=== PATIENT | male | born 1950 | race Caucasian/White ===

== ENCOUNTER 2021-06-28 09:18 | Inpatient (IN) | payer MEDICARE, OTHER ==
[~2021-06-28] VITALS: Ht 180.3 cm; Wt 136.9 kg
[2021-06-28] MEDS ORDERED: LACTULOSE SYRUP 10GM/15ML (ENULOSE) 30ML UDC PO PRN (12:00)
[2021-06-28] MEDS ORDERED: CALCIUM CARBONATE 500 MG (TUMS) TAB.CHEW PO PRN (12:00)
[2021-06-28] MEDS ORDERED: BISACODYL 10 MG SUPP (DULCOLAX) PR PRN (12:00)
[2021-06-28] MEDS ORDERED: guaiFENesin/CODEINE (ROBITUSSIN AC) 10ML UDC PO PRN (12:00)
[2021-06-28] MEDS ORDERED: MELATONIN 3 MG TABLET PO PRN (12:00)
[2021-06-28] MEDS ORDERED: LOPERAMIDE 2 MG (IMODIUM) TABLET PO PRN (12:00)
[2021-06-28] MEDS ORDERED: ALPRAZolam 0.25 MG (XANAX) TAB PO PRN (12:00)
[2021-06-28] MEDS ORDERED: DOCUSATE SODIUM 100 MG (COLACE) CAP PO PRN (12:00)
[2021-06-28] MEDS ORDERED: ONDANSETRON 4 MG (ZOFRAN) ORAL DISSOLVE TAB PO PRN (12:00)
[2021-06-28] MEDS ORDERED: FLEET ENEMA ADULT 1 EA BTL PR PRN (12:00)
[2021-06-28] MEDS ORDERED: diphenhydrAMINE 25 MG TAB (BENADRYL) PO PRN (12:00)
[2021-06-28] MEDS ORDERED: ACET325C7 PO (14:31)
[2021-06-28] MEDS ORDERED: AMLO-251 PO (14:31)
[2021-06-28] MEDS ORDERED: WHEA1POW6 PO (14:35)
[2021-06-28] MEDS ORDERED: BISA10SU8 RC (14:35)
[2021-06-28] MEDS ORDERED: POLY17PO6 PO (14:35)
[2021-06-28] MEDS ORDERED: MAGN400O7 PO (14:35)
[2021-06-28] MEDS ORDERED: FAMO20TA3 PO (14:35)
[2021-06-28] MEDS ORDERED: ATOR40TA70 PO (14:35)
[2021-06-28] MEDS ORDERED: BISA5TAB8 PO (14:35)
[2021-06-28] MEDS ORDERED: DOCU100C37 PO (14:35)
[2021-06-28] MEDS ORDERED: SENN-145 PO (14:35)
--- NOTE | 2021-06-28 15:08 | Physical Therapy Evaluation ---
PT Evaluation-General Medical Diagnosis Admission Date Jun 28, 2021 at 13:35 Medical Diagnosis: CVA Onset Date: Jun 20, 2021 Therapy Diagnosis Therapy Diagnosis: impaired mobility, strength, endurance, balance Referral Physician: Elizabeth Cook DO Reason for Referral: Evaluation/Treatment Medical History Reviewed History: Yes Social History Home: Single Level Current Living Status: Spouse Entry Into Home: Stairs Without Railing PT Steps Into Home: 2 Prior Prior Level of Function SCALE: Activities may be completed with or without assistive devices. 5-Ploypncqvj-bbtkfyw completes the activity by him/herself with no assistance from a helper. 5-Set-up or Clean-up Assistance-helper sets up or cleans up; patient completes activity. [place] assists only prior to or following the activity. 4-Supervision or Touching Assistance-helper provides verbal cues and/or touching/steadying and/or contact guard assistance as patient completes activity. Assistance may be provided throughout the activity or intermittently. 3-Partial/Moderate Assistance-helper does LESS THAN HALF the effort. [place] lifts, holds or supports trunk or limbs, but provides less than half the effort. 2-Substantial/Maximal Assistance-helper does MORE THAN HALF the effort. [place] lifts or holds trunk or limbs and provides more than half the effort. 5-Drpzvtlkx-iiyxve does ALL the effort. Patient does none of the effort to complete the activity. Or, the assistance of 2 or more helpers is required for the patient to complete the activity. If activity was not attempted, code reason: 7-Patient Refused. 9-Not Applicable-not attempted and the patient did not perform the activity before the current illness, exacerbation or injury. 10-Not Attempted due to Environmental Limitations-(lack of equipment, weather restraints, etc.). 88-Not Attempted due to Medical Conditions or Safety Concerns. Bed Mobility: 6 Transfers (B,C,W/C): 6 Gait: 6 Stairs: 6 Indoor Mobility (Ambulation): Independent Stairs: Independent PT Evaluation-Current Subjective Patient arrives by family transport. Has no complaints of pain, agrees to PT. Will be co-treating with OT for part of tx due to poor patient mobility, strength, endurance, balance, impulsivity, coordinate UE and LE during activity, safety and reduce risk of falls. Pt/Family Goals to be independent at home Objective Patient Orientation: Person, Place, Non-Verbal/Aphasic, Situation ROM/Strength ROM Lower Extremities WNL Strength Lower Extremities LLE (hip flexion 3+/5, knee flexion 4+/5, knee extension 5/5, dorsiflexion 5/5), RLE (hip flexion 3/5, knee flexion 3+/5, knee extension 4+/5, dorsiflexion 4/5) Sensory Vision: Functional Hearing: Functional Sensation Right Lower Extremit: Intact Sensation Left Lower Extremity: Intact Transfers Roll Left & Right (QC): 4 Sit to Lying (QC): 3 Lying to Sitting/Side of Bed(Q: 3 Sit to Stand (QC): 3 Chair/Why-mp-Quwzc Xfer(QC): 3 Toilet Transfer (QC): 3 Car Transfer (QC): 3 Patient performs bed mobility with SBA, supine <-> sit mod assist, sit <-> stand min assist, transfers min assist, car transfer min assist. Patient needs frequent cues for safety and positioning. He transfers better to the left side than the right. Gait Does the Patient Walk?: Yes Mode of Locomotion: Walk Anticipated Mode of Locomotion: Walk Walk 10 feet (QC): 3 Walk 50 ft with 2 Turns(QC): 3 Walk 150 ft (QC): 88 Walking 10ft/uneven surface-QC: 88 Distance: 120'x2 Gait Assistive Device: FWW Comments/Gait Description Patient can ambulate 120' with a rolling walker with min assist (including 50' with at least 2 turns of 90 degrees). Patient needs assist to help guide walker and with keeping right hand on walker. Unsteady but no LOB, occasional cues to slow down. Wheelchair Training Does the Pt Use a Wheelchair?: No Wheel 50 ft with 2 turns (QC): 9 Wheel 150 ft (QC): 9 Stairs 1 Step (curb) (QC): 88 4 Steps (QC): 88 12 Steps (QC): 88 Balance Sitting Static: Normal Sitting Dynamic: Fair Standing Static: Poor Standing Dynamic: Poor Picking up an Object (QC): 88 Treatment PT performed standing and positioning and safety during bathing and dressing, and ADL's. Also performed BLE seated exercises x20 (AP, marching), LAQ alter nating for 5 min. PT performed bed mobility and transfers, ambulation, OT performed bathing, dressing, ADL's, UE positioning and safety during activity. Assessment/Needs Patient in recliner post tx with nurse call, phone, tray, chair alarm on. Patient has impaired mobility, strength, endurance, balance. Patient needs min assist with sit to stand and transfers. Patient is having blood pressure issues and it started out at 192/97 (99%, 66bpm), checked several other times and it was 182/103, 171/107, 188/90. Treatment was adjusted to this. Rehab Potential: Fair PT Short Term Goals Short Term Goals Time Frame: Jul 05, 2021 Roll Left & Right: 6 Sit to lyin Lying to sitting on side of be: 3 Sit to stand: 4 Chair/ulo-xc-zkdqj transfer: 4 Walk 10 feet: 4 Walk 50 feet with two turns: 4 Walk 150 feet: 4 PT Usp Goals Usp Goals PT Social Secretary Goals Time Frame: Jul 19, 2021 Roll Left & Right (QC): 6 Sit to Lying (QC): 6 Lying-Sitting on Side/Bed(QC): 6 Sit to Stand (QC): 4 (SBA) Chair/Lvn-ae-Glzyt Xfer(QC): 4 (SBA) Toilet Transfer (QC): 4 (SBA) Car Transfer (QC): 4 (SBA) Does the Patient Walk: Yes Walk 10 feet (QC): 4 (SBA) Walk 50ft with 2 Turns (QC): 4 (SBA) Walk 150 ft (QC): 4 (SBA) Walking 10ft on Uneven Surface: 4 (SBA) 1 Step (curb) (QC): 4 (CGA) 4 Steps (QC): 4 (CGA) 12 Steps (QC): 88 Picking up an Object (QC): 4 (CGA) Wheel 50 feet with 2 turns (QC: 9 Wheel 150 feet: 9 PT Plan Problem List Problem List: Activity Tolerance, Functional Strength, Safety, Balance, Gait, Transfer, Bed Mobility, ROM Treatment/Plan Treatment Plan: Continue Plan of Care Treatment Plan: Bed Mobility, Education, Functional Activity Tenz[place], Functional Strength, Group Therapy, Gait, Safety, Therapeutic Exercise, Transfers Treatment Duration: Jul 19, 2021 Frequency: At least 5 of 7 days/Wk (IRF) Estimated Hrs Per Day: 1.5 hours per day Patient and/or Family Agrees t: Yes Safety Risks/Education Patient Education: Gait Training, Transfer Techniques, Correct Positioning, W/C Management, Safety Issues Teaching Recipient: Patient Teaching Methods: Demonstration, Discussion Response to Teaching: Reinforcement Needed Discharge Recommendations Plan Patient will perform bed mobility and transfer training, balance and endurance training, functional strengthening, stair training, gait training, and education, to improve functional mobility and independence at home. Therapy Discharge Recommendati: Scheduled Assistance, Home & Family, Post Acute PT Time/GCodes Time In: 1335 Time Out: 1515 Total Billed Treatment Time: 90 Total Billed Treatment 1 visit EVM 10' EX 15' FA 65' PT eval from [id number], OT eval from [id number], co-treat from [id number] MONTRELL DIALLO PT Jun 28, 2021 15:08
[2021-06-28] MEDS ORDERED: APIX5TAB PO (15:13)
[2021-06-28] MEDS ORDERED: GUAR1PAC4 PO (15:17)
--- NOTE | 2021-06-28 15:18 | Occupational Therapy Eval ---
OT Evaluation-General/PLF Medical Diagnosis Admission Date Jun 28, 2021 at 13:35 Medical Diagnosis: CVA Onset Date: Jun 20, 2021 Therapy Diagnosis Therapy Diagnosis: decreased ADL Status, aphasia Referral Physician: Joyce Saul Reason: Evaluation/Treatment Medical History Additional Medical History new onset afib, obesity, former smoker, bradycardia Current History acute L MCA CVA s/p thrombectomy Social History Home: Single Level Current Living Status: Spouse Entry Into Home: Stairs Without Railing Steps Into Home: 2 ADL-Prior Level of Function SCALE: Activities may be completed with or without assistive devices. 7-Fmkzpwbjfw-dpwmnqe completes the activity by him/herself with no assistance from a helper. 5-Set-up or Clean-up Assistance-helper sets up or cleans up; patient completes activity. [place] assists only prior to or following the activity. 4-Supervision or Touching Assistance-helper provides verbal cues and/or touching/steadying and/or contact guard assistance as patient completes activity. Assistance may be provided throughout the activity or intermittently. 3-Partial/Moderate Assistance-helper does LESS THAN HALF the effort. [place] lifts, holds or supports trunk or limbs, but provides less than half the effort. 2-Substantial/Maximal Assistance-helper does MORE THAN HALF the effort. [place] lifts or holds trunk or limbs and provides more than half the effort. 0-Siigzfkwn-vhsskj does ALL the effort. Patient does none of the effort to complete the activity. Or, the assistance of 2 or more helpers is required for the patient to complete the activity. If activity was not attempted, code reason: 7-Patient Refused. 9-Not Applicable-not attempted and the patient did not perform the activity before the current illness, exacerbation or injury. 10-Not Attempted due to Environmental Limitations-(lack of equipment, weather restraints, etc.). 88-Not Attempted due to Medical Conditions or Safety Concerns. ADL PLOF Comments Pt independent with ADLs and functional mobility at PLOF, no AE/AD Self Care: Independent Functional Cognition: Independent DME/Equipment: Tub/Shower OT Current Status Subjective Pt agreeable to OT tx. Noted expressive aphasia throughout tx, pt had difficulty with word finding and communicating what he wants to say. Mental Status/Objective Patient Orientation: Person, Place, Non-Verbal/Aphasic (expressive aphasia), Situation Current Glasses/Contacts: Yes Hearing Aids: No Dentures/Partials: Yes Hand Dominance: Left Upper Extremity ROM LUE WFL RUE decreased. shoulder flexion to approx 90 degrees. elbow flexion and extension, wrist flexion/extension, and finger flexion/extension present but limited. Upper Extremity Coordination decreased RUE Upper Extremity Sensation Pt denies tingling/numbness BUEs, intact light touch. Upper Extremity Strength LUE WFL grossly 4+/5 RUE WFL grossly 4-/5 ADL-Treatment Eating (QC): 5 (based on clincial judgment, assistance with cutting food and opening contianers. Pt left handed and able to use LUE) Oral Hygiene (QC): 4 (set up of toothpaste onto toothbrush, supervision during task. ) Shower/Bathe Self (QC): 3 (Min A. Pt required assistance with buttocks, BLE lower legs/feet. Pt able to wash other parts seated on WA, min A in stand for pericare) Upper Body Dressing (QC): 3 (Mod A. assistance opening shirt and threading RUE and assist managing down the trunk. Pt able to thread overhead and LUE) Lower Body Dressing (QC): 2 (Max A overall. Assist to thread BLEs, asisst with pant hike in back. Pt assisted with pant hike as able) On/Off Footwear (QC): 2 (Pt doffed R sock, assist doffing L. Assist donning BLE gripper socks.) Toileting Hygiene (QC): 2 (assist with clothing management and washing buttocks. Pt able to perform pericare.) Other Treatments OT evaluation complete. OT/PT cotreat due to skill of 2 clinicians required which a rehabilitation therapist could not perform in order to coordinate UE/LEs, decrease fall risk, and due to pt's limitations in strength, mobility, balance, activity tolerance, and impulsivity. OT focused on UE placement, cues for sequencing and safety, and ADLs, PT focused on LE placement, gross overall movement, transfers/mobility. Pt performed functional mobility around [facility] common area and into gym. BP 192/97 (99% O2 and 66bpm), BP checked several other times, 182/103, 171/107, and 188/90. Nurse present. Treatment was adjusted due to BP. Pt taken to room via w/c, transferred to WA. Pt completed shower and dressing, then sat at sink for oral care. Pt transferred to recliner. Post tx, pt up in recliner, call light in reach and all needs met. SBA bed mobility, supine to/from sit mod A, sit to/from stand min A, min A transfer, min A car transfer. Frequent cues required for safety and positioning, and cues for placement of RUE with transfers. Pt can perform functional mobility 120' with min A using FWW, needs assistance guiding walker and keeping RUE onto walker. Slight unsteadiness but no LOB, occasional cues to slow down. Education OT Patient Education: Correct positioning, Energy conservation, Exercise program, Modified ADL techniques, Progress toward Goal/Update tx plan, Purpose of tx/functional activities, Rehab process, Safety issues, Transfer techniques Teaching Recipient: Patient Teaching Methods: Discussion Response to Teaching: Verbalize Understanding OT Short Term Goals Short Term Goals Time Frame: Jul 12, 2021 Toileting hygiene: 4 Upper body dressin Lower body dressin Putting on/taking off footwear: 4 OT Jail Goals Jail Goals Time Frame: Jul 21, 2021 Eating (QC): 6 Oral Hygiene (QC): 6 Toileting Hygiene (QC): 6 Shower/Bathe Self (QC): 6 Upper Body Dressing (QC): 6 Lower Body Dressing (QC): 6 On/Off Footwear (QC): 6 Additional Goals: 1-Demonstrate ADL Tasks, 2-Verbalize Understanding, 3- ImproveStrength/[place] 1=Demonstrate adherence to instructed precautions during ADL tasks. 2=Patient will verbalize/demonstrate understanding of assistive de vices/modifications for ADL. 3=Patient will improve strength/tolerance for activity to enable patient to perform ADL's. OT Education/Plan Problem List/Assessment Assessment: Decreased Activ Tolerance, Decreased Safety Aware, Decreased UE Strength, Impaired Cognition, Impaired Funct Balance, Impaired I ADL's, Impaired Self-Care Skills, Restricted Funct UE ROM Discharge Recommendations Plan/Recommendations: Continue POC Therapy Discharge Recommendati: Scheduled Assistance, Home & Family, Post Acute OT Equpiment Recommendations-D/C: Extended Bath Bench Treatment Plan/Plan of Care Patient would benefit from OT for education, treatment and training to promote independence in ADL's, mobility, safety and/or upper extremity function for ADL's. Plan of Care: ADL Retraining, Cognitive Retraining, Functional Mobility, Group Exercise/Act as Ind, UE Funct Exercise/Act, UE Neuromus Re-Ed/Coord Treatment Duration: Jul 21, 2021 Frequency: At least 5 of 7 days/Wk (IRF) Estimated Hrs Per Day: 1.5 hours per day Rehab Potential: Fair Time/GCodes Start Time: 13:45 Stop Time: 15:15 Total Time Billed (hr/min): 90 Billed Treatment Time 8522-0352 OT eval, [id number] OT/PT cotreat 1, EVM (10'), FA 2 (35'), ADL 3 (45') JAZIEL ROCHA OT Jun 28, 2021 15:18
--- NOTE | 2021-06-28 16:44 | Progress Note ---
EBNY RODRIGUES 06/28/21 1644: Progress Note HPI: 70 yo M presented to the ED on 06-20-21 due to falling from a stroke and was not able to ambulate. He does not receive regular health checks and does not have a PCP. Workup at [facility] showed Acute Left MCA stroke with left sided weakness and was unable to speak so his spoke for him. The hospital performed thrombectomy but the clot was unable to be retrieved and no tPA was administered. He was also found to have new onset atrial fibrillation and blood pressure elevated into the 250s. He has had bradycardia where is HR dropped to the 20s but was treated with atropine 1mg. On 06-26-21 is only medication for HTN was amlodipine 10mg daily, since he still has HTN he was additionally treated with furosemide 20mg. EP evaluated the patient and determined no indication for pacemaker or intervention of any kind at this time, cardiology signed off. Also reported urinary urgency. Was given DVT prophylaxis with lovenox and GI pro phylaxis with famotidine. Was assessed as a great candidate for PT and OT and was transferred to [facility] in [place]. 06-28-21 PT reports walking 120 feet with walker with minimal assistance and can sit and stand without help. He lives in a house with one set of stairs. On this day his was not present, difficulty getting an accurate history due to communication problems. He reports intact group home memory. He has difficulty with dressing and aphasia throughout our conversation. He reports that his speech has been improving since being admitted to the ED as well as his muscle strength. He had some difficulty finding words to communicate, but was able to answer questions appropriately. Reports she wants intubation if needed but no resuscitation. ROS: Has been able to urinate and have bowel movements but reports urinary incontinence at night. Denies CP, SOB, Fever, N/V, dizziness, or pain. PSH: none PMH: Atrial fibrillation on 06-20-21 Meds: see medications folder, but no prior medication before he was seen in the ED Allergies: NKDA, no food or environmental allergies FH: Father-stroke, brother- stroke and CAD SH: denies tobacco, alcohol, or drug use. 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 Objective: General: alert, trouble speaking, one side of face is drooping Heart: RRR, no murmur Respiratory: normal sounds, no roles, no wheezing Neuro: CN 2-12 intact with right facial droop and some difficulty moving tongue. LE strength is 5/5, UE strength of left side is 5/5 with right side strength 3/5. Sensation intact UE and LE b/l, pain intact to UE b/l. Cerebellar function with finger to nose intact. A and P: Atrial Fibrillation Bradycardia Cerebral Infarction of Left middle Cerebral A. HTN No treatment needed for bradycardia by EP and cardiology from [place], monitor heart rate. Monitor for worsening neurological symptoms. Monitor HTN and develop regional intermodal truck driver treatment plan including statins if elevated lipid panel. Continue with PT and OT to overcome stairs and other obstacles at home. ELIZABETH BUTCHER DO 06/29/21 0521: Supervisory-Addendum Brief Verification & Attestation Participated in pt care: history, MDM, physical Personally performed: exam, history, MDM, supervision of care Care discussed with: Medical Student Procedures: n/a Results interpretation: Verified all documentation Verification and Attestation of Medical Student E/M Service A medical student performed and documented this service in my presence. I reviewed and verified all information documented by the medical student and made modifications to such information, when appropriate. I personally performed the physical exam and medical decision making. Elizabeth Butcher, Jun 29, 2021,05:21 BENY RODRIGUES Jun 28, 2021 16:44 ELIZABETH BUTCHER DO Jun 29, 2021 05:21
[2021-06-28] MEDS ORDERED: BISACODYL 10 MG SUPP (DULCOLAX) RC PRN (16:45)
[2021-06-28] MEDS ORDERED: BISACODYL 5 MG (DULCOLAX) TABLET PO PRN (16:45)
[2021-06-28] MEDS ORDERED: NON-FORMULARY MEDICATION 1 EA EA (Acetaminophen (Tylenol) 650 MG) PO PRN (16:45)
[2021-06-28] MEDS ORDERED: hydrALAZINE (APRESOLINE) 25 MG TAB PO PRN (16:45)
[2021-06-28] MEDS ORDERED: SENNA W/DOCUSATE (SENOKOT S) TABLET PO PRN (16:45)
[2021-06-28] MEDS ORDERED: ACETAMINOPHEN 325 MG TABLET PO PRN (17:00)
[2021-06-28 20:00] VITALS: BP 162/80
[2021-06-28] MEDS: APIXABAN 5 MG (ELIQUIS) TABLET PO SCH (20:29)
[2021-06-28] MEDS: DOCUSATE SODIUM 100 MG (COLACE) CAP PO SCH (20:29)
[2021-06-28] MEDS: polyethylene glycoL POWDER 17 GM (MIRALAX) PACK PO SCH (20:29)
[2021-06-28] MEDS: SENNA W/DOCUSATE (SENOKOT S) TABLET PO SCH (20:30)
--- NOTE | 2021-06-28 20:59 | PM&R Post Admission Assessment ---
PM&R HP Date of Visit: Jun 28, 2021 Time of Visit: 18:30 History of Present Illness CC: CVA HPI: This is a 70yoWM who presents from [facility] who was transferred there after suffering an acute left-sided stroke with right-sided weakness. He did have significant bradycardia, cardiology consulted, no indication for pacemaker but it was felt that he either had a ischemic stroke vs. embolic. Pt is in need of aggressive therapy in order to return back to independent living. 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 He does not receive regular health checks and does not have a PCP. Workup at [facility] showed Acute Left MCA stroke with right sided weakness and was unable to speak so his spoke for him. The hospital performed thrombectomy but the clot was unable to be retrieved and no tPA was administered. He was also found to have new onset atrial fibrillation and blood pressure elevated into the 250s. He has had bradycardia where is HR dropped to the 20s but was treated with atropine 1mg. On 06-26-21 is only medication for HTN was amlodipine 10mg daily, since he still has HTN he was additionally treated with furosemide 20mg. EP evaluated the patient and determined no indication for pacemaker or intervention of any kind at this time, cardiology signed off. Also reported urinary urgency. Was given DVT prophylaxis with lovenox and GI prophylaxis with famotidine. Was assessed as a great candidate for PT and OT and was transferred to [facility] in [place]. 06-28-21 PT reports walking 120 feet with walker with minimal assistance and can sit and stand without help. He lives in a house with one set of stairs. On this day his was not present, difficulty getting an accurate history due to communication problems. 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 He has difficulty with dressing and aphasia throughout our conversation. He reports that his speech has been improving since being admitted to the ED as well as his muscle strength. He had some difficulty finding words to communicate, but was able to answer questions appropriately. Reports she wants intubation if needed but no resuscitation. ROS: Has been able to urinate and have bowel movements but reports urinary incontinence at night. Denies CP, SOB, Fever, N/V, dizziness, or pain. PSH: none PMH: Atrial fibrillation on 06-20-21 Meds: see medications folder, but no prior medication before he was seen in the ED Allergies: NKDA, no food or environmental allergies FH: Father-stroke, brother- stroke and CAD SH: denies tobacco, alcohol, or drug use. 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 Objective: General: alert, trouble speaking, one side of face is drooping Heart: RRR, no murmur Respiratory: normal sounds, no roles, no wheezing Neuro: CN 2-12 intact with right facial droop and some difficulty moving tongue. LE strength is 5/5, UE strength of left side is 5/5 with right side strength 3/5. Sensation intact UE and LE b/l, pain intact to UE b/l. Cerebellar function with finger to nose intact. A and P: Atrial Fibrillation Bradycardia Cerebral Infarction of Left middle Cerebral A. HTN No treatment needed for bradycardia by EP and cardiology from [place], monitor heart rate. Monitor for worsening neurological symptoms. Monitor HTN and develop residential treatment plan including statins if elevated lipid panel. Continue with PT and OT to overcome stairs and other obstacles at home. DIMITRI Jett Past Szomcap-Kkohgp-Ekxxjt Hx Past Med/Social Hx: Reviewed Nursing Past Med/Soc Hx, Reviewed and Corrections made Patient Social History Marrital Status: Employed/Student: retired Smoking Status: Never a Smoker Past Medical History Neurological: Stroke Prior Level of Function Bed Mobility: 6 Transfers: 6 Gait: 6 Stairs: 6 Indoor Mobility (Ambulation): Independent Stairs: Independent Self Care: Independent Functional Cognition: Independent Current Level of Fuctioning Roll Left to Right: 4 Sit to Lyin Lying to Sitting/Side of Bed: 3 Sit to Stand: 3 Chair/Cil-xq-Frwbt Xfer: 3 Car Transfer: 3 Does the Patient Walk: Yes Mode of Locomotion: Walk Anticipated Mode of Locomotion: Walk Walk 10 feet: 3 Walk 50 ft with 2 Turns: 3 Walk 150 ft: 88 Walking 10ft on uneven surface: 88 Gait Assistive Device: FWW Does the Pt Use a Wheelchair: No Wheel 50 ft with 2 turns: 9 Wheel 150 ft: 9 1 Step (curb): 88 4 Steps: 88 12 Steps: 88 Picking up an Object: 88 Eatin (based on clincial judgment, assistance with cutting food and opening contianers. Pt left handed and able to use LUE) Oral Hygiene: 4 (set up of toothpaste onto toothbrush, supervision during task. ) Shower/Bathe Self: 3 (Min A. Pt required assistance with buttocks, BLE lower legs/feet. Pt able to wash other parts seated on SC, min A in stand for pericare) Upper Body Dressin (Mod A. assistance opening shirt and threading RUE and assist managing down the trunk. Pt able to thread overhead and LUE) Lower Body Dressin (Max A overall. Assist to thread BLEs, asisst with pant hike in back. Pt assisted with pant hike as able) On/Off Footwear: 2 (Pt doffed R sock, assist doffing L. Assist donning BLE gripper socks.) Toileting Hygiene: 2 (assist with clothing management and washing buttocks. Pt able to perform pericare.) PM&R Allergy/Meds/Data Review Allergies Coded Allergies: No Allergy Information Available (Unverified , 06/28/21) Home Medications Scheduled Amlodipine Besylate (Amlodipine Besylate), 10 MG PO DAILY, (Reported) Apixaban (Eliquis), 5 MG PO BID, (Reported) Atorvastatin Calcium (Atorvastatin Calcium), 40 MG PO HS, (Reported) Docusate Sodium (Docusate Sodium), 100 MG PO BID, (Reported) Famotidine (Acid Polisher Hand (FAMOTIDINE)), 20 MG PO DAILY, (Reported) Guar Gum (Nutrisource Fiber), 1 EACH PO DAILY, (Reported) Magnesium Hydroxide (Milk of Magnesia), 15 ML PO DAILY, (Reported) Polyethylene Glycol 3350 (Miralax), 17 GM PO DAILY, (Reported) Scheduled PRN Acetaminophen (Tylenol), 650 MG PO Q4H PRN for PAIN-MILD (1-4), (Reported) Bisacodyl (Bisacodyl), 5 MG PO HS PRN for CONSTIPATION-4TH LINE, (Reported) Bisacodyl (Bisacodyl), 10 MG RC HS PRN for CONSTIPATION-4TH LINE, (Reported) Sennosides/Docusate Sodium (Senna S Tablet), 2 EACH PO BID PRN for CONSTIPATION- 6TH LINE, (Reported) Discontinued Medications Wheat Dextrin (Benefiber), 1 EACH PO DAILY, (Reported) Discontinued Reason: Prescription changed Current Medications Current Medications Reviewed Review of Systems Constitutional: see HPI, malaise, weakness EENTM: no symptoms reported Respiratory: no symptoms reported Cardiovascular: no symptoms reported Gastrointestinal: no symptoms reported Genitourinary: no symptoms reported Musculoskeletal: back pain, joint pain Skin: no symptoms reported Psychiatric/Neurological: Weakness All Other Systems Reviewed Negative Unless Noted: Yes Physical Exam Physical Exam Vital Signs Vital Signs - First Documented 06/28/21 16:05 O2 Delivery Room Air Capillary Refill : Height, Weight, BMI Height: '" Weight: lbs. oz. kg; 41.68 BMI Method: General Appearance: No Apparent Distress, WD/WN, Chronically ill, Obese Eyes: Bilateral Eye Normal Inspection, Bilateral Eye PERRL HEENT: PERRL/EOMI, Normal ENT Inspection, Pharynx Normal Neck: Full Range of Motion, Normal Inspection, Non Tender, Supple, Carotid Bruit Respiratory: Chest Non Tender, Lungs Clear, Normal Breath Sounds, No Accessory Muscle Use, No Respiratory Distress Cardiovascular: Regular Rate, Rhythm, No Edema, No Gallop, No JVD, No Murmur, Normal Peripheral Pulses Gastrointestinal: Normal Bowel Sounds, No Organomegaly, No Pulsatile Mass, Non Tender, Soft Back: Normal Inspection, No CVA Tenderness, No Vertebral Tenderness Extremity: Normal Capillary Refill, Normal Inspection, Normal Range of Motion, Non Tender, No Calf Tenderness, No Pedal Edema Neurologic/Psychiatric: Alert, Oriented x3, Normal Mood/Affect, psychiatric social worker supervisor II-XII Norm as Tested, Abnormal Gait, Aphasia, Facial Droop (Right-sided), Motor Weakness (Right-sided weakness) Skin: Normal Color, Warm/Dry Lymphatic: No Adenopathy PM&R Medical Assessment & Plan REHAB/MEDICAL ASSESSMENT AND PLAN: REHAB IMPAIRMENT GROUP: CVA ETIOLOGIC DIAGNOSIS: CVA The comorbidities that impact the patients function and/or functional outcome by: Increased BMI, right-sided weakness, aphasia REHAB PLAN: The patient is being admitted to our comprehensive inpatient rehabilitation facility and can tolerate the intensity of service consisting of at least: 180 minutes of therapy a day, 5 out of 7 days a week Rehab treatment will consist of: PT and OT will focus on increasing ambulation and increasing independent ADLs and speech therapy will focus on aphasia in o rder to return back to independent living The patient/family has a good understanding of our discharge process and will benefit from an interdisciplinary inpatient rehabilitation program. The patient has potential to make improvement and is in need of at least two of the following multidisciplinary therapies including but not limited to physical, occupational, speech, and prosthetics and orthotics. Additionally the patient will need services from respiratory, nutritional services, wound care, psychology, etc. (Customize this to each patient). Given the patients complex condition and risk of further medical complications, rehabilitation services cannot be safely or effectively provided at a lower level of care such as a senior living facility. BARRIERS TO DISCHARGE: Right-sided weakness with aphasia ESTIMATED LOS: 2 weeks DISPOSITION: Home RELEVANT CHANGES SINCE PREADMISSION SCREENING: I have compared the patients medical and functional status at the time of the preadmission screening and there are: No changes PROGNOSIS: Good REHABILITATION GOALS: 1. PT and OT will focus on increasing ambulation and increasing independent ADLs and speech therapy will focus on aphasia in order to return back to independent living All the above goals were reviewed with the patient and he/she is in agreement. By signing this document, I acknowledge that I have personally performed a full physical examination on this patient within 24 hours of admission to this inpatient rehabilitation facility and have determined the patient to be able to tolerate the above course of treatment at an intensive level for a reasonable period of time. I will be completing a detailed individualized Plan of Care for this patient by day #4 of the patients stay based upon the Preadmission Screen, the Post-Admission Evaluation, and the therapy evaluations. Admission Dx/Comorbidities: (1) CVA (cerebral vascular accident) ICD Codes: I63.9 - Cerebral infarction, unspecified Assessment/Plan Assessment and Plan Assess & Plan/Chief Complaint Assessment: CVA with right-sided weakness Right-sided facial droop Aphasia Paroxysmal atrial fibrillation? Oral anticoagulation Plan: Aggressive therapy Speech therapy Cardiology consult Monitor closely TOBIAS BUTCHER DO Jun 28, 2021 20:59
[2021-06-28] MEDS ORDERED: DOCUSATE SODIUM 100 MG (COLACE) CAP PO SCH (21:00)
[2021-06-28] MEDS ORDERED: polyethylene glycoL POWDER 17 GM (MIRALAX) PACK PO SCH (21:00)
[2021-06-29 05:48] LABS: BASOPHILS % (AUTO) 1 % (0-10); EOSINOPHILS # (AUTO) 0.1 10^3/uL (0.0-0.3); EOSINOPHILS % (AUTO) 2 % (0-10); HEMATOCRIT 45 % (40-54); HEMOGLOBIN 14.5 g/dL (13.3-17.7); LYMPHOCYTES # (AUTO) 1.3 10^3/uL (1.0-4.0); LYMPHOCYTES % (AUTO) 15 % (12-44); MEAN CORPUSCULAR HEMOGLOBIN 29 pg (25-34); MEAN CORPUSCULAR HGB CONC 32 g/dL (32-36); MEAN CORPUSCULAR VOLUME 89 fL (80-99); MEAN PLATELET VOLUME 10.2 fL (9.0-12.2); MONOCYTES # (AUTO) 0.9 10^3/uL (0.0-1.0); MONOCYTES % (AUTO) 11 % (0-12); NEUTROPHILS # (AUTO) 6.4 10^3/uL (1.8-7.8); NEUTROPHILS % (AUTO) 72 % (42-75); PLATELET COUNT 241 10^3/uL (130-400); WHITE BLOOD COUNT 8.8 10^3/uL (4.3-11.0)
[2021-06-29 06:04] LABS: ALBUMIN 3.6 GM/DL (3.2-4.5); POTASSIUM 4.2 MMOL/L (3.6-5.0)
[2021-06-29 06:05] LABS: CALCIUM 9.8 MG/DL (8.5-10.1)
[2021-06-29 06:06] LABS: TOTAL PROTEIN 6.8 GM/DL (6.4-8.2)
[2021-06-29 06:08] LABS: BILIRUBIN,TOTAL 1.3 MG/DL (0.1-1.0)
[2021-06-29 06:10] LABS: CREATININE SERUM 1.37 MG/DL (0.60-1.30)
[2021-06-29 07:32] LABS: TRIGLYCERIDES 74 MG/DL (<150); VLDL CHOLESTEROL 15 MG/DL (5-40)
[2021-06-29 07:37] LABS: CHOLESTEROL 100 MG/DL (< 200); HDL CHOLESTEROL 26 MG/DL (40-60)
[2021-06-29 07:43] VITALS: BP 139/69
[2021-06-29] MEDS: DOCUSATE SODIUM 100 MG (COLACE) CAP PO SCH ×2 (08:36→20:30)
[2021-06-29] MEDS: MILK OF MAGNESIA 400 MG/5 ML 30 ML UDC PO SCH (08:36)
[2021-06-29] MEDS: SENNA W/DOCUSATE (SENOKOT S) TABLET PO SCH ×2 (08:37→20:31)
[2021-06-29] MEDS: APIXABAN 5 MG (ELIQUIS) TABLET PO SCH ×2 (08:52→20:30)
[2021-06-29] MEDS: amLODIPine 10 MG (NORVASC) TAB PO SCH (08:52)
[2021-06-29] MEDS: FAMOTIDINE 20 MG (PEPCID) TABLET PO SCH (08:52)
[2021-06-29] MEDS ORDERED: GUAR GUM PO SCH (09:00)
--- NOTE | 2021-06-29 10:46 | Occupational Ther Daily Note ---
OT Current Status-Daily Note Subjective Pt up in chair agreeable to OT Tx. Slight expressive aphasia on this date, his speech appeared better than yesterday. Mental Status/Objective Patient Orientation: Person, Place, Non-Verbal/Aphasic (slight expressive aphasia), Situation ADL-Treatment Therapy Code Descriptions/Definitions Functional [place] Measure: 0=Not Assessed/NA 4=Minimal Assistance 1=Total Assistance 5=Supervision or Setup 2=Maximal Assistance 6=Modified [place] 3=Moderate Assistance 7=Complete IndependenceSCALE: Activities may be completed with or without assistive devices. 2-Sjjlcpxaqm-umggkku completes the activity by him/herself with no assistance from a helper. 5-Set-up or Clean-up Assistance-helper sets up or cleans up; patient completes activity. [place] assists only prior to or following the activity. 4-Supervision or Touching Assistance-helper provides verbal cues and/or touching/steadying and/or contact guard assistance as patient completes activity. Assistance may be provided throughout the activity or intermittently. 3-Partial/Moderate Assistance-helper does LESS THAN HALF the effort. [place] lifts, holds or supports trunk or limbs, but provides less than half the effort. 2-Substantial/Maximal Assistance-helper does MORE THAN HALF the effort. [place] lifts or holds trunk or limbs and provides more than half the effort. 6-Jdxnobuqr-cakjgn does ALL the effort. Patient does none of the effort to complete the activity. Or, the assistance of 2 or more helpers is required for the patient to complete the activity. If activity was not attempted, code reason: 7-Patient Refused. 9-Not Applicable-not attempted and the patient did not perform the activity before the current illness, exacerbation or injury. 10-Not Attempted due to Environmental Limitations-(lack of equipment, weather restraints, etc.). 88-Not Attempted due to Medical Conditions or Safety Concerns. On/Off Footwear: 2 (Max A overall, education provided on AE) Other Treatment Pt up in recliner, agreeable to OT Tx. OT went to gather pt's pants to don, looking in the laundry room. While OT was gone, pt's arrived and had assisted pt with threading BLEs into pants. Upon OT arrival, Pt stood at FWW, Mod A sit to stand with cues for UE placement. Pt able to assist with pants on L side, as pt was attempting pants, pt's assisted pt with pant hike on R side and back side. Pt used FWW to perform functional mobility to therapy gym. OT tx focused on increasing functional use RUE, neuromuscular reeducation of RUE, fine motor coordination and strength. Pt completed peg task, removing x12, 1" pegs from pegboard using RUE. He then completed cone task, reach for cones across table, and placing them in a stack. Pt required min-mod verbal cues in order to open up fingers completely to grasp cones. OT provided pt with red acoustical installer sponge, pt completed x20 squeezes with R hand, pt educated on completing 3 jaw beatrice and tip to tip pinches on task as able. Pt had difficulty isolating fingers. OT educated pt on using AE for footwear, switching out his laces for elastic laces and educating him on sock aide. Pt then completed cone stacking activity with RUE, moving cones from one stack to another, min cues to open hand in order to grasp cone. He then removed x15 1" pegs from pegboard using RUE. Pt returned to room, 1 LOB requiring min A to correct. Pt sat in recliner. OT provided activity list to pt, encouraging him to complete tasks on the list throughout the day using RUE and to use RUE as much as possible with tasks. Post tx, pt up in recliner, call light in reach and all needs met, chair alarm on. Education OT Patient Education: Correct positioning, Energy conservation, Exercise program, Modified ADL techniques, Progress toward Goal/Update tx plan, Purpose of tx/functional activities, Rehab process Teaching Recipient: Patient Teaching Methods: Discussion Response to Teaching: Verbalize Understanding OT Short Term Goals Short Term Goals Time Frame: Jul 12, 2021 Toileting hygiene: 4 Upper body dressin Lower body dressin Putting on/taking off footwear: 4 OT Paste Up Artist Apprentice Goals Usp Goals Time Frame: Jul 21, 2021 Eating (QC): 6 Oral Hygiene (QC): 6 Toileting Hygiene (QC): 6 Shower/Bathe Self (QC): 6 Upper Body Dressing (QC): 6 Lower Body Dressing (QC): 6 On/Off Footwear (QC): 6 Additional Goals: 1-Demonstrate ADL Tasks, 2-Verbalize Understanding, 3- ImproveStrength/Tenzin 1=Demonstrate adherence to instructed precautions during ADL tasks. 2=Patient will verbalize/demonstrate understanding of assistive devices/modifications for ADL. 3=Patient will improve strength/tolerance for activity to enable patient to perform ADL's. OT Education/Plan Problem List/Assessment Assessment: Decreased Activ Tolerance, Decreased UE Strength, Impaired Coordination, Impaired Funct Balance, Impaired I ADL's, Impaired Self-Care Skills, Restricted Funct UE ROM Discharge Recommendations Plan/Recommendations: Continue POC Treatment Plan/Plan of Care Patient would benefit from OT for education, treatment and training to promote independence in ADL's, mobility, safety and/or upper extremity function for ADL's. Plan of Care: ADL Retraining, Cognitive Retraining, Functional Mobility, Group Exercise/Act as Ind, UE Funct Exercise/Act, UE Neuromus Re-Ed/Coord Treatment Duration: Jul 21, 2021 Frequency: At least 5 of 7 days/Wk (IRF) Estimated Hrs Per Day: 1.5 hours per day Rehab Potential: Fair Time/GCodes Start Time: 09:00 Stop Time: 10:15 Total Time Billed (hr/min): 75 Billed Treatment Time 1, ADL (15'), FA 4 (60') JAZIEL ROCHA OT Jun 29, 2021 10:46
--- NOTE | 2021-06-29 11:29 | Physical Therapy Daily Note ---
PT Daily Note-Current Subjective Patient sitting in chair upon PT arrival, agreeable to treatment. Patient reports 0/10 pain currently. Mental Status Patient Orientation: Person Transfers SCALE: Activities may be completed with or without assistive devices. 1-Yacejzgmka-jgrdwya completes the activity by him/herself with no assistance from a helper. 5-Set-up or Clean-up Assistance-helper sets up or cleans up; patient completes activity. [place] assists only prior to or following the activity. 4-Supervision or Touching Assistance-helper provides verbal cues and/or touching/steadying and/or contact guard assistance as patient completes activity. Assistance may be provided throughout the activity or intermittently. 3-Partial/Moderate Assistance-helper does LESS THAN HALF the effort. [place] lifts, holds or supports trunk or limbs, but provides less than half the effort. 2-Substantial/Maximal Assistance-helper does MORE THAN HALF the effort. [place] lifts or holds trunk or limbs and provides more than half the effort. 6-Ujhfmzkpi-aiixlm does ALL the effort. Patient does none of the effort to complete the activity. Or, the assistance of 2 or more helpers is required for the patient to complete the activity. If activity was not attempted, code reason: 7-Patient Refused. 9-Not Applicable-not attempted and the patient did not perform the activity before the current illness, exacerbation or injury. 10-Not Attempted due to Environmental Limitations-(lack of equipment, weather restraints, etc.). 88-Not Attempted due to Medical Conditions or Safety Concerns. Roll Left & Right (QC): 3 Sit to Lying (QC): 3 Lying to Sitting/Side of Bed(Q: 3 Sit to Stand (QC): 3 Chair/Cpq-mc-Xypqc Xfer(QC): 3 Gait Training Does the Patient Walk?: Yes Distance: 200 feet x 2 Walk 10 feet (QC): 4 Walk 50 ft with 2 Turns(QC): 4 Walk 150 ft (QC): 3 Gait Persons Needed: 1 Gait Assistive Device: FWW Patient ambulates with forward trunk posture, head down posture and tends to look at the ground throughout. Patient tends to drag right foot due to poor right ankle DF during right swing phase. He demonstrates difficulty keeping fireworks assembly supervisor on the right handle of the FWW. Patient loses balance x 1 with mod A to avoid falling. Patient was walking through a doorway and PT opened the door. Patient appeared to try to devlin through the door and lost his balance. Exercises Seated Therapy Exercises: Ankle pumps, Long arc quads, Hip flexion, Hamstring Curls, Hip abd/add Seated Reps: 20 Patient performed 2 sets of 20 for each exercise; on Nu Step, required minimal assistance to keep right hand holding onto the handle. NuStep Minutes: 10 NuStep Workload: 3 Assessment Current Status: Fair Progress Patient tolerated treatment well. Demonstrates improved gait distance and minimal improvement in functional use of right hand on FWW. Patient ambulates with forward trunk posture, head down posture and tends to look at the ground throughout. Patient tends to drag right foot due to poor right ankle DF during right swing phase. He demonstrates difficulty keeping fireworks assembly supervisor on the right handle of the FWW. Patient loses balance x 1 with mod A to avoid falling. Patient was walking through a doorway and PT opened the door. Patient appeared to try to devlin through the door and lost his balance. Patient performs LE therapeutic exercise as listed above. Patient performs bed mobility training consisting of performing sit to supine, supine to sit, rolling in bed and transferring from bed to chair with min/mod A and verbal cues for performance. PT Short Term Goals Short Term Goals Time Frame: Jul 05, 2021 Roll Left & Right: 6 Sit to lyin Lying to sitting on side of be: 3 Sit to stand: 4 Chair/jld-jz-flpyt transfer: 4 Walk 10 feet: 4 Walk 50 feet with two turns: 4 Walk 150 feet: 4 PT Network Operations Center Engineer Goals Prison Goals PT Prison Goals Time Frame: Jul 19, 2021 Roll Left & Right (QC): 6 Sit to Lying (QC): 6 Lying-Sitting on Side/Bed(QC): 6 Sit to Stand (QC): 4 (SBA) Chair/Nio-wd-Idcif Xfer(QC): 4 (SBA) Toilet Transfer (QC): 4 (SBA) Car Transfer (QC): 4 (SBA) Does the Patient Walk: Yes Walk 10 feet (QC): 4 (SBA) Walk 50ft with 2 Turns (QC): 4 (SBA) Walk 150 ft (QC): 4 (SBA) Walking 10ft on Uneven Surface: 4 (SBA) 1 Step (curb) (QC): 4 (CGA) 4 Steps (QC): 4 (CGA) 12 Steps (QC): 88 Picking up an Object (QC): 4 (CGA) Wheel 50 feet with 2 turns (QC: 9 Wheel 150 feet: 9 PT Plan Treatment/Plan Treatment Plan: Continue Plan of Care Treatment Plan: Bed Mobility, Education, Functional Activity Tenzin, Functional Strength, Group Therapy, Gait, Safety, Therapeutic Exercise, Transfers Treatment Duration: Jul 19, 2021 Frequency: At least 5 of 7 days/Wk (IRF) Estimated Hrs Per Day: 1.5 hours per day Patient and/or Family Agrees t: Yes Safety Risks/Education Patient Education: Gait Training, Transfer Techniques Teaching Recipient: Patient Teaching Methods: Demonstration, Discussion Response to Teaching: Reinforcement Needed Time/GCodes Time In: 1030 Time Out: 1130 Total Billed Treatment Time: 60 Total Billed Treatment Visit, Marquise (2), Rebecca, BYRON GALLEGOS PT Jun 29, 2021 11:29
--- NOTE | 2021-06-29 12:44 | Individualized Plan of Care ---
Individualized Plan of Care Rehab Nursing IPOC Order Admission Date Jun 28, 2021 at 13:35 Current Orders Orders Admission Order(Inpt,Obs,Sdc) (06/28/21 11:51) Vital Signs: Per Unit Policy ( ,00 (06/28/21 11:51) Noe Joseariel (06/28/21 11:51) Sequential Compression Device .admit (06/28/21 11:51) Steam Pressure Chamber Operator-Inpt Rehab Con (06/28/21 11:51) Rehab Nursing Orders-Ipoc (06/28/21 11:51) Physical Therapy Rehab Orders (06/28/21 11:51) Occupational Therapy Rehab Ord (06/28/21 11:51) Speech Therapy Rehab Orders (06/28/21 11:51) Cbc With Automated Diff (06/29/21 06:00) Comprehensive Metabolic Panel (06/29/21 06:00) Precautions (Aru) (06/28/21 11:51) Rehab-Intensity Of Therapy (06/28/21 11:51) Initiate Admission Nursing Pro .admission (06/28/21 11:51) Alprazolam Tablet (Xanax Tablet) (06/28/21 12:00) Calcium Carbonate Chew Tablet (Antacid C (06/28/21 12:00) Diphenhydramine Tablet (Benadryl Tablet) (06/28/21 12:00) Docusate Sodium Capsule (Colace Capsule) (06/28/21 21:00) Docusate Sodium Capsule (Colace Capsule) (06/28/21 12:00) Bisacodyl Suppository (Dulcolax Supposit (06/28/21 12:00) Lactulose Oral Solution (Enulose Oral So (06/28/21 12:00) Na Phos/Na Biphos Enema (Fleet Enema Aba (06/28/21 12:00) Guaifenesin/Codeine Syrup (Robitussin Ac (06/28/21 12:00) Loperamide Tablet (Imodium Tablet) (06/28/21 12:00) Melatonin Tablet (Melatonin Tablet) (06/28/21 12:00) Polyethylene Glycol Powder Pkt (Miralax (06/28/21 21:00) Ondansetron Oral Dissolve Tab (Zofran (06/28/21 12:00) Senna S Tablet (Senokot S Tablet) (06/28/21 21:00) Initiate Admission Nursing Pro .admission (06/28/21 11:51) Admission Arrival Bed Request (06/28/21 14:00) Patient Visit (06/28/21 ) Pt Eval Moderate Complexity (06/28/21 ) Exercise Therap, Ea 15 Min (06/28/21 ) Functional Activities, Ea 15 (06/28/21 ) General/Regular (06/28/21 Dinner) Amlodipine Tablet (Norvasc Tablet) (06/29/21 09:00) Apixaban Tablet (Eliquis Tablet) (06/28/21 21:00) Atorvastatin Tablet (Lipitor Tablet) (06/28/21 21:00) Bisacodyl Tablet (Dulcolax Tablet) (06/28/21 16:45) Bisacodyl Suppository (Dulcolax Supposit (06/28/21 16:45) Docusate Sodium Capsule (Colace Capsule) (06/28/21 21:00) Famotidine Tablet (Pepcid Tablet) (06/29/21 09:00) Magnesium Hydroxide Oral Susp (Mom Oral (06/29/21 09:00) Senna S Tablet (Senokot S Tablet) (06/28/21 16:45) (Nf) Acetaminophen (Tylenol) (06/28/21 16:45) (Nf) Guar Gum (Nutrisource Fiber) (06/29/21 09:00) Hydralazine Tablet (Apresoline Tablet) (06/28/21 16:45) Acetaminophen Tablet/Caplet (Tylenol T (06/28/21 17:00) Polyethylene Glycol Powder Pkt (Miralax (06/28/21 21:00) Lipid Panel (06/29/21 07:12) Consult Cardiology (06/29/21 10:28) Patient Visit (06/29/21 ) Speech Sound Lang Comp (06/29/21 ) Patient Visit (06/29/21 ) Gait Training, Ea 15 Min (06/29/21 ) Exercise Therap, Ea 15 Min (06/29/21 ) Functional Activities, Ea 15 (06/29/21 ) Ekg Tracing (06/29/21 16:24) Obtain Records From (Order) (06/29/21 16:24) Rehab Nursing Orders: Ongoing Assess. of Cognitive Status, Ongoing Assess. of Function Status, Bladder Management, Bladder Scan, Bladder Training, Bowel Management, Bowel Training, Disease Management & Educaiton, DVT Prophylaxis, Fall Prevention, Fluid/Electrolyte/Nutrition Mgmt, Infection Prevention, Medi cation Management & Education, Management of Risks & Complications, Management of Skin Intergrity, Nutrition Management, Pain Management, Patient/Family Support, Safety Management Intensity of Therapy to be met Patient to be seen: Min.3h per day/5 of 7d PT IPOC Problem List: Activity Tolerance, Functional Strength, Safety, Balance, Gait, Transfer, Bed Mobility, ROM Treatment Plan: Continue Plan of Care Bed Mobility, Education, Functional Activity Tenz[place], Functional Strength, Group Therapy, Gait, Safety, Therapeutic Exercise, Transfers Treatment Duration: Jul 19, 2021 Frequency: At least 5 of 7 days/Wk (IRF) Estimated Hrs Per Day: 1.5 hours per day OT IPOC Problems: Decreased Activ Tolerance, Decreased Safety Aware, Decreased UE Strength, Impaired Cognition, Impaired Funct Balance, Impaired I ADL's, Impaired Self-Care Skills, Restricted Funct UE ROM OT Treatment, Training and Edu: Yes Plan of Care: ADL Retraining, Cognitive Retraining, Functional Mobility, Group Exercise/Act as Ind, UE Funct Exercise/Act, UE Neuromus Re-Ed/Coord Treatment Duration: Jul 21, 2021 Frequency: At least 5 of 7 days/Wk (IRF) Estimated Hrs Per Day: 1.[address] IPOC Speech Therapy Treatment Plan: Continue Plan of Care Treatment Duration: Jun 29, 2021 Frequency: 3 times per week Estimated Hrs Per Day: .5 hour per day Steam Pressure Chamber Operator/Case Mgmt Steam Pressure Chamber Operator/Case Managemen: Discharge Planning Dietitian/Agronomy Research Manager Dietitian/Agronomy Research Manager to monitor nutritional status and make changes and/or recommendations as needed and work with speech pathology on dietary upgrades as the occur. Physician IPOC Medical Issues being managed closely and that require the 24 hour availability of a physician: Recent CVA with profound deficits with bradycardia requiring cardiology consultation will require close monitoring and physician supervision due to high risk for decompensation Medical Issues: Bowel/Bladder Function, DVT Prophylaxis, Falls Precautions, Fluid/Electrolyte/Nutrition Balance, Infection Protection, Pain Management Brief Synthesis of Preadmission Screen, Post-Admission Evaluation, and Therapy Evaluations: PT and OT will focus on increasing ambulatory stamina with the use of assistive device and improving strength in right upper extremity speech therapy will work on aphasia Medical Prognosis: 14 days Anticipated Length of Stay: TOBIAS Benavidez DO Jun 29, 2021 12:44
--- NOTE | 2021-06-29 12:44 | PM&R Progress Note ---
Subjective HPI/CC On Admission Date Seen by Provider: Jun 29, 2021 Time Seen by Provider: 12:30 Subjective/Events-last exam 06/29/2021: Patient had no events overnight Appreciate Dr. Medellin cardiology consult Doing well overall Right upper extremity with right facial droop is profound Able to walk around with assistive device and assistance Previously had bradycardia in the 50s and even 4020s during acute medical admission Creatinine 1.37 Review of Systems Neurological: Weakness, Incoordination, Change in speech Objective Exam Vital Signs Vital Signs Date Time Temp Pulse Resp B/P (MAP) Pulse Ox O2 Delivery O2 Flow Rate FiO2 06/29/21 20:35 97 Room Air 06/29/21 19:33 36.4 53 16 156/78 (104) Capillary Refill : General Appearance: No Apparent Distress, WD/WN, Chronically ill, Obese HEENT: PERRL/EOMI, Normal ENT Inspection, Pharynx Normal Neck: Full Range of Motion, Normal Inspection, Non Tender, Supple, Carotid Bruit Respiratory: Chest Non Tender, Lungs Clear, Normal Breath Sounds, No Accessory Muscle Use, No Respiratory Distress Cardiovascular: Regular Rate, Rhythm, No Edema, No Gallop, No JVD, No Murmur, Normal Peripheral Pulses Gastrointestinal: Normal Bowel Sounds, No Organomegaly, No Pulsatile Mass, Non Tender, Soft Back: Normal Inspection, No CVA Tenderness, No Vertebral Tenderness Extremity: Normal Capillary Refill, Normal Inspection, Normal Range of Motion, Non Tender, No Calf Tenderness, No Pedal Edema Neurologic/Psychiatric: Alert, Oriented x3, Normal Mood/Affect, clinical exercise specialist II-XII Norm as Tested, Abnormal Gait, Aphasia, Facial Droop (Right-sided), Motor Weakness (Right-sided weakness) Skin: Normal Color, Warm/Dry Lymphatic: No Adenopathy Results/Procedures Lab Laboratory Tests 06/29/21 05:20 Patient resulted labs reviewed. FIM Transfers Therapy Code Descriptions/Definitions Functional [place] Measure: 0=Not Assessed/NA 4=Minimal Assistance 1=Total Assistance 5=Supervision or Setup 2=Maximal Assistance 6=Modified [place] 3=Moderate Assistance 7=Complete IndependenceSCALE: Activities may be completed with or without assistive devices. 5-Ernnwooyhf-xdfqojl completes the activity by him/herself with no assistance from a helper. 5-Set-up or Clean-up Assistance-helper sets up or cleans up; patient completes activity. [place] assists only prior to or following the activity. 4-Supervision or Touching Assistance-helper provides verbal cues and/or touching/steadying and/or contact guard assistance as patient completes activity. Assistance may be provided throughout the activity or intermittently. 3-Partial/Moderate Assistance-helper does LESS THAN HALF the effort. [place] lifts, holds or supports trunk or limbs, but provides less than half the effort. 2-Substantial/Maximal Assistance-helper does MORE THAN HALF the effort. [place] lifts or holds trunk or limbs and provides more than half the effort. 6-Btwuiuefd-qzxprq does ALL the effort. Patient does none of the effort to complete the activity. Or, the assistance of 2 or more helpers is required for the patient to complete the activity. If activity was not attempted, code reason: 7-Patient Refused. 9-Not Applicable-not attempted and the patient did not perform the activity before the current illness, exacerbation or injury. 10-Not Attempted due to Environmental Limitations-(lack of equipment, weather restraints, etc.). 88-Not Attempted due to Medical Conditions or Safety Concerns. Roll Left to Right (QC): 3 Sit to Lying (QC): 3 Sit to Stand (QC): 3 Chair/Fug-ed-Mjxnk Xfer(QC): 3 Car Transfer (QC): 3 Gait Training Does the Patient Walk?: Yes Distance: 200 feet x 2 Walk 10 feet (QC): 4 Walk 50 ft with 2 Turns(QC): 4 Walk 150 ft (QC): 3 Walking 10ft/uneven surface-QC: 88 Gait Persons Needed: 1 Gait Assistive Device: FWW Wheelchair Training Does the Pt Use a Wheelchair?: No Wheel 50 ft with 2 turns (QC): 9 Wheel 150 ft (QC): 9 Stair Training 1 Step (curb) (QC): 88 4 Steps (QC): 88 12 Steps (QC): 88 Balance Picking up an Object (QC): 88 ADL-Treatment Eating (QC): 5 (based on clincial judgment, assistance with cutting food and opening contianers. Pt left handed and able to use LUE) Oral Hygiene (QC): 4 (set up of toothpaste onto toothbrush, supervision during task. ) Shower/Bathe Self (QC): 3 (Min A. Pt required assistance with buttocks, BLE lower legs/feet. Pt able to wash other parts seated on SC, min A in stand for pericare) Upper Body Dressing (QC): 3 (Mod A. assistance opening shirt and threading RUE and assist managing down the trunk. Pt able to thread overhead and LUE) Lower Body Dressing (QC): 2 (Max A overall. Assist to thread BLEs, asisst with pant hike in back. Pt assisted with pant hike as able) On/Off Footwear (QC): 2 (Max A overall, education provided on AE) Toileting Hygiene (QC): 2 (assist with clothing management and washing buttocks. Pt able to perform pericare.) Assessment/Plan Assessment and Plan Assess & Plan/Chief Complaint Assessment: CVA with right-sided weakness Right-sided facial droop Aphasia Paroxysmal atrial fibrillation? Oral anticoagulation Plan: Aggressive therapy Speech therapy Cardiology consult Monitor closely 06/29/2021: Supportive care Aggressive therapy Cardiology consult appreciated (1) CVA (cerebral vascular accident) TOBIAS BUTCHER DO Jun 29, 2021 12:44
--- NOTE | 2021-06-29 13:16 | ST Cognitive Linguistic Eval ---
Speech Evaluation-General Medical Diagnosis CVA Onset Date: Jun 20, 2021 Medical History Pertinent Medical History: CVA Reviewed History: Yes Social History Current Living Status: Spouse Speech PLF-Current Status Language Eval: Auditory Comprehends Simple Yes/No Ques: Functional Ident/Pics in Multiple [place]: Mild Follows 1-Step Commands: Functional Follows Complex Directions: Mild Follows General Conversations: Mild Language Eval: Verbal Language Completes Spontaneous Greeting: Functional Produces Auto, Serial Info: Mild Imitates Simple Words/Phrases: Moderate Word Finding: Moderate Requests Basic Needs: Mild States Basic Personal Info: Mild Expresses Complex Ideas: Severe Objective Cognitive Domain Clock Drawing Severity Rating: Moderate Objective Formal/Standardized Tests Subsections of western aphasia battery completed. Results Pt oriented to day, year and place. Yes/no questions completed with 80% accy. Confrontational naming with 70% accy. Days of the week 04/26. Months of the year 07/02 correct. Pt presents with moderate expressive aphasia and dysarthria. Pt provided with education regarding dysarthria compensatory strategies and communication strategies. Speech Patient Assess Expression of Ideas/Wants: Expression (4) Understanding Verbal Content: Understands (4) Brief Interview-Mental Status: Yes (*Continue to Repetition of) Repetition of Three Words: Two (2) Temporal Orientation: Year: Correct (3) Temporal Orientation: Month: Accurate within 5 days(2) Temporal Orientation: Day: Correct (1) Recall : Wear to say "Sock": Yes, no cue required (2) Recall : Color: No, could not recall (0) Recall : Bed: Yes,after cueing (1) Memory/Recall Ability: Current season, That he or she is in a hsp/hsp unit Speech Short Term Goals Short Term Goals Short Term Goals 1. The pt will complete expressive language therapy tasks with 90% accy. 2. The pt will complete naming tasks with 90% accy. 3. The pt will answer yes/no questions with 90% accy. 4. The pt will utilize dysarthria compensatory strategies during conversation with min cues. Speech Insurance Collector Goals Insurance Collector Goals The pt will be able to communicate during daily activities without difficulty with 90% accy. Speech-Plan Treatment Plan Speech Therapy Treatment Plan: Continue Plan of Care Frequency: 5 times per week Estimated Hrs Per Day: .5 hour per day Rehab Potential: Fair Time Speech Therapy Time In: 11:30 Speech Therapy Time Out: 12:00 Billed Treatment Time 30 mins 1, PEÑA CURIEL Jun 29, 2021 13:16
--- NOTE | 2021-06-29 13:53 | Physical Therapy Daily Note ---
PT Daily Note-Current Subjective Patient sitting in a chair upon PT arrival, agreeable to treatment. Rates pain at 0/10. Mental Status Patient Orientation: Person Transfers SCALE: Activities may be completed with or without assistive devices. 8-Grryjmtzhs-venezcr completes the activity by him/herself with no assistance from a helper. 5-Set-up or Clean-up Assistance-helper sets up or cleans up; patient completes activity. [place] assists only prior to or following the activity. 4-Supervision or Touching Assistance-helper provides verbal cues and/or touching/steadying and/or contact guard assistance as patient completes activity. Assistance may be provided throughout the activity or intermittently. 3-Partial/Moderate Assistance-helper does LESS THAN HALF the effort. [place] lifts, holds or supports trunk or limbs, but provides less than half the effort. 2-Substantial/Maximal Assistance-helper does MORE THAN HALF the effort. [place] lifts or holds trunk or limbs and provides more than half the effort. 8-Iziiruhjp-auzejd does ALL the effort. Patient does none of the effort to complete the activity. Or, the assistance of 2 or more helpers is required for the patient to complete the activity. If activity was not attempted, code reason: 7-Patient Refused. 9-Not Applicable-not attempted and the patient did not perform the activity before the current illness, exacerbation or injury. 10-Not Attempted due to Environmental Limitations-(lack of equipment, weather restraints, etc.). 88-Not Attempted due to Medical Conditions or Safety Concerns. Sit to Stand (QC): 3 Chair/Cxn-xn-Ivbnx Xfer(QC): 3 Gait Training Does the Patient Walk?: Yes Distance: 300 feet Walk 10 feet (QC): 4 Walk 50 ft with 2 Turns(QC): 4 Walk 150 ft (QC): 3 Gait Assistive Device: FWW Patient ambulates with forward trunk posture, head down posture and tends to look at the ground throughout. Patient tends to drag right foot due to poor right ankle DF during right swing phase. He demonstrates difficulty keeping endoscopy registered nurse on the right handle of the FWW. Patient loses balance x 1 with mod A to avoid falling. Patient was walking through a doorway and PT opened the door. Patient appeared to try to devlin through the door and lost his balance. Assessment Current Status: Fair Progress Patient tolerated treatment well. Demonstrates improved gait distance and mini mal improvement in functional use of right hand on FWW. Patient ambulates 300 feet with FWW, with min A and verbal cues throughout for posture, to not look at the floor, safety, progression and conservation of energy. Patient ambulates with forward trunk posture, head down posture and tends to look at the ground throughout. Patient tends to drag right foot due to poor right ankle DF during right swing phase. He demonstrates difficulty keeping endoscopy registered nurse on the right handle of the FWW. Patient in chair post treatment with all needs met, nursing notified, call light in hand. PT Short Term Goals Short Term Goals Time Frame: Jul 05, 2021 Roll Left & Right: 6 Sit to lyin Lying to sitting on side of be: 3 Sit to stand: 4 Chair/lot-ad-oycyr transfer: 4 Walk 10 feet: 4 Walk 50 feet with two turns: 4 Walk 150 feet: 4 PT Utilization Review Rn Goals Utilization Review Rn Goals PT Mcfp Goals Time Frame: Jul 19, 2021 Roll Left & Right (QC): 6 Sit to Lying (QC): 6 Lying-Sitting on Side/Bed(QC): 6 Sit to Stand (QC): 4 (SBA) Chair/Zvg-cv-Orhte Xfer(QC): 4 (SBA) Toilet Transfer (QC): 4 (SBA) Car Transfer (QC): 4 (SBA) Does the Patient Walk: Yes Walk 10 feet (QC): 4 (SBA) Walk 50ft with 2 Turns (QC): 4 (SBA) Walk 150 ft (QC): 4 (SBA) Walking 10ft on Uneven Surface: 4 (SBA) 1 Step (curb) (QC): 4 (CGA) 4 Steps (QC): 4 (CGA) 12 Steps (QC): 88 Picking up an Object (QC): 4 (CGA) Wheel 50 feet with 2 turns (QC: 9 Wheel 150 feet: 9 PT Plan Treatment/Plan Treatment Plan: Continue Plan of Care Treatment Plan: Bed Mobility, Education, Functional Activity [place], Functional Strength, Group Therapy, Gait, Safety, Therapeutic Exercise, Transfers Treatment Duration: Jul 19, 2021 Frequency: At least 5 of 7 days/Wk (IRF) Estimated Hrs Per Day: 1.5 hours per day Patient and/or Family Agrees t: Yes Safety Risks/Education Patient Education: Gait Training Teaching Recipient: Patient Teaching Methods: Demonstration, Discussion Response to Teaching: Verbalize Understanding, Reinforcement Needed Time/GCodes Time In: 1310 Time Out: 1325 Total Billed Treatment Time: 15 Total Billed Treatment Visit, BYRON Dennis PT Jun 29, 2021 13:52
--- NOTE | 2021-06-29 16:40 | Consultation-Cardiology ---
HPI-Cardiology Cardiology Consultation: Date of Consultation 06/29/2021 Date of Admission 06/28/2021 Attending Physician Elizabeth Cook DO Admitting Physician Nenita,Local Physician Consulting Physician JOSEPH WALLACE JR, MD HPI: Time Seen by a Provider: 16:36 Chief Complaint: Reason for consultation: Atrial fibrillation. I had the pleasure of seeing Gama on the inpatient rehabilitation service here at [facility] in [place], [place] this afternoon. Up until recently, he had no known significant past cardiac or other medical history. Around June 20 he presented to an outside hospital with aphasia and weakness. 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 He was outside of the window for rombolytics. He was then transferred to [facility] in [place], [place] for cerebral embolectomy. After he was stabilized, he was transferred to our facility for inpatient rehabilitation. While he was in the other hospital, he was found to have paroxysmal atrial fibrillation and therapy with apixaban was initiated. He was also having some intermittent sinus bradycardia and slow ventricular rates with the atrial fibrillation. He was seen by cardiology who did not recommend pacemaker or any other intervention. He still has a fair amount of expressive aphasia. He does tell me that his strength is improving. He denies any previous history of stroke. He did not take any medications at home. Prior to his initial presentation, he denies chest discomfort, dyspnea, paroxysmal nocturnal dyspnea, orthopnea, palpitations, lightheadedness, syncope, or lower extremity edema. He is a non-smoker. 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 Certain portions of this document may have been dictated utilizing voice recognition technology. Inherent to this technology, typographical and grammatical errors may exist. As much as I am diligent to identify and correct these mistakes, some errors may remain in the document. Review of Systems-Cardiology Review of Systems Other comments Review of 10 organ systems is as per the history of present illness, otherwise negative. All Other Systems Reviewed Negative Unless Noted: Yes FCW-Omnqxb-Pwwlax Hx Patient Social History Marrital Status: Employed/Student: retired Smoking Status: Never a Smoker Have you traveled recently?: No Alcohol Use?: No Pt feels they are or have been: No Past Medical History PMH As described under Assessment. Family Medical History Family Medical History: The patient does not know of any family history of premature coronary artery disease. Allergies and Home Medications Allergies Coded Allergies: No Allergy Information Available (Unverified , 06/28/21) Patient Home Medication List Home Medication List Reviewed: Yes Acetaminophen (Tylenol) 325 Mg Capsule, 650 MG PO Q4H PRN for PAIN-MILD (1-4), (Reported) Entered as Reported by: DARRELL LUONG on 06/28/211430 Last Action: Converted Amlodipine Besylate (Amlodipine Besylate) 10 Mg Tablet, 10 MG PO DAILY, (Reported) Entered as Reported by: DARRELL LUONG on 06/28/211430 Last Action: Continued Apixaban (Eliquis) 5 Mg Tablet, 5 MG PO BID, (Reported) Entered as Reported by: DARRELL LUONG on 06/28/211512 Last Action: Continued Atorvastatin Calcium (Atorvastatin Calcium) 40 Mg Tablet, 40 MG PO HS, (Repo rted) Entered as Reported by: DARRELL LUONG on 06/28/211434 Last Action: Continued Bisacodyl (Bisacodyl) 5 Mg Tablet.dr, 5 MG PO HS PRN for CONSTIPATION-4TH LINE, (Reported) Entered as Reported by: DARRELL LUNOG on 06/28/211434 Last Action: Continued Bisacodyl (Bisacodyl) 10 Mg Supp.rect, 10 MG RC HS PRN for CONSTIPATION-4TH LINE, (Reported) Entered as Reported by: DARRELL LUONG on 06/28/211434 Last Action: Continued Docusate Sodium (Docusate Sodium) 100 Mg Capsule, 100 MG PO BID, (Reported) Entered as Reported by: DARRELL LUONG on 06/28/211434 Last Action: Continued Famotidine (Acid Non Destructive Testing Supervisor (FAMOTIDINE)) 20 Mg Tablet, 20 MG PO DAILY, (Reported) Entered as Reported by: DARRELL LUONG on 06/28/211434 Last Action: Continued Guar Gum (Nutrisource Fiber) 1 Each Packet, 1 EACH PO DAILY, (Reported) Entered as Reported by: DARRELL LUONG on 06/28/211516 Last Action: Converted Magnesium Hydroxide (Milk of Magnesia) 400 Mg/5 Ml Oral.susp, 15 ML PO DAILY, (Reported) Entered as Reported by: DARRELL LUONG on 06/28/211434 Last Action: Continued Polyethylene Glycol 3350 (Miralax) 17 Gm Powd.pack, 17 GM PO DAILY, (Reported) Entered as Reported by: DARRELL LUONG on 06/28/211434 Last Action: Continued Sennosides/Docusate Sodium (Senna S Tablet) 1 Each Tablet, 2 EACH PO BID PRN for CONSTIPATION-6TH LINE, (Reported) Entered as Reported by: DARRELL LUONG on 06/28/211434 Last Action: Continued Discontinued Medications Wheat Dextrin (Benefiber) 1 Each Powd.pack, 1 EACH PO DAILY, (Reported) Discontinued Reason: Prescription changed Entered as Reported by: DARRELL LUONG on 06/28/211434 Last Action: New Order Exam Vital Signs Vital Signs Date Time Temp Pulse Resp B/P (MAP) Pulse Ox O2 Delivery O2 Flow Rate FiO2 06/29/21 08:40 Room Air 06/29/21 07:43 36.2 41 22 139/69 (92) 97 Physical Exam General: Alert. No acute distress. Well nourished and appears stated age. He is obese. He has expressive aphasia. Eye: Extraocular movements are intact. Conjunctivae are clear. There are no xanthelasma. HENT: Normocephalic. Atraumatic. Carotid pulsations 2/2 without bruits. Neck: Jugular venous pressure does not appear elevated. No thyromegaly appre ciated. Respiratory: Lungs are clear to auscultation. Respirations are non-labored. Breath sounds are equal. Symmetrical chest wall expansion. Cardiovascular: Normal rate. Regular rhythm. No murmur. No gallop. Point of maximal impulse is not appear displaced. Good pulses equal in all extremities. No edema. Gastrointestinal: Soft. Normal bowel sounds. Skin: Skin turgor is normal. There is no pallor. Musculoskeletal: No kyphosis or scoliosis appreciated. Neurologic: Alert and oriented to person, place, time. Cranial nerves 3-12 appear grossly intact. He has expressive aphasia. Right-sided upper and lower extremity weakness. Psychiatric: Cooperative. Appropriate mood & affect. Labs Laboratory Tests Test 06/29/21 05:20 Range/Units White Blood Count 8.8 4.3-11.0 10^3/uL Red Blood Count 5.09 4.30-5.52 10^6/uL Hemoglobin 14.5 13.3-17.7 g/dL Hematocrit 45 40-54 % Mean Corpuscular Volume 89 80-99 fL Mean Corpuscular Hemoglobin 29 25-34 pg Mean Corpuscular Hemoglobin Concent 32 32-36 g/dL Red Cell Distribution Width 13.9 10.0-14.5 % Platelet Count 241 130-400 10^3/uL Mean Platelet Volume 10.2 9.0-12.2 fL Immature Granulocyte % (Auto) 1 % Neutrophils (%) (Auto) 72 42-75 % Lymphocytes (%) (Auto) 15 12-44 % Monocytes (%) (Auto) 11 0-12 % Eosinophils (%) (Auto) 2 0-10 % Basophils (%) (Auto) 1 0-10 % Neutrophils # (Auto) 6.4 1.8-7.8 10^3/uL Lymphocytes # (Auto) 1.3 1.0-4.0 10^3/uL Monocytes # (Auto) 0.9 0.0-1.0 10^3/uL Eosinophils # (Auto) 0.1 0.0-0.3 10^3/uL Basophils # (Auto) 0.0 0.0-0.1 10^3/uL Immature Granulocyte # (Auto) 0.1 0.0-0.1 10^3/uL Sodium Level 141 135-145 MMOL/L Potassium Level 4.2 3.6-5.0 MMOL/L Chloride Level 108 H 98-107 MMOL/L Carbon Dioxide Level 25 21-32 MMOL/L Anion Gap 8 5-14 MMOL/L Blood Urea Nitrogen 31 H 7-18 MG/DL Creatinine 1.37 H 0.60-1.30 MG/DL Estimat Glomerular Filtration Rate 51 BUN/Creatinine Ratio 23 Glucose Level 100 70-105 MG/DL Calcium Level 9.8 8.5-10.1 MG/DL Corrected Calcium 10.1 8.5-10.1 MG/DL Total Bilirubin 1.3 H 0.1-1.0 MG/DL Aspartate Amino Transf (AST/SGOT) 30 5-34 U/L Alanine Aminotransferase (ALT/SGPT) 46 0-55 U/L Alkaline Phosphatase 322 H 40-136 U/L Total Protein 6.8 6.4-8.2 GM/DL Albumin 3.6 3.2-4.5 GM/DL Triglycerides Level 74 <150 MG/DL Cholesterol Level 100 < 200 MG/DL LDL Cholesterol Direct 66 1-129 MG/DL VLDL Cholesterol 15 5-40 MG/DL HDL Cholesterol 26 L 40-60 MG/DL ECG Impression ECG Comment Ordered and pending. Diagnosis/Problems Diagnosis/Problems (1) Paroxysmal atrial fibrillation Assessment & Plan: He had episodic paroxysmal atrial fibrillation at the outside hospital. We do not yet have an electrocardiogram in our hospital. I have placed an order for an electrocardiogram for baseline purposes. He was also having some intermittent bradycardia. I recommend we continue the patient on apixaban. I have requested a copy of an echocardiogram report from the outside hospital. If for some reason he did not have an echocardiogram at the outside hospital, I will order one here. (2) Sinus bradycardia Assessment & Plan: He was having intermittent bradycardia at the outside hospital as outlined above. If he needs adjustment to his medication for hypertension, I would recommend we avoid using beta-blockers, diltiazem or verapamil. (3) Primary hypertension Assessment & Plan: He is on amlodipine which was started at the outside hospital. This is a new diagnosis for the patient. His blood pressures are intermittently elevated. If this persists, I would consider starting him on CAROL inhibitor or ARB. Avoid beta-kaylin and other AV daisha blockers as above. (4) Mixed hyperlipidemia Assessment & Plan: I recommend he continue on statin medication in light of the acute cerebrovascular accident. He should have a follow-up lipid panel in about 2-3 months. (5) Morbid obesity Assessment & Plan: He will need to work on weight loss once he gets his strength back. JOSEPH WALLACE JR, MD Jun 29, 2021 16:40
[2021-06-29 19:33] VITALS: BP 156/78
[2021-06-29] MEDS: polyethylene glycoL POWDER 17 GM (MIRALAX) PACK PO SCH (20:30)
--- NOTE | 2021-06-30 06:06 | PM&R Progress Note ---
Subjective HPI/CC On Admission Date Seen by Provider: Jun 30, 2021 Time Seen by Provider: 12:30 Subjective/Events-last exam 06/30/2021: Patient doing really well Appreciate Dr. Medellin consultation cardiology EKG shows atrial fibrillation paroxysmal type maintained on oral anticoagulation at the bedside Speaking more clearly Walking around really well with assistance 06/29/2021: Patient had no events overnight Appreciate Dr. Medellin cardiology consult Doing well overall Right upper extremity with right facial droop is profound Able to walk around with assistive device and assistance Previously had bradycardia in the 50s and even 4020s during acute medical admission Creatinine 1.37 Review of Systems General: Fatigue, Malaise Neurological: Weakness, Incoordination, Change in speech Objective Exam Vital Signs Vital Signs Date Time Temp Pulse Resp B/P (MAP) Pulse Ox O2 Delivery O2 Flow Rate FiO2 06/30/21 20:31 36.5 52 18 127/75 (92) 98 Room Air Capillary Refill : General Appearance: No Apparent Distress, WD/WN, Chronically ill, Obese HEENT: PERRL/EOMI, Normal ENT Inspection, Pharynx Normal Neck: Full Range of Motion, Normal Inspection, Non Tender, Supple, Carotid Bruit Respiratory: Chest Non Tender, Lungs Clear, Normal Breath Sounds, No Accessory Muscle Use, No Respiratory Distress Cardiovascular: Regular Rate, Rhythm, No Edema, No Gallop, No JVD, No Murmur, Normal Peripheral Pulses Gastrointestinal: Normal Bowel Sounds, No Organomegaly, No Pulsatile Mass, Non Tender, Soft Back: Normal Inspection, No CVA Tenderness, No Vertebral Tenderness Extremity: Normal Capillary Refill, Normal Inspection, Normal Range of Motion, Non Tender, No Calf Tenderness, No Pedal Edema Neurologic/Psychiatric: Alert, Oriented x3, Normal Mood/Affect, support staff II-XII Norm as Tested, Abnormal Gait, Aphasia, Facial Droop (Right-sided), Motor Weakness (Right-sided weakness) Skin: Normal Color, Warm/Dry Lymphatic: No Adenopathy Results/Procedures Lab Patient resulted labs reviewed. FIM Transfers Therapy Code Descriptions/Definitions Functional [place] Measure: 0=Not Assessed/NA 4=Minimal Assistance 1=Total Assistance 5=Supervision or Setup 2=Maximal Assistance 6=Modified [place] 3=Moderate Assistance 7=Complete IndependenceSCALE: Activities may be completed with or without assistive devices. 4-Lmyjfiszfv-mlilcoi completes the activity by him/herself with no assistance from a helper. 5-Set-up or Clean-up Assistance-helper sets up or cleans up; patient completes activity. [place] assists only prior to or following the activity. 4-Supervision or Touching Assistance-helper provides verbal cues and/or touching/steadying and/or contact guard assistance as patient completes activity. Assistance may be provided throughout the activity or intermittently. 3-Partial/Moderate Assistance-helper does LESS THAN HALF the effort. [place] lifts, holds or supports trunk or limbs, but provides less than half the effort. 2-Substantial/Maximal Assistance-helper does MORE THAN HALF the effort. [place] lifts or holds trunk or limbs and provides more than half the effort. 3-Delezuuxy-tluqtu does ALL the effort. Patient does none of the effort to complete the activity. Or, the assistance of 2 or more helpers is required for the patient to complete the activity. If activity was not attempted, code reason: 7-Patient Refused. 9-Not Applicable-not attempted and the patient did not perform the activity before the current illness, exacerbation or injury. 10-Not Attempted due to Environmental Limitations-(lack of equipment, weather restraints, etc.). 88-Not Attempted due to Medical Conditions or Safety Concerns. Roll Left to Right (QC): 3 Sit to Lying (QC): 3 Sit to Stand (QC): 3 Chair/Xdd-za-Edcly Xfer(QC): 3 Car Transfer (QC): 3 Gait Training Does the Patient Walk?: Yes Distance: 300 feet Walk 10 feet (QC): 4 Walk 50 ft with 2 Turns(QC): 4 Walk 150 ft (QC): 3 Walking 10ft/uneven surface-QC: 88 Gait Persons Needed: 1 Gait Assistive Device: FWW Wheelchair Training Does the Pt Use a Wheelchair?: No Wheel 50 ft with 2 turns (QC): 9 Wheel 150 ft (QC): 9 Stair Training 1 Step (curb) (QC): 88 4 Steps (QC): 88 12 Steps (QC): 88 Balance Picking up an Object (QC): 88 ADL-Treatment Eating (QC): 5 (based on clincial judgment, assistance with cutting food and opening contianers. Pt left handed and able to use LUE) Oral Hygiene (QC): 4 (set up of toothpaste onto toothbrush, supervision during task. ) Shower/Bathe Self (QC): 3 (Min A. Pt required assistance with buttocks, BLE lower legs/feet. Pt able to wash other parts seated on SC, min A in stand for pericare) Upper Body Dressing (QC): 3 (Mod A. assistance opening shirt and threading RUE and assist managing down the trunk. Pt able to thread overhead and LUE) Lower Body Dressing (QC): 2 (Max A overall. Assist to thread BLEs, asisst with pant hike in back. Pt assisted with pant hike as able) On/Off Footwear (QC): 2 (Max A overall, education provided on AE) Toileting Hygiene (QC): 2 (assist with clothing management and washing buttocks. Pt able to perform pericare.) Assessment/Plan Assessment and Plan Assess & Plan/Chief Complaint Assessment: CVA with right-sided weakness Right-sided facial droop Aphasia Paroxysmal atrial fibrillation? Oral anticoagulation Plan: Aggressive therapy Speech therapy Cardiology consult Monitor closely 06/29/2021: Supportive care Aggressive therapy Cardiology consult appreciated 1920: Appreciate cardiology Maintain oral anticoagulants Monitor closely Avoid rate control medication due to bradycardia history (1) CVA (cerebral vascular accident) (2) Paroxysmal atrial fibrillation Assessment & Plan: He had episodic paroxysmal atrial fibrillation at the [facility]. We do not yet have an electrocardiogram in our hospital. I have placed an order for an electrocardiogram for baseline purposes. He was also having some intermittent bradycardia. I recommend we continue the patient on apixaban. I have requested a copy of an echocardiogram report from the outside hospital. If for some reason he did not have an echocardiogram at the outside hospital, I will order one here. (3) Sinus bradycardia Assessment & Plan: He was having intermittent bradycardia at the outside hospital as outlined above. If he needs adjustment to his medication for h ypertension, I would recommend we avoid using beta-blockers, diltiazem or verapamil. (4) Primary hypertension Assessment & Plan: He is on amlodipine which was started at the outside hospital. This is a new diagnosis for the patient. His blood pressures are intermittently elevated. If this persists, I would consider starting him on CAROL inhibitor or ARB. Avoid beta-kaylin and other AV daisha blockers as above. (5) Mixed hyperlipidemia Assessment & Plan: I recommend he continue on statin medication in light of the acute cerebrovascular accident. He should have a follow-up lipid panel in about 2-3 months. (6) Morbid obesity Assessment & Plan: He will need to work on weight loss once he gets his strength back. TOBIAS BUTCHER DO Jun 30, 2021 06:06
[2021-06-30 07:43] VITALS: BP 158/62
[2021-06-30] MEDS: FAMOTIDINE 20 MG (PEPCID) TABLET PO SCH (09:02)
[2021-06-30] MEDS: MILK OF MAGNESIA 400 MG/5 ML 30 ML UDC PO SCH (09:02)
[2021-06-30] MEDS: SENNA W/DOCUSATE (SENOKOT S) TABLET PO SCH ×2 (09:02→21:24)
[2021-06-30] MEDS: DOCUSATE SODIUM 100 MG (COLACE) CAP PO SCH ×2 (09:02→21:23)
[2021-06-30] MEDS: amLODIPine 10 MG (NORVASC) TAB PO SCH (09:02)
[2021-06-30] MEDS: APIXABAN 5 MG (ELIQUIS) TABLET PO SCH ×2 (09:02→21:23)
--- NOTE | 2021-06-30 09:20 | Occupational Ther Daily Note ---
OT Current Status-Daily Note Subjective Pt up in recliner, agreeable to OT tx. Mental Status/Objective Patient Orientation: Person, Place, Non-Verbal/Aphasic, Situation ADL-Treatment Therapy Code Descriptions/Definitions Functional [place] Measure: 0=Not Assessed/NA 4=Minimal Assistance 1=Total Assistance 5=Supervision or Setup 2=Maximal Assistance 6=Modified [place] 3=Moderate Assistance 7=Complete IndependenceSCALE: Activities may be completed with or without assistive devices. 2-Jcjwuvqzpf-hecuyfd completes the activity by him/herself with no assistance from a helper. 5-Set-up or Clean-up Assistance-helper sets up or cleans up; patient completes activity. [place] assists only prior to or following the activity. 4-Supervision or Touching Assistance-helper provides verbal cues and/or touching/steadying and/or contact guard assistance as patient completes activity. Assistance may be provided throughout the activity or intermittently. 3-Partial/Moderate Assistance-helper does LESS THAN HALF the effort. [place] lifts, holds or supports trunk or limbs, but provides less than half the effort. 2-Substantial/Maximal Assistance-helper does MORE THAN HALF the effort. [place] lifts or holds trunk or limbs and provides more than half the effort. 0-Uimyhfalh-gtbxpd does ALL the effort. Patient does none of the effort to complete the activity. Or, the assistance of 2 or more helpers is required for the patient to complete the activity. If activity was not attempted, code reason: 7-Patient Refused. 9-Not Applicable-not attempted and the patient did not perform the activity before the current illness, exacerbation or injury. 10-Not Attempted due to Environmental Limitations-(lack of equipment, weather restraints, etc.). 88-Not Attempted due to Medical Conditions or Safety Concerns. Oral Hygiene (QC): 7 Bathing Location: L Arm, R Arm, L Upper Leg, R Upper Leg, L Lower Leg (including foot), R Lower Leg (including foot), Chest, Abdomen, Perineal Area Shower/Bathe Self (QC): 3 (Min A with standing balance, and assist with washing buttocks for thoroughness. Pt washed/dried other parts.) Upper Body Dressing (QC): 3 (assist with orientation of shirt, pt able to thread BUEs and head.) Lower Body Dressing (QC): 3 (pt able to doff brief, thread LEs using AE, assist with pant hike) On/Off Footwear: 2 (Max A using sock aide to don socks and assist with slip on shoes.) Toileting Hygiene (QC): 3 (Assist with pant hike, mod A standing balance during pant hike) Toilet Transfer (QC): 3 Other Treatment Pt up in recliner, used FWW to transfer into bathroom and onto toilet. Pt completed toileting, able to perform hygiene seated, then required mod A standi ng balance with pant hike. Pt used FWW to transferred to NV using FWW. Pt completed shower seated, required assistance with washing his buttocks. Pt transferred to chair with arms to don clothes. OT educated pt on using AE to thread LE clothing, pt able to thread LEs into underwear and pants, required assistance with pant hike, mod A standing balance and cues to hold onto walker with RUE. Pt sat at sink to comb hair and put on deodorant. Pt required assistance removing cap from deodorant and assistance applying deodorant to L underarm. Pt used FWW to transfer to recliner. In order to increase BUE strength, activity tolerance, fine motor strength, and coordination, pt removed beads from light resistance theraputty, requiring cues to use RUE as much as possible. Noted difficulty isolating tip to tip pinch and finger movements. He then completed x10 reps each of the following RUE exercises: shoulder flexion to approx 100 degrees (OT performed PROM x10 reps to approx 160 degrees), elbow flexion/extension, wrist flexion/extension (OT supported pt's forearm), and then x10 reps ball holder squeezes with moderate resistance sponge. Post tx, pt up in recliner, call light in reach and all needs met, chair alarm on. With transfers, pt required min-mod A sit to stand, min-CGA stand to sit, min A with functional mobility using FWW, mod A dynamic standing balance with pant hike. Cues for RUE positioning and placement with transfers, and in order for RUE to maintain grasp on walker. Education OT Patient Education: Correct positioning, Energy conservation, Exercise program, Modified ADL techniques, Progress toward Goal/Update tx plan, Purpose of tx/functional activities, Rehab process, Use of adapted equipment Teaching Recipient: Patient Teaching Methods: Discussion Response to Teaching: Verbalize Understanding OT Short Term Goals Short Term Goals Time Frame: Jul 12, 2021 Toileting hygiene: 4 Upper body dressin Lower body dressin Putting on/taking off footwear: 4 OT Group Home Goals Transporter Radiology Goals Time Frame: Jul 21, 2021 Eating (QC): 6 Oral Hygiene (QC): 6 Toileting Hygiene (QC): 6 Shower/Bathe Self (QC): 6 Upper Body Dressing (QC): 6 Lower Body Dressing (QC): 6 On/Off Footwear (QC): 6 Additional Goals: 1-Demonstrate ADL Tasks, 2-Verbalize Understanding, 3- ImproveStrength/Tenzin 1=Demonstrate adherence to instructed precautions during ADL tasks. 2=Patient will verbalize/demonstrate understanding of assistive devices/modifications for ADL. 3=Patient will improve strength/tolerance for activity to enable patient to perform ADL's. OT Education/Plan Problem List/Assessment Assessment: Decreased Activ Tolerance, Decreased UE Strength, Impaired I ADL's, Impaired Self-Care Skills, Restricted Funct UE ROM Discharge Recommendations Plan/Recommendations: Continue POC Treatment Plan/Plan of Care Patient would benefit from OT for education, treatment and training to promote independence in ADL's, mobility, safety and/or upper extremity function for ADL's. Plan of Care: ADL Retraining, Cognitive Retraining, Functional Mobility, Group Exercise/Act as Ind, UE Funct Exercise/Act, UE Neuromus Re-Ed/Coord Treatment Duration: Jul 21, 2021 Frequency: At least 5 of 7 days/Wk (IRF) Estimated Hrs Per Day: 1.5 hours per day Rehab Potential: Fair Time/GCodes Start Time: 08:00 Stop Time: 09:15 Total Time Billed (hr/min): 75 Billed Treatment Time 1, ADL 3 (45'), FA (15'), EX (15') JAZIEL ROCHA OT Jun 30, 2021 09:20
--- NOTE | 2021-06-30 09:48 | Speech Therapy Daily Note ---
Speech Daily Progress Note Subjective Date Seen by Provider: Jun 30, 2021 Time Seen by Provider: 00:30 Pt was sitting upright in chair in room. Pt was pleasant and cooperative in skilled ST treatment Objective Pt participated in communication tasks targeting y/n questions and naming. Pt answered y/n questions with 100% accuracy. Pt was able to name 5/8 objects requiring mod-max verbal/visual cues in remaining opportunities. Pt perseverated on items during task and was introduced to strategies including SFA. Pt intelligiblity was <30% without context and required verbal cues and direct models for improved articulation. Assessment Assessment Current Status: Good Progress Treatment Plan Continue Plan of Care Speech Short Term Goals Short Term Goals Short Term Goals 1. The pt will complete expressive language therapy tasks with 90% accy. 2. The pt will complete naming tasks with 90% accy. 3. The pt will answer yes/no questions with 90% accy. 4. The pt will utilize dysarthria compensatory strategies during conversation with min cues. Speech Prison Goals Prison Goals The pt will be able to communicate during daily activities without difficulty with 90% accy. Speech-Plan Patient/Family Goals Patient/Family Goals: Return home with Treatment Plan Speech Therapy Treatment Plan: Continue Plan of Care Pt demonstrated independent success with y/n questions and mod-max support when demonstrating word-finding difficulties. Pt was independent with naming in 63% opportunities. Treatment Duration: Jun 29, 2021 Frequency: 3 times per week Estimated Hrs Per Day: .5 hour per day Rehab Potential: Fair Barriers to Learning: intelligibility and expressive communication skills Pt/Family Agrees to Plan: Yes Safety Risks/Education Teaching Recipient: Patient Teaching Methods: Discussion Response to Teaching: Verbalize Understanding Education Topics Provided: ST goals, SFA, improving intelligibility Time Speech Therapy Time In: 09:20 Speech Therapy Time Out: 09:50 Total Billed Time: 30 Billed Treatment Time 1, SLTS HECTOR Ingram Jun 30, 2021 09:48
--- NOTE | 2021-06-30 14:07 | Physical Therapy Daily Note ---
PT Daily Note-Current Subjective Pt in recliner w/ spouse in room upon arrival and agrees to tx. Pt states R UE is sore. Mental Status Patient Orientation: Person, Place Transfers SCALE: Activities may be completed with or without assistive devices. 9-Swmuqfzieq-jwpomyv completes the activity by him/herself with no assistance from a helper. 5-Set-up or Clean-up Assistance-helper sets up or cleans up; patient completes activity. [place] assists only prior to or following the activity. 4-Supervision or Touching Assistance-helper provides verbal cues and/or touching/steadying and/or contact guard assistance as patient completes activity. Assistance may be provided throughout the activity or intermittently. 3-Partial/Moderate Assistance-helper does LESS THAN HALF the effort. [place] lifts, holds or supports trunk or limbs, but provides less than half the effort. 2-Substantial/Maximal Assistance-helper does MORE THAN HALF the effort. [place] lifts or holds trunk or limbs and provides more than half the effort. 0-Hiejfihie-pxjxvr does ALL the effort. Patient does none of the effort to complete the activity. Or, the assistance of 2 or more helpers is required for the patient to complete the activity. If activity was not attempted, code reason: 7-Patient Refused. 9-Not Applicable-not attempted and the patient did not perform the activity before the current illness, exacerbation or injury. 10-Not Attempted due to Environmental Limitations-(lack of equipment, weather restraints, etc.). 88-Not Attempted due to Medical Conditions or Safety Concerns. Sit to Stand (QC): 3 Gait Training Does the Patient Walk?: Yes Distance: 150' x2 Walk 10 feet (QC): 3 Walk 50 ft with 2 Turns(QC): 3 Walk 150 ft (QC): 3 Gait Persons Needed: 1 Gait Assistive Device: FWW Pt amb w/ FWW and Toshia. Pt has unsteady gait, tends to have LOB w/ accelerated pace. Pt requires Toshia to help stabilize pt. Pt has narrow EDU throughout gait, tends to drag R LE, push FWW away, and has forward flexed posture. Pt requires VC to correct gait deviations. During gait, pt rounded corner, had slight LOB d/t narrow EDU and dragging R LE, but pt self corrected. Exercises Seated Therapy Exercises: Ankle pumps, Sit to stand, Long arc quads, Hip flexion, Hip abd/add Seated Reps: 10 NuStep Minutes: 15 NuStep Workload: 3 Treatments Pt sit to stand from recliner, ModA d/t height of seat. Pt requires VC for hand placement. Pt amb from recliner and around IRU w/ FWW and WC follow. Pt then enters therapy room and completes NuStep. Pt requires VC to grasp R UE handle. Pt sit to stand Toshia and amb to chair in therapy gym, followed by a seated RB. Pt then performed standing reaching activity. MATRIX PLATER stands on L side as PT tech on R, pt grabs cones at various heights from MATRIX PLATER w/ one UE at a time and hands them to PT tech on other side. Pt performed activity, reaching to both sides w/ L UE once, and both sides w/ R UE x2. Pt had a total of 8 cones each set, w/ R UE, pt had difficulties grasping cones. Pt has seated RB as needed during cone activity. Pt then completes seated ex, followed by amb back to room. Pt returns to recliner, then request to use BR. Pt sit to stand ModA from recliner and amb to bathroom. Pt requires Toshia doffing/donning pants and when washing hands. Pt returns to recliner with all needs met, call light in hand. Assessment Current Status: Good Progress Pt increasing endurance, balance, mobility, and strength. PT Short Term Goals Short Term Goals Time Frame: Jul 05, 2021 Roll Left & Right: 6 Sit to lyin Lying to sitting on side of be: 3 Sit to stand: 4 Chair/wlp-qo-jxnzd transfer: 4 Walk 10 feet: 4 Walk 50 feet with two turns: 4 Walk 150 feet: 4 PT Automated Manufacturing Instructor Goals Automated Manufacturing Instructor Goals PT Automated Manufacturing Instructor Goals Time Frame: Jul 19, 2021 Roll Left & Right (QC): 6 Sit to Lying (QC): 6 Lying-Sitting on Side/Bed(QC): 6 Sit to Stand (QC): 4 (SBA) Chair/Rsx-um-Hkzoc Xfer(QC): 4 (SBA) Toilet Transfer (QC): 4 (SBA) Car Transfer (QC): 4 (SBA) Does the Patient Walk: Yes Walk 10 feet (QC): 4 (SBA) Walk 50ft with 2 Turns (QC): 4 (SBA) Walk 150 ft (QC): 4 (SBA) Walking 10ft on Uneven Surface: 4 (SBA) 1 Step (curb) (QC): 4 (CGA) 4 Steps (QC): 4 (CGA) 12 Steps (QC): 88 Picking up an Object (QC): 4 (CGA) Wheel 50 feet with 2 turns (QC: 9 Wheel 150 feet: 9 PT Plan Problem List Problem List: Activity Tolerance, Functional Strength, Safety Treatment/Plan Treatment Plan: Continue Plan of Care Treatment Plan: Bed Mobility, Education, Functional Activity Tenzin, Functional Strength, Group Therapy, Gait, Safety, Therapeutic Exercise, Transfers Treatment Duration: Jul 19, 2021 Frequency: At least 5 of 7 days/Wk (IRF) Estimated Hrs Per Day: 1.5 hours per day Patient and/or Family Agrees t: Yes Time/GCodes Time In: 1100 Time Out: 1215 Total Billed Treatment Time: 75 Total Billed Treatment 1, GT, EX x2, FA x2 CARON NICHOLAS MATRIX PLATER Jun 30, 2021 14:07
--- NOTE | 2021-06-30 17:21 | Cardiology Progress Note ---
Progress Note-Cardiology Events since last exam Date Seen by Provider: Jun 30, 2021 Time Seen by Provider: 17:17 Events since last exam I am seeing him for atrial fibrillation. He was sitting up in a chair eating dinner. He denies chest discomfort, dyspnea, palpitations, syncope, or ankle edema. It was a little easier to understand today when compared to yesterday. Certain portions of this document may have been dictated utilizing voice recognition technology. Inherent to this technology, typographical and grammatical errors may exist. As much as I am diligent to identify and correct these mistakes, some errors may remain in the document. Vitals Last set of Vitals Signs Vital Signs 06/30/21 07:43 Temp 36.4 Pulse 56 Resp 18 B/P (MAP) 158/62 (94) Pulse Ox 97 O2 Delivery Room Air Exam Vital Signs Vital Signs Date Time Temp Pulse Resp B/P (MAP) Pulse Ox O2 Delivery O2 Flow Rate FiO2 06/30/21 07:43 36.4 56 18 158/62 (94) 97 Room Air Physical Exam General: Alert. No acute distress. Eye: No xanthelasma. HENT: Normocephalic. Neck: Jugular venous pressure does not appear elevated. Respiratory: Lungs are clear to auscultation. Respirations are non-labored. Breath sounds are equal. Symmetrical chest wall expansion. Cardiovascular: Normal rate. Irregular rhythm. No murmur. No gallop. No edema. Gastrointestinal: Soft. Normal bowel sounds. Skin: Warm. Dry. Neurologic: Alert and oriented to person, place, time. Cranial nerves 3-11 grossly intact. Expressive aphasia. Right-sided weakness. Psychiatric: Cooperative. Appropriate mood & affect. Diagnosis/Problems Diagnosis/Problems (1) Paroxysmal atrial fibrillation Assessment & Plan: This is most likely the cause of the patient's cerebrovascular accident. He had episodic paroxysmal atrial fibrillation at the outside hospital and has again gone into atrial fibrillation here. He was also having some intermittent bradycardia at the outside hospital. Heart rates are presently controlled on no AV daisha blocking agents. I recommend we continue the patient on apixaban. I have requested a copy of an echocardiogram report from the outside hospital and am still waiting for this to come in for review. If for some reason he did not have an echocardiogram at the outside hospital, I will order one here next week. (2) Sinus bradycardia Assessment & Plan: He was having intermittent bradycardia at the outside hospital as outlined above. If he needs adjustment to his medication for hypertension, I would recommend we avoid using beta-blockers, diltiazem or verapamil. (3) Primary hypertension Assessment & Plan: He is on amlodipine which was started at the outside hospital. This is a new diagnosis for the patient. His blood pressures are intermittently elevated. If this persists, I would consider starting him on CAROL inhibitor or ARB. Avoid beta-kaylin and other AV daisha blockers as above. (4) Mixed hyperlipidemia Assessment & Plan: I recommend he continue on statin medication in light of the acute cerebrovascular accident. He should have a follow-up lipid panel in about 2-3 months. (5) History of cerebrovascular accident with residual deficit Assessment & Plan: As above, I suspect the atrial fibrillation led to the patient's cerebrovascular accident since this was noted early in his hospitalization at the outside facility. (6) Morbid obesity Assessment & Plan: He will need to work on weight loss once he gets his strength back. JOSEPH WALLACE JR, MD Jun 30, 2021 17:21
[2021-06-30 20:31] VITALS: BP 127/75
[2021-06-30] MEDS: polyethylene glycoL POWDER 17 GM (MIRALAX) PACK PO SCH (21:00)
[2021-07-01 07:12] VITALS: BP 170/64
[2021-07-01] MEDS: APIXABAN 5 MG (ELIQUIS) TABLET PO SCH ×2 (08:10→22:13)
[2021-07-01] MEDS: SENNA W/DOCUSATE (SENOKOT S) TABLET PO SCH ×2 (08:10→22:14)
[2021-07-01] MEDS: DOCUSATE SODIUM 100 MG (COLACE) CAP PO SCH ×2 (08:10→22:14)
[2021-07-01] MEDS: MILK OF MAGNESIA 400 MG/5 ML 30 ML UDC PO SCH (08:10)
[2021-07-01] MEDS: amLODIPine 10 MG (NORVASC) TAB PO SCH (08:10)
[2021-07-01] MEDS: FAMOTIDINE 20 MG (PEPCID) TABLET PO SCH (08:10)
--- NOTE | 2021-07-01 08:27 | PM&R Progress Note ---
Subjective HPI/CC On Admission Date Seen by Provider: Jul 01, 2021 Time Seen by Provider: 13:00 Subjective/Events-last exam 07/01/2021: Patient doing really well Speaking more clearly No falls Still impulsive Appreciate Dr. Lacie Medellin added losartan 50 mg Echo will be obtained on Saturday from outside hospital 06/30/2021: Patient doing really well Appreciate Dr. Medellin consultation cardiology EKG shows atrial fibrillation paroxysmal type maintained on oral anticoagulation at the bedside Speaking more clearly Walking around really well with assistance 06/29/2021: Patient had no events overnight Appreciate Dr. Medellin cardiology consult Doing well overall Right upper extremity with right facial droop is profound Able to walk around with assistive device and assistance Previously had bradycardia in the 50s and even 4020s during acute medical admission Creatinine 1.37 Review of Systems General: Fatigue Neurological: Weakness, Incoordination, Change in speech Objective Exam Vital Signs Vital Signs Date Time Temp Pulse Resp B/P (MAP) Pulse Ox O2 Delivery O2 Flow Rate FiO2 07/01/21 21:00 Room Air 07/01/21 20:00 36.3 49 18 148/72 (97) 98 Capillary Refill : General Appearance: No Apparent Distress, WD/WN, Chronically ill, Obese HEENT: PERRL/EOMI, Normal ENT Inspection, Pharynx Normal Neck: Full Range of Motion, Normal Inspection, Non Tender, Supple, Carotid Bruit Respiratory: Chest Non Tender, Lungs Clear, Normal Breath Sounds, No Accessory Muscle Use, No Respiratory Distress Cardiovascular: Regular Rate, Rhythm, No Edema, No Gallop, No JVD, No Murmur, Normal Peripheral Pulses Gastrointestinal: Normal Bowel Sounds, No Organomegaly, No Pulsatile Mass, Non Tender, Soft Back: Normal Inspection, No CVA Tenderness, No Vertebral Tenderness Extremity: Normal Capillary Refill, Normal Inspection, Normal Range of Motion, Non Tender, No Calf Tenderness, No Pedal Edema Neurologic/Psychiatric: Alert, Oriented x3, Normal Mood/Affect, poultry farm manager II-XII Norm as Tested, Abnormal Gait, Aphasia, Facial Droop (Right-sided), Motor Weakness (Right-sided weakness) Skin: Normal Color, Warm/Dry Lymphatic: No Adenopathy Results/Procedures Lab Patient resulted labs reviewed. FIM Transfers Therapy Code Descriptions/Definitions Functional [place] Measure: 0=Not Assessed/NA 4=Minimal Assistance 1=Total Assistance 5=Supervision or Setup 2=Maximal Assistance 6=Modified [place] 3=Moderate Assistance 7=Complete IndependenceSCALE: Activities may be completed with or without assistive devices. 3-Blcncnodfk-epbegfr completes the activity by him/herself with no assistance from a helper. 5-Set-up or Clean-up Assistance-helper sets up or cleans up; patient completes activity. [place] assists only prior to or following the activity. 4-Supervision or Touching Assistance-helper provides verbal cues and/or touching /steadying and/or contact guard assistance as patient completes activity. Assistance may be provided throughout the activity or intermittently. 3-Partial/Moderate Assistance-helper does LESS THAN HALF the effort. [place] lifts, holds or supports trunk or limbs, but provides less than half the effort. 2-Substantial/Maximal Assistance-helper does MORE THAN HALF the effort. [place] lifts or holds trunk or limbs and provides more than half the effort. 0-Hldnzqntp-xinosn does ALL the effort. Patient does none of the effort to complete the activity. Or, the assistance of 2 or more helpers is required for the patient to complete the activity. If activity was not attempted, code reason: 7-Patient Refused. 9-Not Applicable-not attempted and the patient did not perform the activity before the current illness, exacerbation or injury. 10-Not Attempted due to Environmental Limitations-(lack of equipment, weather restraints, etc.). 88-Not Attempted due to Medical Conditions or Safety Concerns. Roll Left to Right (QC): 3 Sit to Lying (QC): 3 Sit to Stand (QC): 3 Chair/Gss-st-Xjmxy Xfer(QC): 3 Car Transfer (QC): 3 Gait Training Does the Patient Walk?: Yes Distance: 150' x2 Walk 10 feet (QC): 3 Walk 50 ft with 2 Turns(QC): 3 Walk 150 ft (QC): 3 Walking 10ft/uneven surface-QC: 88 Gait Persons Needed: 1 Gait Assistive Device: FWW Wheelchair Training Does the Pt Use a Wheelchair?: No Wheel 50 ft with 2 turns (QC): 9 Wheel 150 ft (QC): 9 Stair Training 1 Step (curb) (QC): 88 4 Steps (QC): 88 12 Steps (QC): 88 Balance Picking up an Object (QC): 88 ADL-Treatment Eating (QC): 5 (based on clincial judgment, assistance with cutting food and opening contianers. Pt left handed and able to use LUE) Oral Hygiene (QC): 7 Bathing Location: L Arm, R Arm, L Upper Leg, R Upper Leg, L Lower Leg (including foot), R Lower Leg (including foot), Chest, Abdomen, Perineal Area Shower/Bathe Self (QC): 3 (Min A with standing balance, and assist with washing buttocks for thoroughness. Pt washed/dried other parts.) Upper Body Dressing (QC): 3 (assist with orientation of shirt, pt able to thread BUEs and head.) Lower Body Dressing (QC): 3 (pt able to doff brief, thread LEs using AE, assist with pant hike) On/Off Footwear (QC): 2 (Max A using sock aide to don socks and assist with slip on shoes.) Toileting Hygiene (QC): 3 (Assist with pant hike, mod A standing balance during pant hike) Toilet Transfer (QC): 3 Assessment/Plan Assessment and Plan Assess & Plan/Chief Complaint Assessment: CVA with right-sided weakness Right-sided facial droop Aphasia Paroxysmal atrial fibrillation? Oral anticoagulation Plan: Aggressive therapy Speech therapy Cardiology consult Monitor closely 06/29/2021: Supportive care Aggressive therapy Cardiology consult appreciated 06/30/2021 Appreciate cardiology Maintain oral anticoagulants Monitor closely Avoid rate control medication due to bradycardia history 07/01/2021: Appreciate cardiology Losartan 50 mg added (1) CVA (cerebral vascular accident) (2) Paroxysmal atrial fibrillation Assessment & Plan: He had episodic paroxysmal atrial fibrillation at the outside hospital. We do not yet have an electrocardiogram in our hospital. I have placed an order for an electrocardiogram for baseline purposes. He was also having some intermittent bradycardia. I recommend we continue the patient on apixaban. I have requested a copy of an echocardiogram report from the outside hospital. If for some reason he did not have an echocardiogram at the outside hospital, I will order one here. (3) Sinus bradycardia Assessment & Plan: He was having intermittent bradycardia at the outside hospital as outlined above. If he needs adjustment to his medication for hypertension, I would recommend we avoid using beta-blockers, diltiazem or vera pamil. (4) Primary hypertension Assessment & Plan: He is on amlodipine which was started at the outside hospital. This is a new diagnosis for the patient. His blood pressures are intermittently elevated. If this persists, I would consider starting him on CAROL inhibitor or ARB. Avoid beta-kaylin and other AV daisha blockers as above. (5) Mixed hyperlipidemia Assessment & Plan: I recommend he continue on statin medication in light of the acute cerebrovascular accident. He should have a follow-up lipid panel in about 2-3 months. (6) Morbid obesity Assessment & Plan: He will need to work on weight loss once he gets his strength back. TOBIAS BUTCHER DO Jul 01, 2021 08:27
[2021-07-01 09:11] VITALS: BP 152/60
--- NOTE | 2021-07-01 11:42 | Physical Therapy Daily Note ---
PT Daily Note-Current Subjective Pt ready to go to upon my arrival. Spouse present and both report he is doing better. Mental Status Patient Orientation: Person, Place, Situation Mild aphasia Transfers SCALE: Activities may be completed with or without assistive devices. 1-Pejtuczfdz-enwhxbr completes the activity by him/herself with no assistance from a helper. 5-Set-up or Clean-up Assistance-helper sets up or cleans up; patient completes activity. [place] assists only prior to or following the activity. 4-Supervision or Touching Assistance-helper provides verbal cues and/or touching/steadying and/or contact guard assistance as patient completes act ivity. Assistance may be provided throughout the activity or intermittently. 3-Partial/Moderate Assistance-helper does LESS THAN HALF the effort. [place] lifts, holds or supports trunk or limbs, but provides less than half the effort. 2-Substantial/Maximal Assistance-helper does MORE THAN HALF the effort. [place] lifts or holds trunk or limbs and provides more than half the effort. 2-Ieuuvoioz-ewlngz does ALL the effort. Patient does none of the effort to complete the activity. Or, the assistance of 2 or more helpers is required for the patient to complete the activity. If activity was not attempted, code reason: 7-Patient Refused. 9-Not Applicable-not attempted and the patient did not perform the activity before the current illness, exacerbation or injury. 10-Not Attempted due to Environmental Limitations-(lack of equipment, weather restraints, etc.). 88-Not Attempted due to Medical Conditions or Safety Concerns. Pt requires vc's for hand plaement and CGA only Gait Training Gait Assistive Device: FWW Pt amb with FWW and CGA x 250ft, occasional manual assist with R hand on walker due to R hand weakness Exercises Seated Therapy Exercises: Ankle pumps, Long arc quads, Hip flexion Seated Reps: 20 Treatments Cervical AROM rotation with eyes finding objects, head up/down x 5 ea. Assessment Current Status: Good Progress Pt requires vc's for hand placement. Pt required assist to doff/don pants and wipe. Pt resting in recliner with all needs met. Call light in reach. PT Short Term Goals Short Term Goals Time Frame: Jul 05, 2021 Roll Left & Right: 6 Sit to lyin Lying to sitting on side of be: 3 Sit to stand: 4 Chair/yof-sd-nwkfi transfer: 4 Walk 10 feet: 4 Walk 50 feet with two turns: 4 Walk 150 feet: 4 PT Database Admin Goals Database Admin Goals PT Database Admin Goals Time Frame: Jul 19, 2021 Roll Left & Right (QC): 6 Sit to Lying (QC): 6 Lying-Sitting on Side/Bed(QC): 6 Sit to Stand (QC): 4 (SBA) Chair/Rci-yi-Vmqmk Xfer(QC): 4 (SBA) Toilet Transfer (QC): 4 (SBA) Car Transfer (QC): 4 (SBA) Does the Patient Walk: Yes Walk 10 feet (QC): 4 (SBA) Walk 50ft with 2 Turns (QC): 4 (SBA) Walk 150 ft (QC): 4 (SBA) Walking 10ft on Uneven Surface: 4 (SBA) 1 Step (curb) (QC): 4 (CGA) 4 Steps (QC): 4 (CGA) 12 Steps (QC): 88 Picking up an Object (QC): 4 (CGA) Wheel 50 feet with 2 turns (QC: 9 Wheel 150 feet: 9 PT Plan Treatment/Plan Treatment Plan: Continue Plan of Care Treatment Plan: Bed Mobility, Education, Functional Activity Tenzin, Functional Strength, Group Therapy, Gait, Safety, Therapeutic Exercise, Transfers Treatment Duration: Jul 19, 2021 Frequency: At least 5 of 7 days/Wk (IRF) Estimated Hrs Per Day: 1.5 hours per day Patient and/or Family Agrees t: Yes Time/GCodes Time In: 1105 Time Out: 1125 Total Billed Treatment Time: 20 Total Billed Treatment 1, gait 10', Ex 5',FA 5' SHERRIE MELCHOR CPTA Jul 01, 2021 11:42
--- NOTE | 2021-07-01 11:52 | Cardiology Progress Note ---
Progress Note-Cardiology Events since last exam Date Seen by Provider: Jul 01, 2021 Time Seen by Provider: 11:51 Events since last exam I am seeing him for atrial fibrillation. He feels like his speech continues to improve. He denies chest pain, dyspnea at rest, palpitations, syncope, or ankle edema. Today I was also able to speak with his who was at his bedside. She tells me he did in fact have an echocardiogram at the outside hospital. Certain portions of this document may have been dictated utilizing voice recognition technology. Inherent to this technology, typographical and grammatical errors may exist. As much as I am diligent to identify and correct these mistakes, some errors may remain in the document. Vitals Last set of Vitals Signs Vital Signs 07/01/21 07/01/21 07/01/21 07:12 08:48 09:11 Temp 36.4 Pulse 50 Resp 18 B/P (MAP) 152/60 (90) Pulse Ox 98 O2 Delivery Room Air Exam Vital Signs Vital Signs Date Time Temp Pulse Resp B/P (MAP) Pulse Ox O2 Delivery O2 Flow Rate FiO2 07/01/21 09:11 152/60 (90) 07/01/21 08:48 Room Air 07/01/21 07:12 36.4 50 18 98 Physical Exam General: Alert. No acute distress. He is obese. He has expressive aphasia. Eye: No xanthelasma. HENT: Normocephalic. Neck: Jugular venous pressure does not appear elevated. Respiratory: Lungs are clear to auscultation. Respirations are non-labored. Breath sounds are equal. Symmetrical chest wall expansion. Cardiovascular: Normal rate. Irregular rhythm. No murmur. No gallop. No edema. Gastrointestinal: Soft. Normal bowel sounds. Skin: Warm. Dry. Neurologic: Alert and oriented to person, place, time. Expressive aphasia. Right-sided weakness. Psychiatric: Cooperative. Appropriate mood & affect. Diagnosis/Problems Diagnosis/Problems (1) Paroxysmal atrial fibrillation Assessment & Plan: This is most likely the cause of the patient's cerebrova scular accident. He had episodic paroxysmal atrial fibrillation at the outside hospital and has again gone into atrial fibrillation here. He was also having some intermittent bradycardia at the outside hospital. Heart rates are presently controlled on no AV daisha blocking agents. I recommend we continue the patient on apixaban. We are still waiting for the echocardiogram from the outside hospital. If we do not receive this by Saturday, we will call again. I do not see any need to repeat the study since his tells me he had an echocardiogram at the outside hospital. After about 6 weeks from the initial event, we may want to consider a cardioversion. (2) Sinus bradycardia Assessment & Plan: He was having intermittent bradycardia at the outside hospital as outlined above. I suspect he has some degree of AV daisha dysfunction since he did not develop tachycardia with the atrial fibrillation. If he needs adjustment to his medication for hypertension, I would recommend we avoid using beta-blockers, diltiazem or verapamil. Heart rates have been stable here. There is no indication for permanent pacemaker at this time. (3) Primary hypertension Assessment & Plan: He is on amlodipine which was started at the outside hospital. The dose was increased here. Hypertension is a new diagnosis for the patient although until this admission, he had not seen a physician in a number of years. His blood pressures remain intermittently elevated. I will start him on intermediate dose losartan. Avoid beta-kaylin and other AV daisha blockers as above. (4) Mixed hyperlipidemia Assessment & Plan: I recommend he continue on statin medication in light of the acute cerebrovascular accident. He should have a follow-up lipid panel in about 2-3 months. (5) History of cerebrovascular accident with residual deficit Assessment & Plan: As above, I suspect the atrial fibrillation led to the patient's cerebrovascular accident since this was noted early in his hospitalization at the outside facility. (6) Morbid obesity Assessment & Plan: He will need to work on weight loss once he gets his strength back. JOSEPH WALLACE JR, MD Jul 01, 2021 11:52
[2021-07-01] MEDS ORDERED: LOSARTAN 50 MG (COZAAR) TAB PO ONE (12:00)
[2021-07-01 20:00] VITALS: BP 148/72
[2021-07-01] MEDS: polyethylene glycoL POWDER 17 GM (MIRALAX) PACK PO SCH (22:14)
[2021-07-02 06:54] LABS: POTASSIUM 4.3 MMOL/L (3.6-5.0)
[2021-07-02 06:55] LABS: CALCIUM 9.1 MG/DL (8.5-10.1)
[2021-07-02 06:59] LABS: CREATININE SERUM 1.22 MG/DL (0.60-1.30)
--- NOTE | 2021-07-02 08:03 | PM&R Progress Note ---
Subjective HPI/CC On Admission Date Seen by Provider: Jul 02, 2021 Time Seen by Provider: 13:30 Subjective/Events-last exam 07/02/2021: Patient currently sleeping Suspicion for obstructive sleep apnea when I am witnessing his sleep Losartan started and blood pressure will be monitored Incontinent of urine at night Bowels move twice today 07/01/2021: Patient doing really well Speaking more clearly No falls Still impulsive Appreciate Dr. Lacie Medellin added losartan 50 mg Echo will be obtained on Saturday from outside hospital 06/30/2021: Patient doing really well Appreciate Dr. Medellin consultation cardiology EKG shows atrial fibrillation paroxysmal type maintained on oral anticoagulation at the bedside Speaking more clearly Walking around really well with assistance 06/29/2021: Patient had no events overnight Appreciate Dr. Medellin cardiology consult Doing well overall Right upper extremity with right facial droop is profound Able to walk around with assistive device and assistance Previously had bradycardia in the 50s and even 4020s during acute medical admission Creatinine 1.37 Review of Systems General: Fatigue, Malaise Objective Exam Vital Signs Vital Signs Date Time Temp Pulse Resp B/P (MAP) Pulse Ox O2 Delivery O2 Flow Rate FiO2 07/02/21 09:04 36.4 46 18 155/69 (97) 96 Room Air Capillary Refill : General Appearance: No Apparent Distress, WD/WN, Chronically ill, Obese HEENT: PERRL/EOMI, Normal ENT Inspection, Pharynx Normal Neck: Full Range of Motion, Normal Inspection, Non Tender, Supple, Carotid Bruit Respiratory: Chest Non Tender, Lungs Clear, Normal Breath Sounds, No Accessory Muscle Use, No Respiratory Distress Cardiovascular: Regular Rate, Rhythm, No Edema, No Gallop, No JVD, No Murmur, Normal Peripheral Pulses Gastrointestinal: Normal Bowel Sounds, No Organomegaly, No Pulsatile Mass, Non Tender, Soft Back: Normal Inspection, No CVA Tenderness, No Vertebral Tenderness Extremity: Normal Capillary Refill, Normal Inspection, Normal Range of Motion, Non Tender, No Calf Tenderness, No Pedal Edema Neurologic/Psychiatric: Alert, Oriented x3, Normal Mood/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 FIM Transfers Therapy Code Descriptions/Definitions Functional [place] Measure: 0=Not Assessed/NA 4=Minimal Assistance 1=Total Assistance 5=Supervision or Setup 2=Maximal Assistance 6=Modified [place] 3=Moderate Assistance 7=Complete IndependenceSCALE: Activities may be completed with or without assistive devices. 4-Zcpdzzxque-wduwamh completes the activity by him/herself with no assistance from a helper. 5-Set-up or Clean-up Assistance-helper sets up or cleans up; patient completes activity. [place] assists only prior to or following the activity. 4-Supervision or Touching Assistance-helper provides verbal cues and/or touching/steadying and/or contact guard assistance as patient completes activity. Assistance may be provided throughout the activity or intermittently. 3-Partial/Moderate Assistance-helper does LESS THAN HALF the effort. [place] lifts, holds or supports trunk or limbs, but provides less than half the effort. 2-Substantial/Maximal Assistance-helper does MORE THAN HALF the effort. [place] l ifts or holds trunk or limbs and provides more than half the effort. 8-Ektudiozc-uhhndj does ALL the effort. Patient does none of the effort to complete the activity. Or, the assistance of 2 or more helpers is required for the patient to complete the activity. If activity was not attempted, code reason: 7-Patient Refused. 9-Not Applicable-not attempted and the patient did not perform the activity before the current illness, exacerbation or injury. 10-Not Attempted due to Environmental Limitations-(lack of equipment, weather restraints, etc.). 88-Not Attempted due to Medical Conditions or Safety Concerns. Roll Left to Right (QC): 3 Sit to Lying (QC): 3 Sit to Stand (QC): 3 Chair/Yke-ue-Xchxf Xfer(QC): 3 Car Transfer (QC): 3 Gait Training Does the Patient Walk?: Yes Distance: 150' x2 Walk 10 feet (QC): 3 Walk 50 ft with 2 Turns(QC): 3 Walk 150 ft (QC): 3 Walking 10ft/uneven surface-QC: 88 Gait Persons Needed: 1 Gait Assistive Device: FWW Wheelchair Training Does the Pt Use a Wheelchair?: No Wheel 50 ft with 2 turns (QC): 9 Wheel 150 ft (QC): 9 Stair Training 1 Step (curb) (QC): 88 4 Steps (QC): 88 12 Steps (QC): 88 Balance Picking up an Object (QC): 88 ADL-Treatment Eating (QC): 5 (based on clincial judgment, assistance with cutting food and opening contianers. Pt left handed and able to use LUE) Oral Hygiene (QC): 7 Bathing Location: L Arm, R Arm, L Upper Leg, R Upper Leg, L Lower Leg (including foot), R Lower Leg (including foot), Chest, Abdomen, Perineal Area Shower/Bathe Self (QC): 3 (Min A with standing balance, and assist with washing buttocks for thoroughness. Pt washed/dried other parts.) Upper Body Dressing (QC): 3 (assist with orientation of shirt, pt able to thread BUEs and head.) Lower Body Dressing (QC): 3 (pt able to doff brief, thread LEs using AE, assist with pant hike) On/Off Footwear (QC): 2 (Max A using sock aide to don socks and assist with slip on shoes.) Toileting Hygiene (QC): 3 (Assist with pant hike, mod A standing balance during pant hike) Toilet Transfer (QC): 3 Assessment/Plan Assessment and Plan Assess & Plan/Chief Complaint Assessment: CVA with right-sided weakness Right-sided facial droop Aphasia Paroxysmal atrial fibrillation? Oral anticoagulation Plan: Aggressive therapy Speech therapy Cardiology consult Monitor closely 06/29/2021: Supportive care Aggressive therapy Cardiology consult appreciated 06/30/2021 Appreciate cardiology Maintain oral anticoagulants Monitor closely Avoid rate control medication due to bradycardia history 07/01/2021: Appreciate cardiology Losartan 50 mg added 07/02/2021: Incontinency at night monitored Supportive care Needs sleep study (1) Paroxysmal atrial fibrillation Assessment & Plan: This is most likely the cause of the patient's cerebrovascular accident. He had episodic paroxysmal atrial fibrillation at the outside hospital and has again gone into atrial fibrillation here. He was also having some intermittent bradycardia at the outside hospital. Heart rates are presently controlled on no AV daisha blocking agents. I recommend we continue the patient on apixaban. We are still waiting for the echocardiogram from the outside hospital. If we do not receive this by Saturday, we will call again. I do not see any need to repeat the study since his tells me he had an echocardiogram at the outside hospital. After about 6 weeks from the initial event, we may want to consider a cardioversion. (2) Sinus bradycardia Assessment & Plan: He was having intermittent bradycardia at the outside hospital as outlined above. I suspect he has some degree of AV daisha dysfunction since he did not develop tachycardia with the atrial fibrillation. If he needs adjustment to his medication for hypertension, I would recommend we avoid using beta-blockers, diltiazem or verapamil. Heart rates have been stable here. There is no indication for permanent pacemaker at this time. (3) Primary hypertension Assessment & Plan: He is on amlodipine which was started at the outside hospital. The dose was increased here. Hypertension is a new diagnosis for the patient although until this admission, he had not seen a physician in a number of years. His blood pressures remain intermittently elevated. I will start him on intermediate dose losartan. Avoid beta-kaylin and other AV daisha blockers as above. (4) Mixed hyperlipidemia Assessment & Plan: I recommend he continue on statin medication in light of the acute cerebrovascular accident. He should have a follow-up lipid panel in about 2-3 months. (5) History of cerebrovascular accident with residual deficit Assessment & Plan: As above, I suspect the atrial fibrillation led to the patient's cerebrovascular accident since this was noted early in his hospitalization at the outside facility. (6) Morbid obesity Assessment & Plan: He will need to work on weight loss once he gets his strength back. TOBIAS BUTCHER DO Jul 02, 2021 08:03
[2021-07-02] MEDS: MILK OF MAGNESIA 400 MG/5 ML 30 ML UDC PO SCH (09:00)
[2021-07-02] MEDS: SENNA W/DOCUSATE (SENOKOT S) TABLET PO SCH ×2 (09:00→20:59)
[2021-07-02] MEDS: DOCUSATE SODIUM 100 MG (COLACE) CAP PO SCH ×2 (09:00→20:59)
[2021-07-02 09:04] VITALS: BP 155/69
[2021-07-02] MEDS: LOSARTAN 50 MG (COZAAR) TAB PO SCH (09:53)
[2021-07-02] MEDS: amLODIPine 10 MG (NORVASC) TAB PO SCH (09:53)
[2021-07-02] MEDS: FAMOTIDINE 20 MG (PEPCID) TABLET PO SCH (09:53)
[2021-07-02] MEDS: APIXABAN 5 MG (ELIQUIS) TABLET PO SCH ×2 (09:53→20:52)
--- NOTE | 2021-07-02 13:00 | Cardiology Progress Note ---
Progress Note-Cardiology Events since last exam Date Seen by Provider: Jul 02, 2021 Time Seen by Provider: 12:57 Events since last exam I am following him for atrial fibrillation and hypertension. He continues to work with physical therapy. He still has aphasia and right-sided weakness. He denies chest pain, dyspnea at rest, palpitations, syncope, or ankle edema. Certain portions of this document may have been dictated utilizing voice recognition technology. Inherent to this technology, typographical and grammatical errors may exist. As much as I am diligent to identify and correct these mistakes, some errors may remain in the document. Vitals Last set of Vitals Signs Vital Signs 07/02/21 09:04 Temp 36.4 Pulse 46 Resp 18 B/P (MAP) 155/69 (97) Pulse Ox 96 O2 Delivery Room Air Labs Labs Laboratory Tests 07/02/21 06:07 Exam Vital Signs Vital Signs Date Time Temp Pulse Resp B/P (MAP) Pulse Ox O2 Delivery O2 Flow Rate FiO2 07/02/21 09:04 36.4 46 18 155/69 (97) 96 Room Air Physical Exam General: Alert. No acute distress. He is obese. Eye: No xanthelasma. HENT: Normocephalic. Neck: Jugular venous pressure does not appear elevated. Respiratory: Lungs are clear to auscultation. Respirations are non-labored. Breath sounds are equal. Symmetrical chest wall expansion. Cardiovascular: Normal rate. Iregular rhythm. No murmur. No gallop. No edema. Gastrointestinal: Soft. Normal bowel sounds. Skin: Warm. Dry. Neurologic: Alert and oriented to person, place, time. Cranial nerves 3-11 grossly intact. Expressive aphasia. Right-sided weakness. Psychiatric: Cooperative. Appropriate mood & affect. Labs Laboratory Tests Test 07/02/21 06:07 Range/Units Sodium Level 141 135-145 MMOL/L Potassium Level 4.3 3.6-5.0 MMOL/L Chloride Level 110 H 98-107 MMOL/L Carbon Dioxide Level 23 21-32 MMOL/L Anion Gap 8 5-14 MMOL/L Blood Urea Nitrogen 27 H 7-18 MG/DL Creatinine 1.22 0.60-1.30 MG/DL Estimat Glomerular Filtration Rate 59 BUN/Creatinine Ratio 22 Glucose Level 102 70-105 MG/DL Calcium Level 9.1 8.5-10.1 MG/DL Diagnosis/Problems Diagnosis/Problems (1) Paroxysmal atrial fibrillation Assessment & Plan: This is most likely the cause of the patient's cerebrovascu lar accident. He had episodic paroxysmal atrial fibrillation at the outside hospital as well as in our facility. He was also having some intermittent bradycardia at the outside hospital. Heart rates are presently controlled on no AV daisha blocking agents. I recommend we continue the patient on apixaban. We are still waiting for the echocardiogram from the outside hospital. If we do not receive this by Saturday, we will call again. I do not see any need to repeat the study since his tells me he had an echocardiogram at the outside hospital. After about 6 weeks from the initial event, we may want to consider a cardioversion. (2) Sinus bradycardia Assessment & Plan: He was having intermittent bradycardia at the outside hospital as outlined above. I suspect he has some degree of AV daisha dysfunction since he did not develop tachycardia with the atrial fibrillation. If he needs adjustment to his medication for hypertension, I would recommend we avoid using beta-blockers, diltiazem or verapamil. Heart rates have been stable here. There is no indication for permanent pacemaker at this time. (3) Primary hypertension Assessment & Plan: He is on amlodipine which was started at the outside hospital. The dose was increased here. Hypertension is a new diagnosis for the patient although until this admission, he had not seen a physician in a number of years. I started him on losartan on 07/01. Avoid AV daisha blocking agents due to bradycardia. (4) Mixed hyperlipidemia Assessment & Plan: I recommend he continue on statin medication in light of the acute cerebrovascular accident. He should have a follow-up lipid panel in about 2-3 months. (5) Chronic kidney disease, stage 3 Assessment & Plan: This is yet another new diagnosis for the patient. The losartan should help delay progression of disease. (6) History of cerebrovascular accident with residual deficit Assessment & Plan: As above, I suspect the atrial fibrillation led to the patient's cerebrovascular accident since this was noted early in his hospitalization at the outside facility. (7) Morbid obesity Assessment & Plan: He will need to work on weight loss once he gets his strength back. JOSEPH WALLACE JR, MD Jul 02, 2021 13:00
[2021-07-02 20:00] VITALS: BP 158/82
[2021-07-02] MEDS: polyethylene glycoL POWDER 17 GM (MIRALAX) PACK PO SCH (20:59)
[2021-07-03 06:07] LABS: BASOPHILS % (AUTO) 1 % (0-10); EOSINOPHILS # (AUTO) 0.2 10^3/uL (0.0-0.3); EOSINOPHILS % (AUTO) 2 % (0-10); HEMATOCRIT 42 % (40-54); HEMOGLOBIN 13.9 g/dL (13.3-17.7); LYMPHOCYTES # (AUTO) 1.3 10^3/uL (1.0-4.0); LYMPHOCYTES % (AUTO) 16 % (12-44); MEAN CORPUSCULAR HEMOGLOBIN 29 pg (25-34); MEAN CORPUSCULAR HGB CONC 33 g/dL (32-36); MEAN CORPUSCULAR VOLUME 88 fL (80-99); MEAN PLATELET VOLUME 10.7 fL (9.0-12.2); MONOCYTES # (AUTO) 0.9 10^3/uL (0.0-1.0); MONOCYTES % (AUTO) 11 % (0-12); NEUTROPHILS # (AUTO) 5.8 10^3/uL (1.8-7.8); NEUTROPHILS % (AUTO) 70 % (42-75); PLATELET COUNT 234 10^3/uL (130-400); WHITE BLOOD COUNT 8.2 10^3/uL (4.3-11.0)
[2021-07-03 06:29] LABS: ALBUMIN 3.5 GM/DL (3.2-4.5); POTASSIUM 4.3 MMOL/L (3.6-5.0)
[2021-07-03 06:30] LABS: CALCIUM 9.2 MG/DL (8.5-10.1)
[2021-07-03 06:31] LABS: TOTAL PROTEIN 6.5 GM/DL (6.4-8.2)
[2021-07-03 06:33] LABS: BILIRUBIN,TOTAL 0.9 MG/DL (0.1-1.0)
[2021-07-03 06:35] LABS: CREATININE SERUM 1.32 MG/DL (0.60-1.30)
[2021-07-03 07:40] VITALS: BP 145/70
[2021-07-03] MEDS: FAMOTIDINE 20 MG (PEPCID) TABLET PO SCH (08:38)
[2021-07-03] MEDS: DOCUSATE SODIUM 100 MG (COLACE) CAP PO SCH ×2 (08:38→21:22)
[2021-07-03] MEDS: APIXABAN 5 MG (ELIQUIS) TABLET PO SCH ×2 (08:38→21:23)
[2021-07-03] MEDS: amLODIPine 10 MG (NORVASC) TAB PO SCH (08:38)
[2021-07-03] MEDS: LOSARTAN 50 MG (COZAAR) TAB PO SCH (08:38)
[2021-07-03] MEDS: MILK OF MAGNESIA 400 MG/5 ML 30 ML UDC PO SCH (08:39)
--- NOTE | 2021-07-03 08:41 | Occupational Ther Daily Note ---
OT Current Status-Daily Note Subjective Pt up in recliner, agreeable to OT Tx with focus on ADLs. Pt denies pain. Mental Status/Objective Patient Orientation: Person, Place, Non-Verbal/Aphasic, Situation ADL-Treatment Therapy Code Descriptions/Definitions Functional [place] Measure: 0=Not Assessed/NA 4=Minimal Assistance 1=Total Assistance 5=Supervision or Setup 2=Maximal Assistance 6=Modified [place] 3=Moderate Assistance 7=Complete IndependenceSCALE: Activities may be completed with or without assistive devices. 4-Jljjnjcmmz-nmyzpys completes the activity by him/herself with no assistance from a helper. 5-Set-up or Clean-up Assistance-helper sets up or cleans up; patient completes activity. [place] assists only prior to or following the activity. 4-Supervision or Touching Assistance-helper provides verbal cues and/or touching/steadying and/or contact guard assistance as patient completes activity. Assistance may be provided throughout the activity or intermittently. 3-Partial/Moderate Assistance-helper does LESS THAN HALF the effort. [place] lifts, holds or supports trunk or limbs, but provides less than half the effort. 2-Substantial/Maximal Assistance-helper does MORE THAN HALF the effort. [place] lifts or holds trunk or limbs and provides more than half the effort. 3-Lgodscntt-xrkgvm does ALL the effort. Patient does none of the effort to complete the activity. Or, the assistance of 2 or more helpers is required for the patient to complete the activity. If activity was not attempted, code reason: 7-Patient Refused. 9-Not Applicable-not attempted and the patient did not perform the activity before the current illness, exacerbation or injury. 10-Not Attempted due to Environmental Limitations-(lack of equipment, weather restraints, etc.). 88-Not Attempted due to Medical Conditions or Safety Concerns. Oral Hygiene (QC): 7 Shower/Bathe Self (QC): 4 (SBA, pt able to wash/dry all parts seated on SC.) Upper Body Dressing (QC): 5 (set up, pt able to orient shirt and don without assistance/cues.) Lower Body Dressing (QC): 3 (Pt able to thread BLEs into pants and brief, used AE as needed. Min A with pant hike in back and R side.) On/Off Footwear: 2 (Pt doffed RLE gripper socks, assistance L. Pt required assistance threading gripper sock on sock aide, then able to thread the rest of the way and don onto foot with slight assistance. Total assist with TEDhose.) Toileting Hygiene (QC): 7 Other Treatment Pt up in recliner, agreeable to OT Tx. Pt used FWW to perform functional mobility into bathroom and onto SC. Pt doffed clothes, completed showering and then transferred to chair with arm rests to don clothes. Pt stood at sink to brush hair, CGA, then used FWW to perform functional mobility to therapy gym. OT tx with focus on RUE neuromuscular reeducation, increasing RUE strength and activity tolerance, increasing RUE fine motor strength and coordination. Pt removed 1" pegs from pegboard using RUE, able to remove x25 pegs in 7 mins 15 seconds. He performed cone stacking task, moving cones from one stack to another using RUE, then back. Pt required min A with steadying stack of cones, he was able to grasp cone and release cone without cues. Pt completed card manipulation task, taking 1 card at a time from a stack, and flipping 5 cards above the stack and 5 to the right. Pt required assistance with placing the card in his grasp. Pt removed x10 beads from moderate resistance theraputty, requiring moderate cues to use RUE for task. He completed reaching task, grasping cones from various planes, then stacking on table in front of him, x6 cones. He then completed ring arc, moving rings across midline, min cues to hold onto rings through entire movement. Pt returned to his room using FWW, CGA for balance, and min cues for safety. Pt transferred to recliner. Post tx, pt up in recliner, call light in reach and all needs met. Education OT Patient Education: Correct positioning, Energy conservation, Exercise program, Modified ADL techniques, Progress toward Goal/Update tx plan, Purpose of tx/functional activities, Rehab process, Safety issues, Transfer techniques, Use of adapted equipment Teaching Recipient: Patient Teaching Methods: Discussion Response to Teaching: Verbalize Understanding OT Short Term Goals Short Term Goals Time Frame: Jul 12, 2021 Toileting hygiene: 4 Upper body dressin Lower body dressin Putting on/taking off footwear: 4 OT Mcc Goals Pharmacognosy Teacher Goals Time Frame: Jul 21, 2021 Eating (QC): 6 Oral Hygiene (QC): 6 Toileting Hygiene (QC): 6 Shower/Bathe Self (QC): 6 Upper Body Dressing (QC): 6 Lower Body Dressing (QC): 6 On/Off Footwear (QC): 6 Additional Goals: 1-Demonstrate ADL Tasks, 2-Verbalize Understanding, 3- ImproveStrength/T[place]in 1=Demonstrate adherence to instructed precautions during ADL tasks. 2=Patient will verbalize/demonstrate understanding of assistive devices/modifications for ADL. 3=Patient will improve strength/tolerance for activity to enable patient to perform ADL's. OT Education/Plan Problem List/Assessment Assessment: Decreased Activ Tolerance, Decreased UE Strength, Impaired Coordination, Impaired Funct Balance, Impaired I ADL's, Impaired Self-Care Skills, Restricted Funct UE ROM Discharge Recommendations Plan/Recommendations: Continue POC Treatment Plan/Plan of Care Patient would benefit from OT for education, treatment and training to promote independence in ADL's, mobility, safety and/or upper extremity function for ADL's. Plan of Care: ADL Retraining, Cognitive Retraining, Functional Mobility, Group Exercise/Act as Ind, UE Funct Exercise/Act, UE Neuromus Re-Ed/Coord Treatment Duration: Jul 21, 2021 Frequency: At least 5 of 7 days/Wk (IRF) Estimated Hrs Per Day: 1.5 hours per day Rehab Potential: Fair Time/GCodes Start Time: 08:00 Stop Time: 09:30 Total Time Billed (hr/min): 90 Billed Treatment Time 1, ADL 3 (45'), FA 3 (45') JAZIEL ROCHA OT Jul 03, 2021 08:41
[2021-07-03] MEDS: SENNA W/DOCUSATE (SENOKOT S) TABLET PO SCH ×2 (09:16→21:22)
--- NOTE | 2021-07-03 11:24 | Physical Therapy Daily Note ---
PT Daily Note-Current Subjective Pt in recliner upon arrival w/ spouse in room and agrees to tx. During tx, pt states tingling in R hand. Pain Location: Right Location Body Site: Hand Pain Description: Tingling Mental Status Patient Orientation: Person, Place, Non-Verbal/Aphasic, Situation Transfers SCALE: Activities may be completed with or without assistive devices. 0-Tpbujocitm-qwlprpj completes the activity by him/herself with no assistance from a helper. 5-Set-up or Clean-up Assistance-helper sets up or cleans up; patient completes activity. [place] assists only prior to or following the activity. 4-Supervision or Touching Assistance-helper provides verbal cues and/or touching/steadying and/or contact guard assistance as patient completes activity. Assistance may be provided throughout the activity or intermittently. 3-Partial/Moderate Assistance-helper does LESS THAN HALF the effort. [place] lifts, holds or supports trunk or limbs, but provides less than half the effort. 2-Substantial/Maximal Assistance-helper does MORE THAN HALF the effort. [place] lifts or holds trunk or limbs and provides more than half the effort. 1-Nhshdksmu-oqeifj does ALL the effort. Patient does none of the effort to complete the activity. Or, the assistance of 2 or more helpers is required for the patient to complete the activity. If activity was not attempted, code reason: 7-Patient Refused. 9-Not Applicable-not attempted and the patient did not perform the activity before the current illness, exacerbation or injury. 10-Not Attempted due to Environmental Limitations-(lack of equipment, weather restraints, etc.). 88-Not Attempted due to Medical Conditions or Safety Concerns. Sit to Stand (QC): 4 Pt sit to stand requires CGA, as well as VC to push up from chair w/ B UE. Pt tends to pull up from FWW for sit to stand. VC repeated multiple times each sit to stand transfer. Gait Training Does the Patient Walk?: Yes Distance: 200' x2, 100' x2 Walk 10 feet (QC): 4 Walk 50 ft with 2 Turns(QC): 4 Walk 150 ft (QC): 4 Gait Persons Needed: 1 Gait Assistive Device: FWW Pt amb w/ FWW and CGA. Pt had no LOB or gait deviations noted at this time. Pt requires VC to grasp FWW w/ R UE as it tends to slip off. When pt accelerates pace, tends to have LOB, but pt had steady pace today. Exercises Standing: Hamstring curls, Heel/toe raises, Marching, Mini squats, Retro gait, Sit to Stand, Side steps Standing Reps: 15 Pt also performed toe touches w/ B LE on curb step x15. NuStep Minutes: 15 NuStep Workload: 4 Treatments Pt sit to stand from recliner CGA, and request to use BR. Pt needs Toshia for doffing/donning pants and for steadiness. Pt amb from BR to therapy gym to complete NuStep. During NuStep, pt takes RB as needed. Pt sit to stand CGA and amb to chair in // bars. Pt performs standing ex in // bars, including side steps 6' both directions x2. Retrogait performed 6' x4 and CGA. Pt requires VC to remind pt to lift R LE when stepping back. Pt takes seated RB, then performs corral bag toss activity in standing. Pt first uses L UE to toss 13 corral bags in basket approx 8' away, pt makes 8/13 first attempt and 9/13 second attempt. Pt then uses R UE w/ basket approx 3' away, pt makes 4/13 first attempt and 6/13 second attempt. Pt takes seated RB between each set of standing corral bag toss. Pt sit to stand CGA and amb 200' on IRU followed by a RB. Pt sit to stand, completes 180 degree turn w/o any LOB, then amb another 200'. Pt takes seated RB, then returns to his room. Pt sits in recliner and was left with all needs met, call light in hand. Assessment Current Status: Good Progress Pt requires VC during amb for R hand placement and flexing R LE occasionally. Pt overall progressing well, needs frequent RB throughout tx. PT Short Term Goals Short Term Goals Time Frame: Jul 05, 2021 Roll Left & Right: 6 Sit to lyin Lying to sitting on side of be: 3 Sit to stand: 4 Chair/uyf-aw-yfraa transfer: 4 Walk 10 feet: 4 Walk 50 feet with two turns: 4 Walk 150 feet: 4 PT Halfway Goals Halfway Goals PT Technical Operations Vice President Goals Time Frame: Jul 19, 2021 Roll Left & Right (QC): 6 Sit to Lying (QC): 6 Lying-Sitting on Side/Bed(QC): 6 Sit to Stand (QC): 4 (SBA) Chair/Mjm-hx-Iwfmp Xfer(QC): 4 (SBA) Toilet Transfer (QC): 4 (SBA) Car Transfer (QC): 4 (SBA) Does the Patient Walk: Yes Walk 10 feet (QC): 4 (SBA) Walk 50ft with 2 Turns (QC): 4 (SBA) Walk 150 ft (QC): 4 (SBA) Walking 10ft on Uneven Surface: 4 (SBA) 1 Step (curb) (QC): 4 (CGA) 4 Steps (QC): 4 (CGA) 12 Steps (QC): 88 Picking up an Object (QC): 4 (CGA) Wheel 50 feet with 2 turns (QC: 9 Wheel 150 feet: 9 PT Plan Problem List Problem List: Activity Tolerance, Functional Strength, Safety, Balance, Gait Treatment/Plan Treatment Plan: Continue Plan of Care Treatment Plan: Bed Mobility, Education, Functional Activity T[place], Functional Strength, Group Therapy, Gait, Safety, Therapeutic Exercise, Transfers Treatment Duration: Jul 19, 2021 Frequency: At least 5 of 7 days/Wk (IRF) Estimated Hrs Per Day: 1.5 hours per day Patient and/or Family Agrees t: Yes Time/GCodes Time In: 1000 Time Out: 1130 Total Billed Treatment Time: 90 Total Billed Treatment 1, GT x2, EX x2, FA x2 CARON NICHOLAS CURING PRESS MAINTAINER Jul 03, 2021 11:24
--- NOTE | 2021-07-03 13:45 | Cardiology Progress Note ---
Progress Note-Cardiology Events since last exam Date Seen by Provider: Jul 03, 2021 Time Seen by Provider: 13:44 Events since last exam I am following him for atrial fibrillation and hypertension. He continues to work with physical and Occupational Therapy. He denies chest pain, dyspnea at rest, palpitations, syncope, or ankle edema. Certain portions of this document may have been dictated utilizing voice recognition technology. Inherent to this technology, typographical and grammatical errors may exist. As much as I am diligent to identify and correct these mistakes, some errors may remain in the document. Vitals Last set of Vitals Signs Vital Signs 07/03/21 07/03/21 07:40 08:12 Temp 36.5 Pulse 50 Resp 16 B/P (MAP) 145/70 (95) Pulse Ox 97 O2 Delivery Room Air Labs Labs Laboratory Tests 07/03/21 05:45 Exam Vital Signs Vital Signs Date Time Temp Pulse Resp B/P (MAP) Pulse Ox O2 Delivery O2 Flow Rate FiO2 07/03/21 08:12 Room Air 07/03/21 07:40 36.5 50 16 145/70 (95) 97 Physical Exam General: Alert. No acute distress. He is obese. Eye: No xanthelasma. HENT: Normocephalic. Neck: Jugular venous pressure does not appear elevated. Respiratory: Lungs are clear to auscultation. Respirations are non-labored. Breath sounds are equal. Symmetrical chest wall expansion. Cardiovascular: Normal rate. Irregular rhythm. No murmur. No gallop. No edema. Gastrointestinal: Soft. Normal bowel sounds. Skin: Warm. Dry. Neurologic: Alert and oriented to person, place, time. Cranial nerves 3-11 grossly intact. Expressive aphasia. Right-sided weakness. Psychiatric: Cooperative. Appropriate mood & affect. Echocardiogram from the outside hospital showed normal left ventricular chamber size with severe concentric left ventricular hypertrophy. There was normal left ventricular systolic function. There was mild biatrial enlargement. The right ventricle was dilated but with normal function. There was mild dilatation of the aortic root at 3.8 cm. There was mild aortic and mitral regurgitation. The estimated right ventricular systolic pressure was 30 mmHg. Labs Laboratory Tests Test 07/03/21 05:45 Range/Units White Blood Count 8.2 4.3-11.0 10^3/uL Red Blood Count 4.84 4.30-5.52 10^6/uL Hemoglobin 13.9 13.3-17.7 g/dL Hematocrit 42 40-54 % Mean Corpuscular Volume 88 80-99 fL Mean Corpuscular Hemoglobin 29 25-34 pg Mean Corpuscular Hemoglobin Concent 33 32-36 g/dL Red Cell Distribution Width 14.0 10.0-14.5 % Platelet Count 234 130-400 10^3/uL Mean Platelet Volume 10.7 9.0-12.2 fL Immature Granulocyte % (Auto) 1 % Neutrophils (%) (Auto) 70 42-75 % Lymphocytes (%) (Auto) 16 12-44 % Monocytes (%) (Auto) 11 0-12 % Eosinophils (%) (Auto) 2 0-10 % Basophils (%) (Auto) 1 0-10 % Neutrophils # (Auto) 5.8 1.8-7.8 10^3/uL Lymphocytes # (Auto) 1.3 1.0-4.0 10^3/uL Monocytes # (Auto) 0.9 0.0-1.0 10^3/uL Eosinophils # (Auto) 0.2 0.0-0.3 10^3/uL Basophils # (Auto) 0.0 0.0-0.1 10^3/uL Immature Granulocyte # (Auto) 0.0 0.0-0.1 10^3/uL Sodium Level 141 135-145 MMOL/L Potassium Level 4.3 3.6-5.0 MMOL/L Chloride Level 109 H 98-107 MMOL/L Carbon Dioxide Level 23 21-32 MMOL/L Anion Gap 9 5-14 MMOL/L Blood Urea Nitrogen 28 H 7-18 MG/DL Creatinine 1.32 H 0.60-1.30 MG/DL Estimat Glomerular Filtration Rate 54 BUN/Creatinine Ratio 21 Glucose Level 100 70-105 MG/DL Calcium Level 9.2 8.5-10.1 MG/DL Corrected Calcium 9.6 8.5-10.1 MG/DL Total Bilirubin 0.9 0.1-1.0 MG/DL Aspartate Amino Transf (AST/SGOT) 20 5-34 U/L Alanine Aminotransferase (ALT/SGPT) 30 0-55 U/L Alkaline Phosphatase 320 H 40-136 U/L Total Protein 6.5 6.4-8.2 GM/DL Albumin 3.5 3.2-4.5 GM/DL Diagnosis/Problems Diagnosis/Problems (1) Paroxysmal atrial fibrillation Assessment & Plan: This was most likely the cause of the patient's cerebrovascular accident. He had episodic paroxysmal atrial fibrillation at the outside hospital as well as in our facility. He was also having some intermittent bradycardia at the outside hospital. Heart rates are presently controlled on no AV daisha blocking agents. I recommend we continue the patient on apixaban for recurrent stroke prophylaxis. His echocardiogram from [place] showed a normal ejection fraction with mild left atrial enlargement with only mild mitral regurgitation. After about 6 weeks from the initial event, I will plan on a cardioversion as an outpatient. Once he is back in a sinus rhythm, I will plan on a nuclear stress test to exclude underlying coronary ischemia as a possible inciting event for the atrial fibrillation. At this point in time, there are no acute, active cardiac issues. As such, cardiology will sign off. I will ask nursing to get the patient an office visit to see me in 1 month. Please call if you have other questions or concerns. (2) Sinus bradycardia Assessment & Plan: He was having intermittent bradycardia at the outside hospital as outlined above. I suspect he has some degree of AV daisha dysfunction since he did not develop tachycardia with the atrial fibrillation. If he needs adjustment to his medication for hypertension, I would recommend we avoid using beta-blockers, diltiazem or verapamil. Heart rates have been stable here. There is no indication for permanent pacemaker at this time. (3) Primary hypertension Assessment & Plan: Blood pressure is improved with the combination of amlodipine and losartan. This is a new diagnosis for the patient although he had not seen a physician in a number of years prior to this recent stroke. If he needs additional adjustment to his medication for the hypertension, avoid AV daisha blocking agents or any agents that could worsen his underlying bradycardia. (4) Mixed hyperlipidemia Assessment & Plan: I recommend he continue on statin medication in light of the acute cerebrovascular accident. He should have a follow-up lipid panel in about 2-3 months. (5) Chronic kidney disease, stage 3 Assessment & Plan: This is yet another new diagnosis for the patient. The losartan should help delay progression of disease. (6) History of cerebrovascular accident with residual deficit Assessment & Plan: As above, I suspect the atrial fibrillation led to the patient's cerebrovascular accident since this was noted early in his hospitalization at the outside facility. (7) Morbid obesity Assessment & Plan: He will need to work on weight loss once he gets his strength back. (8) Aortic regurgitation Assessment & Plan: This was an incidental finding on the outside echocardiogram. This is in a mild range and most likely had nothing to do with the present situation. This should be followed longitudinally after discharge. (9) Mitral regurgitation Assessment & Plan: This was another incidental finding on his echocardiogram. This is mild but will need to be followed longitudinally. JOSEPH WALLACE JR, MD Jul 03, 2021 13:44
[2021-07-03 20:00] VITALS: BP 138/86
--- NOTE | 2021-07-03 21:09 | PM&R Progress Note ---
Subjective HPI/CC On Admission Date Seen by Provider: Jul 03, 2021 Time Seen by Provider: 10:00 Subjective/Events-last exam 07/03/2021: Speech is much better Creatinine 1.32 Patient had no incontinence last night Call light is used at night instead of impulsive Sleep apnea once again suspected Echo report ready for Dr. Medellin to review 07/02/2021: Patient currently sleeping Suspicion for obstructive sleep apnea when I am witnessing his sleep Losartan started and blood pressure will be monitored Incontinent of urine at night Bowels move twice today 07/01/2021: Patient doing really well Speaking more clearly No falls Still impulsive Appreciate Dr. Lacie Medellin added losartan 50 mg Echo will be obtained on Saturday from outside hospital 06/30/2021: Patient doing really well Appreciate Dr. Medellin consultation cardiology EKG shows atrial fibrillation paroxysmal type maintained on oral anticoagulation at the bedside Speaking more clearly Walking around really well with assistance 06/29/2021: Patient had no events overnight Appreciate Dr. Medellin cardiology consult Doing well overall Right upper extremity with right facial droop is profound Able to walk around with assistive device and assistance Previously had bradycardia in the 50s and even 4020s during acute medical admission Creatinine 1.37 Review of Systems General: Fatigue Neurological: Weakness, Incoordination, Change in speech Objective Exam Vital Signs Vital Signs Date Time Temp Pulse Resp B/P (MAP) Pulse Ox O2 Delivery O2 Flow Rate FiO2 07/03/21 21:00 Room Air 07/03/21 20:00 36.4 51 18 138/86 (103) 94 Capillary Refill : General Appearance: No Apparent Distress, WD/WN, Chronically ill, Obese HEENT: PERRL/EOMI, Normal ENT Inspection, Pharynx Normal Neck: Full Range of Motion, Normal Inspection, Non Tender, Supple, Carotid Bruit Respiratory: Chest Non Tender, Lungs Clear, Normal Breath Sounds, No Accessory Muscle Use, No Respiratory Distress Cardiovascular: Regular Rate, Rhythm, No Edema, No Gallop, No JVD, No Murmur, Normal Peripheral Pulses Gastrointestinal: Normal Bowel Sounds, No Organomegaly, No Pulsatile Mass, Non Tender, Soft Back: Normal Inspection, No CVA Tenderness, No Vertebral Tenderness Extremity: Normal Capillary Refill, Normal Inspection, Normal Range of Motion, Non Tender, No Calf Tenderness, No Pedal Edema Neurologic/Psychiatric: Alert, Oriented x3, Normal Mood/Affect, advertising campaign manager II-XII Norm as Tested, Abnormal Gait, Aphasia, Facial Droop (Right-sided), Motor Weakness (Right-sided weakness) Skin: Normal Color, Warm/Dry Lymphatic: No Adenopathy Results/Procedures Lab Patient resulted labs reviewed. FIM Transfers Therapy Code Descriptions/Definitions Functional [place] Measure: 0=Not Assessed/NA 4=Minimal Assistance 1=Total Assistance 5=Supervision or Setup 2=Maximal Assistance 6=Modified [place] 3=Moderate Assistance 7=Complete IndependenceSCALE: Activities may be completed with or without assistive devices. 9-Xbvppycuzl-olusxaj completes the activity by him/herself with no assistance from a helper. 5-Set-up or Clean-up Assistance-helper sets up or cleans up; patient completes activity. [place] assists only prior to or following the activity. 4-Supervision or Touching Assistance-helper provides verbal cues and/or touching/steadying and/or contact guard assistance as patient completes activity. Assistance may be provided throughout the activity or intermittently. 3-Partial/Moderate Assistance-helper does LESS THAN HALF the effort. [place] lifts, holds or supports trunk or limbs, but provides less than half the effort. 2-Substantial/Maximal Assistance-helper does MORE THAN HALF the effort. [place] lifts or holds trunk or limbs and provides more than half the effort. 9-Ybvozkhxu-iupazd does ALL the effort. Patient does none of the effort to complete the activity. Or, the assistance of 2 or more helpers is required for the patient to complete the activity. If activity was not attempted, code reason: 7-Patient Refused. 9-Not Applicable-not attempted and the patient did not perform the activity before the current illness, exacerbation or injury. 10-Not Attempted due to Environmental Limitations-(lack of equipment, weather restraints, etc.). 88-Not Attempted due to Medical Conditions or Safety Concerns. Roll Left to Right (QC): 3 Sit to Lying (QC): 3 Sit to Stand (QC): 4 Chair/Rih-ts-Yicjg Xfer(QC): 3 Car Transfer (QC): 3 Gait Training Does the Patient Walk?: Yes Distance: 200' x2, 100' x2 Walk 10 feet (QC): 4 Walk 50 ft with 2 Turns(QC): 4 Walk 150 ft (QC): 4 Walking 10ft/uneven surface-QC: 88 Gait Persons Needed: 1 Gait Assistive Device: FWW Wheelchair Training Does the Pt Use a Wheelchair?: No Wheel 50 ft with 2 turns (QC): 9 Wheel 150 ft (QC): 9 Stair Training 1 Step (curb) (QC): 88 4 Steps (QC): 88 12 Steps (QC): 88 Balance Picking up an Object (QC): 88 ADL-Treatment Eating (QC): 5 (based on clincial judgment, assistance with cutting food and opening contianers. Pt left handed and able to use LUE) Oral Hygiene (QC): 7 Bathing Location: L Arm, R Arm, L Upper Leg, R Upper Leg, L Lower Leg (inclu ding foot), R Lower Leg (including foot), Chest, Abdomen, Perineal Area Shower/Bathe Self (QC): 4 (SBA, pt able to wash/dry all parts seated on SC.) Upper Body Dressing (QC): 5 (set up, pt able to orient shirt and don without assistance/cues.) Lower Body Dressing (QC): 3 (Pt able to thread BLEs into pants and brief, used AE as needed. Min A with pant hike in back and R side.) On/Off Footwear (QC): 2 (Pt doffed RLE gripper socks, assistance L. Pt required assistance threading gripper sock on sock aide, then able to thread the rest of the way and don onto foot with slight assistance. Total assist with TEDhose.) Toileting Hygiene (QC): 7 Toilet Transfer (QC): 3 Assessment/Plan Assessment and Plan Assess & Plan/Chief Complaint Assessment: CVA with right-sided weakness Right-sided facial droop Aphasia Paroxysmal atrial fibrillation? Oral anticoagulation Plan: Aggressive therapy Speech therapy Cardiology consult Monitor closely 06/29/2021: Supportive care Aggressive therapy Cardiology consult appreciated 06/30/2021 Appreciate cardiology Maintain oral anticoagulants Monitor closely Avoid rate control medication due to bradycardia history 07/01/2021: Appreciate cardiology Losartan 50 mg added 07/02/2021: Incontinency at night monitored Supportive care Needs sleep study 07/03/2021: Monitor incontinence Needs sleep study Echo ready for Dr. Medellin to review from [facility] (1) Paroxysmal atrial fibrillation Assessment & Plan: This was most likely the cause of the patient's cerebrovascular accident. He had episodic paroxysmal atrial fibrillation at the outside hospital as well as in our facility. He was also having some intermittent bradycardia at the outside hospital. Heart rates are presently controlled on no AV daisha blocking agents. I recommend we continue the patient on apixaban for recurrent stroke prophylaxis. His echocardiogram from [place] showed a normal ejection fraction with mild left atrial enlargement with only mild mitral regurgitation. After about 6 weeks from the initial event, I will plan on a cardioversion as an outpatient. Once he is back in a sinus rhythm, I will plan on a nuclear stress test to exclude underlying coronary ischemia as a possible inciting event for the atrial fibrillation. At this point in time, there are no acute, active cardiac issues. As such, cardiology will sign off. I will ask nursing to get the patient an office visit to see me in 1 month. Please call if you have other questions or concerns. (2) Sinus bradycardia Assessment & Plan: He was having intermittent bradycardia at the outside hospital as outlined above. I suspect he has some degree of AV daisha dysfunction since he did not develop tachycardia with the atrial fibrillation. If he needs adjustment to his medication for hypertension, I would recommend we avoid using beta-blockers, diltiazem or verapamil. Heart rates have been stable here. There is no indication for permanent pacemaker at this time. (3) Primary hypertension Assessment & Plan: Blood pressure is improved with the combination of amlodipine and losartan. This is a new diagnosis for the patient although he had not seen a physician in a number of years prior to this recent stroke. If he needs additional adjustment to his medication for the hypertension, avoid AV daisha blocking agents or any agents that could worsen his underlying bradycardia. (4) Mixed hyperlipidemia Assessment & Plan: I recommend he continue on statin medication in light of the acute cerebrovascular accident. He should have a follow-up lipid panel in about 2-3 months. (5) Chronic kidney disease, stage 3 Assessment & Plan: This is yet another new diagnosis for the patient. The losartan should help delay progression of disease. (6) History of cerebrovascular accident with residual deficit Assessment & Plan: As above, I suspect the atrial fibrillation led to the patient's cerebrovascular accident since this was noted early in his hospitalization at the outside facility. (7) Morbid obesity Assessment & Plan: He will need to work on weight loss once he gets his strength back. (8) Aortic regurgitation Assessment & Plan: This was an incidental finding on the outside echocardiogram. This is in a mild range and most likely had nothing to do with the present situation. This should be followed longitudinally after discharge. (9) Mitral regurgitation Assessment & Plan: This was another incidental finding on his echocardiogram. This is mild but will need to be followed longitudinally. TOBIAS BUTCHER DO Jul 03, 2021 21:09
[2021-07-03] MEDS: polyethylene glycoL POWDER 17 GM (MIRALAX) PACK PO SCH (21:23)
[2021-07-04 07:32] VITALS: BP 144/78
[2021-07-04] MEDS: SENNA W/DOCUSATE (SENOKOT S) TABLET PO SCH ×2 (07:46→20:36)
[2021-07-04] MEDS: FAMOTIDINE 20 MG (PEPCID) TABLET PO SCH (07:46)
[2021-07-04] MEDS: DOCUSATE SODIUM 100 MG (COLACE) CAP PO SCH ×2 (07:47→20:36)
[2021-07-04] MEDS: LOSARTAN 50 MG (COZAAR) TAB PO SCH (07:47)
[2021-07-04] MEDS: amLODIPine 10 MG (NORVASC) TAB PO SCH (07:47)
[2021-07-04] MEDS: MILK OF MAGNESIA 400 MG/5 ML 30 ML UDC PO SCH (07:47)
[2021-07-04] MEDS: APIXABAN 5 MG (ELIQUIS) TABLET PO SCH ×2 (07:47→20:36)
--- NOTE | 2021-07-04 10:52 | PM&R Progress Note ---
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 Medellin to review 07/02/2021: Patient currently sleeping Suspicion for obstructive sleep apnea when I am witnessing his sleep Losartan started and blood pressure will be monitored Incontinent of urine at night Bowels move twice today 07/01/2021: Patient doing really well Speaking more clearly No falls Still impulsive Appreciate Dr. Lacie Medellin added losartan 50 mg Echo will be obtained on Saturday from outside hospital 06/30/2021: Patient doing really well Appreciate Dr. Medellin consultation cardiology EKG shows atrial fibrillation paroxysmal type maintained on oral anticoagulation at the bedside Speaking more clearly Walking around really well with assistance 06/29/2021: Patient had no events overnight Appreciate Dr. Medellin cardiology consult Doing well overall Right upper extremity with right facial droop is profound Able to walk around with assistive device and assistance Previously had bradycardia in the 50s and even 4020s during acute medical admission Creatinine 1.37 Review of Systems Neurological: Weakness, Incoordination, Change in speech Objective Exam Vital Signs Vital Signs Date Time Temp Pulse Resp B/P (MAP) Pulse Ox O2 Delivery O2 Flow Rate FiO2 07/04/21 21:00 Room Air 07/04/21 20:03 36.7 48 20 140/67 (91) 96 Capillary Refill : General Appearance: No Apparent Distress, WD/WN, Chronically ill, Obese HEENT: PERRL/EOMI, Normal ENT Inspection, Pharynx Normal Neck: Full Range of Motion, Normal Inspection, Non Tender, Supple, Carotid Bruit Respiratory: Chest Non Tender, Lungs Clear, Normal Breath Sounds, No Accessory Muscle Use, No Respiratory Distress Cardiovascular: Regular Rate, Rhythm, No Edema, No Gallop, No JVD, No Murmur, Normal Peripheral Pulses Gastrointestinal: Normal Bowel Sounds, No Organomegaly, No Pulsatile Mass, Non Tender, Soft Back: Normal Inspection, No CVA Tenderness, No Vertebral Tenderness Extremity: Normal Capillary Refill, Normal Inspection, Normal Range of Motion, Non Tender, No Calf Tenderness, No Pedal Edema Neurologic/Psychiatric: Alert, Oriented x3, Normal Mood/Affect, 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 FIM Transfers Therapy Code Descriptions/Definitions Functional [place] Measure: 0=Not Assessed/NA 4=Minimal Assistance 1=Total Assistance 5=Supervision or Setup 2=Maximal Assistance 6=Modified [place] 3=Moderate Assistance 7=Complete IndependenceSCALE: Activities may be completed with or without assistive devices. 9-Shjgdpllxd-wnjwwfu completes the activity by him/herself with no assistance from a helper. 5-Set-up or Clean-up Assistance-helper sets up or cleans up; patient completes activity. [place] assists only prior to or following the activity. 4-Supervision or Touching Assistance-helper provides verbal cues and/or touching/steadying and/or contact guard assistance as patient completes activity. Assistance may be provided throughout the activity or intermittently. 3-Partial/Moderate Assistance-helper does LESS THAN HALF the effort. [place] lifts, holds or supports trunk or limbs, but provides less than half the effort. 2-Substantial/Maximal Assistance-helper does MORE THAN HALF the effort. [place] lifts or holds trunk or limbs and provides more than half the effort. 0-Zxxzzvhqe-cvsqjp does ALL the effort. Patient does none of the effort to complete the activity. Or, the assistance of 2 or more helpers is required for the patient to complete the activity. If activity was not attempted, code reason: 7-Patient Refused. 9-Not Applicable-not attempted and the patient did not perform the activity before the current illness, exacerbation or injury. 10-Not Attempted due to Environmental Limitations-(lack of equipment, weather restraints, etc.). 88-Not Attempted due to Medical Conditions or Safety Concerns. Roll Left to Right (QC): 3 Sit to Lying (QC): 3 Sit to Stand (QC): 4 Chair/Ywf-ea-Sscyn Xfer(QC): 3 Car Transfer (QC): 3 Gait Training Does the Patient Walk?: Yes Distance: 200' x2, 100' x2 Walk 10 feet (QC): 4 Walk 50 ft with 2 Turns(QC): 4 Walk 150 ft (QC): 4 Walking 10ft/uneven surface-QC: 88 Gait Persons Needed: 1 Gait Assistive Device: FWW Wheelchair Training Does the Pt Use a Wheelchair?: No Wheel 50 ft with 2 turns (QC): 9 Wheel 150 ft (QC): 9 Stair Training 1 Step (curb) (QC): 88 4 Steps (QC): 88 12 Steps (QC): 88 Balance Picking up an Object (QC): 88 ADL-Treatment Eating (QC): 5 (based on clincial judgment, assistance with cutting food and opening contianers. Pt left handed and able to use LUE) Oral Hygiene (QC): 7 Bathing Location: L Arm, R Arm, L Upper Leg, R Upper Leg, L Lower Leg (incl uding foot), R Lower Leg (including foot), Chest, Abdomen, Perineal Area Shower/Bathe Self (QC): 4 (SBA, pt able to wash/dry all parts seated on SC.) Upper Body Dressing (QC): 5 (set up, pt able to orient shirt and don without assistance/cues.) Lower Body Dressing (QC): 3 (Pt able to thread BLEs into pants and brief, used AE as needed. Min A with pant hike in back and R side.) On/Off Footwear (QC): 2 (Pt doffed RLE gripper socks, assistance L. Pt required assistance threading gripper sock on sock aide, then able to thread the rest of the way and don onto foot with slight assistance. Total assist with TEDhose.) Toileting Hygiene (QC): 7 Toilet Transfer (QC): 3 Assessment/Plan Assessment and Plan Assess & Plan/Chief Complaint Assessment: CVA with right-sided weakness Right-sided facial droop Aphasia Paroxysmal atrial fibrillation? Oral anticoagulation Plan: Aggressive therapy Speech therapy Cardiology consult Monitor closely 06/29/2021: Supportive care Aggressive therapy Cardiology consult appreciated 06/30/2021 Appreciate cardiology Maintain oral anticoagulants Monitor closely Avoid rate control medication due to bradycardia history 07/01/2021: Appreciate cardiology Losartan 50 mg added 07/02/2021: Incontinency at night monitored Supportive care Needs sleep study 07/03/2021: Monitor incontinence Needs sleep study Echo ready for Dr. Medellin to review from [facility] 07/04/2021: Supportive care Appreciate Dr. Medellin (1) Paroxysmal atrial fibrillation Assessment & Plan: This was most likely the cause of the patient's cerebrovascular accident. He had episodic paroxysmal atrial fibrillation at the outside hospital as well as in our facility. He was also having some intermit tent bradycardia at the outside hospital. Heart rates are presently controlled on no AV daisha blocking agents. I recommend we continue the patient on apixaban for recurrent stroke prophylaxis. His echocardiogram from [place] showed a normal ejection fraction with mild left atrial enlargement with only mild mitral regurgitation. After about 6 weeks from the initial event, I will plan on a cardioversion as an outpatient. Once he is back in a sinus rhythm, I will plan on a nuclear stress test to exclude underlying coronary ischemia as a possible inciting event for the atrial fibrillation. At this point in time, there are no acute, active cardiac issues. As such, cardiology will sign off. I will ask nursing to get the patient an office visit to see me in 1 month. Please call if you have other questions or concerns. (2) Sinus bradycardia Assessment & Plan: He was having intermittent bradycardia at the outside hospital as outlined above. I suspect he has some degree of AV daisha dysfunction since he did not develop tachycardia with the atrial fibrillation. If he needs adjustment to his medication for hypertension, I would recommend we avoid using beta-blockers, diltiazem or verapamil. Heart rates have been stable here. There is no indication for permanent pacemaker at this time. (3) Primary hypertension Assessment & Plan: Blood pressure is improved with the combination of amlodipine and losartan. This is a new diagnosis for the patient although he had not seen a physician in a number of years prior to this recent stroke. If he needs additional adjustment to his medication for the hypertension, avoid AV daisha blocking agents or any agents that could worsen his underlying bradycardia. (4) Mixed hyperlipidemia Assessment & Plan: I recommend he continue on statin medication in light of the acute cerebrovascular accident. He should have a follow-up lipid panel in about 2-3 months. (5) Chronic kidney disease, stage 3 Assessment & Plan: This is yet another new diagnosis for the patient. The losartan should help delay progression of disease. (6) History of cerebrovascular accident with residual deficit Assessment & Plan: As above, I suspect the atrial fibrillation led to the patient's cerebrovascular accident since this was noted early in his hospitalization at the outside facility. (7) Morbid obesity Assessment & Plan: He will need to work on weight loss once he gets his str ength back. (8) Aortic regurgitation Assessment & Plan: This was an incidental finding on the outside echocardiogram. This is in a mild range and most likely had nothing to do with the present situation. This should be followed longitudinally after discharge. (9) Mitral regurgitation Assessment & Plan: This was another incidental finding on his echocardiogram. This is mild but will need to be followed longitudinally. TOBIAS BUTCHER DO Jul 04, 2021 10:51
--- NOTE | 2021-07-04 11:06 | Physical Therapy Daily Note ---
PT Daily Note-Current Subjective Patient in recliner pre tx, agrees to PT, has no complaints of pain. Appearance Patient in recliner post tx with nurse call, phone, tray, in room, chair alarm on. Mental Status Patient Orientation: Person, Unable to Assess, Non-Verbal/Aphasic Transfers SCALE: Activities may be completed with or without assistive devices. 2-Kopuoilqqr-xwmwwdi completes the activity by him/herself with no assistance from a helper. 5-Set-up or Clean-up Assistance-helper sets up or cleans up; patient completes activity. [place] assists only prior to or following the activity. 4-Supervision or Touching Assistance-helper provides verbal cues and/or touching/steadying and/or contact guard assistance as patient completes activity. Assistance may be provided throughout the activity or intermittently. 3-Partial/Moderate Assistance-helper does LESS THAN HALF the effort. [place] lifts, holds or supports trunk or limbs, but provides less than half the effort. 2-Substantial/Maximal Assistance-helper does MORE THAN HALF the effort. [place] lifts or holds trunk or limbs and provides more than half the effort. 9-Qpppkktmz-yeuuoh does ALL the effort. Patient does none of the effort to complete the activity. Or, the assistance of 2 or more helpers is required for the patient to complete the activity. If activity was not attempted, code reason: 7-Patient Refused. 9-Not Applicable-not attempted and the patient did not perform the activity before the current illness, exacerbation or injury. 10-Not Attempted due to Environmental Limitations-(lack of equipment, weather restraints, etc.). 88-Not Attempted due to Medical Conditions or Safety Concerns. Roll Left & Right (QC): 6 Sit to Lying (QC): 6 Lying to Sitting/Side of Bed(Q: 6 Sit to Stand (QC): 4 Chair/Vsa-yz-Kfmqw Xfer(QC): 4 SBA for sit to stand and transfers, patient can be a bit impulsive and may need cues to slow down. Gait Training Distance: 200'x4 Walk 10 feet (QC): 4 Walk 50 ft with 2 Turns(QC): 4 Walk 150 ft (QC): 4 Gait Persons Needed: 1 Gait Assistive Device: FWW SBA, fairly brisk ambulation, no LOB but does seem to have an occasional moment of unsteadiness Exercises Supine Ex: Bridging, Ankle pumps, Quad Set, Glut sets, Heel Slides, Short Arc Quads, Straight leg raise, Hip abd/add Supine Reps: 20 LAQ alternating for 5 min with 2# ankle weights, sit to stands 3 sets of 10, cone activity grabbing cone and ambulating to another surface and then turning and coming back to get another one and repeating the process 2 sets of 5 NuStep Minutes: 15 NuStep Workload: 5 Treatments bed mobility and transfers, ambulation, functional strengthening Assessment Current Status: Fair Progress no complete LOB but still has some moments of unsteadiness and slightly impulsive PT Short Term Goals Short Term Goals Time Frame: Jul 05, 2021 Roll Left & Right: 6 Sit to lyin Lying to sitting on side of be: 3 Sit to stand: 4 Chair/hba-ja-hburk transfer: 4 Walk 10 feet: 4 Walk 50 feet with two turns: 4 Walk 150 feet: 4 PT Fdc Goals Dog Behaviorist Goals PT Dog Behaviorist Goals Time Frame: Jul 19, 2021 Roll Left & Right (QC): 6 Sit to Lying (QC): 6 Lying-Sitting on Side/Bed(QC): 6 Sit to Stand (QC): 4 (SBA) Chair/Iag-qv-Jvjmr Xfer(QC): 4 (SBA) Toilet Transfer (QC): 4 (SBA) Car Transfer (QC): 4 (SBA) Does the Patient Walk: Yes Walk 10 feet (QC): 4 (SBA) Walk 50ft with 2 Turns (QC): 4 (SBA) Walk 150 ft (QC): 4 (SBA) Walking 10ft on Uneven Surface: 4 (SBA) 1 Step (curb) (QC): 4 (CGA) 4 Steps (QC): 4 (CGA) 12 Steps (QC): 88 Picking up an Object (QC): 4 (CGA) Wheel 50 feet with 2 turns (QC: 9 Wheel 150 feet: 9 PT Plan Problem List Problem List: Activity Tolerance, Functional Strength, Safety, Balance, Gait, Transfer, Bed Mobility, ROM Treatment/Plan Treatment Plan: Continue Plan of Care Treatment Plan: Bed Mobility, Education, Functional Activity Tenzin, Functional Strength, Group Therapy, Gait, Safety, Therapeutic Exercise, Transfers Treatment Duration: Jul 19, 2021 Frequency: At least 5 of 7 days/Wk (IRF) Estimated Hrs Per Day: 1.5 hours per day Patient and/or Family Agrees t: Yes Safety Risks/Education Patient Education: Gait Training, Transfer Techniques, Correct Positioning, Safety Issues Teaching Recipient: Patient Teaching Methods: Demonstration, Discussion Response to Teaching: Reinforcement Needed Time/GCodes Time In: 1000 Time Out: 1115 Total Billed Treatment Time: 75 Total Billed Treatment 1 visit GT 30' EX 45' MONTRELL DIALLO PT Jul 04, 2021 11:06
--- NOTE | 2021-07-04 11:14 | Occupational Ther Daily Note ---
OT Current Status-Daily Note Subjective Pt seen in room, up in recliner, agreeable to OT. No pain reported. Appearance Alert, cooperative ADL-Treatment Pt declined bathing except for partial sponge bath. Also declined changing clothes except for shirt. Able to doff and don T shirt with setup and supervisio n. Pt was able to wash his upper body using bath wipes and using R hand to wash entire L UE, although it took longer and he had difficulty at times holding on to wipe. At end of tx, he was able to transfer on to toilet with CGA and managed clothing prior to sitting. At end of tx, pt left on toilet per his request, present, nursing notified. Therapy Code Descriptions/Definitions Functional [place] Measure: 0=Not Assessed/NA 4=Minimal Assistance 1=Total Assistance 5=Supervision or Setup 2=Maximal Assistance 6=Modified [place] 3=Moderate Assistance 7=Complete IndependenceSCALE: Activities may be completed with or without assistive devices. 6-Tiqzznfrww-ombhdef completes the activity by him/herself with no assistance from a helper. 5-Set-up or Clean-up Assistance-helper sets up or cleans up; patient completes activity. [place] assists only prior to or following the activity. 4-Supervision or Touching Assistance-helper provides verbal cues and/or touching/steadying and/or contact guard assistance as patient completes acti vity. Assistance may be provided throughout the activity or intermittently. 3-Partial/Moderate Assistance-helper does LESS THAN HALF the effort. [place] lifts, holds or supports trunk or limbs, but provides less than half the effort. 2-Substantial/Maximal Assistance-helper does MORE THAN HALF the effort. [place] lifts or holds trunk or limbs and provides more than half the effort. 8-Luortjdfw-eapeim does ALL the effort. Patient does none of the effort to complete the activity. Or, the assistance of 2 or more helpers is required for the patient to complete the activity. If activity was not attempted, code reason: 7-Patient Refused. 9-Not Applicable-not attempted and the patient did not perform the activity before the current illness, exacerbation or injury. 10-Not Attempted due to Environmental Limitations-(lack of equipment, weather restraints, etc.). 88-Not Attempted due to Medical Conditions or Safety Concerns. Upper Body Dressing (QC): 4 (supervision) Other Treatment Pt education to use R UE on arm rest with sit to stand and stand to sit, to facilitate UE function and also safety. He got up from recliner with CGA and walked CGA, FWW to therapy gym, with no LOB. Practiced several times sit to stand and stand to sit, placing R arm and using it during transfer. Pt completed 7 minutes bilat UE coordination on arm bike set at 15W resistance. Able to maintain grasp with R hand for 20-45 seconds before release. Pt educ to use vision for feedback of R hand function. Required several brief recovery periods due to R UE fatigue. Practiced reach, grasp, placement and release with R UE, first using larger cones and then using smaller ones, with reaching in multiple places. He was able to complete movement without help approx 85% of the time. Also worked on grasp and release with ring arc, with help to position rings initially and then without help (extra time). [place] bag toss, to work on grasp, release timing. Initially was able to complete approx 75% correctly but with repetition and increased challenge, was able to complete 100% at end of session. Also used exercise bar to work on bilat coordination for movements at shoulders, elbows, wrists. Pt educ on UE movements he can do in his room, which he completed with a little assistance. He was able to demonstrate bilat grasp/release but R lagged behind L. Also able to touch R thumb to index, middle , ring and little fingers and "stick thumb up", although slowly. present for most of tx and pt education. Pt seemed pleased with progress. Education OT Patient Education: Exercise program, Progress toward Goal/Update tx plan, Purpose of tx/functional activities, Safety issues, Transfer techniques Teaching Recipient: Patient, Family Teaching Methods: Demonstration, Discussion Response to Teaching: Verbalize Understanding, Return Demonstration, Reinforcement Needed OT Short Term Goals Short Term Goals Time Frame: Jul 12, 2021 Toileting hygiene: 4 Upper body dressin Lower body dressin Putting on/taking off footwear: 4 OT Apple Sorter Goals Prison Goals Time Frame: Jul 21, 2021 Eating (QC): 6 Oral Hygiene (QC): 6 Toileting Hygiene (QC): 6 Shower/Bathe Self (QC): 6 Upper Body Dressing (QC): 6 Lower Body Dressing (QC): 6 On/Off Footwear (QC): 6 Additional Goals: 1-Demonstrate ADL Tasks, 2-Verbalize Understanding, 3-ImproveStrength/Tenzin 1=Demonstrate adherence to instructed precautions during ADL tasks. 2=Patient will verbalize/demonstrate understanding of assistive devices/modifications for ADL. 3=Patient will improve strength/tolerance for activity to enable patient to perform ADL's. OT Education/Plan Discharge Recommendations Plan/Recommendations: Continue POC Treatment Plan/Plan of Care Patient would benefit from OT for education, treatment and training to promote independence in ADL's, mobility, safety and/or upper extremity function for ADL's. Plan of Care: ADL Retraining, Cognitive Retraining, Functional Mobility, Group Exercise/Act as Ind, UE Funct Exercise/Act, UE Neuromus Re-Ed/Coord Treatment Duration: Jul 21, 2021 Frequency: At least 5 of 7 days/Wk (IRF) Estimated Hrs Per Day: 1.5 hours per day Rehab Potential: Fair Time/GCodes Start Time: 08:30 Stop Time: 09:45 Total Time Billed (hr/min): 75 Billed Treatment Time visit, 15 minutes ADL, 60 minutes neuromotor ENOC VIGIL OT Jul 04, 2021 11:14
--- NOTE | 2021-07-04 13:34 | Speech Therapy Daily Note ---
Speech Daily Progress Note Subjective Time Seen by Provider: 11:30 Pt's present. Pt reports he is doing better. Objective Pt completed naming task with 10/10 items named within room. 2-step following directions task completed with mod cues needed for completion. Aphasia compensatory strategies provided. Treatment Plan Continue Plan of Care Speech Short Term Goals Short Term Goals Short Term Goals 1. The pt will complete expressive language therapy tasks with 90% accy. 2. The pt will complete naming tasks with 90% accy. 3. The pt will answer yes/no questions with 90% accy. 4. The pt will utilize dysarthria compensatory strategies during conversation with min cues. Speech Halfway Goals Storage Consultant Goals The pt will be able to communicate during daily activities without difficulty with 90% accy. Speech-Plan Treatment Plan Speech Therapy Treatment Plan: Continue Plan of Care Treatment Duration: Jun 29, 2021 Frequency: 3 times per week Estimated Hrs Per Day: .5 hour per day Rehab Potential: Fair Time Speech Therapy Time In: 11:30 Speech Therapy Time Out: 12:00 Billed Treatment Time 1, AYANTS 30 mins PEÑA TIRADO Jul 04, 2021 13:34
[2021-07-04 20:03] VITALS: BP 140/67
[2021-07-04] MEDS: polyethylene glycoL POWDER 17 GM (MIRALAX) PACK PO SCH (20:50)
[2021-07-05 07:35] VITALS: BP 140/74
[2021-07-05] MEDS: DOCUSATE SODIUM 100 MG (COLACE) CAP PO SCH ×2 (09:17→22:00)
[2021-07-05] MEDS: LOSARTAN 50 MG (COZAAR) TAB PO SCH (09:17)
[2021-07-05] MEDS: amLODIPine 10 MG (NORVASC) TAB PO SCH (09:17)
[2021-07-05] MEDS: FAMOTIDINE 20 MG (PEPCID) TABLET PO SCH (09:17)
[2021-07-05] MEDS: APIXABAN 5 MG (ELIQUIS) TABLET PO SCH ×2 (09:17→22:09)
[2021-07-05] MEDS: SENNA W/DOCUSATE (SENOKOT S) TABLET PO SCH ×2 (09:22→22:00)
[2021-07-05] MEDS: MILK OF MAGNESIA 400 MG/5 ML 30 ML UDC PO SCH (09:22)
--- NOTE | 2021-07-05 09:23 | Occupational Ther Daily Note ---
OT Current Status-Daily Note Subjective Pt agreeable to OT Tx. Denies pain. Mental Status/Objective Patient Orientation: Person, Place, Situation ADL-Treatment Therapy Code Descriptions/Definitions Functional [place] Measure: 0=Not Assessed/NA 4=Minimal Assistance 1=Total Assistance 5=Supervision or Setup 2=Maximal Assistance 6=Modified [place] 3=Moderate Assistance 7=Complete IndependenceSCALE: Activities may be completed with or without assistive devices. 3-Tbhlyluufu-lbznane completes the activity by him/herself with no assistance from a helper. 5-Set-up or Clean-up Assistance-helper sets up or cleans up; patient completes activity. [place] assists only prior to or following the activity. 4-Supervision or Touching Assistance-helper provides verbal cues and/or touching/steadying and/or contact guard assistance as patient completes activity. Assistance may be provided throughout the activity or intermittently. 3-Partial/Moderate Assistance-helper does LESS THAN HALF the effort. [place] lifts, holds or supports trunk or limbs, but provides less than half the effort. 2-Substantial/Maximal Assistance-helper does MORE THAN HALF the effort. [place] lifts or holds trunk or limbs and provides more than half the effort. 0-Ekhbbscqs-wbiwbc does ALL the effort. Patient does none of the effort to complete the activity. Or, the assistance of 2 or more helpers is required for the patient to complete the activity. If activity was not attempted, code reason: 7-Patient Refused. 9-Not Applicable-not attempted and the patient did not perform the activity before the current illness, exacerbation or injury. 10-Not Attempted due to Environmental Limitations-(lack of equipment, weather restraints, etc.). 88-Not Attempted due to Medical Conditions or Safety Concerns. Other Treatment Pt up in recliner, OT tx with focus on increasing functional use of RUE, neuromuscular reeducation, fine motor coordination and strength. Pt completed pinches on graded clothes pins (1-3 lbs), x10 reps each, RUE. Increased difficulty with increased weight. He removed x25 pegs from foam pegboard using RUE, 9 mins total for task. Pt removed x10 beads from moderate resistance theraputty, required min A to locate a couple of beads. Completed reaching task with cones x3 trials in all planes, dropping 3 cones during activity. x2 trials of ring arc, using RUE to cross midline. Pt stood at [facility], [facility], removing 1-2 lb graded clothes around clothing in order to increase dynamic standing balance, RUE reaching in order to increase performance with clothing management. He used FWW to ambulate into kitchen area, locating 5 corral bags throughout cabinets with RUE, then tossing them into a basket using RUE. Pt returned to his room, CGA transferring to recliner. Post tx, pt seated in recliner, call light in reach and all needs met, chair alarm activated. Education OT Patient Education: Correct positioning, Energy conservation, Exercise program, Modified ADL techniques, Progress toward Goal/Update tx plan, Purpose of tx/functional activities, Rehab process Teaching Recipient: Patient Teaching Methods: Discussion Response to Teaching: Verbalize Understanding OT Short Term Goals Short Term Goals Time Frame: Jul 12, 2021 Toileting hygiene: 4 Upper body dressin Lower body dressin Putting on/taking off footwear: 4 OT [employer] Weighter Goals Alf Goals Time Frame: Jul 21, 2021 Eating (QC): 6 Oral Hygiene (QC): 6 Toileting Hygiene (QC): 6 Shower/Bathe Self (QC): 6 Upper Body Dressing (QC): 6 Lower Body Dressing (QC): 6 On/Off Footwear (QC): 6 Additional Goals: 1-Demonstrate ADL Tasks, 2-Verbalize Understanding, 3- ImproveStrength/Tenzin 1=Demonstrate adherence to instructed precautions during ADL tasks. 2=Patient will verbalize/demonstrate understanding of assistive devices/modifications for ADL. 3=Patient will improve strength/tolerance for activity to enable patient to perform ADL's. OT Education/Plan Problem List/Assessment Assessment: Decreased Activ Tolerance, Decreased UE Strength, Impaired Funct Balance, Impaired I ADL's, Impaired Self-Care Skills, Restricted Funct UE ROM Discharge Recommendations Plan/Recommendations: Continue POC Treatment Plan/Plan of Care Patient would benefit from OT for education, treatment and training to promote independence in ADL's, mobility, safety and/or upper extremity function for ADL's. Plan of Care: ADL Retraining, Cognitive Retraining, Functional Mobility, Group Exercise/Act as Ind, UE Funct Exercise/Act, UE Neuromus Re-Ed/Coord Treatment Duration: Jul 21, 2021 Frequency: At least 5 of 7 days/Wk (IRF) Estimated Hrs Per Day: 1.5 hours per day Rehab Potential: Fair Time/GCodes Start Time: 08:00 Stop Time: 09:30 Total Time Billed (hr/min): 90 Billed Treatment Time 1, FA 6 JAZIEL ROCHA OT Jul 05, 2021 09:23
--- NOTE | 2021-07-05 11:10 | PM&R Progress Note ---
Subjective HPI/CC On Admission Date Seen by Provider: Jul 05, 2021 Time Seen by Provider: 11:20 Subjective/Events-last exam 07/05/2021: Patient doing really well at the bedside Speech is much improved Bowels are moving Walking really well Still impulsive Sleep study will be needed at discharge Walks 200 feet at a time 07/04/2021: Patient doing really well Speech is better Walking is better Right hand gum worker 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 Medellin to review 07/02/2021: Patient currently sleeping Suspicion for obstructive sleep apnea when I am witnessing his sleep Losartan started and blood pressure will be monitored Incontinent of urine at night Bowels move twice today 07/01/2021: Patient doing really well Speaking more clearly No falls Still impulsive Appreciate Dr. Lacie Medellin added losartan 50 mg Echo will be obtained on Saturday from outside hospital 06/30/2021: Patient doing really well Appreciate Dr. Medellin consultation cardiology EKG shows atrial fibrillation paroxysmal type maintained on oral anticoagulation at the bedside Speaking more clearly Walking around really well with assistance 06/29/2021: Patient had no events overnight Appreciate Dr. Medellin cardiology consult Doing well overall Right upper extremity with right facial droop is profound Able to walk around with assistive device and assistance Previously had bradycardia in the 50s and even 4020s during acute medical admission Creatinine 1.37 Review of Systems General: Fatigue, Malaise Neurological: Weakness, Incoordination Objective Exam Vital Signs Vital Signs Date Time Temp Pulse Resp B/P (MAP) Pulse Ox O2 Delivery O2 Flow Rate FiO2 07/05/21 20:15 98 Room Air 07/05/21 20:15 36.9 45 16 127/70 (89) Capillary Refill : General Appearance: No Apparent Distress, WD/WN, Chronically ill, Obese HEENT: PERRL/EOMI, Normal ENT Inspection, Pharynx Normal Neck: Full Range of Motion, Normal Inspection, Non Tender, Supple, Carotid Bruit Respiratory: Chest Non Tender, Lungs Clear, Normal Breath Sounds, No Accessory Muscle Use, No Respiratory Distress Cardiovascular: Regular Rate, Rhythm, No Edema, No Gallop, No JVD, No Murmur, Normal Peripheral Pulses Gastrointestinal: Normal Bowel Sounds, No Organomegaly, No Pulsatile Mass, Non Tender, Soft Back: Normal Inspection, No CVA Tenderness, No Vertebral Tenderness Extremity: Normal Capillary Refill, Normal Inspection, Normal Range of Motion, Non Tender, No Calf Tenderness, No Pedal Edema Neurologic/Psychiatric: Alert, Oriented x3, Normal Mood/Affect, liquor merchant II-XII Norm as Tested, Abnormal Gait, Aphasia, Facial Droop (Right-sided), Motor Weakness (Right-sided weakness) Skin: Normal Color, Warm/Dry Lymphatic: No Adenopathy Results/Procedures Lab Patient resulted labs reviewed. FIM Transfers Therapy Code Descriptions/Definitions Functional [place] Measure: 0=Not Assessed/NA 4=Minimal Assistance 1=Total Assistance 5=Supervision or Setup 2=Maximal Assistance 6=Modified [place] 3=Moderate Assistance 7=Complete IndependenceSCALE: Activities may be completed with or without assistive devices. 0-Wqyljwuakc-mxnlrtf completes the activity by him/herself with no assistance from a helper. 5-Set-up or Clean-up Assistance-helper sets up or cleans up; patient completes activity. [place] assists only prior to or following the activity. 4-Supervision or Touching Assistance-helper provides verbal cues and/or touching/steadying and/or contact guard assistance as patient completes activity. Assistance may be provided throughout the activity or intermittently. 3-Partial/Moderate Assistance-helper does LESS THAN HALF the effort. [place] li fts, holds or supports trunk or limbs, but provides less than half the effort. 2-Substantial/Maximal Assistance-helper does MORE THAN HALF the effort. [place] lifts or holds trunk or limbs and provides more than half the effort. 4-Wbnhxpybl-ouchzj does ALL the effort. Patient does none of the effort to complete the activity. Or, the assistance of 2 or more helpers is required for the patient to complete the activity. If activity was not attempted, code reason: 7-Patient Refused. 9-Not Applicable-not attempted and the patient did not perform the activity before the current illness, exacerbation or injury. 10-Not Attempted due to Environmental Limitations-(lack of equipment, weather restraints, etc.). 88-Not Attempted due to Medical Conditions or Safety Concerns. Roll Left to Right (QC): 6 Sit to Lying (QC): 6 Sit to Stand (QC): 4 Chair/Ozy-fe-Heyto Xfer(QC): 4 Car Transfer (QC): 3 Gait Training Does the Patient Walk?: Yes Distance: 200'x4 Walk 10 feet (QC): 4 Walk 50 ft with 2 Turns(QC): 4 Walk 150 ft (QC): 4 Walking 10ft/uneven surface-QC: 88 Gait Persons Needed: 1 Gait Assistive Device: FWW Wheelchair Training Does the Pt Use a Wheelchair?: No Wheel 50 ft with 2 turns (QC): 9 Wheel 150 ft (QC): 9 Stair Training 1 Step (curb) (QC): 88 4 Steps (QC): 88 12 Steps (QC): 88 Balance Picking up an Object (QC): 88 ADL-Treatment Eating (QC): 5 (based on clincial judgment, assistance with cutting food and opening contianers. Pt left handed and able to use LUE) Oral Hygiene (QC): 7 Bathing Location: L Arm, R Arm, L Upper Leg, R Upper Leg, L Lower Leg (including foot), R Lower Leg (including foot), Chest, Abdomen, Perineal Area Shower/Bathe Self (QC): 4 (SBA, pt able to wash/dry all parts seated on SC.) Upper Body Dressing (QC): 4 (supervision) Lower Body Dressing (QC): 3 (Pt able to thread BLEs into pants and brief, used AE as needed. Min A with pant hike in back and R side.) On/Off Footwear (QC): 2 (Pt doffed RLE gripper socks, assistance L. Pt required assistance threading gripper sock on sock aide, then able to thread the rest of the way and don onto foot with slight assistance. Total assist with TEDhose.) Toileting Hygiene (QC): 7 Toilet Transfer (QC): 3 Assessment/Plan Assessment and Plan Assess & Plan/Chief Complaint Assessment: CVA with right-sided weakness Right-sided facial droop Aphasia Paroxysmal atrial fibrillation? Oral anticoagulation Plan: Aggressive therapy Speech therapy Cardiology consult Monitor closely 06/29/2021: Supportive care Aggressive therapy Cardiology consult appreciated 06/30/2021 Appreciate cardiology Maintain oral anticoagulants Monitor closely Avoid rate control medication due to bradycardia history 07/01/2021: Appreciate cardiology Losartan 50 mg added 07/02/2021: Incontinency at night monitored Supportive care Needs sleep study 07/03/2021: Monitor incontinence Needs sleep study Echo ready for Dr. Medellin to review from [facility] 07/04/2021: Supportive care Appreciate Dr. Medellin 07/05/2021: Supportive care Continue aggressive treatment (1) Paroxysmal atrial fibrillation Assessment & Plan: This was most likely the cause of the patient's cerebrovascular accident. He had episodic paroxysmal atrial fibrillation at the outside hospital as well as in our facility. He was also having some intermittent bradycardia at the outside hospital. Heart rates are presently controlled on no AV daisha blocking agents. I recommend we continue the patient on apixaban for recurrent stroke prophylaxis. His echocardiogram from [place] showed a normal ejection fraction with mild left atrial enlargement with only mild mitral regurgitation. After about 6 weeks from the initial event, I will plan on a cardioversion as an outpatient. Once he is back in a sinus rhythm, I will plan on a nuclear stress test to exclude underlying coronary ischemia as a possible inciting event for the atrial fibrillation. At this point in time, there are no acute, active cardiac issues. As such, cardiology will sign off. I will ask nursing to get the patient an office visit to see me in 1 month. Please call if you have other questions or concerns. (2) Sinus bradycardia Assessment & Plan: He was having intermittent bradycardia at the outside hospital as outlined above. I suspect he has some degree of AV daisha dysfunct ion since he did not develop tachycardia with the atrial fibrillation. If he needs adjustment to his medication for hypertension, I would recommend we avoid using beta-blockers, diltiazem or verapamil. Heart rates have been stable here. There is no indication for permanent pacemaker at this time. (3) Primary hypertension Assessment & Plan: Blood pressure is improved with the combination of amlodipine and losartan. This is a new diagnosis for the patient although he had not seen a physician in a number of years prior to this recent stroke. If he needs additional adjustment to his medication for the hypertension, avoid AV daisha blocking agents or any agents that could worsen his underlying bradycardia. (4) Mixed hyperlipidemia Assessment & Plan: I recommend he continue on statin medication in light of the acute cerebrovascular accident. He should have a follow-up lipid panel in about 2-3 months. (5) Chronic kidney disease, stage 3 Assessment & Plan: This is yet another new diagnosis for the patient. The losartan should help delay progression of disease. (6) History of cerebrovascular accident with residual deficit Assessment & Plan: As above, I suspect the atrial fibrillation led to the patient's cerebrovascular accident since this was noted early in his hospitalization at the outside facility. (7) Morbid obesity Assessment & Plan: He will need to work on weight loss once he gets his strength back. (8) Aortic regurgitation Assessment & Plan: This was an incidental finding on the outside echocardiog brian. This is in a mild range and most likely had nothing to do with the present situation. This should be followed longitudinally after discharge. (9) Mitral regurgitation Assessment & Plan: This was another incidental finding on his echocardiogram. This is mild but will need to be followed longitudinally. TOBIAS BUTCHER DO Jul 05, 2021 11:10
--- NOTE | 2021-07-05 12:36 | Physical Therapy Daily Note ---
PT Daily Note-Current Subjective Patient in recliner pre tx, agrees to PT, has no complaints of pain Appearance Patient in recliner post tx with nurse call, phone, tray, all needs met, chair alarm on. Mental Status Patient Orientation: Person, Place, Situation Transfers SCALE: Activities may be completed with or without assistive devices. 2-Ksqhqchfwi-bvcjchp completes the activity by him/herself with no assistance from a helper. 5-Set-up or Clean-up Assistance-helper sets up or cleans up; patient completes activity. [place] assists only prior to or following the activity. 4-Supervision or Touching Assistance-helper provides verbal cues and/or touching/steadying and/or contact guard assistance as patient completes activity. Assistance may be provided throughout the activity or intermittently. 3-Partial/Moderate Assistance-helper does LESS THAN HALF the effort. [place] lifts, holds or supports trunk or limbs, but provides less than half the effort. 2-Substantial/Maximal Assistance-helper does MORE THAN HALF the effort. [place] lifts or holds trunk or limbs and provides more than half the effort. 8-Jkdlnphpt-bcrdww does ALL the effort. Patient does none of the effort to complete the activity. Or, the assistance of 2 or more helpers is required for the patient to complete the activity. If activity was not attempted, code reason: 7-Patient Refused. 9-Not Applicable-not attempted and the patient did not perform the activity before the current illness, exacerbation or injury. 10-Not Attempted due to Environmental Limitations-(lack of equipment, weather restraints, etc.). 88-Not Attempted due to Medical Conditions or Safety Concerns. Sit to Stand (QC): 4 Chair/Gkz-ya-Pnpni Xfer(QC): 4 Gait Training Distance: 300'x3 Walk 10 feet (QC): 4 Walk 50 ft with 2 Turns(QC): 4 Walk 150 ft (QC): 4 Gait Persons Needed: 1 Gait Assistive Device: FWW Slow but steady ambulation, cues for direction. Exercises Standing: Hip Abduction, Hamstring curls, Heel/toe raises, Marching, Mini squats Standing Reps: 15 LAQ alternating for 5 min NuStep Minutes: 15 NuStep Workload: 5 Treatments transfers, ambulation, functional strengthening Assessment Current Status: Fair Progress Patient still is a little impulsive, may need cues to slow down or stop what he is doing for safety reason. PT Short Term Goals Short Term Goals Time Frame: Jul 05, 2021 Roll Left & Right: 6 Sit to lyin Lying to sitting on side of be: 3 Sit to stand: 4 Chair/nue-lr-xvdpt transfer: 4 Walk 10 feet: 4 Walk 50 feet with two turns: 4 Walk 150 feet: 4 PT Shelter Goals Draft Roller Picker Goals PT Shelter Goals Time Frame: Jul 19, 2021 Roll Left & Right (QC): 6 Sit to Lying (QC): 6 Lying-Sitting on Side/Bed(QC): 6 Sit to Stand (QC): 4 (SBA) Chair/Qsp-dk-Smbcv Xfer(QC): 4 (SBA) Toilet Transfer (QC): 4 (SBA) Car Transfer (QC): 4 (SBA) Does the Patient Walk: Yes Walk 10 feet (QC): 4 (SBA) Walk 50ft with 2 Turns (QC): 4 (SBA) Walk 150 ft (QC): 4 (SBA) Walking 10ft on Uneven Surface: 4 (SBA) 1 Step (curb) (QC): 4 (CGA) 4 Steps (QC): 4 (CGA) 12 Steps (QC): 88 Picking up an Object (QC): 4 (CGA) Wheel 50 feet with 2 turns (QC: 9 Wheel 150 feet: 9 PT Plan Problem List Problem List: Activity Tolerance, Functional Strength, Safety, Balance, Gait, Transfer Treatment/Plan Treatment Plan: Continue Plan of Care Treatment Plan: Bed Mobility, Education, Functional Activity Tenzin, Functional Strength, Group Therapy, Gait, Safety, Therapeutic Exercise, Transfers Treatment Duration: Jul 19, 2021 Frequency: At least 5 of 7 days/Wk (IRF) Estimated Hrs Per Day: 1.5 hours per day Patient and/or Family Agrees t: Yes Safety Risks/Education Patient Education: Gait Training, Transfer Techniques, Correct Positioning, Safety Issues Teaching Recipient: Patient Teaching Methods: Demonstration, Discussion Response to Teaching: Reinforcement Needed Time/GCodes Time In: 1030 Time Out: 1130 Total Billed Treatment Time: 60 Total Billed Treatment 1 visit GT 30' EX 30' MONTRELL DIALLO PT Jul 05, 2021 12:36
--- NOTE | 2021-07-05 13:58 | Physical Therapy Daily Note ---
PT Daily Note-Current Subjective Pt in recliner upon arrival and agrees to tx. Pt has no c/o pain. Mental Status Patient Orientation: Person, Situation Transfers SCALE: Activities may be completed with or without assistive devices. 6-Rycgqiganl-wzihnsv completes the activity by him/herself with no assistance from a helper. 5-Set-up or Clean-up Assistance-helper sets up or cleans up; patient completes activity. [place] assists only prior to or following the activity. 4-Supervision or Touching Assistance-helper provides verbal cues and/or touching/steadying and/or contact guard assistance as patient completes activity. Assistance may be provided throughout the activity or intermittently. 3-Partial/Moderate Assistance-helper does LESS THAN HALF the effort. [place] lifts, holds or supports trunk or limbs, but provides less than half the effort. 2-Substantial/Maximal Assistance-helper does MORE THAN HALF the effort. [place] lifts or holds trunk or limbs and provides more than half the effort. 1-Tsrmatnfm-lqvsra does ALL the effort. Patient does none of the effort to complete the activity. Or, the assistance of 2 or more helpers is required for the patient to complete the activity. If activity was not attempted, code reason: 7-Patient Refused. 9-Not Applicable-not attempted and the patient did not perform the activity before the current illness, exacerbation or injury. 10-Not Attempted due to Environmental Limitations-(lack of equipment, weather restraints, etc.). 88-Not Attempted due to Medical Conditions or Safety Concerns. Sit to Lying (QC): 5 Sit to Stand (QC): 4 Gait Training Does the Patient Walk?: Yes Distance: 300', 150' Walk 10 feet (QC): 4 Walk 50 ft with 2 Turns(QC): 4 Walk 150 ft (QC): 4 Gait Persons Needed: 1 Gait Assistive Device: FWW Pt has shuffling gait, tends to have accelerated pace. When accelerating, pt drags R LE during swing through. Exercises Standing: Sit to Stand, Step-ups Standing Reps: 10 Treatments Pt sit to stand from recliner [facility], requiring VC to push up from chair. Pt amb 300' on IRU then to the gym. Pt performs corral bag toss activity w/ 13 corral bags, tossing w/ B UE. First, pt tossed w/ R UE in basket approx 4' away, pt made 10/13. Pt then tossed w/ L UE to basket approx 8' away making 08/02. Pt then performs step up ex x10 on curb step w/ FWW for stabilization and CGA. Pt then completes sitting kicking activity, kicking ball that was rolled by EARLY CHILDHOOD EDUCATION SPECIALIST w/ R LE only for 3 minutes, and using B LE for 3 minutes. Pt then sit to stand, then amb back to room and sat EOB. Pt sit to supine SBA, stays in bed w/ all needs met and call light in hand. Assessment Current Status: Good Progress Pt had no LOB during amb. Requires VC to be repeated multiple times throughout tx. PT Short Term Goals Short Term Goals Time Frame: Jul 05, 2021 Roll Left & Right: 6 Sit to lyin Lying to sitting on side of be: 3 Sit to stand: 4 Chair/giv-ta-tdxdp transfer: 4 Walk 10 feet: 4 Walk 50 feet with two turns: 4 Walk 150 feet: 4 PT Credit Underwriter Goals Credit Underwriter Goals PT Alf Goals Time Frame: Jul 19, 2021 Roll Left & Right (QC): 6 Sit to Lying (QC): 6 Lying-Sitting on Side/Bed(QC): 6 Sit to Stand (QC): 4 (SBA) Chair/Bft-uh-Iiiei Xfer(QC): 4 (SBA) Toilet Transfer (QC): 4 (SBA) Car Transfer (QC): 4 (SBA) Does the Patient Walk: Yes Walk 10 feet (QC): 4 (SBA) Walk 50ft with 2 Turns (QC): 4 (SBA) Walk 150 ft (QC): 4 (SBA) Walking 10ft on Uneven Surface: 4 (SBA) 1 Step (curb) (QC): 4 (CGA) 4 Steps (QC): 4 (CGA) 12 Steps (QC): 88 Picking up an Object (QC): 4 (CGA) Wheel 50 feet with 2 turns (QC: 9 Wheel 150 feet: 9 PT Plan Treatment/Plan Treatment Plan: Continue Plan of Care Treatment Plan: Bed Mobility, Education, Functional Activity Tenzin, Functional Strength, Group Therapy, Gait, Safety, Therapeutic Exercise, Transfers Treatment Duration: Jul 19, 2021 Frequency: At least 5 of 7 days/Wk (IRF) Estimated Hrs Per Day: 1.5 hours per day Patient and/or Family Agrees t: Yes Time/GCodes Time In: 1330 Time Out: 1400 Total Billed Treatment Time: 30 Total Billed Treatment 1, GT, CARON DOBBINS EARLY CHILDHOOD EDUCATION SPECIALIST Jul 05, 2021 13:58
[2021-07-05 20:15] VITALS: BP 127/70
[2021-07-05] MEDS: polyethylene glycoL POWDER 17 GM (MIRALAX) PACK PO SCH (22:00)
[2021-07-06 07:54] VITALS: BP 152/70
[2021-07-06] MEDS: LOSARTAN 50 MG (COZAAR) TAB PO SCH (08:55)
[2021-07-06] MEDS: amLODIPine 10 MG (NORVASC) TAB PO SCH (08:56)
[2021-07-06] MEDS: APIXABAN 5 MG (ELIQUIS) TABLET PO SCH ×2 (08:56→21:10)
[2021-07-06] MEDS: FAMOTIDINE 20 MG (PEPCID) TABLET PO SCH (08:56)
--- NOTE | 2021-07-06 09:01 | Occupational Ther Daily Note ---
OT Current Status-Daily Note Subjective Pt agreeable to OT Tx. Declines ADLs, stating he would like to shower tomorrow. Mental Status/Objective Patient Orientation: Person, Place, Non-Verbal/Aphasic, Situation ADL-Treatment Therapy Code Descriptions/Definitions Functional [place] Measure: 0=Not Assessed/NA 4=Minimal Assistance 1=Total Assistance 5=Supervision or Setup 2=Maximal Assistance 6=Modified [place] 3=Moderate Assistance 7=Complete IndependenceSCALE: Activities may be completed with or without assistive devices. 8-Vxynknypxn-nvbmcym completes the activity by him/herself with no assistance from a helper. 5-Set-up or Clean-up Assistance-helper sets up or cleans up; patient completes activity. [place] assists only prior to or following the activity. 4-Supervision or Touching Assistance-helper provides verbal cues and/or touching/steadying and/or contact guard assistance as patient completes activity. Assistance may be provided throughout the activity or intermittently. 3-Partial/Moderate Assistance-helper does LESS THAN HALF the effort. [place] lifts, holds or supports trunk or limbs, but provides less than half the effort. 2-Substantial/Maximal Assistance-helper does MORE THAN HALF the effort. [place] lifts or holds trunk or limbs and provides more than half the effort. 3-Fzkbsgnor-pvxfse does ALL the effort. Patient does none of the effort to complete the activity. Or, the assistance of 2 or more helpers is required for the patient to complete the activity. If activity was not attempted, code reason: 7-Patient Refused. 9-Not Applicable-not attempted and the patient did not perform the activity before the current illness, exacerbation or injury. 10-Not Attempted due to Environmental Limitations-(lack of equipment, weather restraints, etc.). 88-Not Attempted due to Medical Conditions or Safety Concerns. Other Treatment Pt seated in recliner, used FWW to perform functional mobility to therapy gym, [facility]. OT tx focused on increasing BUE Strength and activity tolerance, bilateral integration, neuromuscular reeducation of RUE, fine motor coordination and strength. Pt completed arm bike x10 mins, 15 watt resistance, (increase of 3 mins) pt's RUE able to hold onto handle for a few minutes before releasing the grasp. Pt encouraged to focus on RUE placement, noted pt's R hand released the handle more frequently as time went on and fatigued. Pt took rest breaks as needed. He then participated in fine motor task, placing/removing wooden pegs of various sizes from board. Pt used FWW to return to room, CGA, transferring to recliner. Post tx, pt up in recliner, call light in reach and all needs met. Chair alarm activated. Education OT Patient Education: Correct positioning, Modified ADL techniques, Progress toward Goal/Update tx plan, Purpose of tx/functional activities Teaching Recipient: Patient Teaching Methods: Discussion Response to Teaching: Verbalize Understanding OT Short Term Goals Short Term Goals Time Frame: Jul 12, 2021 Toileting hygiene: 4 Upper body dressin Lower body dressin Putting on/taking off footwear: 4 OT Senior Living Goals Senior Living Goals Time Frame: Jul 21, 2021 Eating (QC): 6 Oral Hygiene (QC): 6 Toileting Hygiene (QC): 6 Shower/Bathe Self (QC): 6 Upper Body Dressing (QC): 6 Lower Body Dressing (QC): 6 On/Off Footwear (QC): 6 Additional Goals: 1-Demonstrate ADL Tasks, 2-Verbalize Understanding, 3- ImproveStrength/Tenzin 1=Demonstrate adherence to instructed precautions during ADL tasks. 2=Patient will verbalize/demonstrate understanding of assistive devices/mod ifications for ADL. 3=Patient will improve strength/tolerance for activity to enable patient to perform ADL's. OT Education/Plan Problem List/Assessment Assessment: Decreased Activ Tolerance, Decreased UE Strength, Impaired Coordination, Impaired Funct Balance, Impaired I ADL's, Impaired Self-Care Skills, Restricted Funct UE ROM Discharge Recommendations Plan/Recommendations: Continue POC Treatment Plan/Plan of Care Patient would benefit from OT for education, treatment and training to promote independence in ADL's, mobility, safety and/or upper extremity function for ADL's. Plan of Care: ADL Retraining, Cognitive Retraining, Functional Mobility, Group Exercise/Act as Ind, UE Funct Exercise/Act, UE Neuromus Re-Ed/Coord Treatment Duration: Jul 21, 2021 Frequency: At least 5 of 7 days/Wk (IRF) Estimated Hrs Per Day: 1.5 hours per day Rehab Potential: Fair Time/GCodes Start Time: 08:00 Stop Time: 09:00 Total Time Billed (hr/min): 60 Billed Treatment Time 1, EX (15'), FA 3 (45') JAZIEL ROCHA OT Jul 06, 2021 09:01
[2021-07-06] MEDS: MILK OF MAGNESIA 400 MG/5 ML 30 ML UDC PO SCH (09:02)
[2021-07-06] MEDS: DOCUSATE SODIUM 100 MG (COLACE) CAP PO SCH ×2 (09:02→21:10)
[2021-07-06] MEDS: SENNA W/DOCUSATE (SENOKOT S) TABLET PO SCH ×2 (09:02→21:10)
--- NOTE | 2021-07-06 10:56 | Physical Therapy Daily Note ---
PT Daily Note-Current Subjective Patient in recliner pre tx, agrees to PT, has no complaints of pain. Appearance Patient in restroom on toilet post tx, instructed to use nurse call when done, nurse notified. Mental Status Patient Orientation: Person, Place, Situation Transfers SCALE: Activities may be completed with or without assistive devices. 2-Zigeyyvgnu-hgfseqd completes the activity by him/herself with no assistance from a helper. 5-Set-up or Clean-up Assistance-helper sets up or cleans up; patient completes activity. [place] assists only prior to or following the activity. 4-Supervision or Touching Assistance-helper provides verbal cues and/or touching/steadying and/or contact guard assistance as patient completes activity. Assistance may be provided throughout the activity or intermittently. 3-Partial/Moderate Assistance-helper does LESS THAN HALF the effort. [place] li fts, holds or supports trunk or limbs, but provides less than half the effort. 2-Substantial/Maximal Assistance-helper does MORE THAN HALF the effort. [place] lifts or holds trunk or limbs and provides more than half the effort. 0-Rdhmwnhom-rdzphy does ALL the effort. Patient does none of the effort to complete the activity. Or, the assistance of 2 or more helpers is required for the patient to complete the activity. If activity was not attempted, code reason: 7-Patient Refused. 9-Not Applicable-not attempted and the patient did not perform the activity before the current illness, exacerbation or injury. 10-Not Attempted due to Environmental Limitations-(lack of equipment, weather restraints, etc.). 88-Not Attempted due to Medical Conditions or Safety Concerns. Roll Left & Right (QC): 6 Sit to Lying (QC): 6 Lying to Sitting/Side of Bed(Q: 6 Sit to Stand (QC): 4 Chair/Bmu-xg-Xnluw Xfer(QC): 4 SBA with transfers, cues for safety and hand placement when sitting. Practiced a tub transfer, stepping into the tub with left side leading, he is able to get his right leg in and out with little difficulty, uses a grab bar on the left side, if he does it this way he will be facing the back of the tub at home so it will need to be modified with a new shower head and he will need assist with turning the water on and off. Gait Training Distance: 300', 200', 100' Walk 10 feet (QC): 4 Walk 50 ft with 2 Turns(QC): 4 Walk 150 ft (QC): 4 Gait Assistive Device: FWW steady ambulation, cues for direction Exercises sit to stands from therapy table 3 sets of 10 NuStep Minutes: 15 NuStep Workload: 5 Neuromuscular balance activities: step-ups without arm support x10 each side, stepping over noodle on floor and then bringing leg back x10 each side Treatments bed mobility and transfers, ambulation, tub transfers, functional strengthening Assessment Current Status: Fair Progress improving mobility in general PT Short Term Goals Short Term Goals Time Frame: Jul 05, 2021 Roll Left & Right: 6 Sit to lyin Lying to sitting on side of be: 3 Sit to stand: 4 Chair/wnt-nt-biywz transfer: 4 Walk 10 feet: 4 Walk 50 feet with two turns: 4 Walk 150 feet: 4 PT [facility] Goals Equipment Services Associate Goals PT [facility] Goals Time Frame: Jul 19, 2021 Roll Left & Right (QC): 6 Sit to Lying (QC): 6 Lying-Sitting on Side/Bed(QC): 6 Sit to Stand (QC): 4 (SBA) Chair/Vff-nb-Tqlbc Xfer(QC): 4 (SBA) Toilet Transfer (QC): 4 (SBA) Car Transfer (QC): 4 (SBA) Does the Patient Walk: Yes Walk 10 feet (QC): 4 (SBA) Walk 50ft with 2 Turns (QC): 4 (SBA) Walk 150 ft (QC): 4 (SBA) Walking 10ft on Uneven Surface: 4 (SBA) 1 Step (curb) (QC): 4 (CGA) 4 Steps (QC): 4 (CGA) 12 Steps (QC): 88 Picking up an Object (QC): 4 (CGA) Wheel 50 feet with 2 turns (QC: 9 Wheel 150 feet: 9 PT Plan Problem List Problem List: Activity Tolerance, Functional Strength, Safety, Balance, Gait, Transfer, Bed Mobility, ROM Treatment/Plan Treatment Plan: Continue Plan of Care Treatment Plan: Bed Mobility, Education, Functional Activity Tenzin, Functional Strength, Group Therapy, Gait, Safety, Therapeutic Exercise, Transfers Treatment Duration: Jul 19, 2021 Frequency: At least 5 of 7 days/Wk (IRF) Estimated Hrs Per Day: 1.5 hours per day Patient and/or Family Agrees t: Yes Safety Risks/Education Patient Education: Gait Training, Transfer Techniques, Correct Positioning, Safety Issues Teaching Recipient: Patient Teaching Methods: Demonstration, Discussion Response to Teaching: Reinforcement Needed Time/GCodes Time In: 1000 Time Out: 1100 Total Billed Treatment Time: 60 Total Billed Treatment 1 visit FA 30' EX 30' MONTRELL DIALLO PT Jul 06, 2021 10:56
--- NOTE | 2021-07-06 11:51 | PM&R Progress Note ---
Subjective HPI/CC On Admission Date Seen by Provider: Jul 06, 2021 Time Seen by Provider: 12:00 Subjective/Events-last exam 07/06/2021: Patient doing really well Moving around well Needs sleep study at discharge Eliquis tolerated Right hand improved 07/05/2021: Patient doing really well at the bedside Speech is much improved Bowels are moving Walking really well Still impulsive Sleep study will be needed at discharge Walks 200 feet at a time 07/04/2021: Patient doing really well Speech is better Walking is better Right hand engineer specialist 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 Medellin to review 07/02/2021: Patient currently sleeping Suspicion for obstructive sleep apnea when I am witnessing his sleep Losartan started and blood pressure will be monitored Incontinent of urine at night Bowels move twice today 07/01/2021: Patient doing really well Speaking more clearly No falls Still impulsive Appreciate Dr. Lacie Medellin added losartan 50 mg Echo will be obtained on Saturday from outside hospital 06/30/2021: Patient doing really well Appreciate Dr. Medellin consultation cardiology EKG shows atrial fibrillation paroxysmal type maintained on oral anticoagulation at the bedside Speaking more clearly Walking around really well with assistance 06/29/2021: Patient had no events overnight Appreciate Dr. Medellin cardiology consult Doing well overall Right upper extremity with right facial droop is profound Able to walk around with assistive device and assistance Previously had bradycardia in the 50s and even 4020s during acute medical admission Creatinine 1.37 Review of Systems Neurological: Weakness, Numbness, Incoordination Objective Exam Vital Signs Vital Signs Date Time Temp Pulse Resp B/P (MAP) Pulse Ox O2 Delivery O2 Flow Rate FiO2 07/07/21 09:00 Room Air 07/07/21 07:43 36.4 50 16 146/64 (91) 98 Capillary Refill : General Appearance: No Apparent Distress, WD/WN, Chronically ill, Obese HEENT: PERRL/EOMI, Normal ENT Inspection, Pharynx Normal Neck: Full Range of Motion, Normal Inspection, Non Tender, Supple, Carotid Bruit Respiratory: Chest Non Tender, Lungs Clear, Normal Breath Sounds, No Accessory Muscle Use, No Respiratory Distress Cardiovascular: Regular Rate, Rhythm, No Edema, No Gallop, No JVD, No Murmur, Normal Peripheral Pulses Gastrointestinal: Normal Bowel Sounds, No Organomegaly, No Pulsatile Mass, Non Tender, Soft Back: Normal Inspection, No CVA Tenderness, No Vertebral Tenderness Extremity: Normal Capillary Refill, Normal Inspection, Normal Range of Motion, Non Tender, No Calf Tenderness, No Pedal Edema Neurologic/Psychiatric: Alert, Oriented x3, Normal Mood/Affect, childcare aide II-XII Norm as Tested, Abnormal Gait, Aphasia, Facial Droop (Right-sided), Motor Weakness (Right-sided weakness) Skin: Normal Color, Warm/Dry Lymphatic: No Adenopathy Results/Procedures Lab Patient resulted labs reviewed. FIM Transfers Therapy Code Descriptions/Definitions Functional [place] Measure: 0=Not Assessed/NA 4=Minimal Assistance 1=Total Assistance 5=Supervision or Setup 2=Maximal Assistance 6=Modified [place] 3=Moderate Assistance 7=Complete IndependenceSCALE: Activities may be completed with or without assistive devices. 7-Fdedfbcmjb-kodddxv completes the activity by him/herself with no assistance fr om a helper. 5-Set-up or Clean-up Assistance-helper sets up or cleans up; patient completes activity. [place] assists only prior to or following the activity. 4-Supervision or Touching Assistance-helper provides verbal cues and/or touching/steadying and/or contact guard assistance as patient completes activity. Assistance may be provided throughout the activity or intermittently. 3-Partial/Moderate Assistance-helper does LESS THAN HALF the effort. [place] lifts, holds or supports trunk or limbs, but provides less than half the effort. 2-Substantial/Maximal Assistance-helper does MORE THAN HALF the effort. [place] lifts or holds trunk or limbs and provides more than half the effort. 3-Kqqoksdug-fbkxzp does ALL the effort. Patient does none of the effort to complete the activity. Or, the assistance of 2 or more helpers is required for the patient to complete the activity. If activity was not attempted, code reason: 7-Patient Refused. 9-Not Applicable-not attempted and the patient did not perform the activity before the current illness, exacerbation or injury. 10-Not Attempted due to Environmental Limitations-(lack of equipment, weather restraints, etc.). 88-Not Attempted due to Medical Conditions or Safety Concerns. Roll Left to Right (QC): 6 Sit to Lying (QC): 6 Sit to Stand (QC): 4 Chair/Tro-by-Buxls Xfer(QC): 4 Car Transfer (QC): 3 Gait Training Does the Patient Walk?: Yes Distance: 300', 200', 100' Walk 10 feet (QC): 4 Walk 50 ft with 2 Turns(QC): 4 Walk 150 ft (QC): 4 Walking 10ft/uneven surface-QC: 88 Gait Persons Needed: 1 Gait Assistive Device: FWW Wheelchair Training Does the Pt Use a Wheelchair?: No Wheel 50 ft with 2 turns (QC): 9 Wheel 150 ft (QC): 9 Stair Training 1 Step (curb) (QC): 88 4 Steps (QC): 88 12 Steps (QC): 88 Balance Picking up an Object (QC): 88 ADL-Treatment Eating (QC): 5 (based on clincial judgment, assistance with cutting food and opening contianers. Pt left handed and able to use LUE) Oral Hygiene (QC): 7 Bathing Location: L Arm, R Arm, L Upper Leg, R Upper Leg, L Lower Leg (including foot), R Lower Leg (including foot), Chest, Abdomen, Perineal Area Shower/Bathe Self (QC): 4 (SBA, pt able to wash/dry all parts seated on SC.) Upper Body Dressing (QC): 4 (supervision) Lower Body Dressing (QC): 3 (Pt able to thread BLEs into pants and brief, used AE as needed. Min A with pant hike in back and R side.) On/Off Footwear (QC): 2 (Pt doffed RLE gripper socks, assistance L. Pt required assistance threading gripper sock on sock aide, then able to thread the rest of the way and don onto foot with slight assistance. Total assist with TEDhose.) Toileting Hygiene (QC): 7 Toilet Transfer (QC): 3 Assessment/Plan Assessment and Plan Assess & Plan/Chief Complaint Assessment: CVA with right-sided weakness Right-sided facial droop Aphasia Paroxysmal atrial fibrillation? Oral anticoagulation Plan: Aggressive therapy Speech therapy Cardiology consult Monitor closely 06/29/2021: Supportive care Aggressive therapy Cardiology consult appreciated 06/30/2021 Appreciate cardiology Maintain oral anticoagulants Monitor closely Avoid rate control medication due to bradycardia history 07/01/2021: Appreciate cardiology Losartan 50 mg added 07/02/2021: Incontinency at night monitored Supportive care Needs sleep study 07/03/2021: Monitor incontinence Needs sleep study Echo ready for Dr. Medellin to review from [facility] 07/04/2021: Supportive care Appreciate Dr. Medellin 07/05/2021: Supportive care Continue aggressive treatment 07/06/2021: Continue aggressive therapy Dramatic improvement (1) Paroxysmal atrial fibrillation Assessment & Plan: This was most likely the cause of the patient's cerebrovascular accident. He had episodic paroxysmal atrial fibrillation at the outside hospital as well as in our facility. He was also having some inter mittent bradycardia at the outside hospital. Heart rates are presently controlled on no AV daisha blocking agents. I recommend we continue the patient on apixaban for recurrent stroke prophylaxis. His echocardiogram from [place] showed a normal ejection fraction with mild left atrial enlargement with only mild mitral regurgitation. After about 6 weeks from the initial event, I will plan on a cardioversion as an outpatient. Once he is back in a sinus rhythm, I will plan on a nuclear stress test to exclude underlying coronary ischemia as a possible inciting event for the atrial fibrillation. At this point in time, there are no acute, active cardiac issues. As such, cardiology will sign off. I will ask nursing to get the patient an office visit to see me in 1 month. Please call if you have other questions or concerns. (2) Sinus bradycardia Assessment & Plan: He was having intermittent bradycardia at the outside hospital as outlined above. I suspect he has some degree of AV daisha dysfunction since he did not develop tachycardia with the atrial fibrillation. If he needs adjustment to his medication for hypertension, I would recommend we avoid using beta-blockers, diltiazem or verapamil. Heart rates have been stable here. There is no indication for permanent pacemaker at this time. (3) Primary hypertension Assessment & Plan: Blood pressure is improved with the combination of amlodipine and losartan. This is a new diagnosis for the patient although he had not seen a physician in a number of years prior to this recent stroke. If he needs additional adjustment to his medication for the hypertension, avoid AV daisha blocking agents or any agents that could worsen his underlying bradycardia. (4) Mixed hyperlipidemia Assessment & Plan: I recommend he continue on statin medication in light of the acute cerebrovascular accident. He should have a follow-up lipid panel in about 2-3 months. (5) Chronic kidney disease, stage 3 Assessment & Plan: This is yet another new diagnosis for the patient. The losartan should help delay progression of disease. (6) History of cerebrovascular accident with residual deficit Assessment & Plan: As above, I suspect the atrial fibrillation led to the patient's cerebrovascular accident since this was noted early in his hospitalization at the outside facility. (7) Morbid obesity Assessment & Plan: He will need to work on weight loss once he gets his strength back. (8) Aortic regurgitation Assessment & Plan: This was an incidental finding on the outside echocardiogram. This is in a mild range and most likely had nothing to do with the present situation. This should be followed longitudinally after discharge. (9) Mitral regurgitation Assessment & Plan: This was another incidental finding on his echocardiogram. This is mild but will need to be followed longitudinally. TOBIAS BUTCHER DO Jul 06, 2021 11:51
--- NOTE | 2021-07-06 13:52 | Physical Therapy Daily Note ---
PT Daily Note-Current Subjective Patient in restroom pre tx, he is done, agrees to PT, has no complaints of pain. Appearance Patient in bed post tx with nurse call, phone, tray, all needs met. Bed alarm on. Mental Status Patient Orientation: Person, Place, Situation Transfers SCALE: Activities may be completed with or without assistive devices. 2-Awrgfowfuk-azykmlz completes the activity by him/herself with no assistance from a helper. 5-Set-up or Clean-up Assistance-helper sets up or cleans up; patient completes activity. [place] assists only prior to or following the activity. 4-Supervision or Touching Assistance-helper provides verbal cues and/or touching/steadying and/or contact guard assistance as patient completes activity. Assistance may be provided throughout the activity or intermittently. 3-Partial/Moderate Assistance-helper does LESS THAN HALF the effort. [place] li fts, holds or supports trunk or limbs, but provides less than half the effort. 2-Substantial/Maximal Assistance-helper does MORE THAN HALF the effort. [place] lifts or holds trunk or limbs and provides more than half the effort. 5-Ylrnmmjde-jgpnnr does ALL the effort. Patient does none of the effort to complete the activity. Or, the assistance of 2 or more helpers is required for the patient to complete the activity. If activity was not attempted, code reason: 7-Patient Refused. 9-Not Applicable-not attempted and the patient did not perform the activity before the current illness, exacerbation or injury. 10-Not Attempted due to Environmental Limitations-(lack of equipment, weather restraints, etc.). 88-Not Attempted due to Medical Conditions or Safety Concerns. Roll Left & Right (QC): 6 Sit to Lying (QC): 6 Sit to Stand (QC): 4 Chair/Ogo-vo-Xbafl Xfer(QC): 4 Gait Training Distance: 400'x2 Walk 10 feet (QC): 4 Walk 50 ft with 2 Turns(QC): 4 Walk 150 ft (QC): 4 Gait Assistive Device: FWW Patient ambulated outside over sidewalks and slightly uneven surfaces. No LOB but does need cues for direction. Exercises Seated Therapy Exercises: Ankle pumps, Long arc quads, Hip flexion, Hip abd/add (with ball and RTB) Seated Reps: 20 Treatments LE strengthening, ambulation, transfers Assessment Current Status: Fair Progress showed signs of some very mild right neglect PT Short Term Goals Short Term Goals Time Frame: Jul 05, 2021 Roll Left & Right: 6 Sit to lyin Lying to sitting on side of be: 3 Sit to stand: 4 Chair/cfr-aa-zfgkp transfer: 4 Walk 10 feet: 4 Walk 50 feet with two turns: 4 Walk 150 feet: 4 PT Program Strategist Goals Halfway Goals PT Program Strategist Goals Time Frame: Jul 19, 2021 Roll Left & Right (QC): 6 Sit to Lying (QC): 6 Lying-Sitting on Side/Bed(QC): 6 Sit to Stand (QC): 4 (SBA) Chair/Waf-wr-Pmbgq Xfer(QC): 4 (SBA) Toilet Transfer (QC): 4 (SBA) Car Transfer (QC): 4 (SBA) Does the Patient Walk: Yes Walk 10 feet (QC): 4 (SBA) Walk 50ft with 2 Turns (QC): 4 (SBA) Walk 150 ft (QC): 4 (SBA) Walking 10ft on Uneven Surface: 4 (SBA) 1 Step (curb) (QC): 4 (CGA) 4 Steps (QC): 4 (CGA) 12 Steps (QC): 88 Picking up an Object (QC): 4 (CGA) Wheel 50 feet with 2 turns (QC: 9 Wheel 150 feet: 9 PT Plan Problem List Problem List: Activity Tolerance, Functional Strength, Safety, Balance, Gait, Transfer, Bed Mobility, ROM Treatment/Plan Treatment Plan: Continue Plan of Care Treatment Plan: Bed Mobility, Education, Functional Activity Tenzin, Functional Strength, Group Therapy, Gait, Safety, Therapeutic Exercise, Transfers Treatment Duration: Jul 19, 2021 Frequency: At least 5 of 7 days/Wk (IRF) Estimated Hrs Per Day: 1.5 hours per day Patient and/or Family Agrees t: Yes Safety Risks/Education Patient Education: Gait Training, Transfer Techniques, Correct Positioning, Safety Issues Teaching Recipient: Patient Teaching Methods: Demonstration, Discussion Response to Teaching: Reinforcement Needed Time/GCodes Time In: 1300 Time Out: 1330 Total Billed Treatment Time: 30 Total Billed Treatment 1 visit EX 10' GT 20' MONTRELL DIALLO PT Jul 06, 2021 13:52
--- NOTE | 2021-07-06 14:05 | Occupational Ther Daily Note ---
OT Current Status-Daily Note Subjective Pt agreed to OT tx session in Therapy gym. Mental Status/Objective Patient Orientation: Person, Place, Non-Verbal/Aphasic, Situation, [place] ADL-Treatment Therapy Code Descriptions/Definitions Functional [place] Measure: 0=Not Assessed/NA 4=Minimal Assistance 1=Total Assistance 5=Supervision or Setup 2=Maximal Assistance 6=Modified [place] 3=Moderate Assistance 7=Complete IndependenceSCALE: Activities may be completed with or without assistive devices. 4-Uhbssmdwzq-yzfbulk completes the activity by him/herself with no assistance from a helper. 5-Set-up or Clean-up Assistance-helper sets up or cleans up; patient completes activity. [place] assists only prior to or following the activity. 4-Supervision or Touching Assistance-helper provides verbal cues and/or touching/steadying and/or contact guard assistance as patient completes activity. Assistance may be provided throughout the activity or intermittently. 3-Partial/Moderate Assistance-helper does LESS THAN HALF the effort. [place] lifts, holds or supports trunk or limbs, but provides less than half the effort. 2-Substantial/Maximal Assistance-helper does MORE THAN HALF the effort. [place] lifts or holds trunk or limbs and provides more than half the effort. 5-Kykdklyzp-teympp does ALL the effort. Patient does none of the effort to complete the activity. Or, the assistance of 2 or more helpers is required for the patient to complete the activity. If activity was not attempted, code reason: 7-Patient Refused. 9-Not Applicable-not attempted and the patient did not perform the activity before the current illness, exacerbation or injury. 10-Not Attempted due to Environmental Limitations-(lack of equipment, weather restraints, etc.). 88-Not Attempted due to Medical Conditions or Safety Concerns. Other Treatment When therapist entered pt room pt was lying in bed supine. Pt agreed to do tx session in Therapy gym. Pt utilized FWW to perform functional mobility to Therapy gym, [facility]. OT tx session focused on increasing strength and ROM in BUE, increasing neuromuscular reeducation of RUE. Pt completed 1lb wrist weight activity, x20 reps in all planes for the following BUE exercises: bicep curls, front punches, overhead press, shoulder abduction, and reaching behind back (internal rotation & elbow flexion). Pt participated while seated in chair Good and static standing w/ FWW at [facility]. Pt took seated rest breaks after each set. Pt utilized FWW to perform functional mobility to room, [facility]. Pt left lying supine in bed, all needs met, call light in reach, and bed alarm activated. Education OT Patient Education: Correct positioning, Energy conservation, Exercise pr ogram, Progress toward Goal/Update tx plan, Purpose of tx/functional activities, Safety issues, Transfer techniques Teaching Recipient: Patient Teaching Methods: Demonstration Response to Teaching: Return Demonstration OT Short Term Goals Short Term Goals Time Frame: Jul 12, 2021 Toileting hygiene: 4 Upper body dressin Lower body dressin Putting on/taking off footwear: 4 OT Convention Planner Goals Convention Planner Goals Time Frame: Jul 21, 2021 Eating (QC): 6 Oral Hygiene (QC): 6 Toileting Hygiene (QC): 6 Shower/Bathe Self (QC): 6 Upper Body Dressing (QC): 6 Lower Body Dressing (QC): 6 On/Off Footwear (QC): 6 Additional Goals: 1-Demonstrate ADL Tasks, 2-Verbalize Understanding, 3- ImproveStrength/Tenzin 1=Demonstrate adherence to instructed precautions during ADL tasks. 2=Patient will verbalize/demonstrate understanding of assistive devices/modifications for ADL. 3=Patient will improve strength/tolerance for activity to enable patient to perform ADL's. OT Education/Plan Problem List/Assessment Assessment: Decreased Activ Tolerance, Decreased Safety Aware, Decreased UE Strength, Impaired Coordination, Impaired Funct Balance, Impaired I ADL's, Impaired Self-Care Skills, Restricted Funct UE ROM Discharge Recommendations Plan/Recommendations: Continue POC Treatment Plan/Plan of Care Patient would benefit from OT for education, treatment and training to promote independence in ADL's, mobility, safety and/or upper extremity function for ADL's. Plan of Care: ADL Retraining, Cognitive Retraining, Functional Mobility, Group Exercise/Act as Ind, UE Funct Exercise/Act, UE Neuromus Re-Ed/Coord Treatment Duration: Jul 21, 2021 Frequency: At least 5 of 7 days/Wk (IRF) Estimated Hrs Per Day: 1.5 hours per day Rehab Potential: Fair Time/GCodes Start Time: 13:30 Stop Time: 14:00 Total Time Billed (hr/min): 30 Billed Treatment Time 1, EX 2 JAZIEL ROCHA OT Jul 06, 2021 14:05
[2021-07-06 20:00] VITALS: BP 120/56
[2021-07-06] MEDS: polyethylene glycoL POWDER 17 GM (MIRALAX) PACK PO SCH (21:10)
[2021-07-07 07:43] VITALS: BP 146/64
[2021-07-07] MEDS: MILK OF MAGNESIA 400 MG/5 ML 30 ML UDC PO SCH (08:29)
[2021-07-07] MEDS: SENNA W/DOCUSATE (SENOKOT S) TABLET PO SCH ×2 (08:37→21:14)
[2021-07-07] MEDS: APIXABAN 5 MG (ELIQUIS) TABLET PO SCH ×2 (08:37→21:10)
[2021-07-07] MEDS: LOSARTAN 50 MG (COZAAR) TAB PO SCH (08:37)
[2021-07-07] MEDS: DOCUSATE SODIUM 100 MG (COLACE) CAP PO SCH ×2 (08:37→21:14)
[2021-07-07] MEDS: FAMOTIDINE 20 MG (PEPCID) TABLET PO SCH (08:37)
[2021-07-07] MEDS: amLODIPine 10 MG (NORVASC) TAB PO SCH (08:37)
--- NOTE | 2021-07-07 09:30 | Occupational Ther Daily Note ---
OT Current Status-Daily Note Subjective Pt agreeable to OT tx. present during session. Mental Status/Objective Patient Orientation: Person, Place, Non-Verbal/Aphasic, Situation ADL-Treatment Therapy Code Descriptions/Definitions Functional [place] Measure: 0=Not Assessed/NA 4=Minimal Assistance 1=Total Assistance 5=Supervision or Setup 2=Maximal Assistance 6=Modified [place] 3=Moderate Assistance 7=Complete IndependenceSCALE: Activities may be completed with or without assistive devices. 6-Hqftftqoqa-ergljtr completes the activity by him/herself with no assistance from a helper. 5-Set-up or Clean-up Assistance-helper sets up or cleans up; patient completes activity. [place] assists only prior to or following the activity. 4-Supervision or Touching Assistance-helper provides verbal cues and/or touching/steadying and/or contact guard assistance as patient completes activity. Assistance may be provided throughout the activity or intermittently. 3-Partial/Moderate Assistance-helper does LESS THAN HALF the effort. [place] lifts, holds or supports trunk or limbs, but provides less than half the effort. 2-Substantial/Maximal Assistance-helper does MORE THAN HALF the effort. [place] lifts or holds trunk or limbs and provides more than half the effort. 3-Dkjtqcgry-xrnolb does ALL the effort. Patient does none of the effort to complete the activity. Or, the assistance of 2 or more helpers is required for the patient to complete the activity. If activity was not attempted, code reason: 7-Patient Refused. 9-Not Applicable-not attempted and the patient did not perform the activity before the current illness, exacerbation or injury. 10-Not Attempted due to Environmental Limitations-(lack of equipment, weather restraints, etc.). 88-Not Attempted due to Medical Conditions or Safety Concerns. Shower/Bathe Self (QC): 4 (SBA, pt able to wash/dry all parts.) Upper Body Dressing (QC): 4 (Cue to sit with task.) Lower Body Dressing (QC): 3 (Min A with pant hike. Pt able to thread BLEs without AE) On/Off Footwear: 3 (Moderate verbal cues, pt able to doff gripper socks, assist to thread onto sock aide and slight assistance to don.) Other Treatment Pt seated in recliner, used FWW to perform functional mobility into bathroom and onto SC. Pt completed showering and dressing as outlined above. Pt then used FWW to therapy gym, [facility]. Pt completed pulleys x10 mins BUEs in order to increase BUE strength, bilateral integration, and RUE ROM. Pt's RUE let go of shay 3 times during task. He then completed the following exercises using 2lb freeweight BUEs: x20 bicep curls, x20 supination/pronation, x15 overhead press (difficulty extending elbow fully), x20 wrist flexion, x20 wrist extension. Pt then completed wooden peg task, placing and removing various pegs, x15 large pegs, x13 small pegs, crossing midline throughout task. Pt used FWW to return to room, CGA, transferring to recliner. Post tx, pt in recliner, call light in reach and all needs met, chair alarm on. Education OT Patient Education: Correct positioning, Energy conservation, Exercise program, Modified ADL techniques, Progress toward Goal/Update tx plan, Purpose of tx/functional activities, Rehab process, Safety issues, Transfer techniques, Use of adapted equipment Teaching Recipient: Patient Teaching Methods: Discussion Response to Teaching: Verbalize Understanding, Reinforcement Needed OT Short Term Goals Short Term Goals Time Frame: Jul 12, 2021 Toileting hygiene: 4 Upper body dressin Lower body dressin Putting on/taking off footwear: 4 OT Car Worker Goals Car Worker Goals Time Frame: Jul 21, 2021 Eating (QC): 6 Oral Hygiene (QC): 6 Toileting Hygiene (QC): 6 Shower/Bathe Self (QC): 6 Upper Body Dressing (QC): 6 Lower Body Dressing (QC): 6 On/Off Footwear (QC): 6 Additional Goals: 1-Demonstrate ADL Tasks, 2-Verbalize Understanding, 3- ImproveStrength/Tenzin 1=Demonstrate adherence to instructed precautions during ADL tasks. 2=Patient will verbalize/demonstrate understanding of assistive devices/modifications for ADL. 3=Patient will improve strength/tolerance for activity to enable patient to perform ADL's. OT Education/Plan Problem List/Assessment Assessment: Decreased Activ Tolerance, Decreased UE Strength, Impaired Funct Balance, Impaired I ADL's, Impaired Self-Care Skills, Restricted Funct UE ROM Discharge Recommendations Plan/Recommendations: Continue POC Treatment Plan/Plan of Care Patient would benefit from OT for education, treatment and training to promote independence in ADL's, mobility, safety and/or upper extremity function for ADL's. Plan of Care: ADL Retraining, Cognitive Retraining, Functional Mobility, Group Exercise/Act as Ind, UE Funct Exercise/Act, UE Neuromus Re-Ed/Coord Treatment Duration: Jul 21, 2021 Frequency: At least 5 of 7 days/Wk (IRF) Estimated Hrs Per Day: 1.5 hours per day Rehab Potential: Fair Time/GCodes Start Time: 08:00 Stop Time: 09:30 Total Time Billed (hr/min): 90 Billed Treatment Time 1, ADL 2 (30'), EX 2 (30'), FA 2 (30') JAZIEL ROCHA OT Jul 07, 2021 09:29
--- NOTE | 2021-07-07 10:50 | Physical Therapy Daily Note ---
PT Daily Note-Current Subjective Patient in recliner pre tx, agrees to PT, has no complaints of pain. Appearance Patient sitting EOB post tx, in room, has nurse call. Mental Status Patient Orientation: Person, Unable to Assess, Non-Verbal/Aphasic Transfers SCALE: Activities may be completed with or without assistive devices. 1-Ixdmlfprse-evdowmf completes the activity by him/herself with no assistance from a helper. 5-Set-up or Clean-up Assistance-helper sets up or cleans up; patient completes activity. [place] assists only prior to or following the activity. 4-Supervision or Touching Assistance-helper provides verbal cues and/or touching/steadying and/or contact guard assistance as patient completes activity. Assistance may be provided throughout the activity or intermittently. 3-Partial/Moderate Assistance-helper does LESS THAN HALF the effort. [place] lifts, holds or supports trunk or limbs, but provides less than half the effort. 2-Substantial/Maximal Assistance-helper does MORE THAN HALF the effort. [place] lifts or holds trunk or limbs and provides more than half the effort. 1-Ehqcqrzdk-jvhtea does ALL the effort. Patient does none of the effort to complete the activity. Or, the assistance of 2 or more helpers is required for the patient to complete the activity. If activity was not attempted, code reason: 7-Patient Refused. 9-Not Applicable-not attempted and the patient did not perform the activity before the current illness, exacerbation or injury. 10-Not Attempted due to Environmental Limitations-(lack of equipment, weather restraints, etc.). 88-Not Attempted due to Medical Conditions or Safety Concerns. Roll Left & Right (QC): 6 Sit to Lying (QC): 6 Lying to Sitting/Side of Bed(Q: 3 Sit to Stand (QC): 4 Chair/Qpw-mc-Waies Xfer(QC): 4 Gait Training Distance: 600', 300'x2, 120' Walk 10 feet (QC): 4 Walk 50 ft with 2 Turns(QC): 4 Walk 150 ft (QC): 4 Gait Assistive Device: FWW Patient ambulates slow but steady using a rolling walker, needs cues for direction. Patient practiced walking with a single point cane and he didn't have a LOB but tends to have decreased foot clearance on the right side and slide his foot across the floor, more unsteady. Exercises Supine Ex: Ankle pumps, Quad Set, Glut sets Supine Reps: 20 Standing: Hip Abduction, Hamstring curls, Heel/toe raises, Marching, Mini squats Standing Reps: 20 LAQ alternating for 5 min NuStep Minutes: 15 NuStep Workload: 5 Treatments bed mobility and transfers, ambulation, functional strengthening Assessment Current Status: Fair Progress Patient fatigues easily with some activity, he was able to ambulate 600' but was very tired after that and needed rest breaks even after just a couple of standing exercises for example. PT Short Term Goals Short Term Goals Time Frame: Jul 05, 2021 Roll Left & Right: 6 Sit to lyin Lying to sitting on side of be: 3 Sit to stand: 4 Chair/tpg-it-kzwwd transfer: 4 Walk 10 feet: 4 Walk 50 feet with two turns: 4 Walk 150 feet: 4 PT Anodizing Line Operator Goals Anodizing Line Operator Goals PT Group Home Goals Time Frame: Jul 19, 2021 Roll Left & Right (QC): 6 Sit to Lying (QC): 6 Lying-Sitting on Side/Bed(QC): 6 Sit to Stand (QC): 4 (SBA) Chair/Ywp-qw-Tdvyk Xfer(QC): 4 (SBA) Toilet Transfer (QC): 4 (SBA) Car Transfer (QC): 4 (SBA) Does the Patient Walk: Yes Walk 10 feet (QC): 4 (SBA) Walk 50ft with 2 Turns (QC): 4 (SBA) Walk 150 ft (QC): 4 (SBA) Walking 10ft on Uneven Surface: 4 (SBA) 1 Step (curb) (QC): 4 (CGA) 4 Steps (QC): 4 (CGA) 12 Steps (QC): 88 Picking up an Object (QC): 4 (CGA) Wheel 50 feet with 2 turns (QC: 9 Wheel 150 feet: 9 PT Plan Problem List Problem List: Activity Tolerance, Functional Strength, Safety, Balance, Gait, Transfer, Bed Mobility, ROM Treatment/Plan Treatment Plan: Continue Plan of Care Treatment Plan: Bed Mobility, Education, Functional Activity Tenzin, Functional Strength, Group Therapy, Gait, Safety, Therapeutic Exercise, Transfers Treatment Duration: Jul 19, 2021 Frequency: At least 5 of 7 days/Wk (IRF) Estimated Hrs Per Day: 1.5 hours per day Patient and/or Family Agrees t: Yes Safety Risks/Education Patient Education: Gait Training, Transfer Techniques, Correct Positioning, Safety Issues Teaching Recipient: Patient Teaching Methods: Demonstration, Discussion Response to Teaching: Reinforcement Needed Time/GCodes Time In: 929 Time Out: 1100 Total Billed Treatment Time: 90 Total Billed Treatment 1 visit FA 45' EX 45' MONTRELL DIALLO PT Jul 07, 2021 10:50
--- NOTE | 2021-07-07 12:17 | PM&R Progress Note ---
Subjective HPI/CC On Admission Date Seen by Provider: Jul 07, 2021 Time Seen by Provider: 12:00 Subjective/Events-last exam 07/07/2021: Patient doing really well Working with therapy Everything very much improved 07/06/2021: Patient doing really well Moving around well Needs sleep study at discharge Eliquis tolerated Right hand improved 07/05/2021: Patient doing really well at the bedside Speech is much improved Bowels are moving Walking really well Still impulsive Sleep study will be needed at discharge Walks 200 feet at a time 07/04/2021: Patient doing really well Speech is better Walking is better 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 Medellin to review 07/02/2021: Patient currently sleeping Suspicion for obstructive sleep apnea when I am witnessing his sleep Losartan started and blood pressure will be monitored Incontinent of urine at night Bowels move twice today 07/01/2021: Patient doing really well Speaking more clearly No falls Still impulsive Appreciate Dr. Lacie Medellin added losartan 50 mg Echo will be obtained on Saturday from outside hospital 06/30/2021: Patient doing really well Appreciate Dr. Medellin consultation cardiology EKG shows atrial fibrillation paroxysmal type maintained on oral anticoagulation at the bedside Speaking more clearly Walking around really well with assistance 06/29/2021: Patient had no events overnight Appreciate Dr. Medellin cardiology consult Doing well overall Right upper extremity with right facial droop is profound Able to walk around with assistive device and assistance Previously had bradycardia in the 50s and even 4020s during acute medical admission Creatinine 1.37 Review of Systems General: Fatigue, Malaise Neurological: Weakness, Incoordination Objective Exam Vital Signs Vital Signs Date Time Temp Pulse Resp B/P (MAP) Pulse Ox O2 Delivery O2 Flow Rate FiO2 07/07/21 21:10 96 Room Air 07/07/21 20:00 36.7 58 18 123/60 (81) Capillary Refill : General Appearance: No Apparent Distress, WD/WN, Chronically ill, Obese HEENT: PERRL/EOMI, Normal ENT Inspection, Pharynx Normal Neck: Full Range of Motion, Normal Inspection, Non Tender, Supple, Carotid Bruit Respiratory: Chest Non Tender, Lungs Clear, Normal Breath Sounds, No Accessory Muscle Use, No Respiratory Distress Cardiovascular: Regular Rate, Rhythm, No Edema, No Gallop, No JVD, No Murmur, Normal Peripheral Pulses Gastrointestinal: Normal Bowel Sounds, No Organomegaly, No Pulsatile Mass, Non Tender, Soft Back: Normal Inspection, No CVA Tenderness, No Vertebral Tenderness Extremity: Normal Capillary Refill, Normal Inspection, Normal Range of Motion, Non Tender, No Calf Tenderness, No Pedal Edema Neurologic/Psychiatric: Alert, Oriented x3, Normal Mood/Affect, liquor clerk II-XII Norm as Tested, Abnormal Gait, Aphasia, Facial Droop (Right-sided), Motor Weakness (Right-sided weakness) Skin: Normal Color, Warm/Dry Lymphatic: No Adenopathy Results/Procedures Lab Patient resulted labs reviewed. FIM Transfers Therapy Code Descriptions/Definitions Functional Clinch Measure: 0=Not Assessed/NA 4=Minimal Assistance 1=Total Assistance 5=Supervision or Setup 2=Maximal Assistance 6=Modified Clinch 3=Moderate Assistance 7=Complete IndependenceSCALE: Activities may be completed with or without assistive devices. 8-Sowptjzswp-jrqgckx completes the activity by him/herself with no assistance fr om a helper. 5-Set-up or Clean-up Assistance-helper sets up or cleans up; patient completes activity. [place] assists only prior to or following the activity. 4-Supervision or Touching Assistance-helper provides verbal cues and/or touching/steadying and/or contact guard assistance as patient completes activity. Assistance may be provided throughout the activity or intermittently. 3-Partial/Moderate Assistance-helper does LESS THAN HALF the effort. [place] lifts, holds or supports trunk or limbs, but provides less than half the effort. 2-Substantial/Maximal Assistance-helper does MORE THAN HALF the effort. [place] lifts or holds trunk or limbs and provides more than half the effort. 2-Pqmhfmwnf-jnloqh does ALL the effort. Patient does none of the effort to complete the activity. Or, the assistance of 2 or more helpers is required for the patient to complete the activity. If activity was not attempted, code reason: 7-Patient Refused. 9-Not Applicable-not attempted and the patient did not perform the activity before the current illness, exacerbation or injury. 10-Not Attempted due to Environmental Limitations-(lack of equipment, weather restraints, etc.). 88-Not Attempted due to Medical Conditions or Safety Concerns. Roll Left to Right (QC): 6 Sit to Lying (QC): 6 Sit to Stand (QC): 4 Chair/Bbq-ge-Jifdl Xfer(QC): 4 Car Transfer (QC): 3 Gait Training Does the Patient Walk?: Yes Distance: 600', 300'x2, 120' Walk 10 feet (QC): 4 Walk 50 ft with 2 Turns(QC): 4 Walk 150 ft (QC): 4 Walking 10ft/uneven surface-QC: 88 Gait Persons Needed: 1 Gait Assistive Device: FWW Wheelchair Training Does the Pt Use a Wheelchair?: No Wheel 50 ft with 2 turns (QC): 9 Wheel 150 ft (QC): 9 Stair Training 1 Step (curb) (QC): 88 4 Steps (QC): 88 12 Steps (QC): 88 Balance Picking up an Object (QC): 88 ADL-Treatment Eating (QC): 5 (based on clincial judgment, assistance with cutting food and o pening contianers. Pt left handed and able to use LUE) Oral Hygiene (QC): 7 Bathing Location: L Arm, R Arm, L Upper Leg, R Upper Leg, L Lower Leg (including foot), R Lower Leg (including foot), Chest, Abdomen, Perineal Area Shower/Bathe Self (QC): 4 (SBA, pt able to wash/dry all parts.) Upper Body Dressing (QC): 4 (Cue to sit with task.) Lower Body Dressing (QC): 3 (Min A with pant hike. Pt able to thread BLEs without AE) On/Off Footwear (QC): 3 (Moderate verbal cues, pt able to doff gripper socks, assist to thread onto sock aide and slight assistance to don.) Toileting Hygiene (QC): 7 Toilet Transfer (QC): 3 Assessment/Plan Assessment and Plan Assess & Plan/Chief Complaint Assessment: CVA with right-sided weakness Right-sided facial droop Aphasia Paroxysmal atrial fibrillation? Oral anticoagulation Plan: Aggressive therapy Speech therapy Cardiology consult Monitor closely 06/29/2021: Supportive care Aggressive therapy Cardiology consult appreciated 06/30/2021 Appreciate cardiology Maintain oral anticoagulants Monitor closely Avoid rate control medication due to bradycardia history 07/01/2021: Appreciate cardiology Losartan 50 mg added 07/02/2021: Incontinency at night monitored Supportive care Needs sleep study 07/03/2021: Monitor incontinence Needs sleep study Echo ready for Dr. Medellin to review from [facility] 07/04/2021: Supportive care Appreciate Dr. Medellin 07/05/2021: Supportive care Continue aggressive treatment 07/06/2021: Continue aggressive therapy Dramatic improvement 07/07/2021: No significant changes Aggressive therapy (1) Paroxysmal atrial fibrillation Assessment & Plan: This was most likely the cause of the patient's cerebrovascular accident. He had episodic paroxysmal atrial fibrillation at the outside hospital as well as in our facility. He was also having some intermittent bradycardia at the outside hospital. Heart rates are presently controlled on no AV daisha blocking agents. I recommend we continue the patient on apixaban for recurrent stroke prophylaxis. His echocardiogram from [facility] showed a normal ejection fraction with mild left atrial enlargement with only mild mitral regurgitation. After about 6 weeks from the initial event, I will plan on a cardioversion as an outpatient. Once he is back in a sinus rhythm, I will plan on a nuclear stress test to exclude underlying coronary ischemia as a possible inciting event for the atrial fibrillation. At this point in time, there are no acute, active cardiac issues. As such, cardiology will sign off. I will ask nursing to get the patient an office visit to see me in 1 month. Please call if you have other questions or concerns. (2) Sinus bradycardia Assessment & Plan: He was having intermittent bradycardia at the outside hospital as outlined above. I suspect he has some degree of AV daisha dysfunction since he did not develop tachycardia with the atrial fibrillation. If he needs adjustment to his medication for hypertension, I would recommend we avoid using beta-blockers, diltiazem or verapamil. Heart rates have been stable here. There is no indication for permanent pacemaker at this time. (3) Primary hypertension Assessment & Plan: Blood pressure is improved with the combination of amlod ipine and losartan. This is a new diagnosis for the patient although he had not seen a physician in a number of years prior to this recent stroke. If he needs additional adjustment to his medication for the hypertension, avoid AV daisha blocking agents or any agents that could worsen his underlying bradycardia. (4) Mixed hyperlipidemia Assessment & Plan: I recommend he continue on statin medication in light of the acute cerebrovascular accident. He should have a follow-up lipid panel in about 2-3 months. (5) Chronic kidney disease, stage 3 Assessment & Plan: This is yet another new diagnosis for the patient. The losartan should help delay progression of disease. (6) History of cerebrovascular accident with residual deficit Assessment & Plan: As above, I suspect the atrial fibrillation led to the patient's cerebrovascular accident since this was noted early in his hospitalization at the outside facility. (7) Morbid obesity Assessment & Plan: He will need to work on weight loss once he gets his strength back. (8) Aortic regurgitation Assessment & Plan: This was an incidental finding on the outside echocardiogram. This is in a mild range and most likely had nothing to do with the present situation. This should be followed longitudinally after discharge. (9) Mitral regurgitation Assessment & Plan: This was another incidental finding on his echocardiogram. This is mild but will need to be followed longitudinally. TOBIAS BUTCHER DO Jul 07, 2021 12:17
[2021-07-07 20:00] VITALS: BP 123/60
[2021-07-07] MEDS: polyethylene glycoL POWDER 17 GM (MIRALAX) PACK PO SCH (21:14)
[2021-07-08 08:00] VITALS: BP 124/67
[2021-07-08] MEDS: LOSARTAN 50 MG (COZAAR) TAB PO SCH (08:23)
[2021-07-08] MEDS: amLODIPine 10 MG (NORVASC) TAB PO SCH (08:23)
[2021-07-08] MEDS: APIXABAN 5 MG (ELIQUIS) TABLET PO SCH ×2 (08:24→21:02)
[2021-07-08] MEDS: FAMOTIDINE 20 MG (PEPCID) TABLET PO SCH (08:24)
[2021-07-08] MEDS: DOCUSATE SODIUM 100 MG (COLACE) CAP PO SCH ×2 (10:04→21:05)
--- NOTE | 2021-07-08 10:05 | Physical Therapy Daily Note ---
PT Daily Note-Current Subjective Pt in recliner w/ spouse in room upon arrival and agrees to tx. pt has no c/o pain. Mental Status Patient Orientation: Person, Place, Time, Situation Transfers SCALE: Activities may be completed with or without assistive devices. 9-Gmohihiodc-stlgdnf completes the activity by him/herself with no assistance from a helper. 5-Set-up or Clean-up Assistance-helper sets up or cleans up; patient completes activity. [place] assists only prior to or following the activity. 4-Supervision or Touching Assistance-helper provides verbal cues and/or touching/steadying and/or contact guard assistance as patient completes activity. Assistance may be provided throughout the activity or intermittently. 3-Partial/Moderate Assistance-helper does LESS THAN HALF the effort. [place] lifts, holds or supports trunk or limbs, but provides less than half the effort. 2-Substantial/Maximal Assistance-helper does MORE THAN HALF the effort. [place] lifts or holds trunk or limbs and provides more than half the effort. 4-Nysidffbz-ovbtoy does ALL the effort. Patient does none of the effort to complete the activity. Or, the assistance of 2 or more helpers is required for the patient to complete the activity. If activity was not attempted, code reason: 7-Patient Refused. 9-Not Applicable-not attempted and the patient did not perform the activity before the current illness, exacerbation or injury. 10-Not Attempted due to Environmental Limitations-(lack of equipment, weather restraints, etc.). 88-Not Attempted due to Medical Conditions or Safety Concerns. Sit to Stand (QC): 5 Sit to stand pt requires VC to use arms of chair to push off of when standing and grab when sitting. Gait Training Does the Patient Walk?: Yes Distance: 400' Walk 10 feet (QC): 5 Walk 50 ft with 2 Turns(QC): 5 Walk 150 ft (QC): 5 Gait Persons Needed: 1 Gait Assistive Device: FWW Pt amb 400' w/ FWW and SBA. Pt has accelerated pace w/ amb and tends to drag R LE when fatigued. Pt requires VC to hold FWW w/ R UE. Exercises NuStep Minutes: 10 NuStep Workload: 5 Treatments Pt sit to stand from recliner SBA and request to use BR. Pt requires [place] to doff pants on R side, but able to don pants SBA. Pt hold standing balance to wash hands SBA. Pt amb on IRU 400' and enters therapy gym. Pt completes NuStep f or 10 mins on WL of 5. Pt amb back to room and returns to recliner. Pt left w/ all needs met, call light in hand. Assessment Current Status: Good Progress Pt increasing balance, strength, and endurance. Pt requires VC for UE placement w/ amb and sit to stand. 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 [employer] Goals PT Retirement Goals Time Frame: Jul 19, 2021 Roll Left & Right (QC): 6 Sit to Lying (QC): 6 Lying-Sitting on Side/Bed(QC): 6 Sit to Stand (QC): 4 (SBA) Chair/Cbi-ui-Wdqud Xfer(QC): 4 (SBA) Toilet Transfer (QC): 4 (SBA) Car Transfer (QC): 4 (SBA) Does the Patient Walk: Yes Walk 10 feet (QC): 4 (SBA) Walk 50ft with 2 Turns (QC): 4 (SBA) Walk 150 ft (QC): 4 (SBA) Walking 10ft on Uneven Surface: 4 (SBA) 1 Step (curb) (QC): 4 (CGA) 4 Steps (QC): 4 (CGA) 12 Steps (QC): 88 Picking up an Object (QC): 4 (CGA) Wheel 50 feet with 2 turns (QC: 9 Wheel 150 feet: 9 PT Plan Treatment/Plan Treatment Plan: Continue Plan of Care Treatment Plan: Bed Mobility, Education, Functional Activity [place], Functional Strength, Group Therapy, Gait, Safety, Therapeutic Exercise, Transfers Treatment Duration: Jul 19, 2021 Frequency: At least 5 of 7 days/Wk (IRF) Estimated Hrs Per Day: 1.5 hours per day Patient and/or Family Agrees t: Yes Time/GCodes Time In: 936 Time Out: 1000 Total Billed Treatment Time: 24 Total Billed Treatment 1, EX, GT CARON NICHOLAS HUMAN RELATIONS TEACHER Jul 08, 2021 10:05
[2021-07-08] MEDS: SENNA W/DOCUSATE (SENOKOT S) TABLET PO SCH ×2 (10:08→21:05)
[2021-07-08] MEDS: MILK OF MAGNESIA 400 MG/5 ML 30 ML UDC PO SCH (10:08)
--- NOTE | 2021-07-08 10:08 | PM&R Progress Note ---
Subjective HPI/CC On Admission Date Seen by Provider: Jul 08, 2021 Time Seen by Provider: 12:00 Subjective/Events-last exam 07/08/2021: Patient thought he was going home today Patient has stated some things that are not cognitively intact Check meds and labs No falls 07/07/2021: Patient doing really well Working with therapy Everything very much improved 07/06/2021: Patient doing really well Moving around well Needs sleep study at discharge Eliquis tolerated Right hand improved 07/05/2021: Patient doing really well at the bedside Speech is much improved Bowels are moving Walking really well Still impulsive Sleep study will be needed at discharge Walks 200 feet at a time 07/04/2021: Patient doing really well Speech is better Walking is better 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 Medellin to review 07/02/2021: Patient currently sleeping Suspicion for obstructive sleep apnea when I am witnessing his sleep Losartan started and blood pressure will be monitored Incontinent of urine at night Bowels move twice today 07/01/2021: Patient doing really well Speaking more clearly No falls Still impulsive Appreciate Dr. Lacie Medellin added losartan 50 mg Echo will be obtained on Saturday from outside hospital 06/30/2021: Patient doing really well Appreciate Dr. Medellin consultation cardiology EKG shows atrial fibrillation paroxysmal type maintained on oral anticoagulation at the bedside Speaking more clearly Walking around really well with assistance 06/29/2021: Patient had no events overnight Appreciate Dr. Medellin cardiology consult Doing well overall Right upper extremity with right facial droop is profound Able to walk around with assistive device and assistance Previously had bradycardia in the 50s and even 4020s during acute medical admission Creatinine 1.37 Review of Systems General: Fatigue, Malaise Pulmonary: Dyspnea Neurological: Weakness, Incoordination Objective Exam Vital Signs Vital Signs Date Time Temp Pulse Resp B/P (MAP) Pulse Ox O2 Delivery O2 Flow Rate FiO2 07/08/21 09:00 94 Room Air 07/08/21 08:00 36.4 55 18 124/67 (86) Capillary Refill : General Appearance: No Apparent Distress, WD/WN, Chronically ill, Obese HEENT: PERRL/EOMI, Normal ENT Inspection, Pharynx Normal Neck: Full Range of Motion, Normal Inspection, Non Tender, Supple, Carotid Bruit Respiratory: Chest Non Tender, Lungs Clear, Normal Breath Sounds, No Accessory Muscle Use, No Respiratory Distress Cardiovascular: Regular Rate, Rhythm, No Edema, No Gallop, No JVD, No Murmur, Normal Peripheral Pulses Gastrointestinal: Normal Bowel Sounds, No Organomegaly, No Pulsatile Mass, Non Tender, Soft Back: Normal Inspection, No CVA Tenderness, No Vertebral Tenderness Extremity: Normal Capillary Refill, Normal Inspection, Normal Range of Motion, Non Tender, No Calf Tenderness, No Pedal Edema Neurologic/Psychiatric: Alert, Oriented x3, Normal 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 FIM Transfers Therapy Code Descriptions/Definitions Functional [place] Measure: 0=Not Assessed/NA 4=Minimal Assistance 1=Total Assistance 5=Supervision or Setup 2=Maximal Assistance 6=Modified [place] 3=Moderate Assistance 7=Complete IndependenceSCALE: Activities may be completed with or without assistive devices. 0-Ezsmcchawa-zabtdzw completes the activity by him/herself with no assistance from a helper. 5-Set-up or Clean-up Assistance-helper sets up or cleans up; patient completes activity. [place] assists only prior to or following the activity. 4-Supervision or Touching Assistance-helper provides verbal cues and/or touching/steadying and/or contact guard assistance as patient completes activity. Assistance may be provided throughout the activity or intermittently. 3-Partial/Moderate Assistance-helper does LESS THAN HALF the effort. [place] lifts, holds or supports trunk or limbs, but provides less than half the effort. 2-Substantial/Maximal Assistance-helper does MORE THAN HALF the effort. [place] lifts or holds trunk or limbs and provides more than half the effort. 6-Tedkvyxgt-odysxs does ALL the effort. Patient does none of the effort to complete the activity. Or, the assistance of 2 or more helpers is required for the patient to complete the activity. If activity was not attempted, code reason: 7-Patient Refused. 9-Not Applicable-not attempted and the patient did not perform the activity before the current illness, exacerbation or injury. 10-Not Attempted due to Environmental Limitations-(lack of equipment, weather restraints, etc.). 88-Not Attempted due to Medical Conditions or Safety Concerns. Roll Left to Right (QC): 6 Sit to Lying (QC): 6 Sit to Stand (QC): 5 Chair/Ofo-jd-Hvskk Xfer(QC): 4 Car Transfer (QC): 3 Gait Training Does the Patient Walk?: Yes Distance: 400' Walk 10 feet (QC): 5 Walk 50 ft with 2 Turns(QC): 5 Walk 150 ft (QC): 5 Walking 10ft/uneven surface-QC: 88 Gait Persons Needed: 1 Gait Assistive Device: FWW Wheelchair Training Does the Pt Use a Wheelchair?: No Wheel 50 ft with 2 turns (QC): 9 Wheel 150 ft (QC): 9 Stair Training 1 Step (curb) (QC): 88 4 Steps (QC): 88 12 Steps (QC): 88 Balance Picking up an Object (QC): 88 ADL-Treatment Eating (QC): 5 (based on clincial judgment, assistance with cutting food and opening contianers. Pt left handed and able to use LUE) Oral Hygiene (QC): 7 Bathing Location: L Arm, R Arm, L Upper Leg, R Upper Leg, L Lower Leg (including foot), R Lower Leg (including foot), Chest, Abdomen, Perineal Area Shower/Bathe Self (QC): 4 (SBA, pt able to wash/dry all parts.) Upper Body Dressing (QC): 4 (Cue to sit with task.) Lower Body Dressing (QC): 3 (Min A with pant hike. Pt able to thread BLEs without AE) On/Off Footwear (QC): 3 (Moderate verbal cues, pt able to doff gripper socks, assist to thread onto sock aide and slight assistance to don.) Toileting Hygiene (QC): 7 Toilet Transfer (QC): 3 Assessment/Plan Assessment and Plan Assess & Plan/Chief Complaint Assessment: CVA with right-sided weakness Right-sided facial droop Aphasia Paroxysmal atrial fibrillation? Oral anticoagulation Plan: Aggressive therapy Speech therapy Cardiology consult Monitor closely 06/29/2021: Supportive care Aggressive therapy Cardiology consult appreciated 06/30/2021 Appreciate cardiology Maintain oral anticoagulants Monitor closely Avoid rate control medication due to bradycardia history 07/01/2021: Appreciate cardiology Losartan 50 mg added 07/02/2021: Incontinency at night monitored Supportive care Needs sleep study 07/03/2021: Monitor incontinence Needs sleep study Echo ready for Dr. Medellin to review from [facility] 07/04/2021: Supportive care Appreciate Dr. Medellin 07/05/2021: Supportive care Continue aggressive treatment 07/06/2021: Continue aggressive therapy Dramatic improvement 07/07/2021: No significant changes Aggressive therapy 07/08/2021: Supportive care No significant changes (1) Paroxysmal atrial fibrillation Assessment & Plan: This was most likely the cause of the patient's cerebrovascular accident. He had episodic paroxysmal atrial fibrillation at the outside hospital as well as in our facility. He was also having some i ntermittent bradycardia at the outside hospital. Heart rates are presently controlled on no AV daisha blocking agents. I recommend we continue the patient on apixaban for recurrent stroke prophylaxis. His echocardiogram from [place] showed a normal ejection fraction with mild left atrial enlargement with only mild mitral regurgitation. After about 6 weeks from the initial ev ent, I will plan on a cardioversion as an outpatient. Once he is back in a sinus rhythm, I will plan on a nuclear stress test to exclude underlying coronary ischemia as a possible inciting event for the atrial fibrillation. At this point in time, there are no acute, active cardiac issues. As such, cardiology will sign off. I will ask nursing to get the patient an office visit to see me in 1 month. Please call if you have other questions or concerns. (2) Sinus bradycardia Assessment & Plan: He was having intermittent bradycardia at the outside hospital as outlined above. I suspect he has some degree of AV daisha dysfunction since he did not develop tachycardia with the atrial fibrillation. If he needs adjustment to his medication for hypertension, I would recommend we avoid using beta-blockers, diltiazem or verapamil. Heart rates have been stable here. There is no indication for permanent pacemaker at this time. (3) Primary hypertension Assessment & Plan: Blood pressure is improved with the combination of amlodipine and losartan. This is a new diagnosis for the patient although he had not seen a physician in a number of years prior to this recent stroke. If he needs additional adjustment to his medication for the hypertension, avoid AV daisha blocking agents or any agents that could worsen his underlying bradycardia. (4) Mixed hyperlipidemia Assessment & Plan: I recommend he continue on statin medication in light of the acute cerebrovascular accident. He should have a follow-up lipid panel in about 2-3 months. (5) Chronic kidney disease, stage 3 Assessment & Plan: This is yet another new diagnosis for the patient. The losartan should help delay progression of disease. (6) History of cerebrovascular accident with residual deficit Assessment & Plan: As above, I suspect the atrial fibrillation led to the patient's cerebrovascular accident since this was noted early in his hospitalization at the outside facility. (7) Morbid obesity Assessment & Plan: He will need to work on weight loss once he gets his strength back. (8) Aortic regurgitation Assessment & Plan: This was an incidental finding on the outside echocardiogram. This is in a mild range and most likely had nothing to do with the present situation. This should be followed longitudinally after discharge. (9) Mitral regurgitation Assessment & Plan: This was another incidental finding on his echocardiogram. This is mild but will need to be followed longitudinally. TOBIAS BUTCHER DO Jul 08, 2021 10:08
[2021-07-08 20:00] VITALS: BP 121/60
[2021-07-08] MEDS: NYSTATIN OINTMENT 30 GM TUBE TOP SCH (21:03)
[2021-07-08] MEDS: MICONAZOLE 2% POWDER (DESENEX AF) 90 GM TOP SCH (21:04)
[2021-07-08] MEDS: polyethylene glycoL POWDER 17 GM (MIRALAX) PACK PO SCH (21:05)
[2021-07-09 08:00] VITALS: BP 138/78
[2021-07-09] MEDS: FAMOTIDINE 20 MG (PEPCID) TABLET PO SCH (09:46)
[2021-07-09] MEDS: amLODIPine 10 MG (NORVASC) TAB PO SCH (09:47)
[2021-07-09] MEDS: DOCUSATE SODIUM 100 MG (COLACE) CAP PO SCH ×2 (09:47→20:44)
[2021-07-09] MEDS: LOSARTAN 50 MG (COZAAR) TAB PO SCH (09:47)
[2021-07-09] MEDS: MILK OF MAGNESIA 400 MG/5 ML 30 ML UDC PO SCH (09:47)
[2021-07-09] MEDS: SENNA W/DOCUSATE (SENOKOT S) TABLET PO SCH ×2 (09:47→20:44)
[2021-07-09] MEDS: APIXABAN 5 MG (ELIQUIS) TABLET PO SCH ×2 (09:47→20:39)
[2021-07-09] MEDS: MICONAZOLE 2% POWDER (DESENEX AF) 90 GM TOP SCH ×2 (09:49→20:40)
[2021-07-09] MEDS: NYSTATIN OINTMENT 30 GM TUBE TOP SCH ×2 (09:49→20:40)
--- NOTE | 2021-07-09 12:07 | PM&R Progress Note ---
Subjective HPI/CC On Admission Date Seen by Provider: Jul 09, 2021 Time Seen by Provider: 12:15 Subjective/Events-last exam 07/09/2021: Patient doing very well Very impulsive still Right hand still pretty weak Bowels moved today Denies any significant new issues 07/08/2021: Patient thought he was going home today Patient has stated some things that are not cognitively intact Check meds and labs No falls 07/07/2021: Patient doing really well Working with therapy Everything very much improved 07/06/2021: Patient doing really well Moving around well Needs sleep study at discharge Eliquis tolerated Right hand improved 07/05/2021: Patient doing really well at the bedside Speech is much improved Bowels are moving Walking really well Still impulsive Sleep study will be needed at discharge Walks 200 feet at a time 07/04/2021: Patient doing really well Speech is better Walking is better 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 Medellin to review 07/02/2021: Patient currently sleeping Suspicion for obstructive sleep apnea when I am witnessing his sleep Losartan started and blood pressure will be monitored Incontinent of urine at night Bowels move twice today 07/01/2021: Patient doing really well Speaking more clearly No falls Still impulsive Appreciate Dr. Lacie Medellin added losartan 50 mg Echo will be obtained on Saturday from outside hospital 06/30/2021: Patient doing really well Appreciate Dr. Medellin consultation cardiology EKG shows atrial fibrillation paroxysmal type maintained on oral anticoagulation at the bedside Speaking more clearly Walking around really well with assistance 06/29/2021: Patient had no events overnight Appreciate Dr. Medellin cardiology consult Doing well overall Right upper extremity with right facial droop is profound Able to walk around with assistive device and assistance Previously had bradycardia in the 50s and even 4020s during acute medical admission Creatinine 1.37 Review of Systems Neurological: Weakness, Incoordination Objective Exam Vital Signs Vital Signs Date Time Temp Pulse Resp B/P (MAP) Pulse Ox O2 Delivery O2 Flow Rate FiO2 07/09/21 10:00 Room Air 9/19/21 08:00 36.2 50 18 138/78 (98) 96 Capillary Refill : General Appearance: No Apparent Distress, WD/WN, Chronically ill, Obese HEENT: PERRL/EOMI, Normal ENT Inspection, Pharynx Normal Neck: Full Range of Motion, Normal Inspection, Non Tender, Supple, Carotid Bruit Respiratory: Chest Non Tender, Lungs Clear, Normal Breath Sounds, No Accessory Muscle Use, No Respiratory Distress Cardiovascular: Regular Rate, Rhythm, No Edema, No Gallop, No JVD, No Murmur, Normal Peripheral Pulses Gastrointestinal: Normal Bowel Sounds, No Organomegaly, No Pulsatile Mass, Non Tender, Soft Back: Normal Inspection, No CVA Tenderness, No Vertebral Tenderness Extremity: Normal Capillary Refill, Normal Inspection, Normal Range of Motion, Non Tender, No Calf Tenderness, No Pedal Edema Neurologic/Psychiatric: Alert, Oriented x3, Normal 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 FIM Transfers Therapy Code Descriptions/Definitions Functional [place] Measure: 0=Not Assessed/NA 4=Minimal Assistance 1=Total Assistance 5=Supervision or Setup 2=Maximal Assistance 6=Modified [place] 3=Moderate Assistance 7=Complete IndependenceSCALE: Activities may be completed with or without assistive devices. 0-Uibjbusbsg-lozgbys completes the activity by him/herself with no assistance from a helper. 5-Set-up or Clean-up Assistance-helper sets up or cleans up; patient completes activity. [place] assists only prior to or following the activity. 4-Supervision or Touching Assistance-helper provides verbal cues and/or touching/steadying and/or contact guard assistance as patient completes activity. Assistance may be provided throughout the activity or intermittently. 3-Partial/Moderate Assistance-helper does LESS THAN HALF the effort. [place] lifts, holds or supports trunk or limbs, but provides less than half the effort. 2-Substantial/Maximal Assistance-helper does MORE THAN HALF the effort. [place] lifts or holds trunk or limbs and provides more than half the effort. 4-Ujzwqfuex-nrethi does ALL the effort. Patient does none of the effort to complete the activity. Or, the assistance of 2 or more helpers is required for the patient to complete the activity. If activity was not attempted, code reason: 7-Patient Refused. 9-Not Applicable-not attempted and the patient did not perform the activity before the current illness, exacerbation or injury. 10-Not Attempted due to Environmental Limitations-(lack of equipment, weather restraints, etc.). 88-Not Attempted due to Medical Conditions or Safety Concerns. Roll Left to Right (QC): 6 Sit to Lying (QC): 6 Sit to Stand (QC): 5 Chair/Bca-rt-Ugrpb Xfer(QC): 4 Car Transfer (QC): 3 Gait Training Does the Patient Walk?: Yes Distance: 400' Walk 10 feet (QC): 5 Walk 50 ft with 2 Turns(QC): 5 Walk 150 ft (QC): 5 Walking 10ft/uneven surface-QC: 88 Gait Persons Needed: 1 Gait Assistive Device: FWW Wheelchair Training Does the Pt Use a Wheelchair?: No Wheel 50 ft with 2 turns (QC): 9 Wheel 150 ft (QC): 9 Stair Training 1 Step (curb) (QC): 88 4 Steps (QC): 88 12 Steps (QC): 88 Balance Picking up an Object (QC): 88 ADL-Treatment Eating (QC): 5 (based on clincial judgment, assistance with cutting food and opening contianers. Pt left handed and able to use LUE) Oral Hygiene (QC): 7 Bathing Location: L Arm, R Arm, L Upper Leg, R Upper Leg, L Lower Leg (including foot), R Lower Leg (including foot), Chest, Abdomen, Perineal Area Shower/Bathe Self (QC): 4 (SBA, pt able to wash/dry all parts.) Upper Body Dressing (QC): 4 (Cue to sit with task.) Lower Body Dressing (QC): 3 (Min A with pant hike. Pt able to thread BLEs without AE) On/Off Footwear (QC): 3 (Moderate verbal cues, pt able to doff gripper socks, assist to thread onto sock aide and slight assistance to don.) Toileting Hygiene (QC): 7 Toilet Transfer (QC): 3 Assessment/Plan Assessment and Plan Assess & Plan/Chief Complaint Assessment: CVA with right-sided weakness Right-sided facial droop Aphasia Paroxysmal atrial fibrillation? Oral anticoagulation Plan: Aggressive therapy Speech therapy Cardiology consult Monitor closely 06/29/2021: Supportive care Aggressive therapy Cardiology consult appreciated 06/30/2021 Appreciate cardiology Maintain oral anticoagulants Monitor closely Avoid rate control medication due to bradycardia history 07/01/2021: Appreciate cardiology Losartan 50 mg added 07/02/2021: Incontinency at night monitored Supportive care Needs sleep study 07/03/2021: Monitor incontinence Needs sleep study Echo ready for Dr. Medellin to review from [facility] 07/04/2021: Supportive care Appreciate Dr. Medellin 07/05/2021: Supportive care Continue aggressive treatment 07/06/2021: Continue aggressive therapy Dramatic improvement 07/07/2021: No significant changes Aggressive therapy 07/08/2021: Supportive care No significant changes 07/09/2021: Supportive care Monitor for pain (1) Paroxysmal atrial fibrillation Assessment & Plan: This was most likely the cause of the patient's cerebrovascular accident. He had episodic paroxysmal atrial fibrillation at the outside hospital as well as in our facility. He was also having some intermittent bradycardia at the outside hospital. Heart rates are presently controlled on no AV daisha blocking agents. I recommend we continue the patient on apixaban for recurrent stroke prophylaxis. His echocardiogram from [place] showed a normal ejection fraction with mild left atrial enlargement with only mild mitral regurgitation. After about 6 weeks from the initial event, I will plan on a cardioversion as an outpatient. Once he is back in a sinus rhythm, I will plan on a nuclear stress test to exclude underlying coronary ischemia as a possible inciting event for the atrial fibrillation. At this point in time, there are no acute, active cardiac issues. As such, cardiology will sign off. I will ask nursing to get the patient an office visit to see me in 1 month. Please call if you have other questions or concerns. (2) Sinus bradycardia Assessment & Plan: He was having intermittent bradycardia at the outside hospital as outlined above. I suspect he has some degree of AV daisha dysf unction since he did not develop tachycardia with the atrial fibrillation. If he needs adjustment to his medication for hypertension, I would recommend we avoid using beta-blockers, diltiazem or verapamil. Heart rates have been stable here. There is no indication for permanent pacemaker at this time. (3) Primary hypertension Assessment & Plan: Blood pressure is improved with the combination of amlodipine and losartan. This is a new diagnosis for the patient although he had not seen a physician in a number of years prior to this recent stroke. If he needs additional adjustment to his medication for the hypertension, avoid AV daisha blocking agents or any agents that could worsen his underlying bradycardia. (4) Mixed hyperlipidemia Assessment & Plan: I recommend he continue on statin medication in light of the acute cerebrovascular accident. He should have a follow-up lipid panel in about 2-3 months. (5) Chronic kidney disease, stage 3 Assessment & Plan: This is yet another new diagnosis for the patient. The losartan should help delay progression of disease. (6) History of cerebrovascular accident with residual deficit Assessment & Plan: As above, I suspect the atrial fibrillation led to the patient's cerebrovascular accident since this was noted early in his hospitalization at the outside facility. (7) Morbid obesity Assessment & Plan: He will need to work on weight loss once he gets his strength back. (8) Aortic regurgitation Assessment & Plan: This was an incidental finding on the outside echocar diogram. This is in a mild range and most likely had nothing to do with the present situation. This should be followed longitudinally after discharge. (9) Mitral regurgitation Assessment & Plan: This was another incidental finding on his echocardiogram. This is mild but will need to be followed longitudinally. TOBIAS BUTCHER DO Jul 09, 2021 12:07
[2021-07-09 20:00] VITALS: BP 121/63
[2021-07-09] MEDS: polyethylene glycoL POWDER 17 GM (MIRALAX) PACK PO SCH (20:44)
--- NOTE | 2021-07-10 05:00 | PM&R Progress Note ---
Subjective HPI/CC On Admission Date Seen by Provider: Jul 10, 2021 Time Seen by Provider: 19:00 Subjective/Events-last exam 07/10/2021: Pt doing pretty well today Denies any new complaints No pain Working with therapy Cognitively he will need more work with speech therapy 07/09/2021: Patient doing very well Very impulsive still Right hand still pretty weak Bowels moved today Denies any significant new issues 07/08/2021: Patient thought he was going home today Patient has stated some things that are not cognitively intact Check meds and labs No falls 07/07/2021: Patient doing really well Working with therapy Everything very much improved 07/06/2021: Patient doing really well Moving around well Needs sleep study at discharge Eliquis tolerated Right hand improved 07/05/2021: Patient doing really well at the bedside Speech is much improved Bowels are moving Walking really well Still impulsive Sleep study will be needed at discharge Walks 200 feet at a time 07/04/2021: Patient doing really well Speech is better Walking is better Right hand therapy coordinator 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 Medellin to review 07/02/2021: Patient currently sleeping Suspicion for obstructive sleep apnea when I am witnessing his sleep Losartan started and blood pressure will be monitored Incontinent of urine at night Bowels move twice today 07/01/2021: Patient doing really well Speaking more clearly No falls Still impulsive Appreciate Dr. Lacie Medellin added losartan 50 mg Echo will be obtained on Saturday from outside hospital 06/30/2021: Patient doing really well Appreciate Dr. Medellin consultation cardiology EKG shows atrial fibrillation paroxysmal type maintained on oral anticoagulation at the bedside Speaking more clearly Walking around really well with assistance 06/29/2021: Patient had no events overnight Appreciate Dr. Medellin cardiology consult Doing well overall Right upper extremity with right facial droop is profound Able to walk around with assistive device and assistance Previously had bradycardia in the 50s and even 4020s during acute medical admission Creatinine 1.37 Review of Systems General: Fatigue, Malaise Neurological: Weakness Objective Exam Vital Signs Vital Signs Date Time Temp Pulse Resp B/P (MAP) Pulse Ox O2 Delivery O2 Flow Rate FiO2 07/10/21 20:00 36.4 46 18 110/54 (72) 98 Room Air Capillary Refill : General Appearance: No Apparent Distress, WD/WN, Chronically ill, Obese HEENT: PERRL/EOMI, Normal ENT Inspection, Pharynx Normal Neck: Full Range of Motion, Normal Inspection, Non Tender, Supple, Carotid Bruit Respiratory: Chest Non Tender, Lungs Clear, Normal Breath Sounds, No Accessory Muscle Use, No Respiratory Distress Cardiovascular: Regular Rate, Rhythm, No Edema, No Gallop, No JVD, No Murmur, Normal Peripheral Pulses Gastrointestinal: Normal Bowel Sounds, No Organomegaly, No Pulsatile Mass, Non Tender, Soft Back: Normal Inspection, No CVA Tenderness, No Vertebral Tenderness Extremity: Normal Capillary Refill, Normal Inspection, Normal Range of Motion, Non Tender, No Calf Tenderness, No Pedal Edema Neurologic/Psychiatric: Alert, Oriented x3, Normal Mood/Affect, aerodynamics engineer II-XII Norm as Tested, Abnormal Gait, Aphasia, Facial Droop (Right-sided), Motor Weakness (Right-sided weakness) Skin: Normal Color, Warm/Dry Lymphatic: No Adenopathy Results/Procedures Lab Laboratory Tests 07/10/21 06:15 Patient resulted labs reviewed. FIM Transfers Therapy Code Descriptions/Definitions Functional [place] Measure: 0=Not Assessed/NA 4=Minimal Assistance 1=Total Assistance 5=Supervision or Setup 2=Maximal Assistance 6=Modified [place] 3=Moderate Assistance 7=Complete IndependenceSCALE: Activities may be completed with or without assistive devices. 4-Msiyzgxbmy-iapqlql completes the activity by him/herself with no assistance from a helper. 5-Set-up or Clean-up Assistance-helper sets up or cleans up; patient completes activity. [place] assists only prior to or following the activity. 4-Supervision or Touching Assistance-helper provides verbal cues and/or touching /steadying and/or contact guard assistance as patient completes activity. Assistance may be provided throughout the activity or intermittently. 3-Partial/Moderate Assistance-helper does LESS THAN HALF the effort. [place] lifts, holds or supports trunk or limbs, but provides less than half the effort. 2-Substantial/Maximal Assistance-helper does MORE THAN HALF the effort. [place] lifts or holds trunk or limbs and provides more than half the effort. 7-Wahpbypfn-owzdxv does ALL the effort. Patient does none of the effort to complete the activity. Or, the assistance of 2 or more helpers is required for the patient to complete the activity. If activity was not attempted, code reason: 7-Patient Refused. 9-Not Applicable-not attempted and the patient did not perform the activity before the current illness, exacerbation or injury. 10-Not Attempted due to Environmental Limitations-(lack of equipment, weather restraints, etc.). 88-Not Attempted due to Medical Conditions or Safety Concerns. Roll Left to Right (QC): 6 Sit to Lying (QC): 6 Sit to Stand (QC): 5 Chair/Ygz-uh-Vysgm Xfer(QC): 4 Car Transfer (QC): 3 Gait Training Does the Patient Walk?: Yes Distance: 400' Walk 10 feet (QC): 5 Walk 50 ft with 2 Turns(QC): 5 Walk 150 ft (QC): 5 Walking 10ft/uneven surface-QC: 88 Gait Persons Needed: 1 Gait Assistive Device: FWW Wheelchair Training Does the Pt Use a Wheelchair?: No Wheel 50 ft with 2 turns (QC): 9 Wheel 150 ft (QC): 9 Stair Training 1 Step (curb) (QC): 88 4 Steps (QC): 88 12 Steps (QC): 88 Balance Picking up an Object (QC): 88 ADL-Treatment Eating (QC): 5 (based on clincial judgment, assistance with cutting food and opening contianers. Pt left handed and able to use LUE) Oral Hygiene (QC): 7 Bathing Location: L Arm, R Arm, L Upper Leg, R Upper Leg, L Lower Leg (including foot), R Lower Leg (including foot), Chest, Abdomen, Perineal Area Shower/Bathe Self (QC): 4 (SBA, pt able to wash/dry all parts.) Upper Body Dressing (QC): 4 (Cue to sit with task.) Lower Body Dressing (QC): 3 (Min A with pant hike. Pt able to thread BLEs wi thout AE) On/Off Footwear (QC): 3 (Moderate verbal cues, pt able to doff gripper socks, assist to thread onto sock aide and slight assistance to don.) Toileting Hygiene (QC): 7 Toilet Transfer (QC): 3 Assessment/Plan Assessment and Plan Assess & Plan/Chief Complaint Assessment: CVA with right-sided weakness Right-sided facial droop Aphasia Paroxysmal atrial fibrillation? Oral anticoagulation Plan: Aggressive therapy Speech therapy Cardiology consult Monitor closely 06/29/2021: Supportive care Aggressive therapy Cardiology consult appreciated 06/30/2021 Appreciate cardiology Maintain oral anticoagulants Monitor closely Avoid rate control medication due to bradycardia history 07/01/2021: Appreciate cardiology Losartan 50 mg added 07/02/2021: Incontinency at night monitored Supportive care Needs sleep study 07/03/2021: Monitor incontinence Needs sleep study Echo ready for Dr. Medellin to review from [facility] 07/04/2021: Supportive care Appreciate Dr. Medellin 07/05/2021: Supportive care Continue aggressive treatment 07/06/2021: Continue aggressive therapy Dramatic improvement 07/07/2021: No significant changes Aggressive therapy 07/08/2021: Supportive care No significant changes 07/09/2021: Supportive care Monitor for pain 07/10/2021: Continue aggressive therapy (1) Paroxysmal atrial fibrillation Assessment & Plan: This was most likely the cause of the patient's cerebrovascular accident. He had episodic paroxysmal atrial fibrillation at the outside hospital as well as in our facility. He was also having some intermitte nt bradycardia at the outside hospital. Heart rates are presently controlled on no AV daisha blocking agents. I recommend we continue the patient on apixaban for recurrent stroke prophylaxis. His echocardiogram from [place] showed a normal ejection fraction with mild left atrial enlargement with only mild mitral regurgitation. After about 6 weeks from the initial event, I will plan on a car dioversion as an outpatient. Once he is back in a sinus rhythm, I will plan on a nuclear stress test to exclude underlying coronary ischemia as a possible inciting event for the atrial fibrillation. At this point in time, there are no acute, active cardiac issues. As such, cardiology will sign off. I will ask nursing to get the patient an office visit to see me in 1 month. Please call if you have other questions or concerns. (2) Sinus bradycardia Assessment & Plan: He was having intermittent bradycardia at the outside hospital as outlined above. I suspect he has some degree of AV daisha dysfunction since he did not develop tachycardia with the atrial fibrillation. If he needs adjustment to his medication for hypertension, I would recommend we avoid using beta-blockers, diltiazem or verapamil. Heart rates have been stable here. There is no indication for permanent pacemaker at this time. (3) Primary hypertension Assessment & Plan: Blood pressure is improved with the combination of amlodipin e and losartan. This is a new diagnosis for the patient although he had not seen a physician in a number of years prior to this recent stroke. If he needs additional adjustment to his medication for the hypertension, avoid AV daisha blocking agents or any agents that could worsen his underlying bradycardia. (4) Mixed hyperlipidemia Assessment & Plan: I recommend he continue on statin medication in light of the acute cerebrovascular accident. He should have a follow-up lipid panel in about 2-3 months. (5) Chronic kidney disease, stage 3 Assessment & Plan: This is yet another new diagnosis for the patient. The losartan should help delay progression of disease. (6) History of cerebrovascular accident with residual deficit Assessment & Plan: As above, I suspect the atrial fibrillation led to the patient's cerebrovascular accident since this was noted early in his hospitalization at the outside facility. (7) Morbid obesity Assessment & Plan: He will need to work on weight loss once he gets his strength back. (8) Aortic regurgitation Assessment & Plan: This was an incidental finding on the outside echocardiogram. This is in a mild range and most likely had nothing to do with the present situation. This should be followed longitudinally after discharge. (9) Mitral regurgitation Assessment & Plan: This was another incidental finding on his echocardiogram. This is mild but will need to be followed longitudinally. TOBIAS BUTCHER DO Jul 10, 2021 05:00
[2021-07-10 06:41] LABS: BASOPHILS # (AUTO) 0.1 10^3/uL (0.0-0.1); BASOPHILS % (AUTO) 1 % (0-10); EOSINOPHILS # (AUTO) 0.1 10^3/uL (0.0-0.3); EOSINOPHILS % (AUTO) 2 % (0-10); HEMATOCRIT 40 % (40-54); HEMOGLOBIN 13.5 g/dL (13.3-17.7); LYMPHOCYTES # (AUTO) 1.2 10^3/uL (1.0-4.0); LYMPHOCYTES % (AUTO) 17 % (12-44); MEAN CORPUSCULAR HEMOGLOBIN 29 pg (25-34); MEAN CORPUSCULAR HGB CONC 34 g/dL (32-36); MEAN CORPUSCULAR VOLUME 87 fL (80-99); MEAN PLATELET VOLUME 10.8 fL (9.0-12.2); MONOCYTES # (AUTO) 0.8 10^3/uL (0.0-1.0); MONOCYTES % (AUTO) 11 % (0-12); NEUTROPHILS % (AUTO) 70 % (42-75); PLATELET COUNT 219 10^3/uL (130-400); WHITE BLOOD COUNT 7.2 10^3/uL (4.3-11.0)
[2021-07-10 06:54] LABS: ALBUMIN 3.5 GM/DL (3.2-4.5); POTASSIUM 4.2 MMOL/L (3.6-5.0)
[2021-07-10 06:55] LABS: CALCIUM 9.2 MG/DL (8.5-10.1)
[2021-07-10 06:56] LABS: TOTAL PROTEIN 6.5 GM/DL (6.4-8.2)
[2021-07-10 06:58] LABS: BILIRUBIN,TOTAL 1.2 MG/DL (0.1-1.0)
[2021-07-10 07:00] LABS: CREATININE SERUM 1.43 MG/DL (0.60-1.30)
[2021-07-10 07:29] VITALS: BP 147/62
--- NOTE | 2021-07-10 09:13 | Physical Therapy Daily Note ---
PT Daily Note-Current Subjective Pt sitting in recliner upon arrival. Pt agrees to PT. Pain Location: No Pain Reported Mental Status Patient Orientation: Person, Place, Situation, [place] Transfers SCALE: Activities may be completed with or without assistive devices. 4-Rjmendjunu-wicthbz completes the activity by him/herself with no assistance from a helper. 5-Set-up or Clean-up Assistance-helper sets up or cleans up; patient completes activity. [place] assists only prior to or following the activity. 4-Supervision or Touching Assistance-helper provides verbal cues and/or touching/steadying and/or contact guard assistance as patient completes activity. Assistance may be provided throughout the activity or intermittently. 3-Partial/Moderate Assistance-helper does LESS THAN HALF the effort. [place] lifts, holds or supports trunk or limbs, but provides less than half the effort. 2-Substantial/Maximal Assistance-helper does MORE THAN HALF the effort. [place] lifts or holds trunk or limbs and provides more than half the effort. 5-Fvbnldtyi-sysjyu does ALL the effort. Patient does none of the effort to complete the activity. Or, the assistance of 2 or more helpers is required for the patient to complete the activity. If activity was not attempted, code reason: 7-Patient Refused. 9-Not Applicable-not attempted and the patient did not perform the activity before the current illness, exacerbation or injury. 10-Not Attempted due to Environmental Limitations-(lack of equipment, weather restraints, etc.). 88-Not Attempted due to Medical Conditions or Safety Concerns. Sit to Stand (QC): 5 Weight Bearing Full Weight Bearing Full Weight Bearing Gait Training Does the Patient Walk?: Yes Distance: 60', 450' Walk 10 feet (QC): 5 Walk 50 ft with 2 Turns(QC): 4 Walk 150 ft (QC): 4 Gait Persons Needed: 1 Gait Assistive Device: FWW Wheelchair Training Does the Pt Use a Wheelchair?: No Exercises Standing: Hip Abduction, Hamstring curls, Marching, Mini squats, Sit to Stand, Side steps, Step-ups Standing Reps: 15 Treatments TF to standing, declines need for BR. Amb. in hallway to Therapy Gym. Pt uses NuStep for 13m at [facility] 5 then short RB. Pt completes Standing Ex at //bars with several RB. Pt amb. in hallway before returning to room to rest in recliner. All needs met, call light in hand. Assessment Current Status: Good Progress VC for picking up R foot radha. as pt fatigues. VC for reaching back for arm rests of chairs w/TF. PT Short Term Goals Short Term Goals Time Frame: Jul 05, 2021 Roll Left & Right: 6 Sit to lyin Lying to sitting on side of be: 3 Sit to stand: 4 Chair/ast-pc-avygh transfer: 4 Walk 10 feet: 4 Walk 50 feet with two turns: 4 Walk 150 feet: 4 PT Collar Stay Fuser Tender Goals Jail Goals PT Collar Stay Fuser Tender Goals Time Frame: Jul 19, 2021 Roll Left & Right (QC): 6 Sit to Lying (QC): 6 Lying-Sitting on Side/Bed(QC): 6 Sit to Stand (QC): 4 (SBA) Chair/Cof-tj-Tyteb Xfer(QC): 4 (SBA) Toilet Transfer (QC): 4 (SBA) Car Transfer (QC): 4 (SBA) Does the Patient Walk: Yes Walk 10 feet (QC): 4 (SBA) Walk 50ft with 2 Turns (QC): 4 (SBA) Walk 150 ft (QC): 4 (SBA) Walking 10ft on Uneven Surface: 4 (SBA) 1 Step (curb) (QC): 4 (CGA) 4 Steps (QC): 4 (CGA) 12 Steps (QC): 88 Picking up an Object (QC): 4 (CGA) Wheel 50 feet with 2 turns (QC: 9 Wheel 150 feet: 9 PT Plan Problem List Problem List: Activity Tolerance, Safety Treatment/Plan Treatment Plan: Continue Plan of Care Treatment Plan: Bed Mobility, Education, Functional Activity Tenzin, Functional Strength, Group Therapy, Gait, Safety, Therapeutic Exercise, Transfers Treatment Duration: Jul 19, 2021 Frequency: At least 5 of 7 days/Wk (IRF) Estimated Hrs Per Day: 1.5 hours per day Patient and/or Family Agrees t: Yes Safety Risks/Education Patient Education: Gait Training, Transfer Techniques, Safety Issues Teaching Recipient: Patient Teaching Methods: Discussion Response to Teaching: Verbalize Understanding, Reinforcement Needed Time/GCodes Time In: 815 Time Out: 915 Total Billed Treatment Time: 60 Total Billed Treatment 1, GT (15m), EX x2 (30m) & FA (15m) TON BARRIOS COMPONENT ASSEMBLER Jul 10, 2021 09:13
[2021-07-10] MEDS: FAMOTIDINE 20 MG (PEPCID) TABLET PO SCH (09:16)
[2021-07-10] MEDS: APIXABAN 5 MG (ELIQUIS) TABLET PO SCH ×2 (09:16→21:38)
[2021-07-10] MEDS: MILK OF MAGNESIA 400 MG/5 ML 30 ML UDC PO SCH (09:16)
[2021-07-10] MEDS: DOCUSATE SODIUM 100 MG (COLACE) CAP PO SCH ×2 (09:16→21:35)
[2021-07-10] MEDS: amLODIPine 10 MG (NORVASC) TAB PO SCH (09:16)
[2021-07-10] MEDS: LOSARTAN 50 MG (COZAAR) TAB PO SCH (09:16)
[2021-07-10] MEDS: MICONAZOLE 2% POWDER (DESENEX AF) 90 GM TOP SCH ×2 (09:17→21:40)
[2021-07-10] MEDS: SENNA W/DOCUSATE (SENOKOT S) TABLET PO SCH ×2 (09:17→21:35)
[2021-07-10] MEDS: NYSTATIN OINTMENT 30 GM TUBE TOP SCH ×2 (09:17→21:40)
--- NOTE | 2021-07-10 11:20 | Occupational Ther Daily Note ---
OT Current Status-Daily Note Subjective Pt up in recliner, agreeable to OT tx. Mental Status/Objective Patient Orientation: Person, Place, Non-Verbal/Aphasic, Situation ADL-Treatment Therapy Code Descriptions/Definitions Functional [place] Measure: 0=Not Assessed/NA 4=Minimal Assistance 1=Total Assistance 5=Supervision or Setup 2=Maximal Assistance 6=Modified [place] 3=Moderate Assistance 7=Complete IndependenceSCALE: Activities may be completed with or without assistive devices. 1-Xynxlyelge-lkbsxji completes the activity by him/herself with no assistance from a helper. 5-Set-up or Clean-up Assistance-helper sets up or cleans up; patient completes activity. [place] assists only prior to or following the activity. 4-Supervision or Touching Assistance-helper provides verbal cues and/or touching/steadying and/or contact guard assistance as patient completes activity. Assistance may be provided throughout the activity or intermittently. 3-Partial/Moderate Assistance-helper does LESS THAN HALF the effort. [place] lifts, holds or supports trunk or limbs, but provides less than half the effort. 2-Substantial/Maximal Assistance-helper does MORE THAN HALF the effort. [place] lifts or holds trunk or limbs and provides more than half the effort. 7-Ktkgkchuh-rzmbam does ALL the effort. Patient does none of the effort to complete the activity. Or, the assistance of 2 or more helpers is required for the patient to complete the activity. If activity was not attempted, code reason: 7-Patient Refused. 9-Not Applicable-not attempted and the patient did not perform the activity before the current illness, exacerbation or injury. 10-Not Attempted due to Environmental Limitations-(lack of equipment, weather restraints, etc.). 88-Not Attempted due to Medical Conditions or Safety Concerns. Oral Hygiene (QC): 7 Shower/Bathe Self (QC): 4 (SBA) Upper Body Dressing (QC): 5 (set up) Lower Body Dressing (QC): 3 (CGA in stand, min verbal cues for AE. Min A with pant hike on R side) On/Off Footwear: 3 (Min A with donning gripper socks, using AE as needed.) Other Treatment Pt in recliner, used FWW to perform functional mobility into bathroom, pt completed ADLs as outlined above, then performed functional mobility to therapy gym. OT tx with focus on increasing BUE strength and activity tolerance, increasing RUE neuromuscular reeducation, increasing fine motor strength and coordination. Pt completed pulleys x10 mins, then x8 mins (rest breaks as needed). Pt let go of the handle with R hand x4 times total. Pt then grasped and released x5 1" blocks from counter top into a container, 4 rounds total. Pt only dropped 1 block. Pt completed 2x10 ve teacher squeezes using graded clothes pins (1- 3lbs). Pt used FWW to return to room, CGA. Post tx, pt seated in recliner, call light in reach and all needs met. Chair alarm activated. Education OT Patient Education: Correct positioning, Exercise program, Modified ADL techniques, Progress toward Goal/Update tx plan, Purpose of tx/functional activities, Rehab process, Safety issues, Transfer techniques, Use of adapted equipment Teaching Recipient: Patient Teaching Methods: Discussion Response to Teaching: Verbalize Understanding OT Short Term Goals Short Term Goals Time Frame: Jul 12, 2021 Toileting hygiene: 4 Upper body dressin Lower body dressin Putting on/taking off footwear: 4 OT Fdc Goals Fdc Goals Time Frame: Jul 21, 2021 Eating (QC): 6 Oral Hygiene (QC): 6 Toileting Hygiene (QC): 6 Shower/Bathe Self (QC): 6 Upper Body Dressing (QC): 6 Lower Body Dressing (QC): 6 On/Off Footwear (QC): 6 Additional Goals: 1-Demonstrate ADL Tasks, 2-Verbalize Understanding, 3- ImproveStrength/Tenzin 1=Demonstrate adherence to instructed precautions during ADL tasks. 2=Patient will verbalize/demonstrate understanding of assistive devices/modifi cations for ADL. 3=Patient will improve strength/tolerance for activity to enable patient to perform ADL's. OT Education/Plan Problem List/Assessment Assessment: Decreased Activ Tolerance, Decreased UE Strength, Impaired Funct Balance, Impaired I ADL's, Impaired Self-Care Skills, Restricted Funct UE ROM Discharge Recommendations Plan/Recommendations: Continue POC Treatment Plan/Plan of Care Patient would benefit from OT for education, treatment and training to promote independence in ADL's, mobility, safety and/or upper extremity function for ADL's. Plan of Care: ADL Retraining, Cognitive Retraining, Functional Mobility, Group Exercise/Act as Ind, UE Funct Exercise/Act, UE Neuromus Re-Ed/Coord Treatment Duration: Jul 21, 2021 Frequency: At least 5 of 7 days/Wk (IRF) Estimated Hrs Per Day: 1.5 hours per day Rehab Potential: Fair Time/GCodes Start Time: 10:00 Stop Time: 11:30 Total Time Billed (hr/min): 90 Billed Treatment Time 1, ADL 3 (45'), EX 2 (25'), FA (20') JAZIEL ROCHA OT Jul 10, 2021 11:20
--- NOTE | 2021-07-10 14:23 | Physical Therapy Daily Note ---
PT Daily Note-Current Subjective Pt laying Supine in bed upon arrival. Pt agrees to PT. Pain Location: No Pain Reported Mental Status Patient Orientation: Person, Place, Situation, [place] Transfers SCALE: Activities may be completed with or without assistive devices. 7-Sfjbosmjnw-pcgvpiy completes the activity by him/herself with no assistance from a helper. 5-Set-up or Clean-up Assistance-helper sets up or cleans up; patient completes activity. [place] assists only prior to or following the activity. 4-Supervision or Touching Assistance-helper provides verbal cues and/or touching/steadying and/or contact guard assistance as patient completes activity. Assistance may be provided throughout the activity or intermittently. 3-Partial/Moderate Assistance-helper does LESS THAN HALF the effort. [place] lifts, holds or supports trunk or limbs, but provides less than half the effort. 2-Substantial/Maximal Assistance-helper does MORE THAN HALF the effort. [place] lifts or holds trunk or limbs and provides more than half the effort. 6-Iwbgidnri-zmnfrg does ALL the effort. Patient does none of the effort to compl ete the activity. Or, the assistance of 2 or more helpers is required for the patient to complete the activity. If activity was not attempted, code reason: 7-Patient Refused. 9-Not Applicable-not attempted and the patient did not perform the activity before the current illness, exacerbation or injury. 10-Not Attempted due to Environmental Limitations-(lack of equipment, weather restraints, etc.). 88-Not Attempted due to Medical Conditions or Safety Concerns. Weight Bearing Full Weight Bearing Full Weight Bearing Exercises Supine Ex: Ankle pumps, Quad Set, Glut sets, Heel Slides, Straight leg raise, Hip abd/add Supine Reps: 15 Treatments Pt completes Supine EX with RB as needed. All needs met, call light in hand. Assessment Current Status: Good Progress Pt is fatigued by end of tx. PT Short Term Goals Short Term Goals Time Frame: Jul 05, 2021 Roll Left & Right: 6 Sit to lyin Lying to sitting on side of be: 3 Sit to stand: 4 Chair/ogh-gm-zotga transfer: 4 Walk 10 feet: 4 Walk 50 feet with two turns: 4 Walk 150 feet: 4 PT Retirement Goals Retirement Goals PT Tool Chaser Goals Time Frame: Jul 19, 2021 Roll Left & Right (QC): 6 Sit to Lying (QC): 6 Lying-Sitting on Side/Bed(QC): 6 Sit to Stand (QC): 4 (SBA) Chair/Ybz-vy-Jxpoh Xfer(QC): 4 (SBA) Toilet Transfer (QC): 4 (SBA) Car Transfer (QC): 4 (SBA) Does the Patient Walk: Yes Walk 10 feet (QC): 4 (SBA) Walk 50ft with 2 Turns (QC): 4 (SBA) Walk 150 ft (QC): 4 (SBA) Walking 10ft on Uneven Surface: 4 (SBA) 1 Step (curb) (QC): 4 (CGA) 4 Steps (QC): 4 (CGA) 12 Steps (QC): 88 Picking up an Object (QC): 4 (CGA) Wheel 50 feet with 2 turns (QC: 9 Wheel 150 feet: 9 PT Plan Problem List Problem List: Activity Tolerance Treatment/Plan Treatment Plan: Continue Plan of Care Treatment Plan: Bed Mobility, Education, Functional Activity Tenzin, Functional Strength, Group Therapy, Gait, Safety, Therapeutic Exercise, Transfers Treatment Duration: Jul 19, 2021 Frequency: At least 5 of 7 days/Wk (IRF) Estimated Hrs Per Day: 1.5 hours per day Patient and/or Family Agrees t: Yes Time/GCodes Time In: 1330 Time Out: 1400 Total Billed Treatment Time: 30 Total Billed Treatment 1, EX x2 (30m) TON BARRIOS BAT CARRIER Jul 10, 2021 14:23
[2021-07-10 20:00] VITALS: BP 110/54
[2021-07-10] MEDS: polyethylene glycoL POWDER 17 GM (MIRALAX) PACK PO SCH (21:35)
[2021-07-11 08:00] VITALS: BP 148/62
[2021-07-11] MEDS: MICONAZOLE 2% POWDER (DESENEX AF) 90 GM TOP SCH ×2 (08:29→20:59)
[2021-07-11] MEDS: LOSARTAN 50 MG (COZAAR) TAB PO SCH (08:29)
[2021-07-11] MEDS: NYSTATIN OINTMENT 30 GM TUBE TOP SCH ×2 (08:29→20:59)
[2021-07-11] MEDS: FAMOTIDINE 20 MG (PEPCID) TABLET PO SCH (08:29)
[2021-07-11] MEDS: APIXABAN 5 MG (ELIQUIS) TABLET PO SCH ×2 (08:30→20:58)
[2021-07-11] MEDS: amLODIPine 10 MG (NORVASC) TAB PO SCH (08:30)
--- NOTE | 2021-07-11 08:42 | PM&R Progress Note ---
Subjective HPI/CC On Admission Date Seen by Provider: Jul 11, 2021 Time Seen by Provider: 08:45 Subjective/Events-last exam 07/11/2021: Pt overall much improved Ready for discharge soon Will have review tomorrow 07/10/2021: Pt doing pretty well today Denies any new complaints No pain Working with therapy Cognitively he will need more work with speech therapy 07/09/2021: Patient doing very well Very impulsive still Right hand still pretty weak Bowels moved today Denies any significant new issues 07/08/2021: Patient thought he was going home today Patient has stated some things that are not cognitively intact Check meds and labs No falls 07/07/2021: Patient doing really well Working with therapy Everything very much improved 07/06/2021: Patient doing really well Moving around well Needs sleep study at discharge Eliquis tolerated Right hand improved 07/05/2021: Patient doing really well at the bedside Speech is much improved Bowels are moving Walking really well Still impulsive Sleep study will be needed at discharge Walks 200 feet at a time 07/04/2021: Patient doing really well Speech is better Walking is better 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 Medellin to review 07/02/2021: Patient currently sleeping Suspicion for obstructive sleep apnea when I am witnessing his sleep Losartan started and blood pressure will be monitored Incontinent of urine at night Bowels move twice today 07/01/2021: Patient doing really well Speaking more clearly No falls Still impulsive Appreciate Dr. Lacie Medellin added losartan 50 mg Echo will be obtained on Saturday from outside hospital 06/30/2021: Patient doing really well Appreciate Dr. Medellin consultation cardiology EKG shows atrial fibrillation paroxysmal type maintained on oral anticoagulation at the bedside Speaking more clearly Walking around really well with assistance 06/29/2021: Patient had no events overnight Appreciate Dr. Medellin cardiology consult Doing well overall Right upper extremity with right facial droop is profound Able to walk around with assistive device and assistance Previously had bradycardia in the 50s and even 4020s during acute medical admission Creatinine 1.37 Review of Systems Neurological: Weakness, Incoordination Objective Exam Vital Signs Vital Signs Date Time Temp Pulse Resp B/P (MAP) Pulse Ox O2 Delivery O2 Flow Rate FiO2 07/11/21 21:00 Room Air 07/11/21 20:00 36.4 51 18 129/75 (93) 97 Capillary Refill : General Appearance: No Apparent Distress, WD/WN, Chronically ill, Obese HEENT: PERRL/EOMI, Normal ENT Inspection, Pharynx Normal Neck: Full Range of Motion, Normal Inspection, Non Tender, Supple, Carotid Bruit Respiratory: Chest Non Tender, Lungs Clear, Normal Breath Sounds, No Accessory Muscle Use, No Respiratory Distress Cardiovascular: Regular Rate, Rhythm, No Edema, No Gallop, No JVD, No Murmur, Normal Peripheral Pulses Gastrointestinal: Normal Bowel Sounds, No Organomegaly, No Pulsatile Mass, Non Tender, Soft Back: Normal Inspection, No CVA Tenderness, No Vertebral Tenderness Extremity: Normal Capillary Refill, Normal Inspection, Normal Range of Motion, Non Tender, No Calf Tenderness, No Pedal Edema Neurologic/Psychiatric: Alert, Oriented x3, Normal Mood/Affect, cover operator II-XII Norm as Tested, Abnormal Gait, Aphasia, Facial Droop (Right-sided), Motor Weakness (Right-sided weakness) Skin: Normal Color, Warm/Dry Lymphatic: No Adenopathy Results/Procedures Lab Patient resulted labs reviewed. FIM Transfers Therapy Code Descriptions/Definitions Functional [place] Measure: 0=Not Assessed/NA 4=Minimal Assistance 1=Total Assistance 5=Supervision or Setup 2=Maximal Assistance 6=Modified [place] 3=Moderate Assistance 7=Complete IndependenceSCALE: Activities may be completed with or without assistive devices. 1-Lgsgjfszdx-vvjhbbb completes the activity by him/herself with no assistance from a helper. 5-Set-up or Clean-up Assistance-helper sets up or cleans up; patient completes activity. [place] assists only prior to or following the activity. 4-Supervision or Touching Assistance-helper provides verbal cues and/or touching/steadying and/or contact guard assistance as patient completes activity. Assistance may be provided throughout the activity or intermittently. 3-Partial/Moderate Assistance-helper does LESS THAN HALF the effort. [place] lifts, holds or supports trunk or limbs, but provides less than half the effort. 2-Substantial/Maximal Assistance-helper does MORE THAN HALF the effort. [place] lifts or holds trunk or limbs and provides more than half the effort. 1-Besmunisz-peusus does ALL the effort. Patient does none of the effort to complete the activity. Or, the assistance of 2 or more helpers is required for the patient to complete the activity. If activity was not attempted, code reason: 7-Patient Refused. 9-Not Applicable-not attempted and the patient did not perform the activity before the current illness, exacerbation or injury. 10-Not Attempted due to Environmental Limitations-(lack of equipment, weather restraints, etc.). 88-Not Attempted due to Medical Conditions or Safety Concerns. Roll Left to Right (QC): 6 Sit to Lying (QC): 6 Sit to Stand (QC): 5 Chair/Tms-kl-Tnxqn Xfer(QC): 4 Car Transfer (QC): 3 Gait Training Does the Patient Walk?: Yes Distance: 60', 450' Walk 10 feet (QC): 5 Walk 50 ft with 2 Turns(QC): 4 Walk 150 ft (QC): 4 Walking 10ft/uneven surface-QC: 88 Gait Persons Needed: 1 Gait Assistive Device: FWW Wheelchair Training Does the Pt Use a Wheelchair?: No Wheel 50 ft with 2 turns (QC): 9 Wheel 150 ft (QC): 9 Stair Training 1 Step (curb) (QC): 88 4 Steps (QC): 88 12 Steps (QC): 88 Balance Picking up an Object (QC): 88 ADL-Treatment Eating (QC): 5 (based on clincial judgment, assistance with cutting food and opening contianers. Pt left handed and able to use LUE) Oral Hygiene (QC): 7 Bathing Location: L Arm, R Arm, L Upper Leg, R Upper Leg, L Lower Leg (including foot), R Lower Leg (including foot), Chest, Abdomen, Perineal Area Shower/Bathe Self (QC): 4 (SBA) Upper Body Dressing (QC): 5 (set up) Lower Body Dressing (QC): 3 (CGA in stand, min verbal cues for AE. Min A with pant hike on R side) On/Off Footwear (QC): 3 (Min A with donning gripper socks, using AE as needed.) Toileting Hygiene (QC): 7 Toilet Transfer (QC): 3 Assessment/Plan Assessment and Plan Assess & Plan/Chief Complaint Assessment: CVA with right-sided weakness Right-sided facial droop Aphasia Paroxysmal atrial fibrillation? Oral anticoagulation Plan: Aggressive therapy Speech therapy Cardiology consult Monitor closely 06/29/2021: Supportive care Aggressive therapy Cardiology consult appreciated 06/30/2021 Appreciate cardiology Maintain oral anticoagulants Monitor closely Avoid rate control medication due to bradycardia history 07/01/2021: Appreciate cardiology Losartan 50 mg added 07/02/2021: Incontinency at night monitored Supportive care Needs sleep study 07/03/2021: Monitor incontinence Needs sleep study Echo ready for Dr. Medellin to review from [facility] 07/04/2021: Supportive care Appreciate Dr. Medellin 07/05/2021: Supportive care Continue aggressive treatment 07/06/2021: Continue aggressive therapy Dramatic improvement 07/07/2021: No significant changes Aggressive therapy 07/08/2021: Supportive care No significant changes 07/09/2021: Supportive care Monitor for pain 07/10/2021: Continue aggressive therapy 07/11/2021: Continue aggressive care and therapy Discharge planning (1) Paroxysmal atrial fibrillation Assessment & Plan: This was most likely the cause of the patient's cerebrovascular accident. He had episodic paroxysmal atrial fibrillation at the outside hospital as well as in our facility. He was also having some intermittent bradycardia at the outside hospital. Heart rates are presently controlled on no AV daisha blocking agents. I recommend we continue the patient on apixaban for recurrent stroke prophylaxis. His echocardiogram from [place] showed a normal ejection fraction with mild left atrial enlargement with only mild mitral regurgitation. After about 6 weeks from the initial event, I will plan on a cardioversion as an outpatient. Once he is back in a sinus rhythm, I will plan on a nuclear stress test to exclude underlying coron rory ischemia as a possible inciting event for the atrial fibrillation. At this point in time, there are no acute, active cardiac issues. As such, cardiology will sign off. I will ask nursing to get the patient an office visit to see me in 1 month. Please call if you have other questions or concerns. (2) Sinus bradycardia Assessment & Plan: He was having intermittent bradycardia at the outside hospital as outlined above. I suspect he has some degree of AV daisha dysfunction since he did not develop tachycardia with the atrial fibrillation. If he needs adjustment to his medication for hypertension, I would recommend we avoid using beta-blockers, diltiazem or verapamil. Heart rates have been stable here. There is no indication for permanent pacemaker at this time. (3) Primary hypertension Assessment & Plan: Blood pressure is improved with the combination of amlodipine and losartan. This is a new diagnosis for the patient although he had not seen a physician in a number of years prior to this recent stroke. If he needs additional adjustment to his medication for the hypertension, avoid AV daisha blocking agents or any agents that could worsen his underlying bradycardia. (4) Mixed hyperlipidemia Assessment & Plan: I recommend he continue on statin medication in light of the acute cerebrovascular accident. He should have a follow-up lipid panel in about 2-3 months. (5) Chronic kidney disease, stage 3 Assessment & Plan: This is yet another new diagnosis for the patient. The losartan should help delay progression of disease. (6) History of cerebrovascular accident with residual deficit Assessment & Plan: As above, I suspect the atrial fibrillation led to the patient's cerebrovascular accident since this was noted early in his hospitalization at the outside facility. (7) Morbid obesity Assessment & Plan: He will need to work on weight loss once he gets his strength back. (8) Aortic regurgitation Assessment & Plan: This was an incidental finding on the outside e chocardiogram. This is in a mild range and most likely had nothing to do with the present situation. This should be followed longitudinally after discharge. (9) Mitral regurgitation Assessment & Plan: This was another incidental finding on his echocardiogram. This is mild but will need to be followed longitudinally. TOBIAS BUTCHER DO Jul 11, 2021 08:42
--- NOTE | 2021-07-11 10:01 | Occupational Ther Daily Note ---
OT Current Status-Daily Note Subjective Pt was seated in chair upon OT arrival. Pt reported he was ready for therapy in therapy gym. Mental Status/Objective Patient Orientation: Person, Place, Non-Verbal/Aphasic, Situation ADL-Treatment Therapy Code Descriptions/Definitions Functional [place] Measure: 0=Not Assessed/NA 4=Minimal Assistance 1=Total Assistance 5=Supervision or Setup 2=Maximal Assistance 6=Modified [place] 3=Moderate Assistance 7=Complete IndependenceSCALE: Activities may be completed with or without assistive devices. 4-Tzhtoectoz-rrcaumm completes the activity by him/herself with no assistance from a helper. 5-Set-up or Clean-up Assistance-helper sets up or cleans up; patient completes activity. [place] assists only prior to or following the activity. 4-Supervision or Touching Assistance-helper provides verbal cues and/or touching/steadying and/or contact guard assistance as patient completes activity. Assistance may be provided throughout the activity or intermittently. 3-Partial/Moderate Assistance-helper does LESS THAN HALF the effort. [place] l ifts, holds or supports trunk or limbs, but provides less than half the effort. 2-Substantial/Maximal Assistance-helper does MORE THAN HALF the effort. [place] lifts or holds trunk or limbs and provides more than half the effort. 7-Ijuqofmpn-aklhlr does ALL the effort. Patient does none of the effort to complete the activity. Or, the assistance of 2 or more helpers is required for t he patient to complete the activity. If activity was not attempted, code reason: 7-Patient Refused. 9-Not Applicable-not attempted and the patient did not perform the activity before the current illness, exacerbation or injury. 10-Not Attempted due to Environmental Limitations-(lack of equipment, weather restraints, etc.). 88-Not Attempted due to Medical Conditions or Safety Concerns. Other Treatment [id number]: Pt performed functional mobility w/ FWW to therapy gym at [facility]. Pt par ticipated seated at [facility] in pully exercises; 10 minutes requiring 3 cues to squeeze handle for function and safety. Pt participated while standing at [facility], to support static standing balance for ADLs; squeezing red (moderate resistance) block 2 rounds x20 reps for grasping strength. Pt participated seated at [facility] in pully exercises; 8 minutes requiring 2 cues to squeeze handle for function and safety. Pt participated while standing at [facility], to support static standing balance for ADLs; squeezing red (moderate resistance) block 2 rounds x20 reps for grasping strength. Pt participated while seated in functional activity utilizing moderate resistance Theraputty at [facility], with small beads; pt retrieved 3 beads to focus on fine motor coordination for daily function. Pt performed functional mobility w/ FWW to pt room at [facility]. Pt was seated in chair, chair alarm in service, call light in reach, w/ all needs met. [id number]: Pt performed functional mobility to therapy gym, [facility] using FWW. In order to increase RUE fine motor coordination, pt placed 1" pegs into foam pegboard, placing x15 pegs total. Pt took rest break, then removed the pegs using RUE. Pt returned to room using FWW,[facility]. Post tx, pt seated in recliner, call light in reach and all needs met. Chair alarm activated. Education OT Patient Education: Correct positioning, Exercise program, Modified ADL techniques, Progress toward Goal/Update tx plan, Purpose of tx/functional activities, Rehab process Teaching Recipient: Patient Teaching Methods: Demonstration Response to Teaching: Verbalize Understanding, Return Demonstration OT Short Term Goals Short Term Goals Time Frame: Jul 12, 2021 Toileting hygiene: 4 Upper body dressin Lower body dressin Putting on/taking off footwear: 4 OT Code And Test Clerk Goals [facility] Goals Time Frame: Jul 21, 2021 Eating (QC): 6 Oral Hygiene (QC): 6 Toileting Hygiene (QC): 6 Shower/Bathe Self (QC): 6 Upper Body Dressing (QC): 6 Lower Body Dressing (QC): 6 On/Off Footwear (QC): 6 Additional Goals: 1-Demonstrate ADL Tasks, 2-Verbalize Understanding, 3- ImproveStrength/Tenzin 1=Demonstrate adherence to instructed precautions during ADL tasks. 2=Patient will verbalize/demonstrate understanding of assistive devices/modifications for ADL. 3=Patient will improve strength/tolerance for activity to enable patient to perform ADL's. OT Education/Plan Problem List/Assessment Assessment: Decreased Activ Tolerance, Decreased UE Strength, Impaired Funct Balance, Impaired I ADL's, Impaired Self-Care Skills, Restricted Funct UE ROM Discharge Recommendations Plan/Recommendations: Continue POC Treatment Plan/Plan of Care Patient would benefit from OT for education, treatment and training to promote independence in ADL's, mobility, safety and/or upper extremity function for ADL's. Plan of Care: ADL Retraining, Cognitive Retraining, Functional Mobility, Group Exercise/Act as Ind, UE Funct Exercise/Act, UE Neuromus Re-Ed/Coord Treatment Duration: Jul 21, 2021 Frequency: At least 5 of 7 days/Wk (IRF) Estimated Hrs Per Day: 1.5 hours per day Rehab Potential: Fair Time/GCodes Start Time: 09:00 ([id number]) Stop Time: 14:00 ([id number]) Total Time Billed (hr/min): 90 Billed Treatment Time [id number] 1, EX 3 (45'), FA (15') [id number] 1, FA 2 (30') JAZIEL ROCHA OT Jul 11, 2021 10:01
[2021-07-11] MEDS: SENNA W/DOCUSATE (SENOKOT S) TABLET PO SCH ×2 (10:55→21:00)
[2021-07-11] MEDS: MILK OF MAGNESIA 400 MG/5 ML 30 ML UDC PO SCH (10:55)
[2021-07-11] MEDS: DOCUSATE SODIUM 100 MG (COLACE) CAP PO SCH ×2 (10:55→21:00)
--- NOTE | 2021-07-11 11:55 | Physical Therapy Daily Note ---
PT Daily Note-Current Subjective Pt in recliner w/ spouse in room upon arrival and agrees to tx. Pt has no c/o pain. Transfers SCALE: Activities may be completed with or without assistive devices. 9-Tiyrfamcpb-hvbqeue completes the activity by him/herself with no assistance from a helper. 5-Set-up or Clean-up Assistance-helper sets up or cleans up; patient completes activity. [place] assists only prior to or following the activity. 4-Supervision or Touching Assistance-helper provides verbal cues and/or touching/steadying and/or contact guard assistance as patient completes activity. Assistance may be provided throughout the activity or intermittently. 3-Partial/Moderate Assistance-helper does LESS THAN HALF the effort. [place] lifts, holds or supports trunk or limbs, but provides less than half the effort. 2-Substantial/Maximal Assistance-helper does MORE THAN HALF the effort. [place] lifts or holds trunk or limbs and provides more than half the effort. 8-Xwcgacgdk-ahptig does ALL the effort. Patient does none of the effort to complete the activity. Or, the assistance of 2 or more helpers is required for the patient to complete the activity. If activity was not attempted, code reason: 7-Patient Refused. 9-Not Applicable-not attempted and the patient did not perform the activity before the current illness, exacerbation or injury. 10-Not Attempted due to Environmental Limitations-(lack of equipment, weather restraints, etc.). 88-Not Attempted due to Medical Conditions or Safety Concerns. Sit to Stand (QC): 5 VC to remind pt to use arms of chair when sitting/standing. Weight Bearing Full Weight Bearing Full Weight Bearing Gait Training Does the Patient Walk?: Yes Distance: 300' x2 Walk 10 feet (QC): 4 Walk 50 ft with 2 Turns(QC): 4 Walk 150 ft (QC): 4 Gait Persons Needed: 1 Gait Assistive Device: FWW Pt has shuffling gait, VC needed when pt fatigues d/t dragging of R LE. VC used to grab FWW w/ R UE. Exercises Standing: Hamstring curls, Heel/toe raises, Marching, Mini squats, Retro gait, Sit to Stand, Side steps, Step-ups, Unilateral stance Standing Reps: 10 NuStep Minutes: 15 NuStep Workload: 5 Treatments Pt sit to stand from recliner and request to use BR. Pt able to doff/don pants and clean self SBA. Pt able to wash hands SBA w/o any LOB. Pt amb 300' w/ FWW and CGA and enters therapy gym to complete NuStep. Pt transfers to chair in // bars and completes standing ex. Side steps and retrogait in // bars, 6' down and back x3 for each ex. W/ step ups, pt required VC to lift R LE d/t pt sliding it off step instead of stepping off. Pt then holds standing balance on AirEx mat w/ B LE and no UE support 1 min x2. Pt then completes standing on AirEx w/ BLE and No UE support w/ eyes closed. Pt held 1 min x2 w/ slight unsteadiness, but pt able to hold standing w/o any LOB. Pt then attempts SLS on solid hossein, w/ R LE pt able to hold 20 secs x3. W/ L LE pt able to hold 30 secs x3. Pt then holds standing balance while playing connect 4 w/ PLATINUM SMITH. Pt able to hold balance w/o LOB. Pt able to grab each piece and place in slot w/o any issues. Pt played 3 games w/o any seated RB. Pt then amb 300' on IRU and returns to recliner in room. Pt stays in recliner w/ all needs met, call light in hand. Assessment Current Status: Good Progress Pt requires less A for transfers and amb, as well as fewer VC. PT Short Term Goals Short Term Goals Time Frame: Jul 05, 2021 Roll Left & Right: 6 Sit to lyin Lying to sitting on side of be: 3 Sit to stand: 4 Chair/vxc-yg-dyrbg transfer: 4 Walk 10 feet: 4 Walk 50 feet with two turns: 4 Walk 150 feet: 4 PT Roller Print Tender Goals Roller Print Tender Goals PT Roller Print Tender Goals Time Frame: Jul 19, 2021 Roll Left & Right (QC): 6 Sit to Lying (QC): 6 Lying-Sitting on Side/Bed(QC): 6 Sit to Stand (QC): 4 (SBA) Chair/Ezf-dt-Dkpdk Xfer(QC): 4 (SBA) Toilet Transfer (QC): 4 (SBA) Car Transfer (QC): 4 (SBA) Does the Patient Walk: Yes Walk 10 feet (QC): 4 (SBA) Walk 50ft with 2 Turns (QC): 4 (SBA) Walk 150 ft (QC): 4 (SBA) Walking 10ft on Uneven Surface: 4 (SBA) 1 Step (curb) (QC): 4 (CGA) 4 Steps (QC): 4 (CGA) 12 Steps (QC): 88 Picking up an Object (QC): 4 (CGA) Wheel 50 feet with 2 turns (QC: 9 Wheel 150 feet: 9 PT Plan Treatment/Plan Treatment Plan: Continue Plan of Care Treatment Plan: Bed Mobility, Education, Functional Activity Tenzin, Functional Strength, Group Therapy, Gait, Safety, Therapeutic Exercise, Transfers Treatment Duration: Jul 19, 2021 Frequency: At least 5 of 7 days/Wk (IRF) Estimated Hrs Per Day: 1.5 hours per day Patient and/or Family Agrees t: Yes Time/GCodes Time In: 1030 Time Out: 1200 Total Billed Treatment Time: 90 Total Billed Treatment 1, GT x2, FA x3, GT CARON NICHOLAS PLATINUM SMITH Jul 11, 2021 11:55
[2021-07-11 20:00] VITALS: BP 129/75
[2021-07-11] MEDS: polyethylene glycoL POWDER 17 GM (MIRALAX) PACK PO SCH (21:00)
[2021-07-12 07:35] VITALS: BP 138/56
[2021-07-12] MEDS: FAMOTIDINE 20 MG (PEPCID) TABLET PO SCH (08:09)
[2021-07-12] MEDS: LOSARTAN 50 MG (COZAAR) TAB PO SCH (08:09)
[2021-07-12] MEDS: APIXABAN 5 MG (ELIQUIS) TABLET PO SCH ×2 (08:09→20:31)
[2021-07-12] MEDS: amLODIPine 10 MG (NORVASC) TAB PO SCH (08:09)
[2021-07-12] MEDS: NYSTATIN OINTMENT 30 GM TUBE TOP SCH ×2 (08:10→20:32)
[2021-07-12] MEDS: MICONAZOLE 2% POWDER (DESENEX AF) 90 GM TOP SCH ×2 (08:10→20:32)
[2021-07-12] MEDS: MILK OF MAGNESIA 400 MG/5 ML 30 ML UDC PO SCH (08:24)
[2021-07-12] MEDS: DOCUSATE SODIUM 100 MG (COLACE) CAP PO SCH ×2 (08:24→19:46)
[2021-07-12] MEDS: SENNA W/DOCUSATE (SENOKOT S) TABLET PO SCH ×2 (08:25→19:46)
--- NOTE | 2021-07-12 08:27 | Occupational Ther Daily Note ---
OT Current Status-Daily Note Subjective Pt seated in recliner, agreeable to OT tx. Mental Status/Objective Patient Orientation: Person, Place, Non-Verbal/Aphasic, Situation ADL-Treatment Therapy Code Descriptions/Definitions Functional [place] Measure: 0=Not Assessed/NA 4=Minimal Assistance 1=Total Assistance 5=Supervision or Setup 2=Maximal Assistance 6=Modified [place] 3=Moderate Assistance 7=Complete IndependenceSCALE: Activities may be completed with or without assistive devices. 7-Zebnluqbnx-jzcwtxg completes the activity by him/herself with no assistance from a helper. 5-Set-up or Clean-up Assistance-helper sets up or cleans up; patient completes activity. [place] assists only prior to or following the activity. 4-Supervision or Touching Assistance-helper provides verbal cues and/or touching/steadying and/or contact guard assistance as patient completes activity. Assistance may be provided throughout the activity or intermittently. 3-Partial/Moderate Assistance-helper does LESS THAN HALF the effort. [place] lifts, holds or supports trunk or limbs, but provides less than half the effort. 2-Substantial/Maximal Assistance-helper does MORE THAN HALF the effort. [place] lifts or holds trunk or limbs and provides more than half the effort. 5-Uzwfmrgyf-uudqju does ALL the effort. Patient does none of the effort to co mplete the activity. Or, the assistance of 2 or more helpers is required for the patient to complete the activity. If activity was not attempted, code reason: 7-Patient Refused. 9-Not Applicable-not attempted and the patient did not perform the activity before the current illness, exacerbation or injury. 10-Not Attempted due to Environmental Limitations-(lack of equipment, weather restraints, etc.). 88-Not Attempted due to Medical Conditions or Safety Concerns. Other Treatment Pt seated in recliner, nurse present giving pt morning medications. Pt used FWW to perform functional mobility to therapy gym, [facility]. OT tx with focus on increasing bilateral integration with tasks, RUE neuromuscular reeducation, RUE fine motor strength and coordination, and overall strengthening and activity tolerance. Pt completed x15 mins on arm bike, 20 Watt resistance. R hand came off of handles x1 throughout task, pt able to grasp handle again without cues, no rest breaks required with task. Pt then completed card manipulation task, placing 1 card at a time into various slots (horizontal, vertical, and diagonal). Noted pt had difficulty isolating finger movements, often picking up more than 1 card, with increased time, pt able to nut picker just one card to place into the slots. Pt able to complete the whole deck, placing 1 card into various slots. He then sorted round coins into matching colored hole, sorting x10 coins each, 2 rounds total. Pt returned to his room using FWW, CGA. Post tx, pt seated in recliner, call light in reach and all needs met, Chair alarm activated. Education OT Patient Education: Correct positioning, Modified ADL techniques, Progress toward Goal/Update tx plan, Purpose of tx/functional activities Teaching Recipient: Patient Teaching Methods: Discussion Response to Teaching: Verbalize Understanding OT Short Term Goals Short Term Goals Time Frame: Jul 12, 2021 Toileting hygiene: 4 Upper body dressin Lower body dressin Putting on/taking off footwear: 4 OT Longterm Goals Hose Suspender Cutter Goals Time Frame: Jul 21, 2021 Eating (QC): 6 Oral Hygiene (QC): 6 Toileting Hygiene (QC): 6 Shower/Bathe Self (QC): 6 Upper Body Dressing (QC): 6 Lower Body Dressing (QC): 6 On/Off Footwear (QC): 6 Additional Goals: 1-Demonstrate ADL Tasks, 2-Verbalize Understanding, 3- ImproveStrength/Tenzin 1=Demonstrate adherence to instructed precautions during ADL tasks. 2=Patient will verbalize/demonstrate understanding of assistive devices/modifica tions for ADL. 3=Patient will improve strength/tolerance for activity to enable patient to perform ADL's. OT Education/Plan Problem List/Assessment Assessment: Decreased Activ Tolerance, Decreased UE Strength, Impaired Funct Balance, Impaired I ADL's, Impaired Self-Care Skills, Restricted Funct UE ROM Discharge Recommendations Plan/Recommendations: Continue POC Treatment Plan/Plan of Care Patient would benefit from OT for education, treatment and training to promote independence in ADL's, mobility, safety and/or upper extremity function for ADL's. Plan of Care: ADL Retraining, Cognitive Retraining, Functional Mobility, Group Exercise/Act as Ind, UE Funct Exercise/Act, UE Neuromus Re-Ed/Coord Treatment Duration: Jul 21, 2021 Frequency: At least 5 of 7 days/Wk (IRF) Estimated Hrs Per Day: 1.5 hours per day Rehab Potential: Fair Time/GCodes Start Time: 08:00 Stop Time: 09:30 Total Time Billed (hr/min): 90 Billed Treatment Time 1, EX (15'), FA 5 (75') JAZIEL ROCHA OT Jul 12, 2021 08:27
--- NOTE | 2021-07-12 11:48 | Physical Therapy Daily Note ---
PT Daily Note-Current Subjective Pt in recliner upon arrival and agrees to tx. Pt has no c/o pain. Mental Status Patient Orientation: Person, Place, Time, Situation, [place] Transfers SCALE: Activities may be completed with or without assistive devices. 6-Jrxdndbcnq-kuvapmt completes the activity by him/herself with no assistance from a helper. 5-Set-up or Clean-up Assistance-helper sets up or cleans up; patient completes activity. [place] assists only prior to or following the activity. 4-Supervision or Touching Assistance-helper provides verbal cues and/or touching/steadying and/or contact guard assistance as patient completes activity. Assistance may be provided throughout the activity or intermittently. 3-Partial/Moderate Assistance-helper does LESS THAN HALF the effort. [place] lifts, holds or supports trunk or limbs, but provides less than half the effort. 2-Substantial/Maximal Assistance-helper does MORE THAN HALF the effort. [place] lifts or holds trunk or limbs and provides more than half the effort. 6-Oziyuasfd-jxmagq does ALL the effort. Patient does none of the effort to complete the activity. Or, the assistance of 2 or more helpers is required for the patient to complete the activity. If activity was not attempted, code reason: 7-Patient Refused. 9-Not Applicable-not attempted and the patient did not perform the activity before the current illness, exacerbation or injury. 10-Not Attempted due to Environmental Limitations-(lack of equipment, weather restraints, etc.). 88-Not Attempted due to Medical Conditions or Safety Concerns. Sit to Stand (QC): 5 Pt requires VC to use arms of chair for standing and sitting. Weight Bearing Full Weight Bearing Full Weight Bearing Gait Training Does the Patient Walk?: Yes Distance: 500' Walk 10 feet (QC): 5 Walk 50 ft with 2 Turns(QC): 5 Walk 150 ft (QC): 5 Gait Persons Needed: 1 Gait Assistive Device: FWW Min VC needed d/t pt dragging R LE when fatigued. Stair Training Stair Training: Handrails/: 2 handrails #of Steps: 4 1 Step (curb) (QC): 4 4 Steps (QC): 4 Stairs: Pattern: Reciprocal Pt requires VC to flex R LE when ascending and descending, tends to drag foot on step. Pt tends to ascend w/ R LE and descend w/ L LE, VC for sequencing. Exercises Standing: Hamstring curls, Heel/toe raises, Marching, Mini squats, Side steps Standing Reps: 10 NuStep Minutes: 15 NuStep Workload: 6 Treatments Pt sit to stand from recliner and amb to elevator to go to first floor. Pt amb to garden and has seated RB. Pt ascends/descends ramp and stairs out in garden. Pt then has seated RB, then returns to IRU. Pt completes NuStep, pt request BR. Pt amb back to room and doffs/dons pants SBA as well as washes hands SBA. Pt returns to therapy gym and completes standing ex in // bars. Pt then completes standing reaching activity, focusing on balance, UE ROM, and R UE fine motor skills. Pt completes standing activity w/ CHRIS card game, completes 3 games w/ COOLER ROOM WORKER w/o any LOB. Pt tends to have slouched posture when fatigued. Pt able to grab cards from pile w/ R UE, but tends to drop them once grabbed. Pt completes standing activity for a total of 30 mins. Pt returns to recliner in room and w/ daughter in room. Pt left with all needs met, call light in hand. Returned in PM: Pt sit to stand SBA and amb to therapy gym to complete stairs w/ family present. Pt ascends/descends w/ reciprocal pattern. COOLER ROOM WORKER instructed that step to is a safer, more stable pattern. Pt requires VC for sequencing. Pt returns to room and uses BR. Pt then request to lay in bed, able to sit EOB to supine SBA, using hand railing on bed to lay down and position self in bed. Pt stays in bed w/ all needs met. Assessment Current Status: Good Progress Pt overall increasing strength, endurance, and balance. Pt gait improving w/ Min VC required and no LOB noted. PT Short Term Goals Short Term Goals Time Frame: Jul 05, 2021 Roll Left & Right: 6 Sit to lyin Lying to sitting on side of be: 3 Sit to stand: 4 Chair/jby-vp-yslcf transfer: 4 Walk 10 feet: 4 Walk 50 feet with two turns: 4 Walk 150 feet: 4 PT Prison Goals Prison Goals PT Toe Puller Goals Time Frame: Jul 19, 2021 Roll Left & Right (QC): 6 Sit to Lying (QC): 6 Lying-Sitting on Side/Bed(QC): 6 Sit to Stand (QC): 4 (SBA) Chair/Ldr-cd-Llcmi Xfer(QC): 4 (SBA) Toilet Transfer (QC): 4 (SBA) Car Transfer (QC): 4 (SBA) Does the Patient Walk: Yes Walk 10 feet (QC): 4 (SBA) Walk 50ft with 2 Turns (QC): 4 (SBA) Walk 150 ft (QC): 4 (SBA) Walking 10ft on Uneven Surface: 4 (SBA) 1 Step (curb) (QC): 4 (CGA) 4 Steps (QC): 4 (CGA) 12 Steps (QC): 88 Picking up an Object (QC): 4 (CGA) Wheel 50 feet with 2 turns (QC: 9 Wheel 150 feet: 9 PT Plan Treatment/Plan Treatment Plan: Continue Plan of Care Treatment Plan: Bed Mobility, Education, Functional Activity Tenzin, Functional Strength, Group Therapy, Gait, Safety, Therapeutic Exercise, Transfers Treatment Duration: Jul 19, 2021 Frequency: At least 5 of 7 days/Wk (IRF) Estimated Hrs Per Day: 1.5 hours per day Patient and/or Family Agrees t: Yes Time/GCodes Time In: 1030 Time Out: 1200 Total Billed Treatment Time: 90 Total Billed Treatment 1, EX x2, GT x2, FA x2 CARON NICHOLAS COOLER ROOM WORKER Jul 12, 2021 11:48
--- NOTE | 2021-07-12 13:45 | PM&R Progress Note ---
Subjective HPI/CC On Admission Date Seen by Provider: Jul 12, 2021 Time Seen by Provider: 13:30 Subjective/Events-last exam 07/12/2021: Pt will discharge Saturday Still impulsive Will need a ramp placed Daughter and are at the bedside 07/11/2021: Pt overall much improved Ready for discharge soon Will have review tomorrow 07/10/2021: Pt doing pretty well today Denies any new complaints No pain Working with therapy Cognitively he will need more work with speech therapy 07/09/2021: Patient doing very well Very impulsive still Right hand still pretty weak Bowels moved today Denies any significant new issues 07/08/2021: Patient thought he was going home today Patient has stated some things that are not cognitively intact Check meds and labs No falls 07/07/2021: Patient doing really well Working with therapy Everything very much improved 07/06/2021: Patient doing really well Moving around well Needs sleep study at discharge Eliquis tolerated Right hand improved 07/05/2021: Patient doing really well at the bedside Speech is much improved Bowels are moving Walking really well Still impulsive Sleep study will be needed at discharge Walks 200 feet at a time 07/04/2021: Patient doing really well Speech is better Walking is better Right hand immigration attorney 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 Medellin to review 07/02/2021: Patient currently sleeping Suspicion for obstructive sleep apnea when I am witnessing his sleep Losartan started and blood pressure will be monitored Incontinent of urine at night Bowels move twice today 07/01/2021: Patient doing really well Speaking more clearly No falls Still impulsive Appreciate Dr. Lacie Medellin added losartan 50 mg Echo will be obtained on Saturday from outside hospital 06/30/2021: Patient doing really well Appreciate Dr. Medellin consultation cardiology EKG shows atrial fibrillation paroxysmal type maintained on oral anticoagulation at the bedside Speaking more clearly Walking around really well with assistance 06/29/2021: Patient had no events overnight Appreciate Dr. Medellin cardiology consult Doing well overall Right upper extremity with right facial droop is profound Able to walk around with assistive device and assistance Previously had bradycardia in the 50s and even 4020s during acute medical admission Creatinine 1.37 Review of Systems Neurological: Incoordination Objective Exam Vital Signs Vital Signs Date Time Temp Pulse Resp B/P (MAP) Pulse Ox O2 Delivery O2 Flow Rate FiO2 07/12/21 21:00 Room Air 07/12/21 20:00 36.4 52 18 110/48 (68) 96 Capillary Refill : General Appearance: No Apparent Distress, WD/WN, Chronically ill, Obese HEENT: PERRL/EOMI, Normal ENT Inspection, Pharynx Normal Neck: Full Range of Motion, Normal Inspection, Non Tender, Supple, Carotid Bruit Respiratory: Chest Non Tender, Lungs Clear, Normal Breath Sounds, No Accessory Muscle Use, No Respiratory Distress Cardiovascular: Regular Rate, Rhythm, No Edema, No Gallop, No JVD, No Murmur, Normal Peripheral Pulses Gastrointestinal: Normal Bowel Sounds, No Organomegaly, No Pulsatile Mass, Non Tender, Soft Back: Normal Inspection, No CVA Tenderness, No Vertebral Tenderness Extremity: Normal Capillary Refill, Normal Inspection, Normal Range of Motion, Non Tender, No Calf Tenderness, No Pedal Edema Neurologic/Psychiatric: Alert, Oriented x3, Normal Mood/Affect, brass cleaner II-XII Norm as Tested, Abnormal Gait, Aphasia, Facial Droop (Right-sided), Motor Weakness (Right-sided weakness) Skin: Normal Color, Warm/Dry Lymphatic: No Adenopathy Results/Procedures Lab Patient resulted labs reviewed. FIM Transfers Therapy Code Descriptions/Definitions Functional [place] Measure: 0=Not Assessed/NA 4=Minimal Assistance 1=Total Assistance 5=Supervision or Setup 2=Maximal Assistance 6=Modified [place] 3=Moderate Assistance 7=Complete IndependenceSCALE: Activities may be completed with or without assistive devices. 1-Fwrhiqzlav-sdgihfl completes the activity by him/herself with no assistance from a helper. 5-Set-up or Clean-up Assistance-helper sets up or cleans up; patient completes activity. [place] assists only prior to or following the activity. 4-Supervision or Touching Assistance-helper provides verbal cues and/or touching/steadying and/or contact guard assistance as patient completes activity. Assistance may be provided throughout the activity or intermittently. 3-Partial/Moderate Assistance-helper does LESS THAN HALF the effort. [place] lifts, holds or supports trunk or limbs, but provides less than half the effort. 2-Substantial/Maximal Assistance-helper does MORE THAN HALF the effort. [place] lifts or holds trunk or limbs and provides more than half the effort. 4-Gmbibpsyc-jeqkhy does ALL the effort. Patient does none of the effort to complete the activity. Or, the assistance of 2 or more helpers is required for the patient to complete the activity. If activity was not attempted, code reason: 7-Patient Refused. 9-Not Applicable-not attempted and the patient did not perform the activity before the current illness, exacerbation or injury. 10-Not Attempted due to Environmental Limitations-(lack of equipment, weather restraints, etc.). 88-Not Attempted due to Medical Conditions or Safety Concerns. Roll Left to Right (QC): 6 Sit to Lying (QC): 6 Sit to Stand (QC): 5 Chair/Ofh-qg-Rzedl Xfer(QC): 4 Car Transfer (QC): 3 Gait Training Does the Patient Walk?: Yes Distance: 500' Walk 10 feet (QC): 5 Walk 50 ft with 2 Turns(QC): 5 Walk 150 ft (QC): 5 Walking 10ft/uneven surface-QC: 88 Gait Persons Needed: 1 Gait Assistive Device: FWW Wheelchair Training Does the Pt Use a Wheelchair?: No Wheel 50 ft with 2 turns (QC): 9 Wheel 150 ft (QC): 9 Stair Training Stair Training: Handrails/: 2 handrails #of Steps: 3 1 Step (curb) (QC): 4 4 Steps (QC): 4 12 Steps (QC): 88 Stairs: Pattern: Step to Balance Picking up an Object (QC): 88 ADL-Treatment Eating (QC): 5 (based on clincial judgment, assistance with cutting food and opening contianers. Pt left handed and able to use LUE) Oral Hygiene (QC): 7 Bathing Location: L Arm, R Arm, L Upper Leg, R Upper Leg, L Lower Leg (including foot), R Lower Leg (including foot), Chest, Abdomen, Perineal Area Shower/Bathe Self (QC): 4 (SBA) Upper Body Dressing (QC): 5 (set up) Lower Body Dressing (QC): 3 (CGA in stand, min verbal cues for AE. Min A with pant hike on R side) On/Off Footwear (QC): 3 (Min A with donning gripper socks, using AE as needed.) Toileting Hygiene (QC): 7 Toilet Transfer (QC): 3 Assessment/Plan Assessment and Plan Assess & Plan/Chief Complaint Assessment: CVA with right-sided weakness Right-sided facial droop Aphasia Paroxysmal atrial fibrillation? Oral anticoagulation Plan: Aggressive therapy Speech therapy Cardiology consult Monitor closely 06/29/2021: Supportive care Aggressive therapy Cardiology consult appreciated 06/30/2021 Appreciate cardiology Maintain oral anticoagulants Monitor closely Avoid rate control medication due to bradycardia history 07/01/2021: Appreciate cardiology Losartan 50 mg added 07/02/2021: Incontinency at night monitored Supportive care Needs sleep study 07/03/2021: Monitor incontinence Needs sleep study Echo ready for Dr. Medellin to review from [facility] 07/04/2021: Supportive care Appreciate Dr. Medellin 07/05/2021: Supportive care Continue aggressive treatment 07/06/2021: Continue aggressive therapy Dramatic improvement 07/07/2021: No significant changes Aggressive therapy 07/08/2021: Supportive care No significant changes 07/09/2021: Supportive care Monitor for pain 07/10/2021: Continue aggressive therapy 07/11/2021: Continue aggressive care and therapy Discharge planning 07/12/2021: Discharge plan for Saturday Supportive care (1) Paroxysmal atrial fibrillation Assessment & Plan: This was most likely the cause of the patient's cere brovascular accident. He had episodic paroxysmal atrial fibrillation at the outside hospital as well as in our facility. He was also having some intermittent bradycardia at the outside hospital. Heart rates are presently controlled on no AV daisha blocking agents. I recommend we continue the patient on apixaban for recurrent stroke prophylaxis. His echocardiogram from [facility] showed a normal ejection fraction with mild left atrial enlargement with only mild mitral regurgitation. After about 6 weeks from the initial event, I will plan on a cardioversion as an outpatient. Once he is back in a sinus rhythm, I will plan on a nuclear stress test to exclude underlying coronary ischemia as a possible inciting event for the atrial fibrillation. At this point in time, there are no acute, active cardiac issues. As such, cardiology will sign off. I will ask nursing to get the patient an office visit to see me in 1 month. Please call if you have other questions or concerns. (2) Sinus bradycardia Assessment & Plan: He was having intermittent bradycardia at the outside hospital as outlined above. I suspect he has some degree of AV daisha dysfunction since he did not develop tachycardia with the atrial fibrillation. If he needs adjustment to his medication for hypertension, I would recommend we avoid using beta-blockers, diltiazem or verapamil. Heart rates have been stable here. There is no indication for permanent pacemaker at this time. (3) Primary hypertension Assessment & Plan: Blood pressure is improved with the combination of amlodipine and losartan. This is a new diagnosis for the patient although he had not seen a physician in a number of years prior to this recent stroke. If he needs additional adjustment to his medication for the hypertension, avoid AV daisha blocking agents or any agents that could worsen his underlying bradycardia. (4) Mixed hyperlipidemia Assessment & Plan: I recommend he continue on statin medication in light of the acute cerebrovascular accident. He should have a follow-up lipid panel in about 2-3 months. (5) Chronic kidney disease, stage 3 Assessment & Plan: This is yet another new diagnosis for the patient. The losartan should help delay progression of disease. (6) History of cerebrovascular accident with residual deficit Assessment & Plan: As above, I suspect the atrial fibrillation led to the patient's cerebrovascular accident since this was noted early in his hospitalization at the outside facility. (7) Morbid obesity Assessment & Plan: He will need to work on weight loss once he gets his strength back. (8) Aortic regurgitation Assessment & Plan: This was an incidental finding on the outside echocardiogram. This is in a mild range and most likely had nothing to do with the present situation. This should be followed longitudinally after discharge. (9) Mitral regurgitation Assessment & Plan: This was another incidental finding on his echocardiogram. This is mild but will need to be followed longitudinally. TOBIAS BUTCHER DO Jul 12, 2021 13:45
[2021-07-12] MEDS: polyethylene glycoL POWDER 17 GM (MIRALAX) PACK PO SCH (19:46)
[2021-07-12 20:00] VITALS: BP 110/48
[2021-07-13 07:34] VITALS: BP 132/58
[2021-07-13] MEDS: DOCUSATE SODIUM 100 MG (COLACE) CAP PO SCH ×2 (08:05→21:54)
[2021-07-13] MEDS: MILK OF MAGNESIA 400 MG/5 ML 30 ML UDC PO SCH (08:07)
[2021-07-13] MEDS: FAMOTIDINE 20 MG (PEPCID) TABLET PO SCH (08:07)
[2021-07-13] MEDS: LOSARTAN 50 MG (COZAAR) TAB PO SCH (08:07)
[2021-07-13] MEDS: APIXABAN 5 MG (ELIQUIS) TABLET PO SCH ×2 (08:07→20:15)
[2021-07-13] MEDS: amLODIPine 10 MG (NORVASC) TAB PO SCH (08:07)
[2021-07-13] MEDS: SENNA W/DOCUSATE (SENOKOT S) TABLET PO SCH ×2 (08:07→21:54)
[2021-07-13] MEDS: MICONAZOLE 2% POWDER (DESENEX AF) 90 GM TOP SCH ×2 (08:09→20:16)
[2021-07-13] MEDS: NYSTATIN OINTMENT 30 GM TUBE TOP SCH ×2 (08:09→20:16)
--- NOTE | 2021-07-13 08:49 | Occupational Ther Daily Note ---
OT Current Status-Daily Note Subjective Pt up in recliner, agreeable to OT tx. Pt states he feels ready to return home tomorrow. Mental Status/Objective Patient Orientation: Person, Place, Time, Situation ADL-Treatment Therapy Code Descriptions/Definitions Functional [place] Measure: 0=Not Assessed/NA 4=Minimal Assistance 1=Total Assistance 5=Supervision or Setup 2=Maximal Assistance 6=Modified [place] 3=Moderate Assistance 7=Complete IndependenceSCALE: Activities may be completed with or without assistive devices. 8-Qlbwlmkyao-qljlzhd completes the activity by him/herself with no assistance from a helper. 5-Set-up or Clean-up Assistance-helper sets up or cleans up; patient completes activity. [place] assists only prior to or following the activity. 4-Supervision or Touching Assistance-helper provides verbal cues and/or touching/steadying and/or contact guard assistance as patient completes activity. Assistance may be provided throughout the activity or intermittently. 3-Partial/Moderate Assistance-helper does LESS THAN HALF the effort. [place] lifts, holds or supports trunk or limbs, but provides less than half the effort. 2-Substantial/Maximal Assistance-helper does MORE THAN HALF the effort. [place] lifts or holds trunk or limbs and provides more than half the effort. 8-Itmdcjkcj-wwiibm does ALL the effort. Patient does none of the effort to complete the activity. Or, the assistance of 2 or more helpers is required for the patient to complete the activity. If activity was not attempted, code reason: 7-Patient Refused. 9-Not Applicable-not attempted and the patient did not perform the activity before the current illness, exacerbation or injury. 10-Not Attempted due to Environmental Limitations-(lack of equipment, weather restraints, etc.). 88-Not Attempted due to Medical Conditions or Safety Concerns. Eating (QC): 6 (pt reports IND with breakfast, able to cut food using utensils) Oral Hygiene (QC): 4 (Supervision standing at sink.) Shower/Bathe Self (QC): 4 (Supervision, pt able to wash/dry all parts.) Upper Body Dressing (QC): 5 (set up assist) Lower Body Dressing (QC): 4 (SBA in stand, pt able to use electric needle specialist with min verbal cues to thread LEs, able to complete pant hike.) On/Off Footwear: 4 (Pt able to doff/don socks using AE, min verbal cues required with AE (SBA)) Toileting Hygiene (QC): 4 (SBA in stand, pt able to perofrm hygiene and pant hike) Other Treatment Pt seated in recliner, completed ADLs in his room as outlined above. Pt then performed functional mobility to therapy gym using FWW with SBA. OT Tx with focus on increasing BUE Strength and activity tolerance, improving bilateral integration, RUE neuromuscular reeducation, and RUE fine motor coordination and strength. Pt completed arm bike x15 mins, 25 Watt resistance, 1 rest break with task. Pt's RUE held onto handle throughout task, only letting go of the handle with the rest break. Pt's arrived, . Pt used FWW, SBA, to large shower room. OT showed pt's recommended shower chair and grab bars, setting up the tub as it would be at home. Pt performed simulated tub transfer, using LUE to stabilize himself with GBs, then stepping over the tub ledge with LLE, and sitting in SC prior to bringing RLE into tub. Pt transferred out of tub with CGA, moving RLE out of tub in sitting, then standing and stepping out with LLE. Pt returned to room with SBA using FWW, transferring to EOB and supine independently. OT answered questions, educated provided on assistance level required with ADLs, and demonstrated AE for LE dressing. Pt states she has no further concerns at this time, and plans to talk with PT about steps and mobility concerns. Post tx, pt laying in bed, call light in reach and all needs met. Education OT Patient Education: Correct positioning, Energy conservation, Exercise program, Modified ADL techniques, Progress toward Goal/Update tx plan, Purpose of tx/functional activities, Rehab process, Use of adapted equipment Teaching Recipient: Patient Teaching Methods: Discussion Response to Teaching: Verbalize Understanding OT Short Term Goals Short Term Goals Time Frame: Jul 12, 2021 Toileting hygiene: 4 Upper body dressin Lower body dressin Putting on/taking off footwear: 4 OT Support Specialist Goals Residential Goals Time Frame: Jul 21, 2021 Eating (QC): 6 Oral Hygiene (QC): 6 Toileting Hygiene (QC): 6 Shower/Bathe Self (QC): 6 Upper Body Dressing (QC): 6 Lower Body Dressing (QC): 6 On/Off Footwear (QC): 6 Additional Goals: 1-Demonstrate ADL Tasks, 2-Verbalize Understanding, 3-ImproveStrength/Tenzin 1=Demonstrate adherence to instructed precautions during ADL tasks. 2=Patient will verbalize/demonstrate understanding of assistive devices/modifications for ADL. 3=Patient will improve strength/tolerance for activity to enable patient to perf orm ADL's. OT Education/Plan Problem List/Assessment Assessment: Decreased Activ Tolerance, Decreased UE Strength, Impaired Funct Balance, Impaired I ADL's, Impaired Self-Care Skills, Restricted Funct UE ROM Discharge Recommendations Plan/Recommendations: Continue POC Treatment Plan/Plan of Care Patient would benefit from OT for education, treatment and training to promote independence in ADL's, mobility, safety and/or upper extremity function for ADL's. Plan of Care: ADL Retraining, Cognitive Retraining, Functional Mobility, Group Exercise/Act as Ind, UE Funct Exercise/Act, UE Neuromus Re-Ed/Coord Treatment Duration: Jul 21, 2021 Frequency: At least 5 of 7 days/Wk (IRF) Estimated Hrs Per Day: 1.5 hours per day Rehab Potential: Fair Time/GCodes Start Time: 08:00 Stop Time: 09:15 Total Time Billed (hr/min): 75 Billed Treatment Time 1, ADL 4 (60'), EX (15') JAZIEL ROCHA OT Jul 13, 2021 08:49
--- NOTE | 2021-07-13 12:00 | Physical Therapy Daily Note ---
PT Daily Note-Current Subjective Pt sitting up in recliner upon arrival. Pt agrees to PT for QC scoring for anticipated d/c of tomorrow (07/14). Mental Status Patient Orientation: Person, Place, Situation, [place] Transfers SCALE: Activities may be completed with or without assistive devices. 0-Zzottwjxxt-cphznzj completes the activity by him/herself with no assistance from a helper. 5-Set-up or Clean-up Assistance-helper sets up or cleans up; patient completes activity. [place] assists only prior to or following the activity. 4-Supervision or Touching Assistance-helper provides verbal cues and/or touching/steadying and/or contact guard assistance as patient completes activity. Assistance may be provided throughout the activity or intermittently. 3-Partial/Moderate Assistance-helper does LESS THAN HALF the effort. [place] lifts, holds or supports trunk or limbs, but provides less than half the effort. 2-Substantial/Maximal Assistance-helper does MORE THAN HALF the effort. [place] lifts or holds trunk or limbs and provides more than half the effort. 1-Gaikxaxxc-sswglf does ALL the effort. Patient does none of the effort to complete the activity. Or, the assistance of 2 or more helpers is required for the patient to complete the activity. If activity was not attempted, code reason: 7-Patient Refused. 9-Not Applicable-not attempted and the patient did not perform the activity before the current illness, exacerbation or injury. 10-Not Attempted due to Environmental Limitations-(lack of equipment, weather restraints, etc.). 88-Not Attempted due to Medical Conditions or Safety Concerns. Roll Left & Right (QC): 6 Sit to Lying (QC): 6 Lying to Sitting/Side of Bed(Q: 6 Sit to Stand (QC): 6 Chair/Vvt-zn-Qqvqk Xfer(QC): 6 Toilet Transfer (QC): 6 Car Transfer (QC): 6 Weight Bearing Full Weight Bearing Full Weight Bearing Gait Training Does the Patient Walk?: Yes Distance: 250' Walk 10 feet (QC): 6 Walk 50 ft with 2 Turns(QC): 6 Walk 150 ft (QC): 6 Walking 10ft/uneven surface-QC: 6 Gait Persons Needed: 0 Gait Assistive Device: FWW Wheelchair Training Does the Pt Use a Wheelchair?: No Stair Training Stair Training: Handrails/: 2 handrails #of Steps: 8 1 Step (curb) (QC): 6 4 Steps (QC): 6 12 Steps (QC): 7 Stairs: Pattern: Step to Ascending gait is reciprocal & descending its step to gait pattern Balance Picking up an Object (QC): 4 Special Test Comments Pt is getting a Hip kit so pt can use the conveyor mechanic for safety. Exercises Seated Therapy Exercises: Ankle pumps, Long arc quads, Hip flexion, Hip abd/add, Glut set Seated Reps: 15 NuStep Minutes: 13 Treatments Pt completed QC scoring items listed above. Pt also uses NuStep and completes Seated Ex then takes RB. Pt amb. in hallway then returns to room to rest and eat lunch. All needs met, call light in hand. Assessment Current Status: Good Progress Occasional VC for sequencing and safety PT Short Term Goals Short Term Goals Time Frame: Jul 05, 2021 Roll Left & Right: 6 Sit to lyin Lying to sitting on side of be: 3 Sit to stand: 4 Chair/enw-vo-trjhm transfer: 4 Walk 10 feet: 4 Walk 50 feet with two turns: 4 Walk 150 feet: 4 PT Care Home Goals Care Home Goals PT Esthetician Facialist Goals Time Frame: Jul 19, 2021 Roll Left & Right (QC): 6 Sit to Lying (QC): 6 Lying-Sitting on Side/Bed(QC): 6 Sit to Stand (QC): 4 (SBA) Chair/Qbj-qj-Zadtd Xfer(QC): 4 (SBA) Toilet Transfer (QC): 4 (SBA) Car Transfer (QC): 4 (SBA) Does the Patient Walk: Yes Walk 10 feet (QC): 4 (SBA) Walk 50ft with 2 Turns (QC): 4 (SBA) Walk 150 ft (QC): 4 (SBA) Walking 10ft on Uneven Surface: 4 (SBA) 1 Step (curb) (QC): 4 (CGA) 4 Steps (QC): 4 (CGA) 12 Steps (QC): 88 Picking up an Object (QC): 4 (CGA) Wheel 50 feet with 2 turns (QC: 9 Wheel 150 feet: 9 PT Plan Problem List Problem List: Activity Tolerance Treatment/Plan Treatment Plan: Continue Plan of Care Treatment Plan: Bed Mobility, Education, Functional Activity Tenzin, Functional Strength, Group Therapy, Gait, Safety, Therapeutic Exercise, Transfers Treatment Duration: Jul 19, 2021 Frequency: At least 5 of 7 days/Wk (IRF) Estimated Hrs Per Day: 1.5 hours per day Patient and/or Family Agrees t: Yes Safety Risks/Education Patient Education: Steps, Correct Positioning, Safety Issues Teaching Recipient: Patient Teaching Methods: Discussion Response to Teaching: Verbalize Understanding Time/GCodes Time In: 1100 Time Out: 1215 Total Billed Treatment Time: 75 Total Billed Treatment 1, GT (20m), FA x2 (30m) & EX x2 (25m) TON BARRIOS REGISTERED ASSOCIATE Jul 13, 2021 12:00
--- NOTE | 2021-07-13 12:04 | PM&R Progress Note ---
Subjective HPI/CC On Admission Date Seen by Provider: Jul 13, 2021 Time Seen by Provider: 10:00 Subjective/Events-last exam 07/13/2021: Patient ready for discharge tomorrow Goes to [facility] for pharmacy Denies concerns 07/12/2021: Pt will discharge Saturday Still impulsive Will need a ramp placed Daughter and are at the bedside 07/11/2021: Pt overall much improved Ready for discharge soon Will have review tomorrow 07/10/2021: Pt doing pretty well today Denies any new complaints No pain Working with therapy Cognitively he will need more work with speech therapy 07/09/2021: Patient doing very well Very impulsive still Right hand still pretty weak Bowels moved today Denies any significant new issues 07/08/2021: Patient thought he was going home today Patient has stated some things that are not cognitively intact Check meds and labs No falls 07/07/2021: Patient doing really well Working with therapy Everything very much improved 07/06/2021: Patient doing really well Moving around well Needs sleep study at discharge Eliquis tolerated Right hand improved 07/05/2021: Patient doing really well at the bedside Speech is much improved Bowels are moving Walking really well Still impulsive Sleep study will be needed at discharge Walks 200 feet at a time 07/04/2021: Patient doing really well Speech is better Walking is better Right 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 Medellin to review 07/02/2021: Patient currently sleeping Suspicion for obstructive sleep apnea when I am witnessing his sleep Losartan started and blood pressure will be monitored Incontinent of urine at night Bowels move twice today 07/01/2021: Patient doing really well Speaking more clearly No falls Still impulsive Appreciate Dr. Lacie Medellin added losartan 50 mg Echo will be obtained on Saturday from outside hospital 06/30/2021: Patient doing really well Appreciate Dr. Medellin consultation cardiology EKG shows atrial fibrillation paroxysmal type maintained on oral anticoagulation at the bedside Speaking more clearly Walking around really well with assistance 06/29/2021: Patient had no events overnight Appreciate Dr. Medellin cardiology consult Doing well overall Right upper extremity with right facial droop is profound Able to walk around with assistive device and assistance Previously had bradycardia in the 50s and even 4020s during acute medical admission Creatinine 1.37 Review of Systems Neurological: Incoordination Objective Exam Vital Signs Vital Signs Date Time Temp Pulse Resp B/P (MAP) Pulse Ox O2 Delivery O2 Flow Rate FiO2 07/13/21 21:00 Room Air 07/13/21 20:00 36.6 49 18 123/77 (92) 97 Capillary Refill : General Appearance: No Apparent Distress, WD/WN, Chronically ill, Obese HEENT: PERRL/EOMI, Normal ENT Inspection, Pharynx Normal Neck: Full Range of Motion, Normal Inspection, Non Tender, Supple, Carotid Bruit Respiratory: Chest Non Tender, Lungs Clear, Normal Breath Sounds, No Accessory Muscle Use, No Respiratory Distress Cardiovascular: Regular Rate, Rhythm, No Edema, No Gallop, No JVD, No Murmur, Normal Peripheral Pulses Gastrointestinal: Normal Bowel Sounds, No Organomegaly, No Pulsatile Mass, Non Tender, Soft Back: Normal Inspection, No CVA Tenderness, No Vertebral Tenderness Extremity: Normal Capillary Refill, Normal Inspection, Normal Range of Motion, Non Tender, No Calf Tenderness, No Pedal Edema Neurologic/Psychiatric: Alert, Oriented x3, Normal Mood/Affect, manager statistical programming II-XII Norm as Tested, Abnormal Gait, Aphasia, Facial Droop (Right-sided), Motor Weakness (Right-sided weakness) Skin: Normal Color, Warm/Dry Lymphatic: No Adenopathy Results/Procedures Lab Patient resulted labs reviewed. FIM Transfers Therapy Code Descriptions/Definitions Functional [place] Measure: 0=Not Assessed/NA 4=Minimal Assistance 1=Total Assistance 5=Supervision or Setup 2=Maximal Assistance 6=Modified [place] 3=Moderate Assistance 7=Complete IndependenceSCALE: Activities may be completed with or without assistive devices. 8-Imuwklrubb-rzeutny completes the activity by him/herself with no assistance from a helper. 5-Set-up or Clean-up Assistance-helper sets up or cleans up; patient completes activity. [place] assists only prior to or following the activity. 4-Supervision or Touching Assistance-helper provides verbal cues and/or touching/steadying and/or contact guard assistance as patient completes activity. Assistance may be provided throughout the activity or intermittently. 3-Partial/Moderate Assistance-helper does LESS THAN HALF the effort. [place] lifts, holds or supports trunk or limbs, but provides less than half the effort. 2-Substantial/Maximal Assistance-helper does MORE THAN HALF the effort. [place] lifts or holds trunk or limbs and provides more than half the effort. 0-Efxuelvnj-oqqcqf does ALL the effort. Patient does none of the effort to complete the activity. Or, the assistance of 2 or more helpers is required for the patient to complete the activity. If activity was not attempted, code reason: 7-Patient Refused. 9-Not Applicable-not attempted and the patient did not perform the activity before the current illness, exacerbation or injury. 10-Not Attempted due to Environmental Limitations-(lack of equipment, weather restraints, etc.). 88-Not Attempted due to Medical Conditions or Safety Concerns. Roll Left to Right (QC): 6 Sit to Lying (QC): 6 Sit to Stand (QC): 5 Chair/Tef-br-Hswds Xfer(QC): 4 Car Transfer (QC): 3 Gait Training Does the Patient Walk?: Yes Distance: 500' Walk 10 feet (QC): 5 Walk 50 ft with 2 Turns(QC): 5 Walk 150 ft (QC): 5 Walking 10ft/uneven surface-QC: 88 Gait Persons Needed: 1 Gait Assistive Device: FWW Wheelchair Training Does the Pt Use a Wheelchair?: No Wheel 50 ft with 2 turns (QC): 9 Wheel 150 ft (QC): 9 Stair Training Stair Training: Handrails/: 2 handrails #of Steps: 4 1 Step (curb) (QC): 4 4 Steps (QC): 4 12 Steps (QC): 88 Stairs: Pattern: Reciprocal Balance Picking up an Object (QC): 88 ADL-Treatment Eating (QC): 6 (pt reports IND with breakfast, able to cut food using utensils) Oral Hygiene (QC): 4 (Supervision standing at sink.) Bathing Location: L Arm, R Arm, L Upper Leg, R Upper Leg, L Lower Leg (including foot), R Lower Leg (including foot), Chest, Abdomen, Perineal Area Shower/Bathe Self (QC): 4 (Supervision, pt able to wash/dry all parts.) Upper Body Dressing (QC): 5 (set up assist) Lower Body Dressing (QC): 4 (SBA in stand, pt able to use local company hazmat driver with min verbal cues to thread LEs, able to complete pant hike.) On/Off Footwear (QC): 4 (Pt able to doff/don socks using AE, min verbal cues required with AE (SBA)) Toileting Hygiene (QC): 4 (SBA in stand, pt able to perofrm hygiene and pant hike) Toilet Transfer (QC): 3 Assessment/Plan Assessment and Plan Assess & Plan/Chief Complaint Assessment: CVA with right-sided weakness Right-sided facial droop Aphasia Paroxysmal atrial fibrillation? Oral anticoagulation Plan: Aggressive therapy Speech therapy Cardiology consult Monitor closely 06/29/2021: Supportive care Aggressive therapy Cardiology consult appreciated 06/30/2021 Appreciate cardiology Maintain oral anticoagulants Monitor closely Avoid rate control medication due to bradycardia history 07/01/2021: Appreciate cardiology Losartan 50 mg added 07/02/2021: Incontinency at night monitored Supportive care Needs sleep study 07/03/2021: Monitor incontinence Needs sleep study Echo ready for Dr. Medellin to review from [facility] 07/04/2021: Supportive care Appreciate Dr. Medellin 07/05/2021: Supportive care Continue aggressive treatment 07/06/2021: Continue aggressive therapy Dramatic improvement 07/07/2021: No significant changes Aggressive therapy 07/08/2021: Supportive care No significant changes 07/09/2021: Supportive care Monitor for pain 07/10/2021: Continue aggressive therapy 07/11/2021: Continue aggressive care and therapy Discharge planning 07/12/2021: Discharge plan for Saturday Supportive care 07/13/2021: Discharge plan tomorrow (1) Paroxysmal atrial fibrillation Assessment & Plan: This was most likely the cause of the patient's cerebrovascular accident. He had episodic paroxysmal atrial fibrillation at the outside hospital as well as in our facility. He was also having some intermittent bradycardia at the outside hospital. Heart rates are presently controlled on no AV daisha blocking agents. I recommend we continue the patient on apixaban for recurrent stroke prophylaxis. His echocardiogram from [place] showed a normal ejection fraction with mild left atrial enlargement with only mild mitral regurgitation. After about 6 weeks from the initial event, I will plan on a cardioversion as an outpatient. Once he is back in a sinus rhythm, I will plan on a nuclear stress test to exclude underlying coronary ischemia as a possible inciting event for the atrial fibrillation. At this point in time, there are no acute, active cardiac issues. As such, cardiology will sign off. I will ask nursing to get the patient an office visit to see me in 1 month. Please call if you have other questions or concerns. (2) Sinus bradycardia Assessment & Plan: He was having intermittent bradycardia at the outside [facility] as outlined above. I suspect he has some degree of AV daisha dysfunction since he did not develop tachycardia with the atrial fibrillation. If he needs adjustment to his medication for hypertension, I would recommend we avoid using beta-blockers, diltiazem or verapamil. Heart rates have been stable here. There is no indication for permanent pacemaker at this time. (3) Primary hypertension Assessment & Plan: Blood pressure is improved with the combination of amlodipine and losartan. This is a new diagnosis for the patient although he had not seen a physician in a number of years prior to this recent stroke. If he needs additional adjustment to his medication for the hypertension, avoid AV daisha blocking agents or any agents that could worsen his underlying bradycardia. (4) Mixed hyperlipidemia Assessment & Plan: I recommend he continue on statin medication in light of the acute cerebrovascular accident. He should have a follow-up lipid panel in about 2-3 months. (5) Chronic kidney disease, stage 3 Assessment & Plan: This is yet another new diagnosis for the patient. The losartan should help delay progression of disease. (6) History of cerebrovascular accident with residual deficit Assessment & Plan: As above, I suspect the atrial fibrillation led to the patient's cerebrovascular accident since this was noted early in his hospita lization at the outside facility. (7) Morbid obesity Assessment & Plan: He will need to work on weight loss once he gets his strength back. (8) Aortic regurgitation Assessment & Plan: This was an incidental finding on the outside echocardiogram. This is in a mild range and most likely had nothing to do with the present situation. This should be followed longitudinally after discharge. (9) Mitral regurgitation Assessment & Plan: This was another incidental finding on his echocardiogram. This is mild but will need to be followed longitudinally. TOBIAS BUTCHER DO Jul 13, 2021 12:03
--- NOTE | 2021-07-13 12:47 | Speech Therapy Daily Note ---
Speech Daily Progress Note Subjective Time Seen by Provider: 09:45 Pt laying in bed, present. Pt reports he is leaving tomorrow to go back home. states he will be receiving home health. Objective Pt completed QI re-assessment. Expression of wants/needs: 2 Understanding verbal content 3 Brief interview of mental status: yes Repetition of 3 words: 2/3 Temporal orientation: year, month, day 2/3 Recall sock, blue, bed 1/3 Memory recall ability: hospital unit, location of room Pt also completed divergent naming task with 7 words average within 1 minute. Assessment Assessment Current Status: Good Progress RN POOL recommends continued speech therapy for expressive communication. Speech Short Term Goals Short Term Goals Short Term Goals 1. The pt will complete expressive language therapy tasks with 90% accy. 2. The pt will complete naming tasks with 90% accy. 3. The pt will answer yes/no questions with 90% accy. 4. The pt will utilize dysarthria compensatory strategies during conversation with min cues. Speech Jail Goals Stitching Machine Operator Goals The pt will be able to communicate during daily activities without difficulty with 90% accy. Speech-Plan Treatment Plan Speech Therapy Treatment Plan: Continue Plan of Care Treatment Duration: Jun 29, 2021 Frequency: 3 times per week Estimated Hrs Per Day: .5 hour per day Rehab Potential: Fair Time Speech Therapy Time In: 09:45 Speech Therapy Time Out: 10:15 Billed Treatment Time 1JOSSY 30 min PEÑA TIRADO Jul 13, 2021 12:46
[2021-07-13 20:00] VITALS: BP 123/77
[2021-07-13] MEDS: polyethylene glycoL POWDER 17 GM (MIRALAX) PACK PO SCH (21:54)
[2021-07-14] MEDS ORDERED: ATOR40TA PO (05:54)
[2021-07-14] MEDS ORDERED: APIX5TAB PO (05:54)
[2021-07-14] MEDS ORDERED: AMLO-251 PO (05:54)
[2021-07-14] MEDS ORDERED: LOSA50TA63 PO (05:54)
[2021-07-14] MEDS ORDERED: FAMO20TA5 PO (05:54)
--- NOTE | 2021-07-14 05:55 | Discharge Summary ---
Diagnosis/Chief Complaint Date of Admission Jun 28, 2021 at 13:35 Date of Discharge Discharge Date: Jul 14, 2021 Discharge Diagnosis Assessment: CVA with right-sided weakness Right-sided facial droop Aphasia Paroxysmal atrial fibrillation? Oral anticoagulation Plan: Aggressive therapy Speech therapy Cardiology consult Monitor closely 06/29/2021: Supportive care Aggressive therapy Cardiology consult appreciated 06/30/2021 Appreciate cardiology Maintain oral anticoagulants Monitor closely Avoid rate control medication due to bradycardia history 07/01/2021: Appreciate cardiology Losartan 50 mg added 07/02/2021: Incontinency at night monitored Supportive care Needs sleep study 07/03/2021: Monitor incontinence Needs sleep study Echo ready for Dr. Medellin to review from [facility] 07/04/2021: Supportive care Appreciate Dr. Medellin 07/05/2021: Supportive care Continue aggressive treatment 07/06/2021: Continue aggressive therapy Dramatic improvement 07/07/2021: No significant changes Aggressive therapy 07/08/2021: Supportive care No significant changes 07/09/2021: Supportive care Monitor for pain 07/10/2021: Continue aggressive therapy 07/11/2021: Continue aggressive care and therapy Discharge planning 07/12/2021: Discharge plan for Saturday Supportive care 07/13/2021: Discharge plan tomorrow Discharge Summary Discharge Physical Examination Allergies: Coded Allergies: No Known Allergies (Verified Allergy, Unknown, 06/30/21) Vitals & I&Os Vital Signs Date Time Temp Pulse Resp B/P (MAP) Pulse Ox O2 Delivery O2 Flow Rate FiO2 07/14/21 10:00 36.5 42 16 142/60 98 Room Air General Appearance: Alert, Oriented X3, Cooperative Respiratory: Clear to Auscultation Cardiovascular: Regular Rate Psych/Mental Status: Mental Status NL Hospital Course Was the Problem List Reviewed?: Yes Patient had a lengthy hospital course. Patient was admitted for CVA with significant right-sided weakness. Patient was monitored by cardiology for paroxysmal atrial fibrillation. Labs remained stable. Patient had no decompensation during hospital course. He had dramatic improvement and was able to walk with assistive devices. Overall he had dramatic improvement and was able to return back to independent living with his . He will get a sleep study once he establishes his care with Dr. Black. Labs (last 24 hrs) Laboratory Tests 06/29/21 05:20: White Blood Count 8.8, Red Blood Count 5.09, Hemoglobin 14.5, Hematocrit 45, Mean Corpuscular Volume 89, Mean Corpuscular Hemoglobin 29, Mean Corpuscular Hemoglobin Concent 32, Red Cell Distribution Width 13.9, Platelet Count 241, Mean Platelet Volume 10.2, Immature Granulocyte % (Auto) 1, Neutrophils (%) (Auto) 72, Lymphocytes (%) (Auto) 15, Monocytes (%) (Auto) 11, Eosinophils (%) ( Auto) 2, Basophils (%) (Auto) 1, Neutrophils # (Auto) 6.4, Lymphocytes # (Auto) 1.3, Monocytes # (Auto) 0.9, Eosinophils # (Auto) 0.1, Basophils # (Auto) 0.0, Immature Granulocyte # (Auto) 0.1, Sodium Level 141, Potassium Level 4.2, Chloride Level 108H, Carbon Dioxide Level 25, Anion Gap 8, Blood Urea Nitrogen 31H, Creatinine 1.37H, Estimat Glomerular Filtration Rate 51, BUN/Creatinine Ratio 23, Glucose Level 100, Calcium Level 9.8, Corrected Calcium 10.1, Total Bilirubin 1.3H, Aspartate Amino Transf (AST/SGOT) 30, Alanine Aminotransferase (ALT/SGPT) 46, Alkaline Phosphatase 322H, Total Protein 6.8, Albumin 3.6, Triglycerides Level 74, Cholesterol Level 100, LDL Cholesterol Direct 66, VLDL Cholesterol 15, HDL Cholesterol 26L 07/02/21 06:07: Sodium Level 141, Potassium Level 4.3, Chloride Level 110H, Carbon Dioxide Level 23, Anion Gap 8, Blood Urea Nitrogen 27H, Creatinine 1.22, Estimat Glomerular Filtration Rate 59, BUN/Creatinine Ratio 22, Glucose Level 102, Calcium Level 9.1 07/03/21 05:45: White Blood Count 8.2, Red Blood Count 4.84, Hemoglobin 13.9, Hematocrit 42, Mean Corpuscular Volume 88, Mean Corpuscular Hemoglobin 29, Mean Corpuscular Hemoglobin Concent 33, Red Cell Distribution Width 14.0, Platelet Count 234, Mean Platelet Volume 10.7, Immature Granulocyte % (Auto) 1, Neutrophils (%) (Auto) 70, Lymphocytes (%) (Auto) 16, Monocytes (%) (Auto) 11, Eosinophils (%) (Auto) 2, Basophils (%) (Auto) 1, Neutrophils # (Auto) 5.8, Lymphocytes # (Auto) 1.3, Monocytes # (Auto) 0.9, Eosinophils # (Auto) 0.2, Basophils # (Auto) 0.0, Immature Granulocyte # (Auto) 0.0, Sodium Level 141, Potassium Level 4.3, Chloride Level 109H, Carbon Dioxide Level 23, Anion Gap 9, Blood Urea Nitrogen 28H, Creatinine 1.32H, Estimat Glomerular Filtration Rate 54, BUN/Creatinine Ratio 21, Glucose Level 100, Calcium Level 9.2, Corrected Calcium 9.6, Total Bilirubin 0.9, Aspartate Amino Transf (AST/SGOT) 20, Alanine Aminotransferase (ALT/SGPT) 30, Alkaline Phosphatase 320H, Total Protein 6.5, Albumin 3.5 07/06/21 05:43: Glucometer 164H 07/10/21 06:15: White Blood Count 7.2, Red Blood Count 4.62, Hemoglobin 13.5, Hematocrit 40, Me an Corpuscular Volume 87, Mean Corpuscular Hemoglobin 29, Mean Corpuscular Hemoglobin Concent 34, Red Cell Distribution Width 13.9, Platelet Count 219, Mean Platelet Volume 10.8, Immature Granulocyte % (Auto) 0, Neutrophils (%) (Auto) 70, Lymphocytes (%) (Auto) 17, Monocytes (%) (Auto) 11, Eosinophils (%) (Auto) 2, Basophils (%) (Auto) 1, Neutrophils # (Auto) 5.0, Lymphocytes # (Auto) 1.2, Monocytes # (Auto) 0.8, Eosinophils # (Auto) 0.1, Basophils # (Auto) 0.1, Immature Granulocyte # (Auto) 0.0, Sodium Level 138, Potassium Level 4.2, Chloride Level 106, Carbon Dioxide Level 22, Anion Gap 10, Blood Urea Nitrogen 19H, Creatinine 1.43H, Estimat Glomerular Filtration Rate 49, BUN/Creatinine Ratio 13, Glucose Level 101, Calcium Level 9.2, Corrected Calcium 9.6, Total Bilirubin 1.2H, Aspartate Amino Transf (AST/SGOT) 19, Alanine Aminotransferase (ALT/SGPT) 23, Alkaline Phosphatase 332H, Total Protein 6.5, Albumin 3.5 Pending Labs Laboratory Tests 06/29/21 05:20: White Blood Count 8.8, Red Blood Count 5.09, Hemoglobin 14.5, Hematocrit 45, Mean Corpuscular Volume 89, Mean Corpuscular Hemoglobin 29, Mean Corpuscular Hemoglobin Concent 32, Red Cell Distribution Width 13.9, Platelet Count 241, Mean Platelet Volume 10.2, Immature Granulocyte % (Auto) 1, Neutrophils (%) (Au to) 72, Lymphocytes (%) (Auto) 15, Monocytes (%) (Auto) 11, Eosinophils (%) (Auto) 2, Basophils (%) (Auto) 1, Neutrophils # (Auto) 6.4, Lymphocytes # (Auto) 1.3, Monocytes # (Auto) 0.9, Eosinophils # (Auto) 0.1, Basophils # (Auto) 0.0, Immature Granulocyte # (Auto) 0.1, Sodium Level 141, Potassium Level 4.2, Chloride Level 108, Carbon Dioxide Level 25, Anion Gap 8, Blood Urea Nitrogen 31, Creatinine 1.37, Estimat Glomerular Filtration Rate 51, BUN/Creatinine Ratio 23, Glucose Level 100, Calcium Level 9.8, Corrected Calcium 10.1, Total Bilirubin 1.3, Aspartate Amino Transf (AST/SGOT) 30, Alanine Aminotransferase (ALT/SGPT) 46, Alkaline Phosphatase 322, Total Protein 6.8, Albumin 3.6, Triglycerides Level 74, Cholesterol Level 100, LDL Cholesterol Direct 66, VLDL Cholesterol 15, HDL Cholesterol 26 07/02/21 06:07: Sodium Level 141, Potassium Level 4.3, Chloride Level 110, Carbon Dioxide Level 23, Anion Gap 8, Blood Urea Nitrogen 27, Creatinine 1.22, Estimat Glomerular Filtration Rate 59, BUN/Creatinine Ratio 22, Glucose Level 102, Calcium Level 9.1 07/03/21 05:45: White Blood Count 8.2, Red Blood Count 4.84, Hemoglobin 13.9, Hematocrit 42, Mean Corpuscular Volume 88, Mean Corpuscular Hemoglobin 29, Mean Corpuscular Hemoglobin Concent 33, Red Cell Distribution Width 14.0, Platelet Count 234, Mean Platelet Volume 10.7, Immature Granulocyte % (Auto) 1, Neutrophils (%) (Auto) 70, Lymphocytes (%) (Auto) 16, Monocytes (%) (Auto) 11, Eosinophils (%) (Auto) 2, Basophils (%) (Auto) 1, Neutrophils # (Auto) 5.8, Lymphocytes # (Auto) 1.3, Monocytes # (Auto) 0.9, Eosinophils # (Auto) 0.2, Basophils # (Auto) 0.0, Immature Granulocyte # (Auto) 0.0, Sodium Level 141, Potassium Level 4.3, Chloride Level 109, Carbon Dioxide Level 23, Anion Gap 9, Blood Urea Nitrogen 28, Creatinine 1.32, Estimat Glomerular Filtration Rate 54, BUN/Creatinine Ratio 21, Glucose Level 100, Calcium Level 9.2, Corrected Calcium 9.6, Total Bilirubin 0.9, Aspartate Amino Transf (AST/SGOT) 20, Alanine Aminotransferase (ALT/SGPT) 30, Alkaline Phosphatase 320, Total Protein 6.5, Albumin 3.5 07/06/21 05:43: Glucometer 164 07/10/21 06:15: White Blood Count 7.2, Red Blood Count 4.62, Hemoglobin 13.5, Hematocrit 40, Mean Corpuscular Volume 87, Mean Corpuscular Hemoglobin 29, Mean Corpuscular Hemoglobin Concent 34, Red Cell Distribution Width 13.9, Platelet Count 219, Mean Platelet Volume 10.8, Immature Granulocyte % (Auto) 0, Neutrophils (%) (Auto) 70, Lymphocytes (%) (Auto) 17, Monocytes (%) (Auto) 11, Eosinophils (%) (Auto) 2, Basophils (%) (Auto) 1, Neutrophils # (Auto) 5.0, Lymphocytes # (Auto) 1.2, Monocytes # (Auto) 0.8, Eosinophils # (Auto) 0.1, Basophils # (Auto) 0.1, Immature Granulocyte # (Auto) 0.0, Sodium Level 138, Potassium Level 4.2, Chloride Level 106, Carbon Dioxide Level 22, Anion Gap 10, Blood Urea Nitrogen 19, Creatinine 1.43, Estimat Glomerular Filtration Rate 49, BUN/Creatinine Ratio 13, Glucose Level 101, Calcium Level 9.2, Corrected Calcium 9.6, Total Bilirubin 1.2, Aspartate Amino Transf (AST/SGOT) 19, Alanine Aminotransferase (ALT/SGPT) 23, Alkaline Phosphatase 332, Total Protein 6.5, Albumin 3.5 Discharge Home Medications: Active Scripts Active Famotidine 20 Mg Tablet 20 Mg PO DAILY Losartan Potassium 50 Mg Tablet 50 Mg PO DAILY Amlodipine Besylate 10 Mg Tablet 10 Mg PO DAILY Lipitor (Atorvastatin Calcium) 40 Mg Tablet 40 Mg PO HS Eliquis (Apixaban) 5 Mg Tablet 5 Mg PO BID Instructions to patient/family Please see electronic discharge instructions given to patient. Diagnosis/Problems Diagnosis/Problems (1) Paroxysmal atrial fibrillation Assessment & Plan: This was most likely the cause of the patient's cerebrovascular accident. He had episodic paroxysmal atrial fibrillation at the outside hospital as well as in our facility. He was also having some intermittent bradycardia at the outside hospital. Heart rates are presently controlled on no AV daisha blocking agents. I recommend we continue the patient on apixaban for recurrent stroke prophylaxis. His echocardiogram from [place] showed a normal ejection fraction with mild left atrial enlargement with only mild mitral regurgitation. After about 6 weeks from the initial event, I will plan on a cardioversion as an outpatient. Once he is back in a sinus rhythm, I will plan on a nuclear stress test to exclude underlying coronary ischemia as a possible inciting event for the atrial fibrillation. At this point in time, there are no acute, active cardiac issues. As such, cardiology will sign off. I will ask nursing to get the patient an office visit to see me in 1 month. Please call if you have other questions or concerns. (2) Sinus bradycardia Assessment & Plan: He was having intermittent bradycardia at the outside hospital as outlined above. I suspect he has some degree of AV daisha dysfunction since he did not develop tachycardia with the atrial fibrillation. If he needs adjustment to his medication for hypertension, I would recommend we avoid using beta-blockers, diltiazem or verapamil. Heart rates have been stable here. There is no indication for permanent pacemaker at this time. (3) Primary hypertension Assessment & Plan: Blood pressure is improved with the combination of amlodipine and losartan. This is a new diagnosis for the patient although he had not seen a physician in a number of years prior to this recent stroke. If he needs additional adjustment to his medication for the hypertension, avoid AV daisha blocking agents or any agents that could worsen his underlying bradycardia. (4) Mixed hyperlipidemia Assessment & Plan: I recommend he continue on statin medication in light of the acute cerebrovascular accident. He should have a follow-up lipid panel in about 2-3 months. (5) Chronic kidney disease, stage 3 Assessment & Plan: This is yet another new diagnosis for the patient. The losartan should help delay progression of disease. (6) History of cerebrovascular accident with residual deficit Assessment & Plan: As above, I suspect the atrial fibrillation led to the patient's cerebrovascular accident since this was noted early in his hospitalization at the outside facility. (7) Morbid obesity Assessment & Plan: He will need to work on weight loss once he gets his strength back. (8) Aortic regurgitation Assessment & Plan: This was an incidental finding on the outside echocardiogram. This is in a mild range and most likely had nothing to do with the present situation. This should be followed longitudinally after discharge. (9) Mitral regurgitation Assessment & Plan: This was another incidental finding on his echocardiogram. This is mild but will need to be followed longitudinally. TOBIAS BUTCHER DO Jul 14, 2021 05:55
--- NOTE | 2021-07-14 05:55 | D/C HH Face to Face Order ---
D/C Face to Face Orders Reconcile Patient Problems Problems Reviewed?: Yes Instructions for Patient Via [facility], Patient Instructions/FollowUp: Dr Black as scheduled Needs sleep study Physician to follow Patient: Wayne Discharge Diet for Home: Cardiac Diet Patient Problems: CVA AF Patient Data-Allergies,Ht & Wt Patient Allergies: Coded Allergies: No Known Allergies (Verified Allergy, Unknown, 06/30/21) Home Health Need/Face to Face Date of Face to Face: Jul 14, 2021 Clinical Findings: Generalized weakness and fatigue, Instability, Muscle weakness I have seen Pt [id number]: Yes Discharged To: Home Diagnosis/Conditions: CVA Patient is Homebound due to: CognItive deficits, Cherie fall risk due to instabilty, Muscle weakness Homebound Status Due to the above stated illness, injury or surgical procedure (medical condition or diagnosis) and associated clinical findings, the patient is homebound because of his/her inability to leave home except with aid of a supportive device and/or person AND leaving the home requires a considerable and taxing effort or is medically contraindicated. Pt req the following assistanc: Walker Home Health Nursing Orders Home Health Services Order: Nursing Services, Senior Ssis Developer-Evaluate & Treat, Physical Therapy-Evaluate & Treat, Speech Language-Evaluate & Treat Certify Stmt I certify that this patient is under my care and that I, a nurse practitioner or a physician; a events and promotions assistant working with me, had a face to face encounter that - meets the physician face to face encounter requirements with this patient as dated. TOBIAS BUTCHER DO Jul 14, 2021 05:55
[2021-07-14 07:33] VITALS: BP 142/60
[2021-07-14] MEDS: FAMOTIDINE 20 MG (PEPCID) TABLET PO SCH (09:12)
[2021-07-14] MEDS: APIXABAN 5 MG (ELIQUIS) TABLET PO SCH (09:12)
[2021-07-14] MEDS: amLODIPine 10 MG (NORVASC) TAB PO SCH (09:12)
[2021-07-14] MEDS: LOSARTAN 50 MG (COZAAR) TAB PO SCH (09:12)
[2021-07-14] MEDS: MICONAZOLE 2% POWDER (DESENEX AF) 90 GM TOP SCH (09:50)
[2021-07-14] MEDS: DOCUSATE SODIUM 100 MG (COLACE) CAP PO SCH (09:50)
[2021-07-14] MEDS: MILK OF MAGNESIA 400 MG/5 ML 30 ML UDC PO SCH (09:50)
[2021-07-14] MEDS: NYSTATIN OINTMENT 30 GM TUBE TOP SCH (09:50)
[2021-07-14] MEDS: SENNA W/DOCUSATE (SENOKOT S) TABLET PO SCH (09:50)
[2021-07-14 10:00] VITALS: BP 142/60
--- NOTE | 2021-07-14 10:58 | Therapy Team Discharge Summary ---
Therapy Discharge Summary Discharge Recommendations Date of Discharge Jul 14, 2021 at 10:06 Physical Therapy Patient came to rehab following a CVA. Upon evaluation patient performed bed mobility with SBA, supine <-> sit mod assist, sit <-> stand min assist, transfers min assist, car transfer min assist, ambulate 120' with a rolling walker with min assist (including 50' with at least 2 turns of 90 degrees). Patient has been performing bed mobility and transfer training, balance and endurance training ,functional strengthening, stair training, gait training, and education. Patient has made good progress and has met all of his intermediate goals. Now, patient performs bed mobility and transfers with independence, independent with car transfer, ambulates 250' with a rolling walker with independence (including 50' with at least 2 turns of 90 degrees and 10' over an uneven surface), can go up and down 8 steps using 2 handrails with independence, and can sheepskin pickler an object from the floor using a brick kiln worker with CGA. Patient has been discharged from this facility and will be discharged from PT at this time. Occupational Therapy Decreased Activ Tolerance, Decreased UE Strength, Impaired Funct Balance, Impaired I ADL's, Impaired Self-Care Skills, Restricted Funct UE ROM PT Exhibit Designer Goals Intermediate Goals PT Exhibit Designer Goals Time Frame: Jul 19, 2021 Roll Left to Right (QC): 6 Sit to Lying (QC): 6 Lying-Sitting on Side/Bed(QC): 6 Sit to Stand (QC): 4 (SBA) Chair/Qiv-ed-Phnmh Xfer(QC): 4 (SBA) Car Transfer (QC): 4 (SBA) Does the Patient Walk: Yes Walk 10 feet (QC): 4 (SBA) Walk 10ft-Uneven Surface(QC): 4 (SBA) Walk 50ft with 2 Turns (QC): 4 (SBA) Walk 150 ft (QC): 4 (SBA) Wheel 50 feet with 2 turns (QC: 9 1 Step (curb) (QC): 4 (CGA) 4 Steps (QC): 4 (CGA) 12 Steps (QC): 88 Picking up an Object (QC): 4 (CGA) OT Exhibit Designer Goals Exhibit Designer Goals Time Frame: Jul 21, 2021 Eating (QC): 6 Oral Hygiene (QC): 6 Shower/Bathe Self (QC): 6 Upper Body Dressing (QC): 6 Lower Body Dressing (QC): 6 On/Off Footwear (QC): 6 Toileting Hygiene (QC): 6 Toilet/Commode Transfer (QC): 4 (SBA) Additional Goals: 1-Demonstrate ADL Tasks, 2-Verbalize Understanding, 3- ImproveStrength/Tenzin 1=Demonstrate adherence to instructed precautions during ADL tasks. 2=Patient will verbalize/demonstrate understanding of assistive devices/modifications for ADL. 3=Patient will improve strength/tolerance for activity to enable patient to perform ADL's. Speech Intermediate Goals Exhibit Designer Goals The pt will be able to communicate during daily activities without difficulty with 90% accy. MONTRELL DIALLO PT Jul 14, 2021 10:58
--- NOTE | 2021-07-14 14:24 | Therapy Team Discharge Summary ---
Therapy Discharge Summary Discharge Recommendations Date of Discharge Jul 14, 2021 at 10:06 Occupational Therapy Pt admitted to ARU s/p CVA. At PLOF, pt was independent with ADLs and functional mobility, no AD/AE. Upon initial evaluation, pt required set up assistance with eating, supervision with oral care, min A showering, mod A upper body dressing, max A lower body dressing, max A footwear and max A toileting. OT Tx focused on increasing BUE strength and activity tolerance, neuromuscular reeducation of RUE, and increasing safety and independence with ADLs and functional mobility. At discharge, pt was independent with eating, required supervision with oral care and showering, set up upper body dressing, SBA lower body dressing, SBA footwear and SBA toileting. Pt made functional progress towards goals, but only attained LTG of eating. OT recommendations include home health OT, shower chair, grab bars and a hip kit. Pt discharged from facility, d/c from OT. Decreased Activ Tolerance, Decreased UE Strength, Impaired Funct Balance, Impaired I ADL's, Impaired Self-Care Skills, Restricted Funct UE ROM PT Intermediate Goals [employer] Goals PT Intermediate Goals Time Frame: Jul 19, 2021 Roll Left to Right (QC): 6 Sit to Lying (QC): 6 Lying-Sitting on Side/Bed(QC): 6 Sit to Stand (QC): 4 (SBA) Chair/Mpt-jf-Cljgl Xfer(QC): 4 (SBA) Car Transfer (QC): 4 (SBA) Does the Patient Walk: Yes Walk 10 feet (QC): 4 (SBA) Walk 10ft-Uneven Surface(QC): 4 (SBA) Walk 50ft with 2 Turns (QC): 4 (SBA) Walk 150 ft (QC): 4 (SBA) Wheel 50 feet with 2 turns (QC: 9 1 Step (curb) (QC): 4 (CGA) 4 Steps (QC): 4 (CGA) 12 Steps (QC): 88 Picking up an Object (QC): 4 (CGA) OT Intermediate Goals Intermediate Goals Time Frame: Jul 21, 2021 Eating (QC): 6 (met) Oral Hygiene (QC): 6 (not met) Shower/Bathe Self (QC): 6 (not met) Upper Body Dressing (QC): 6 (not met) Lower Body Dressing (QC): 6 (not met) On/Off Footwear (QC): 6 (not met) Toileting Hygiene (QC): 6 (not met) Toilet/Commode Transfer (QC): 4 (SBA) Additional Goals: 1-Demonstrate ADL Tasks, 2-Verbalize Understanding, 3- ImproveStrength/Tenzin 1=Demonstrate adherence to instructed precautions during ADL tasks. 2=Patient will verbalize/demonstrate understanding of assistive devices/modifications for ADL. 3=Patient will improve strength/tolerance for activity to enable patient to perform ADL's. Speech Intermediate Goals Intermediate Goals The pt will be able to communicate during daily activities without difficulty with 90% accy. JAZIEL ROCHA OT Jul 14, 2021 14:24
== END 2021-07-14 10:06 | disposition home health service (06) | DRG 57 ==
PROVIDERS: ADMIT Internal Medicine; ATTEND Internal Medicine
DX: I69.351 Hemiplegia and hemiparesis following cerebral infarction affecting right dominant side (principal); Z68.41 Body mass index [BMI] 40.0-44.9, adult; I69.320 Aphasia following cerebral infarction; I69.392 Facial weakness following cerebral infarction; I48.0 Paroxysmal atrial fibrillation; R32 Unspecified urinary incontinence; R00.1 Bradycardia, unspecified; E78.2 Mixed hyperlipidemia; E66.01 Morbid (severe) obesity due to excess calories; I12.9 Hypertensive chronic kidney disease with stage 1 through stage 4 chronic kidney disease, or unspecified chronic kidney disease; N18.30 Chronic kidney disease, stage 3 unspecified; I34.0 Nonrheumatic mitral (valve) insufficiency; R45.87 Impulsiveness; Z79.01 Long term (current) use of anticoagulants
CPT/HCPCS: 36415; 80048; 80053; 80061; 82947; 85025; 93005